=== PATIENT | male | born 1930 | race Caucasian/White ===

== ENCOUNTER 2016-06-06 18:12 | Emergency (ER) | payer MEDICARE ==
[~2016-06-06] VITALS: Ht 162.6 cm; Wt 74.8 kg
[2016-06-06 18:12] VITALS: BP 174/104
[~2016-06-06 18:12] MED LIST: ALPR.25T PO; ALPR0.2550; AMOX500C2 PO; ASP81CT PO; ASP81TEC PO; ASPI-84; ASPI81TA16 PO; AZIT-21 PO; BENZ200C25 PO; CEFD300C3 PO; CEFU500T5 PO; CLOP75TA; CLOP75TA PO; DCS100C PO; DOCU-143 PO; DOCU50CA2 PO; ENAL5TAB; ENAL5TAB PO; FOLI0.4T2 PO; FURO40TA4; FURO40TA4 PO; HYDR-757 PO; LISI10TA PO; LISI40TA PO; METO-272 PO; METO25TA PO; METO50TA7; MTP50T PO; OMEP-10; OMEP-10 PO; OMEP20CA12 PO; OMEP20TA2 PO; PANT20TA PO; PANT40SU PO; POTA10CA43; POTA10CA43 PO; POTA10PI PO; POTA10TA21 PO; RANI150T66; SCR1T1 PO; SIMV20TA3; SIMV20TA3 PO; TRAM50TA2; TRAM50TA2 PO
--- OUTSIDE RECORDS SUMMARY | 2016-06-06 18:16 | XMS REPORT | Continuity of Care Document ---
Author Author [facility] Organization [facility] Address Unknown Phone Unavailable Care Team Providers Care Osteologist Name Role Phone NO, LOCAL PHYSICIAN PCP Unavailable Insurance Providers Payer Name Policy Number Subscriber Name Relationship s Medicare [id number] Shelley Blair 18 Self / Same As Patient Advance Directives Directive Response Recorded Date/Time Advance Directives No 12/19/13 6:13pm Health Care Power of Advanced Manufacturing Associate No 12/19/13 6:13pm Organ Donor No 12/19/13 6:13pm Resuscitation Status Full Code 12/19/13 6:13pm Problems Medical Problems Problem Onset Date Status CHRONIC CHEST WALL/STERNUM PAIN POST CABG Unknown Active Cough with hemoptysis Unknown Active Medications Medication Dose Route Sig Days/Qty Instructions Order Date Discontinued Date Status Alprazolam 04/17/09 10/12/09 Discontinued Tramadol Hcl 04/17/09 10/12/09 Discontinued Furosemide (Lasix) 04/17/09 10/12/09 Discontinued Simvastatin 04/17/09 10/12/09 Discontinued Ranitidine Hcl 04/17/09 10/11/09 Discontinued Metoprolol Succinate 04/17/09 05/06/09 Discontinued Aspirin 04/17/09 05/06/09 Discontinued Enalapril Maleate 05/06/09 10/12/09 Discontinued Omeprazole 05/06/09 10/12/09 Discontinued Potassium Chloride 05/06/09 10/12/09 Discontinued Clopidogrel Bisulfate 05/06/09 10/11/09 Discontinued Metoprolol Succinate 05/06/09 10/11/09 Discontinued Aspirin 81 Mg PO 10/11/09 10/12/09 Discontinued Alprazolam 0.25 Mg PO BEDTIME 10/12/09 Active Aspirin 81 Mg PO DAILY 10/12/09 06/18/10 Discontinued Potassium Chloride 10 Meq PO DAILY 10/12/09 10/12/09 Discontinued Furosemide (Lasix) 40 Mg PO DAILY 10/12/09 10/12/09 Discontinued Omeprazole 20 Mg PO DAILY 10/12/09 10/12/09 Discontinued Simvastatin 20 Mg PO BEDTIME 10/12/09 Active Metoprolol Succinate (Toprol Xl) 25 Mg PO TWICE A DAY 10/12/0906/18 Discontinued Tramadol Hcl 50 Mg PO EVERY 6 HOURS PRN 10/12/09 01/08/12 Discontinued Potassium Chloride (Micro K) 10 Meq PO DAILY 10/12/09 10/12/09 Discontinued Enalapril Maleate 15 Mg PO DAILY 10/12/09 01/08/12 Discontinued Omeprazole 20 Mg PO DAILY 10/12/09 06/19/10 Discontinued Sucralfate 1 Gm PO BEFORE MEALS AND AT BEDTIME 10/12/09 02/28/10 Discontinued Clopidogrel Bisulfate 75 Mg PO DAILY 02/28/10 01/08/12 Discontinued Aspirin 81 Mg PO DAILY 06/18/10 Active Metoprolol Succinate 12.5 Mg PO TWICE A DAY 06/18/10 04/16/13 Discontinued Folic Acid 0.4 Mg PO DAILY 06/18/10 Active Potassium Chloride 10 Meq PO DAILY 06/18/10 01/08/12 Discontinued Furosemide (Lasix) 40 Mg PO DAILY 06/18/10 01/08/12 Discontinued Docusate Sodium 50 Mg PO DAILY PRN 06/18/10 08/08/13 Discontinued Pantoprazole Sodium 40 Mg PO DAILY 06/19/10 01/08/12 Discontinued Cefuroxime Axetil (Ceftin) 1 Each PO TWICE A DAY 5 Days 06/19/1001/07 Discontinued Lisinopril 40 Mg PO DAILY 01/08/12 Active Omeprazole 1 Cap PO DAILY 30 Qty 01/08/12 04/16/13 Discontinued Metoprolol Tartrate (Lopressor) 50 Mg PO DAILY 04/16/13 Active Pantoprazole Sodium 20 Mg PO DAILY 04/16/13 12/19/13 Discontinued Tramadol Hcl 50 Mg PO BEDTIME 04/16/13 12/19/13 Discontinued Hydrocodone Bit/Acetaminophen 1 Ea PO EVERY 6 HOURS PRN MILD PAIN 10 Qty 07/23/13 12/19/13 Discontinued Social History Social History Problem Response Recorded Date/Time Alcohol Use Past History 12/19/2013 6:13pm Recreational Drug Use No 12/19/2013 6:13pm Smoking Status Former Smoker 12/19/2013 6:13pm Query Response Start Date Stop Date Smoking Status Former Smoker Hospital Discharge Instructions No hospital discharge instructions. Plan of Care No plan of care. Functional Status No functional status results. Allergies, Adverse Reactions, Alerts Allergen Type Severity Reaction Status Last Updated No Known Drug Allergies Active 05/07/09 Immunizations Name Given Type Date of Pneumonia Vaccine 01/19/12 Historical Date of Influenza Vaccine 02/18/13 Historical Vital Signs Acute Vital Signs Vital Response Date/Time Temperature (Fahrenheit) 97.4 degrees F (97.6 - 99.5) Temperature (Calculated Celsius) 36.33486 degrees C (36.4 - 37.5) Temperature Source Temporal Pulse Rate (adult) 58 bpm (60 - 90) Respiratory Rate 18 bpm (12 - 24) O2 Sat by Pulse Oximetry 98 % (88 - 100) Blood Pressure 136/94 mm Hg Pain Pain Intensity 0 Height (Feet) 5 feet Height (Inches) 7.00 inches Height (Calculated Centimeters) 170.168122 cm Weight (Pounds) 160 pounds Weight (Calculated Grams) 39964.780 gm Weight (Calculated Kilograms) 72.334783 kilograms Calculated BMI 21.09 Results Test Source Date Result Interp. Ref. Range Comments Activated Partial Thromboplast Time December 19, 2013 7:00pm 39 SEC H 24-35 Alanine Aminotransferase (ALT/SGPT) December 19, 2013 7:00pm 31 U/L N 0 -55 Albumin December 19, 2013 7:00pm 3.8 G/DL N 3.2-4.5 Alkaline Phosphatase December 19, 2013 7:00pm 55 U/L N 40-136 Amylase Level April 18, 2009 2:17pm 38 U/L N 25-115 Comments to Nanoscience Technician: MAY USE BLOOD IN LAB Aspartate Amino Transf (AST/SGOT) December 19, 2013 7:00pm 36 U/L H 5- 34 B-Type Natriuretic Peptide April 18, 2009 3:37am 82.6 PG/ML N 5.0- 100.0 BUN/Creatinine Ratio December 19, 2013 7:00pm 28 - Basophils # (Auto) December 19, 2013 7:00pm 0.0 10^3/uL N 0.0-0.1 Basophils (%) (Auto) December 19, 2013 7:00pm 0 % N 0-10 Blood Urea Nitrogen December 19, 2013 7:00pm 37 MG/DL H 7-18 C-Reactive Protein April 18, 2009 3:37am < 0.2 MG/DL L 0.2-0.9 Calcium Level December 19, 2013 7:00pm 9.6 MG/DL N 8.5-10.1 Carbon Dioxide Level December 19, 2013 7:00pm 21 MMOL/L N 21-32 Chloride Level December 19, 2013 7:00pm 109 MMOL/L H 98-107 Cholesterol Level January 23, 2011 5:58am 110 MG/DL N -200 Creatine Kinase MB April 16, 2013 10:15am 4.2 NG/ML H 0.0-3.6 Creatinine December 19, 2013 7:00pm 1.31 MG/DL H 0.60-1.30 Direct Bilirubin January 06, 2006 8:22am 0.3 MG/DL N 0.0-0.30 Eosinophils # (Auto) December 19, 2013 7:00pm 0.1 10^3/uL N 0.0-0.3 Eosinophils (%) (Auto) December 19, 2013 7:00pm 2 % N 0-10 Free Thyroxine July 10, 2005 8:23am 0.64 NG/DL N 0.59-1.17 Glucose Level December 19, 2013 7:00pm 101 MG/DL N 70-105 HDL Cholesterol January 23, 2011 5:58am 48 MG/DL N 35-60 Hematocrit December 19, 2013 7:00pm 35 % L 40-54 Hemoglobin December 19, 2013 7:00pm 12.3 G/DL L 13.3-17.7 Indirect Bilirubin January 06, 2006 8:22am 0.8 MG/DL - LDL Cholesterol January 23, 2011 5:58am 47 MG/DL N 0-129 Lipase April 18, 2009 2:17pm 178 U/L N 114-286 Comments to Nanoscience Technician: MAY USE BLOOD IN LAB Lymphocytes # (Auto) December 19, 2013 7:00pm 2.8 X 10^3 N 1.0-4.0 Lymphocytes (%) (Auto) December 19, 2013 7:00pm 51 % H 12-44 Magnesium Level April 16, 2013 10:15am 2.2 MG/DL N 1.8-2.4 Mean Corpuscular Hemoglobin December 19, 2013 7:00pm 36 PG H 25-34 Mean Corpuscular Hemoglobin Concent December 19, 2013 7:00pm 35 G/DL N 32-36 Mean Corpuscular Volume December 19, 2013 7:00pm 104 FL H 80-99 Mean Platelet Volume December 19, 2013 7:00pm 9.7 FL N 7.4-10.4 Monocytes # (Auto) December 19, 2013 7:00pm 0.4 X 10^3 N 0.0-1.0 Monocytes (%) (Auto) December 19, 2013 7:00pm 7 % N 0-12 Myoglobin June 23, 2010 7:50am 140 UG/L H 10-92 Neutrophils # (Auto) December 19, 2013 7:00pm 2.3 X 10^3 N 1.8-7.8 Neutrophils (%) (Auto) December 19, 2013 7:00pm 41 % L 42-75 Platelet Count December 19, 2013 7:00pm 117 10^3/uL L 130-400 Potassium Level December 19, 2013 7:00pm 4.8 MMOL/L N 3.6-5.0 Prothromb Time International Ratio June 23, 2010 7:50am 1.0 N 0.8-1.4 INTERPRETIVE DATASUGGESTED THERAPEUTIC RANGE FOR INR'S: VENOUS THROMBOSIS, PULMONARY EMBOLISM, OR PREVENTION OF SYSTEMIC EMBOLISM (EG. IN ATRIAL FIBRILLATION): 2.0 - 3.0 MECHANICAL PROSTHETIC HEART VALVES: 2.5 - 3.5* *NOTE: INR'S UP TO 4.5 MAY BE NECESSARY IN SELECTED GROUPS OF HIGH RISK PATIENTS. [employer] OF CHEST PHYSICIANS CONSENSUS CONFERENCE ON ANTITHROMBOTIC THERAPY (2000). Prothrombin Time December 19, 2013 7:00pm 13.7 SEC N 12.2-14.7 Red Blood Count December 19, 2013 7:00pm 3.38 10^6/uL L 4.35-5.85 Red Cell Distribution Width December 19, 2013 7:00pm 12.8 % N 10.0- 14.5 Sodium Level December 19, 2013 7:00pm 143 MMOL/L N 135-145 Thyroid Stimulating Hormone (TSH) October 12, 2009 3:39am 0.77 UIU/ML N 0.34-5.60 Total Bilirubin December 19, 2013 7:00pm 0.8 MG/DL N 0.1-1.0 Total Creatine Kinase April 16, 2013 10:15am 213 U/L H 1-205 Total Protein December 19, 2013 7:00pm 7.2 G/DL N 6.4-8.2 Triglycerides Level January 23, 2011 5:58am 73 MG/DL N 30.0-150.0 Troponin I April 16, 2013 10:15am < 0.10 NG/ML 0.00-0.10 Urine Amorphous Sediment May 06, 2009 3:25pm RARE AMBERLY URATES H - Has specimen been collected/obtained? YSpecimen Description CLEAN CATCH Urine Bacteria May 06, 2009 3:25pm TRACE - Has specimen been collected/obtained? YSpecimen Description CLEAN CATCH Urine Bilirubin May 06, 2009 3:25pm NEGATIVE - Has specimen been collected/obtained? YSpecimen Description CLEAN CATCH Urine Casts May 06, 2009 3:25pm NONE - Has specimen been collected/obtained? YSpecimen Description CLEAN CATCH Urine Clarity May 06, 2009 3:25pm CLEAR - Has specimen been collected/obtained? YSpecimen Description CLEAN CATCH Urine Color May 06, 2009 3:25pm YELLOW - Has specimen been collected/obtained? YSpecimen Description CLEAN CATCH Urine Crystals May 06, 2009 3:25pm NONE - Has specimen been collected/obtained? YSpecimen Description CLEAN CATCH Urine Culture Indicated May 06, 2009 3:25pm NO - Has specimen been collected/obtained? YSpecimen Description CLEAN CATCH Urine Glucose (UA) May 06, 2009 3:25pm NEGATIVE - Has specimen been collected/obtained? YSpecimen Description CLEAN CATCH Urine Ketones May 06, 2009 3:25pm NEGATIVE - Has specimen been collected/obtained? YSpecimen Description CLEAN CATCH Urine Leukocyte Esterase May 06, 2009 3:25pm NEGATIVE - Has specimen been collected/obtained? YSpecimen Description CLEAN CATCH Urine Mucus May 06, 2009 3:25pm SMALL H - Has specimen been collected/obtained? YSpecimen Description CLEAN CATCH Urine Nitrite May 06, 2009 3:25pm NEGATIVE - Has specimen been collected/obtained? YSpecimen Description CLEAN CATCH Urine Protein May 06, 2009 3:25pm NEGATIVE - Has specimen been collected/obtained? YSpecimen Description CLEAN CATCH Urine RBC May 06, 2009 3:25pm NONE /HPF - Has specimen been collected/obtained? YSpecimen Description CLEAN CATCH Urine Specific [place] May 06, 2009 3:25pm 1.015 L - Has specimen been collected/obtained? YSpecimen Description CLEAN CATCH Urine Squamous Epithelial Cells May 06, 2009 3:25pm RARE - Has specimen been collected/obtained? YSpecimen Description CLEAN CATCH Urine Urobilinogen May 06, 2009 3:25pm NORMAL MG/DL - Has specimen been collected/obtained? YSpecimen Description CLEAN CATCH Urine WBC May 06, 2009 3:25pm RARE /HPF - Has specimen been collected/obtained? YSpecimen Description CLEAN CATCH Urine pH May 06, 2009 3:25pm 6.5 - Has specimen been collected/ obtained? YSpecimen Description CLEAN CATCH VLDL Cholesterol January 23, 2011 5:58am 15 MG/DL N 5-40 White Blood Count December 19, 2013 7:00pm 5.6 10^3/uL N 4.3-11.0 Pathology Consult Specimen August 04, 2005 12:56am See report - Has specimen been collected/obtained? Y Pro-B-Type Natriuretic Peptide April 16, 2013 10:15am 245.6 PG/ML N - 450 Lab Scanned Report June 23, 2010 7:23am Referred Lab Report [id number] - Estimat Glomerular Filtration Rate December 19, 2013 7:00pm 52 - GFR INTERPRETIVE DATA UNITS FOR ESTIMATED GFR (eGFR): mL/min/1.73 M2 REFERENCE RANGE FOR ESTIMATED GFR (eGFR) eGFR NORMAL eGFR >60 MODERATELY DECREASED eGFR 30-59 SEVERLY DECREASED eGFR 15-29 KIDNEY FAILURE <15 (OR DIALYSIS) Creatine Kinase June 23, 2010 7:50am 144 mg/dl N 21-170 Cardiac Panel Pathologist Review June 23, 2010 7:50am SEE CARDIAC PATH REV - Urine RBC (Auto) May 06, 2009 3:25pm NEGATIVE - Has specimen been collected/obtained? YSpecimen Description CLEAN CATCH INR Comment December 19, 2013 7:00pm 1.1 N 0.8-1.4 INTERPRETIVE DATASUGGESTED THERAPEUTIC RANGE FOR INR'S: VENOUS THROMBOSIS, PULMONARY EMBOLISM, OR PREVENTION OF SYSTEMIC EMBOLISM (EG. IN ATRIAL FIBRILLATION): 2.0 - 3.0 MECHANICAL PROSTHETIC HEART VALVES: 2.5 - 3.5* *NOTE: INR'S UP TO 4.5 MAY BE NECESSARY IN SELECTED GROUPS OF HIGH RISK PATIENTS. [employer] CHEST PHYSICIANS CONSENSUS CONFERENCE ON ANTITHROMBOTIC THERAPY (2000). MRSA Screen Nasal August 08, 2013 2:05pm MRSA not isolated Procedures No known history of procedures. Encounters Encounter Location Date/Time Departed Emergency Room Via [facility] 12/19/13 5:53pm Recent Diagnosis
[2016-06-06] MEDS ORDERED: ASPIRIN 81 MG CHEW (CHILDREN'S ASA) PO ONE (18:30)
[2016-06-06] MEDS ORDERED: RX-NITROGLYCERIN 0.4 MG TAB BTL 25'S SL PRN (18:30)
[2016-06-06 18:34] LABS: BASOPHILS % (AUTO) 0 % (0-10); EOSINOPHILS # (AUTO) 0.1 10^3/uL (0.0-0.3); EOSINOPHILS % (AUTO) 1 % (0-10); LYMPHOCYTES # (AUTO) 3.6 X 10^3 (1.0-4.0); LYMPHOCYTES % (AUTO) 61 % (12-44); MEAN CORPUSCULAR HEMOGLOBIN 36 PG (25-34); MEAN CORPUSCULAR HGB CONC 34 G/DL (32-36); MEAN CORPUSCULAR VOLUME 104 FL (80-99); MEAN PLATELET VOLUME 10.1 FL (7.4-10.4); MONOCYTES # (AUTO) 0.4 X 10^3 (0.0-1.0); MONOCYTES % (AUTO) 6 % (0-12); NEUTROPHILS # (AUTO) 1.9 X 10^3 (1.8-7.8); NEUTROPHILS % (AUTO) 31 % (42-75); PLATELET COUNT 120 10^3/uL (130-400); RED BLOOD COUNT 3.79 10^6/uL (4.35-5.85); RED CELL DISTRIBUTION WIDTH 13.7 % (10.0-14.5); WHITE BLOOD COUNT 5.9 10^3/uL (4.3-11.0)
--- NOTE | 2016-06-06 18:51 | Diagnostic Imaging Report ---
Clinical indication: Patient complains of chest pain. Exam: Portable chest x-ray, upright view. Comparison: Chest x-ray dated 01/14/2016. Findings: There is stable low lung volumes and elevation of the right hemidiaphragm. There is suspected bibasilar atelectasis. There is no pneumothorax or pleural effusion. Pulmonary vasculature and cardiac silhouette are within normal limits. Stable postop changes to the chest consistent with CABG. Stable cardiac pacemaker overlying the left chest. The remainder of this exam shows no significant interval change compared to the prior study of comparison. Impression: 1: Stable chest x-ray exam with low lung volumes and suspected bibasilar atelectasis. Stable elevation of the right hemidiaphragm. 2: Stable postop changes to the chest. Dictated by: Dictated on workstation # [id number]
[2016-06-06] MEDS ORDERED: KETOROLAC 30 MG/ML VIAL IVP STA (18:55)
[2016-06-06 18:56] LABS: ALANINE AMINOTRANSFERASE 23 U/L (0-55); AMYLASE 37 U/L (25-125); ANION GAP 11 MMOL/L (5-14); ASPARTATE AMINO TRANSFERASE 29 U/L (5-34); BILIRUBIN,TOTAL 0.7 MG/DL (0.1-1.0); BLOOD UREA NITROGEN 13 MG/DL (7-18); BUN/CREATININE RATIO 13; CALCIUM 8.8 MG/DL (8.5-10.1); CARBON DIOXIDE 24 MMOL/L (21-32); CHLORIDE 105 MMOL/L (98-107); CREATINE KINASE 95 U/L (30-200); CREATININE SERUM 1.01 MG/DL (0.60-1.30); GFR ESTIMATED > 60; GLUCOSE 142 MG/DL (70-105); LIPASE 26 U/L (8-78); MAGNESIUM 2.1 MG/DL (1.8-2.4); POTASSIUM 4.1 MMOL/L (3.6-5.0); SODIUM 140 MMOL/L (135-145); TOTAL PROTEIN 7.1 G/DL (6.4-8.2)
[2016-06-06 19:02] LABS: TROPONIN I < 0.30 NG/ML (<0.30)
--- NOTE | 2016-06-06 19:03 | ED Chest Pain ---
General Chief Complaint: Chest Pain Stated Complaint: CP Nursing Triage Note: AMBUALTED TO ROOM 07 WITH COMPLAINTS OF RIGHT SIDED CHEST PAIN THAT STARTED EARLIER TODAY AND HAS BECAME WORSE OVER THE LAST HOUR. PT POINTS TO A AREA ON THE RIGHT SIDE OF HIS CHEST THAT IS RED. Nursing Sepsis Screen: No Definite Risk Source: patient History of Present Illness Time seen by provider: 18:18 Initial Comments PT ARRIVES VIA POV FROM HOME C/O RIGHT CHEST PAIN ALL DAY, WORSE X 1 HOUR C/O SHORTNESS OF BREATH AND IT HURTS TO BREATHE + SWEATS + NAUSEA, NO VOMITING HAS NON-PRODUCTIVE COUGH HAS A RED SPOT ON RIGHT CHEST THAT IS MAIN AREA OF PAIN PT HAS HISTORY OF CAD AND HAS HAD CABG AND HAS A PACEMAKER PCP: ALON IN [place] TIP TESTER: DR. GUADALUPE--HAS A ROUTINE APPOINTMENT ON THURSDAY AT 10 AM Allergies and Home Medications Allergies Coded Allergies: No Known Drug Allergies (Verified , 02/15/14) Home Medications Alprazolam 0.25 Mg Tablet 0.25 MG PO TID PRN PRN ANXIETY (Reported) Aspirin 81 Mg Tabec 81 MG PO DAILY (Reported) Docusate Sodium 100 Mg Capsule 100 MG PO DAILY PRN PRN CONSTIPATION (Reported) Folic Acid 0.4 Mg Tablet 0.4 MG PO DAILY (Reported) Lisinopril 40 Mg Tablet 20 MG PO DAILY (Reported) TAKE 1/2 (40MG) TABLET Metoprolol Tartrate 50 Mg Tablet 25 MG PO BID (Reported) TAKES 1/2 (50MG) TABLET Pantoprazole Sodium 20 Mg Tablet.dr 20 MG PO DAILY (Reported) Simvastatin 20 Mg Tablet 10 MG PO HS (Reported) TAKE 1/2 (20MG) TABLET Review of Systems Constitutional: diaphoresisNo fever EENTM: No Symptoms Reported Respiratory: See HPI Cough Shortness of Air Cardiovascular: See HPI Chest PainDenies Edema, Denies Lightheadedness, Denies Syncope Gastrointestinal: See HPIDenies Abdominal Pain, NauseaDenies Vomiting Genitourinary: No Symptoms Reported Musculoskeletal: no symptoms reported Skin: see HPI rash Psychiatric/Neurological: No Symptoms Reported Endocrine: No Symptoms Reported Hematologic/Lymphatic: No Symptoms Reported Past [id number]-[id number] Hx Patient Social History Former Smoker/When Quit: May 06, 1982 Recent Foreign Travel: No Contact w/Someone Who Travel: No Recent Infectious Disease Expo: No Recent Hopitalizations: Yes Immunizations Up To Date Date of Pneumonia Vaccine: Jan 19, 2012 Date of Influenza Vaccine: Mar 01, 2014 Seasonal Allergies Seasonal Allergies: No Surgeries HX Surgeries: Yes (HIATAL HERNIA) Surgeries: Abdominal, Cardiac, CABG, Pacemaker Respiratory Hx Respiratory Disorders: Yes Respiratory Disorders: Pneumonia Cardiovascular Hx Cardiac Disorders: Yes (PACEMAKER, TRIPLE BYPASS) Cardiac Disorders: Chronic Edema/Swelling, Coronary Artery Disease, Heart Attack, High Cholesterol, Hypertension, Irregular Heartbeat Neurological Hx Neurological Disorders: No Reproductive System Hx Reproductive Disorders: No Sexually Transmitted Disease: No HIV/AIDS: No Genitourinary Hx Genitourinary Disorders: No Gastrointestinal Hx Gastrointestinal Disorders: Yes Gastrointestinal Disorders: Gastroesophageal Reflux, Hiatal Hernia Musculoskeletal Hx Musculoskeletal Disorders: Yes Musculoskeletal Disorders: Arthritis Endocrine Hx Endocrine Disorders: No HEENT HX ENT Disorders: No (NO TEETH) Loss of Vision: Denies Hearing Impairment: Denies Cancer Hx Cancer: No Psychosocial Hx Psychiatric Problems: Yes Behavioral Health Disorders: Anxiety Integumentary HX Skin/Integumentary Disorder: No Blood Transfusions Hx Blood Disorders: No Adverse Reaction to a Blood Tr: No Physical Exam Vital Signs Vital Sign - Last 12Hours 06/06/16 06/06/16 18:12 18:31 Temp 97.8 Pulse 69 Resp 16 B/P 174/104 Pulse Ox 99 O2 Delivery Room Air O2 Flow Rate 2 Capillary Refill : Less Than 3 Seconds General Appearance: No Apparent Distress WD/WN HEENT: PERRL/EOMI Other (EDENTULOUS) Neck: Full Range of Motion Normal Inspection Non Tender SuppleNo Carotid Bruit , No JVD Respiratory: No Accessory Muscle Use No Respiratory Distress Other (BOWEL SOUNDS AUSCULTATED IN RIGHT MID AND LOWER CHEST. FAINT RALES IN LEFT BASE. RIGHT CHEST WALL TENDERNESS, ESPECIALLY DIRECTLY OVER A GUERO-SIZED AREA OF ERYTHEMA AND PAPULES ) Cardiovascular: No Edema No JVD Normal Peripheral Pulses Systolic Murmur (1/6 ) Irregularly Irregular Gastrointestinal: No Organomegaly No Pulsatile Mass Non Tender Soft Extremity: Normal Capillary Refill Normal Inspection Normal Range of Motion Non Tender No Calf Tenderness Pedal Edema (1+ BILATERALLY) Neurologic/Psychiatric: Alert Oriented x3 No Motor/Sensory Deficits Normal Mood/Affect sausage stuffer II-XII Norm as Tested Skin: Normal Color Warm/Dry Rash ( NOTED ABOVE. ) Progress/Results/Core Measures Results/Orders Lab Results Laboratory Tests Test 06/06/16 18:26 Range/Units Activated Partial Thromboplast Time 36 H 24-35 SEC Alanine Aminotransferase (ALT/SGPT) 23 0-55 U/L Albumin 4.0 3.2-4.5 G/DL Alkaline Phosphatase 81 40-136 U/L Amylase Level 37 25-125 U/L Anion Gap 11 5-14 MMOL/L Aspartate Amino Transf (AST/SGOT) 29 5-34 U/L B-Type Natriuretic Peptide 190.3 H <100.0 PG/ML BUN/Creatinine Ratio 13 Basophils # (Auto) 0.0 0.0-0.1 10^3/uL Basophils (%) (Auto) 0 0-10 % Blood Urea Nitrogen 13 7-18 MG/DL Calcium Level 8.8 8.5-10.1 MG/DL Carbon Dioxide Level 24 21-32 MMOL/L Chloride Level 105 98-107 MMOL/L Creatine Kinase MB 3.7 <6.6 NG/ML Creatinine 1.01 0.60-1.30 MG/DL Eosinophils # (Auto) 0.1 0.0-0.3 10^3/uL Eosinophils (%) (Auto) 1 0-10 % Estimat Glomerular Filtration Rate > 60 Glucose Level 142 H 70-105 MG/DL Hematocrit 40 40-54 % Hemoglobin 13.6 13.3-17.7 G/DL INR Comment 1.0 0.8-1.4 Lipase 26 8-78 U/L Lymphocytes # (Auto) 3.6 1.0-4.0 X 10^3 Lymphocytes (%) (Auto) 61 H 12-44 % Magnesium Level 2.1 1.8-2.4 MG/DL Mean Corpuscular Hemoglobin 36 H 25-34 PG Mean Corpuscular Hemoglobin Concent 34 32-36 G/DL Mean Corpuscular Volume 104 H 80-99 FL Mean Platelet Volume 10.1 7.4-10.4 FL Monocytes # (Auto) 0.4 0.0-1.0 X 10^3 Monocytes (%) (Auto) 6 0-12 % Neutrophils # (Auto) 1.9 1.8-7.8 X 10^3 Neutrophils (%) (Auto) 31 L 42-75 % Platelet Count 120 L 130-400 10^3/uL Potassium Level 4.1 3.6-5.0 MMOL/L Prothrombin Time 13.0 12.2-14.7 SEC Red Blood Count 3.79 L 4.35-5.85 10^6/uL Red Cell Distribution Width 13.7 10.0-14.5 % Sodium Level 140 135-145 MMOL/L Total Bilirubin 0.7 0.1-1.0 MG/DL Total Creatine Kinase 95 30-200 U/L Total Protein 7.1 6.4-8.2 G/DL Troponin I < 0.30 <0.30 NG/ML White Blood Count 5.9 4.3-11.0 10^3/uL My Orders Orders-NORAH HENRIQUEZ DO Amylase (06/06/16 18:19) Cbc With Automated Diff (06/06/16 18:19) Comprehensive Metabolic Panel (06/06/16 18:19) Creatine Kinase (06/06/16 18:19) Creatine Kinase Mb (06/06/16 18:19) Lipase (06/06/16 18:19) Partial Thromboplastin Time (06/06/16 18:19) Protime With Inr (06/06/16 18:19) Troponin I (06/06/16 18:19) Chest 1 View, Ap/Pa Only (06/06/16 18:19) O2 (06/06/16 18:19) Ekg Tracing (06/06/16 18:19) Aspirin Chewable Tablet (Baby Aspirin Ch (06/06/16 18:30) Rx-Nitroglycerin Sl Tabs (Rx-Nitrostat S (06/06/16 18:30) BNP (06/06/16 18:19) Monitor-Rhythm Ecg Trace Only (06/06/16 18:19) Magnesium (06/06/16 18:19) Ketorolac Injection (Toradol Injection) (06/06/16 18:55) Medications Given in ED Current Medications Medications Dose Ordered Sig/Emigdio Route Start Time Stop Time Status Last Admin Dose Admin Aspirin 324 mg ONCE ONCE PO 06/06/16 18:30 06/06/16 18:31 DC 06/06/16 18:35 324 MG Nitroglycerin 0.4 mg UD PRN SL 06/06/16 18:30 06/06/16 19:31 DC 06/06/16 18:36 0.4 MG Vital Signs/I&O Vital Sign - Last 12Hours 06/06/16 06/06/16 18:12 18:31 Temp 97.8 Pulse 69 Resp 16 B/P 174/104 Pulse Ox 99 O2 Delivery Room Air Nasal Cannula O2 Flow Rate 2 Blood Pressure Mean: 127 Progress Note : Progress Note PAIN RESOLVED ON IT'S OWN PT ADAMANTLY REFUSES ADMIT --PT STATES "IF I GO HOME AND , THEN I GO HOME AND " . AMA PAPERS SIGNED. PT ADVISED OF NEED FOR FOLLOW UP AND TO RETURN TO ER IF SYMPTOMS WORSEN ECG Initial ECG Impression Time: 18:22 Initial ECG Rate: 86 Comment DEMAND VENTRICULAR PACED. Diagnostic Imaging Comments CXR--BIBASILAR ATELECTASIS, CHRONIC ELEVATION OF RIGHT DIAPHRAGM. PER RADIOLOGIST REPORT @ 1900 Reviewed: Reviewed by Me Departure Impression Impression: Primary Impression: Chest pain Additional Impressions: POSSIBLE EARLY HERPES ZOSTER Hx of coronary artery disease Disposition: 07 AGAINST MEDICAL ADVICE Condition: Against Medical Advice Departure-Patient Inst. Referrals: NO,LOCAL PHYSICIAN (PCP/Family) Primary Care Physician NORAH HENRIQUEZ DO Jun 06, 2016 19:03
== END 2016-06-06 19:30 | disposition left against medical advice (07) ==
LOC: EDUNIT# 18:12 → ER 18:13
DX: R07.9 Chest pain, unspecified (principal); I10 Essential (primary) hypertension; I25.10 Atherosclerotic heart disease of native coronary artery without angina pectoris; Z79.82 Long term (current) use of aspirin; Z79.899 Other long term (current) drug therapy; Z95.0 Presence of cardiac pacemaker; Z95.1 Presence of aortocoronary bypass graft
CPT/HCPCS: 36415; 71010; 80053; 82150; 82550; 82553; 83690; 83735; 83880; 84484; 85025; 85610; 85730; 93005; 93041; 96374

== ENCOUNTER → 2016-06-17 | Outpatient (CLI) | payer MEDICARE ==
[~2016-06-17] VITALS: Ht 170.2 cm; Wt 74.4 kg
[~2016-06-17] MED LIST changes: +CATHETER FLUSH 10 ML SYR IV PRN; +REGADENOSON 0.4 MG/5 ML SYR (LEXISCAN) IV ONE
--- OUTSIDE RECORDS SUMMARY | 2016-06-17 07:20 | XMS REPORT | Continuity of Care Document ---
Author Author [facility] Organization [facility] Address Unknown Phone Unavailable Care Team Providers Care Vest Tailor Name Role Phone NO, LOCAL PHYSICIAN PCP Unavailable Insurance Providers Payer Name Policy Number Subscriber Name Relationship s Medicare [id number] Shelley Blair 18 Self / Same As Patient Advance Directives Directive Response Recorded Date/Time Advance Directives No 12/19/13 6:13pm Health Care Power of Power Chisel Operator No 12/19/13 6:13pm Organ Donor No 12/19/13 [...] F (97.6 - 99.5) Temperature (Calculated Celsius) 36.54561 degrees C (36.4 - 37.5) Temperature Source Temporal Pulse Rate (adult) 58 bpm (60 - 90) Respiratory Rate 18 bpm (12 - 24) O2 Sat by Pulse Oximetry 98 % (88 - 100) Blood Pressure 136/94 mm Hg Pain Pain Intensity 0 Height (Feet) 5 feet Height (Inches) 7.00 inches Height (Calculated Centimeters) 170.282773 cm Weight (Pounds) 160 pounds Weight (Calculated Grams) 13859.780 gm Weight (Calculated Kilograms) 72.142963 kilograms Calculated BMI 21.09 Results Test Source [...] 2:17pm 38 U/L N 25-115 Comments to Cosmetology Teacher: MAY USE BLOOD IN LAB Aspartate Amino [...] 2:17pm 178 U/L N 114-286 Comments to Cosmetology Teacher: MAY USE BLOOD IN LAB Lymphocytes # [...] SELECTED GROUPS OF HIGH RISK PATIENTS. [employer]ST PH[employer]ICI[employer] CONSENSUS CONFERENCE ON [...] collected/obtained? YSpecimen Description CLEAN CATCH Urine Specific [place] May 06, 2009 3:25pm 1.015 L - [...] June 23, 2010 7:23am Referred Lab Report [id number] - Estimat Glomerular Filtration Rate December 19, [...] SELECTED GROUPS OF HIGH RISK PATIENTS. [employer] CHEST PHYSICIANS CONSENSUS CONFERENCE ON ANTITHROMBOTIC THERAPY (2000). MRSA Screen Nasal August 08, 2013 2:05pm MRSA not isolated Procedures No known history of procedures. Encounters Encounter Location Date/Time Departed Emergency Room Via [facility] 12/19/13 5:53pm Recent Diagnosis
[2016-06-17 09:09] VITALS: BP 122/72
[2016-06-17 09:11] VITALS: BP 140/105
--- NOTE | 2016-06-18 09:59 | STRESS TEST ---
PROCEDURE PHYSICIAN: DENITA SHARMA DATE OF PROCEDURE: 06/17/2016 RESTING AND POST REGADENOSON TECHNETIUM 99M TETROFOSMIN SPECT CT IMAGING: ORDERING PHYSICIAN: Dr. Sharma. CLINICAL DIAGNOSES: 1. Chest discomfort. 2. Coronary artery disease. Baseline images were carried out after injection of 10.59 mCi of technetium 99 tetrofosmin. This was followed by 0.4 mg of regadenoson and 30.9 mCi of technetium 99m tetrofosmin for stress imaging. The electrocardiogram showed sinus rhythm with frequent isolated premature ventricular contractions, sometimes in the bigeminy. The electrocardiogram did not change with the regadenoson infusion. The patient tolerated the procedure well. Review of images rest and following stress, does not indicate any distinct perfusion defects consistent with significant myocardial ischemia or infarction. Some degree of diaphragmatic attenuation is seen both at rest and following regadenoson infusion. Gating could not be carried out due to frequent premature ventricular contractions. CONCLUSIONS: 1. This study does not indicate evidence of significant myocardial ischemia or infarction. 2. Gating could not be carried out due to frequent premature ventricular contractions. Job ID: [id number] Dictated Date: 06/17/2016 16:09:41 Operations Tech Date: 06/18/2016 09:56:18 / kelli
== END ==
LOC: CARD 07:16
PROVIDERS: ATTEND Internal Medicine Cardiovascular Disease
DX: I25.10 Atherosclerotic heart disease of native coronary artery without angina pectoris (principal); R07.89 Other chest pain; I65.23 Occlusion and stenosis of bilateral carotid arteries; I12.9 Hypertensive chronic kidney disease with stage 1 through stage 4 chronic kidney disease, or unspecified chronic kidney disease; N18.9 Chronic kidney disease, unspecified; E78.4 Other hyperlipidemia; Z95.0 Presence of cardiac pacemaker

== ENCOUNTER 2016-11-12 08:50 | Outpatient (RCR) | payer MEDICARE ==
[~2016-11-12 08:50] MED LIST changes: -CATHETER FLUSH 10 ML SYR IV PRN; -REGADENOSON 0.4 MG/5 ML SYR (LEXISCAN) IV ONE
[2016-12-09] MEDS ORDERED: ALPR0.25 PO (09:42)
[2016-12-09] MEDS ORDERED: CEFU250T80 PO (14:06)
== END 2017-01-17 | disposition home or self-care (01) ==
LOC: ONC 08:50
PROVIDERS: ATTEND Internal Medicine Hematology & Oncology
DX: C43.4 Malignant melanoma of scalp and neck (principal); C44.619 Basal cell carcinoma of skin of left upper limb, including shoulder; I25.10 Atherosclerotic heart disease of native coronary artery without angina pectoris; I10 Essential (primary) hypertension; E78.5 Hyperlipidemia, unspecified; M54.9 Dorsalgia, unspecified; F41.9 Anxiety disorder, unspecified; F17.210 Nicotine dependence, cigarettes, uncomplicated; Z95.0 Presence of cardiac pacemaker; Z95.1 Presence of aortocoronary bypass graft; Z99.3 Dependence on wheelchair
CPT/HCPCS: 99214

== ENCOUNTER → 2016-11-20 | Outpatient (CLI) | payer MEDICARE ==
[2016-11-20 07:35] LABS: ALANINE AMINOTRANSFERASE 23 U/L (0-55); ALBUMIN 3.9 GM/DL (3.2-4.5); ANION GAP 8 MMOL/L (5-14); ASPARTATE AMINO TRANSFERASE 26 U/L (5-34); BILIRUBIN,TOTAL 1.8 MG/DL (0.1-1.0); BLOOD UREA NITROGEN 16 MG/DL (7-18); BUN/CREATININE RATIO 19; CALCIUM 9.5 MG/DL (8.5-10.1); CARBON DIOXIDE 26 MMOL/L (21-32); CHLORIDE 106 MMOL/L (98-107); CHOLESTEROL 109 MG/DL (< 200); CREATININE SERUM 0.85 MG/DL (0.60-1.30); DIRECT LDL 54 MG/DL (1-129); GFR ESTIMATED > 60; GLUCOSE 110 MG/DL (70-105); MAGNESIUM 1.7 MG/DL (1.8-2.4); POTASSIUM 4.3 MMOL/L (3.6-5.0); SODIUM 140 MMOL/L (135-145); TOTAL PROTEIN 7.1 GM/DL (6.4-8.2); TRIGLYCERIDES 70 MG/DL (<150); VLDL CHOLESTEROL 14 MG/DL (5-40)
[2016-11-20 07:55] LABS: THYROID STIMULATING HORMONE 1.46 UIU/ML (0.35-4.94)
== END ==
LOC: LAB 06:59
PROVIDERS: ATTEND Internal Medicine Cardiovascular Disease
DX: I25.10 Atherosclerotic heart disease of native coronary artery without angina pectoris (principal); E78.4 Other hyperlipidemia; I65.23 Occlusion and stenosis of bilateral carotid arteries; K21.9 Gastro-esophageal reflux disease without esophagitis; I12.9 Hypertensive chronic kidney disease with stage 1 through stage 4 chronic kidney disease, or unspecified chronic kidney disease; N18.9 Chronic kidney disease, unspecified; Z95.0 Presence of cardiac pacemaker
CPT/HCPCS: 36415; 80053; 80061; 83735; 84443

== ENCOUNTER 2016-12-09 08:41 | Day surgery (SDC) | payer MEDICARE ==
[~2016-12-09] VITALS: Ht 170.2 cm; Wt 63.5 kg
[~2016-12-09 08:41] MED LIST changes: +HEParin (CATH LAB) 1,000 ML IV ONE; +NS IV 1000 ML 1,000 ML ONE; +ceFAZolin 1,000 MG (ANCEF) VIAL ONE
[2016-12-09] MEDS ORDERED: BACITRACIN INJECTION 50,000 UNIT, SODIUM CHLORIDE 0.9% IRRIGATIO 500 ML IR ONE ×2 (09:00)
[2016-12-09] MEDS ORDERED: ceFAZolin 1,000 MG (ANCEF) VIAL IV ONE (09:00)
[2016-12-09 09:22] LABS: MEAN PLATELET VOLUME 10.3 FL (7.4-10.4); RED BLOOD COUNT 3.95 10^6/uL (4.35-5.85); RED CELL DISTRIBUTION WIDTH 13.7 % (10.0-14.5); WHITE BLOOD COUNT 4.1 10^3/uL (4.3-11.0)
[2016-12-09] MEDS ORDERED: NS IV 1000 ML 1,000 ML IV SCH ×2 (09:30→14:01)
[2016-12-09 09:39] LABS: PROTHROMBIN TIME PATIENT 13.3 SEC (12.2-14.7)
[2016-12-09] MEDS ORDERED: ALPR0.25 PO (09:42)
[2016-12-09 09:48] LABS: ALANINE AMINOTRANSFERASE 27 U/L (0-55); ANION GAP 10 MMOL/L (5-14); ASPARTATE AMINO TRANSFERASE 32 U/L (5-34); BILIRUBIN,TOTAL 1.9 MG/DL (0.1-1.0); BLOOD UREA NITROGEN 13 MG/DL (7-18); BUN/CREATININE RATIO 15; CALCIUM 9.3 MG/DL (8.5-10.1); CARBON DIOXIDE 25 MMOL/L (21-32); CHLORIDE 106 MMOL/L (98-107); CHOLESTEROL 110 MG/DL (< 200); CREATININE SERUM 0.88 MG/DL (0.60-1.30); DIRECT LDL 54 MG/DL (1-129); GFR ESTIMATED > 60; GLUCOSE 114 MG/DL (70-105); POTASSIUM 3.4 MMOL/L (3.6-5.0); SODIUM 141 MMOL/L (135-145); TOTAL PROTEIN 7.1 GM/DL (6.4-8.2); TRIGLYCERIDES 74 MG/DL (<150); VLDL CHOLESTEROL 15 MG/DL (5-40)
[2016-12-09] MEDS ORDERED: diphenhydrAMINE 50 MG/ML INJ (BENADRYL) ONE (12:41)
[2016-12-09] MEDS ORDERED: MIDAZOLAM 5 MG/5 ML (VERSED) VIAL ONE (12:41)
[2016-12-09] MEDS ORDERED: fentaNYL INJECTION 100 MCG/2 ML AMP ONE (12:41)
--- NOTE | 2016-12-09 12:57 | Cardiac Procedure Note-CS/ASA ---
Pre-Procedure Note Pre-Op Procedure Note H&P Reviewed The H&P was reviewed, patient examined and no changes noted. Date H&P Reviewed: Dec 09, 2016 Time H&P Reviewed: 12:57 Conscious Sedation Pre-Proced Time Reviewed: 12:57 ASA Class: 2 Airway Mallampati Classification: ([place] appropriate class) I. II. III, IV Lungs Heart ASA score ASA 1: a normal healthy patient ASA 2: a patient with a mild systemic disease (mid diabetes, controlled hypertension, obesity ASA 3: a patient with a severe systemic disease that limits activity (angina , COPD, prior Myocardial infarction) ASA 4: a patient with an incapacitating disease that is a constant threat to life (CHF, renal failure) ASA 5: a moribund patient not expected to survive 24 hrs. (ruptured aneurysm) ASA 6: a declared brain patient whose organs are being harvested. For emergent operations, add the letter E after the classification Grade 2 Sedation Plan: Analgesia, Amnesia, Plan communicated to team members, Discussed options with patient/fam, Discussed risks with patient/fam Note The patient is an appropriate candidate to undergo the planned procedure, sedation, and anesthesia. The patient immediately re-assessed prior to indication. DENITA GUADALUPE MD FACP FAC CCDS Dec 09, 2016 12:57
[2016-12-09] MEDS ORDERED: NEO/POLY/BAC (NEOSPORIN) OINT 15 GM TUBE ONE (13:59)
[2016-12-09] MEDS ORDERED: CEFU250T80 PO (14:06)
--- NOTE | 2016-12-09 14:09 | Discharge Inst-Post Device ---
Discharge Inst-Post Device Follow up/Plan Follow up for wound inspection with Dr Sharma on 12/12/[address] Sharma for office visit and pacemaker interrogation in Dec 2016 Heart Healthy Diet Do not lift arm on side of device placement above head for 4 weeks. Do not push and pull heavy objects for 4 weeks. Activity as tolerated. Leave dressing on until follow up at the office. DENITA SHARMA MD FACP FAC CCDS Dec 09, 2016 14:09
--- NOTE | 2016-12-09 14:10 | Discharge Inst-Cardiology ---
Discharge Inst-Cardiac Discharge Medications New Medications: Cefuroxime Axetil (Cefuroxime) 250 Mg Tablet 250 MG PO BID, #10 TAB 0 Refills Continued Medications: Alprazolam (Xanax) 0.25 Mg Tablet 0.25 MG PO HS, TAB Alprazolam (Xanax) 0.25 Mg Tablet 0.25 MG PO BID PRN for ANXIETY, TAB Aspirin (Aspirin Ec 81 Mg) 81 Mg Tabec 81 MG PO DAILY, TAB Docusate Sodium (Colace) 100 Mg Capsule 100 MG PO DAILY PRN for CONSTIPATION-1ST LINE, CAP Folic Acid (Folic Acid) 0.4 Mg Tablet 0.4 MG PO DAILY, TAB Lisinopril (Prinivil) 40 Mg Tablet 20 MG PO DAILY, TAB TAKE 1/2 (40MG) TABLET Pantoprazole Sodium (Pantoprazole Sodium) 20 Mg Tablet.dr 20 MG PO DAILY, TAB Simvastatin (Simvastatin) 20 Mg Tablet 10 MG PO HS, TAB TAKE 1/2 (20MG) TABLET DENITA GUADALUPE MD FACP FAC CCDS Dec 09, 2016 14:10
[2016-12-09] MEDS ORDERED: PATIENT MAY USE OWN MEDS, ALL PO SCH (14:15)
[2016-12-09 14:28] VITALS: BP 179/84
[2016-12-09 15:00] VITALS: BP 126/91
[2016-12-09 16:00] VITALS: BP 156/95
--- NOTE | 2016-12-09 18:13 | Diagnostic Imaging Report ---
INDICATION: Pacemaker revision. TECHNIQUE: Single view chest 3:35 PM. CORRELATION STUDY: 06/06/2016 FINDINGS: There has been apparent revision of the generator pack. Leads appears generally stable. Patient is poststernotomy. Heart size is enlarged and there is mild pulmonary vascular congestion. There is overall limited depth of inspiration with some crowding of the lung bases. No definitive infiltrate. No pneumothorax. IMPRESSION: 1. Left-sided pacemaker generator revision. Cardiac enlargement with mild pulmonary vascular congestion. Dictated by: Dictated on workstation # [id number]
--- NOTE | 2016-12-17 22:54 | OPERATIVE REPORT ---
DATE OF SERVICE: 12/09/2016 PREOPERATIVE DIAGNOSIS: Pacemaker at end of life. POSTOPERATIVE DIAGNOSIS: Pacemaker at end of life. PROCEDURE: Dual chamber pulse generator change. ESTIMATED BLOOD LOSS: Less than 15 mL. 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 The pulse generator was changed today after having obtained an informed consent. He was brought to the cardiac catheterization laboratory in a fasting state. The left peripectoral area which is the site of previous pacemaker implant. The patient was prepared and draped in the usual sterile fashion. Lidocaine 1% local anesthesia. Sharp and blunt dissection was used to open the pacemaker pocket. Good hemostasis was assured. The pacemaker was removed from the packet and detached from the leads. The leads were functioning normally. He received a new [employer] pacemaker with serial #[id number]. The device was functioning normally. P-wave amplitude is 3.1 mmol. Atrial pacing impedance is normal. Atrial pacing threshold is 1 volt at 0.4 msec. R-wave amplitude is 88.5 mV. Ventricular pacing impedance is 460 ohms. Ventricular pacing threshold is 0.9 volts at 0.4 msec. The pocket was thoroughly irrigated with an antibiotic solution. Good hemostasis was assured. The lead and the new pacemaker were placed in the pocket and the pocket was closed in 2 layers using 3.0 Vicryl. He tolerated the procedure well. Job ID: [id number] DocumentID: [id number] Dictated Date: 12/09/2016 14:18:57 Wellness Specialist Date: 12/09/2016 16:44:48 Dictated By: DENITA GUADALUPE MD, MARY, FACEster, FACC, <Dictated by DENITA GUADALUPE MD, MA, PEACE, KATHERINE, FSCKIT, CCDS> <Electronically signed by DENITA GUADALUPE MD, MA, PEACE, KATHERINE, FSCKIT, CCDS> 12/09/16 [id number]
== END 2016-12-09 17:45 | disposition home or self-care (01) ==
LOC: CATH 08:41 → ICU 14:45 → CATH 17:45
PROVIDERS: ATTEND Nurse Practitioner Family
DX: Z45.010 Encounter for checking and testing of cardiac pacemaker pulse generator [battery] (principal); R00.1 Bradycardia, unspecified; I25.10 Atherosclerotic heart disease of native coronary artery without angina pectoris; E78.5 Hyperlipidemia, unspecified; K21.9 Gastro-esophageal reflux disease without esophagitis; N18.2 Chronic kidney disease, stage 2 (mild); I12.9 Hypertensive chronic kidney disease with stage 1 through stage 4 chronic kidney disease, or unspecified chronic kidney disease; Z79.899 Other long term (current) drug therapy; Z95.1 Presence of aortocoronary bypass graft
CPT/HCPCS: 33228; 36415; 71010; 80053; 80061; 85027; 85610; 85730; 87081; 93005

== ENCOUNTER 2016-12-22 07:33 | Emergency (ER) | payer MEDICARE ==
[~2016-12-22] VITALS: Ht 170.2 cm; Wt 68.0 kg
[~2016-12-22 07:33] MED LIST changes: +ALPR0.25 PO; +CEFU250T80 PO; -HEParin (CATH LAB) 1,000 ML IV ONE; -NS IV 1000 ML 1,000 ML ONE; -ceFAZolin 1,000 MG (ANCEF) VIAL ONE
--- NOTE | 2016-12-22 08:56 | ED Integumentary General ---
General Chief Complaint: Skin/Wound Problems Stated Complaint: RT ARM ABRASION FALL Nursing Triage Note: pt reports he fell this am when getting up to the bathroom. pt reports he cut his r forearm on his blinds. pt has skin tear to r forearm. pt denies hitting head or loc. Source: patient Exam Limitations: no limitations History of Present Illness Time seen by provider: 07:45 Initial Comments Here with report of skin tear to the right arm. Apparently fell this morning at about 3 a.m. when getting up to go the bathroom. Denies hitting his head. He did fall onto his right forearm against the blinds causing the skin tear. Denies other injuries. Timing/Duration: this morning Severity: mild Associated Symptoms: change in skin texture, No fever, No numbness, No paresthesia, No tingling Allergies and Home Medications Allergies Coded Allergies: No Known Drug Allergies (Verified , 02/15/14) Home Medications Alprazolam 0.25 Mg Tablet, 0.25 MG PO HS, (Reported) Alprazolam 0.25 Mg Tablet, 0.25 MG PO BID PRN for ANXIETY, (Reported) Aspirin 81 Mg Tabec, 81 MG PO DAILY, (Reported) Docusate Sodium 100 Mg Capsule, 100 MG PO DAILY PRN for CONSTIPATION-1ST LINE, ( Reported) Folic Acid 0.4 Mg Tablet, 0.4 MG PO DAILY, (Reported) Lisinopril 40 Mg Tablet, 20 MG PO DAILY, (Reported) TAKE 1/2 (40MG) TABLET Pantoprazole Sodium 20 Mg Tablet.dr, 20 MG PO DAILY, (Reported) Simvastatin 20 Mg Tablet, 10 MG PO HS, (Reported) TAKE 1/2 (20MG) TABLET Constitutional: see HPI, No chills, No fever Respiratory: no symptoms reported Cardiovascular: no symptoms reported Musculoskeletal: no symptoms reported Skin: see HPI, change in color, lesions Past Wdmebot-Kokjuu-Eeyrse Hx Patient Social History Alcohol Use: Denies Use Recreational Drug Use: No Smoking Status: Former Smoker Former Smoker, Quit: Dec 09, 1980 Recent Foreign Travel: No Contact w/Someone Who Travel: No Recent Infectious Disease Expo: No Recent Hopitalizations: Yes Physical Abuse: No Sexual Abuse: No Mistreated: No Fear: No Immunizations Up To Date Date of Pneumonia Vaccine: Jan 19, 2012 Date of Influenza Vaccine: Mar 01, 2014 Seasonal Allergies Seasonal Allergies: No Surgeries History of Surgeries: Yes Surgeries: Abdominal, Cardiac, CABG, Pacemaker Respiratory History of Respiratory Disorde: No Respiratory Disorders: Pneumonia Cardiovascular History of Cardiac Disorders: Yes Cardiac Disorders: Chronic Edema/Swelling, Coronary Artery Disease, Heart Attack, High Cholesterol, Hypertension, Irregular Heartbeat Neurological History of Neurological Disord: No Reproductive System Hx Reproductive Disorders: No Sexually Transmitted Disease: No HIV/AIDS: No Genitourinary History of Genitourinary Disor: No Gastrointestinal History of Gastrointestinal Di: No Gastrointestinal Disorders: Irritable Bowel Musculoskeletal History of Musculoskeletal Dis: Yes Musculoskeletal Disorders: Arthritis Endocrine History of Endocrine Disorders: No HEENT Loss of Vision: Denies Hearing Impairment: Denies Cancer History of Cancer: No Cancer: Skin Psychosocial History of Psychiatric Problem: Yes Behavioral Health Disorders: Anxiety Suicide Risk Score: 0 Integumentary History of Skin or Integumenta: No Blood Transfusions History of Blood Disorders: No Adverse Reaction to a Blood Tr: No Reviewed Nursing Assessment Reviewed/Agree w Nursing PMH: Yes Family Medical History Significant Family History: No Pertinent Family Hx Family Medial History: Physical Exam Vital Signs Vital Sign - Last 12Hours 12/22/16 07:47 Temp 97.2 Pulse 64 Resp 18 B/P (MAP) 186/110 Pulse Ox 98 Capillary Refill : Less Than 3 Seconds General Appearance: WD/WN, no apparent distress HEENT: PERRL/EOMI, normal ENT inspection Neck: full range of motion, supple, normal inspection Cardiovascular: regular rate, rhythm, no murmur Respiratory: lungs clear, normal breath sounds Skin: warm/dry, other (2 areas of skin tears that are approximately 2 x 8 cm each to the right forearm following the bone axis on the area of the lateral aspect ulnar side.) Skin Problem Character: lesion Progress/Results/Core Measures Results/Orders Vital Signs/I&O Vital Sign - Last 12Hours 12/22/16 07:47 Temp 97.2 Pulse 64 Resp 18 B/P (MAP) 186/110 Pulse Ox 98 Blood Pressure Mean: 135 Progress Note : Progress Note Seen and evaluated. Wound cleaned and covered by nursing with dressing. Discharged home with return precautions. Patient verbalize understanding of instructions and agreement with plan. Departure Impression Impression: Primary Impression: Skin tear of right forearm without complication Qualified Codes: S51.811A - Laceration without foreign body of right forearm, initial encounter Disposition: 01 HOME, SELF-CARE Condition: Improved Departure-Patient Inst. Decision time for Depature: 08:57 Referrals: NO,LOCAL PHYSICIAN (PCP/Family) Primary Care Physician Patient Instructions: Skin Abrasions (DC) Add. Discharge Instructions: All discharge instructions reviewed with patient and/or family. Voiced understanding. You have a skin tear to your arm. You can keep the dressing in place for 2 days and then replace it with nonstick dressing. You may use triple and a chronic ointment over the wound. After 2 days you may replace the dressing daily as needed. Return for worse pain, swelling, red streaks up the arm or other concerns as needed. JIMENA MENENDEZ MD Dec 22, 2016 08:56
[2016-12-22 09:03] VITALS: BP 174/99
== END 2016-12-22 09:03 | disposition home or self-care (01) ==
LOC: EDUNIT# 07:33 → ER 07:36
DX: S51.811A Laceration without foreign body of right forearm, initial encounter (principal); I25.10 Atherosclerotic heart disease of native coronary artery without angina pectoris; I25.2 Old myocardial infarction; E78.00 Pure hypercholesterolemia, unspecified; I10 Essential (primary) hypertension; K58.9 Irritable bowel syndrome, unspecified; F41.9 Anxiety disorder, unspecified; Z85.828 Personal history of other malignant neoplasm of skin; Z79.82 Long term (current) use of aspirin; Z87.891 Personal history of nicotine dependence; Z95.1 Presence of aortocoronary bypass graft; Z95.0 Presence of cardiac pacemaker; Z87.01 Personal history of pneumonia (recurrent); W18.30XA Fall on same level, unspecified, initial encounter; Y92.002 Bathroom of unspecified non-institutional (private) residence as the place of occurrence of the external cause

== ENCOUNTER 2017-07-28 10:01 | Observation (INO) | payer MEDICARE ==
[~2017-07-28] VITALS: Ht 170.2 cm; Wt 74.0 kg
[2017-07-28] VITALS (9 sets, daily range): BP systolic 116–183; BP diastolic 78–85
--- OUTSIDE RECORDS SUMMARY | 2017-07-28 10:09 | XMS REPORT | Continuity of Care Document ---
Author Author [facility] Organization [facility] Address Unknown Phone Unavailable Allergies Active Description Code Type Severity Reaction Onset Reported/Identified Relationship to Patient Clinical Status Yes No Known Drug Allergies [id number] Drug Allergy Unknown N/A 02/15/2014 Medications There is no data. Problems Date Dx Coded Attending Type Code Diagnosis Diagnosed By 02/28/2010 Ot 272.4 02/28/2010 Ot 401.9 02/28/2010 Ot 414.00 02/28/2010 Ot 427.89 02/28/2010 Ot 530.81 02/28/2010 Ot 786.59 02/28/2010 Ot V45.81 02/28/2010 Ot V58.66 02/28/2010 Ot V58.69 06/19/2010 Ot 272.4 06/19/2010 Ot 401.9 06/19/2010 Ot 414.01 06/19/2010 Ot 427.81 06/19/2010 Ot 530.81 06/19/2010 Ot 786.59 06/23/2010 Ot 440.0 06/23/2010 Ot 496 06/23/2010 Ot 511.0 06/23/2010 Ot 786.05 06/23/2010 Ot 786.52 06/23/2010 Ot V45.01 06/23/2010 Ot V45.81 06/23/2010 Ot V58.66 06/23/2010 Ot V58.69 04/16/2013 NORAH HENRIQUEZ DO Ot 786.52 PAINFUL RESPIRATION 04/16/2013 NORAH HENRIQUEZ DO Ot V45.81 AORTOCORONARY BYPASS 07/23/2013 Ot 702.8 07/23/2013 Ot 782.2 08/11/2013 TEA STEVENS DO Ot 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 12/19/2013 JIMENA MENENDEZ MD Ot 401.9 HYPERTENSION NOS 12/19/2013 JIMENA MENENDEZ MD Ot 414.00 CORON ATHEROSCLER NOS TYPE VESSEL, NATIV 12/19/2013 JIMENA MENENDEZ MD Ot 786.39 OTHER HEMOPTYSIS 12/19/2013 JIMENA MENENDEZ MD Ot V45.01 CARDIAC PACEMAKER IN SITU 12/19/2013 JIMENA MENENDEZ MD Ot V45.81 AORTOCORONARY BYPASS 12/19/2013 JIMENA MENENDEZ MD Ot V58.66 LONG-TERM (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 12/19/2013 JIMENA MENENDEZ MD, Ot V58.69 OTH MED,LT,CURRENT USE 02/17/2014 MITCHELL ANTOINE MD Ot 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 02/17/2014 MITCHELL ANTOINE MD Ot 272.4 HYPERLIPIDEMIA NEC/NOS 02/17/2014 MITCHELL ANTOINE MD Ot 284.19 OTHER PANCYTOPENIA 02/17/2014 MITCHELL ANTOINE MD Ot 293.0 DELIRIUM DUE TO CONDITIONS CLASSIFIED EL 02/17/2014 MITCHELL ANTOINE MD Ot 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 02/17/2014 MITCHELL ANTOINE MD Ot 300.00 ANXIETY STATE NOS 02/17/2014 MITCHELL ANTOINE MD Ot 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 02/17/2014 MITCHELL ANTOINE MD Ot 397.0 TRICUSPID VALVE DISEASE 02/17/2014 MITCHELL ANTOINE MD Ot 403.90 HYPTNSV CHR KID DIS, UNSPEC, W CHR KD ST 02/17/2014 MITCHELL ANTOINE MD Ot 414.01 CORONARY ATHEROSCLEROSIS OF [place] CORON 02/17/2014 MITCHELL ANTOINE MD Ot 424.0 MITRAL VALVE DISORDER 02/17/2014 MITCHELL ANTOINE MD Ot 427.89 CARDIAC DYSRHYTHMIAS NEC 02/17/2014 MITCHELL ANTOINE MD Ot 428.0 CONGESTIVE HEART FAILURE NOS 02/17/2014 MITCHELL ANTOINE MD Ot 428.31 ACUTE DIASTOLIC HRT FAILURE 02/17/2014 MITCHELL ANTOINE MD Ot 433.30 MULT BILTRAL ARTERY OCCLUSION WO CEREBRA 02/17/2014 MITCHELL ANTOINE MD Ot 482.39 PNEUMONIA DUE TO OTHER STREPTOCOCCUS 02/17/2014 MITCHELL ANTOINE MD Ot 496 CHR AIRWAY OBSTRUCT NEC 02/17/2014 MITCHELL ANTOINE MD Ot 530.81 ESOPHAGEAL REFLUX 02/17/2014 MITCHELL ANTOINE MD Ot 553.3 DIAPHRAGMATIC HERNIA 02/17/2014 MITCHELL ANTOINE MD Ot 585.9 CHRONIC KIDNEY DISEASE, UNSPECIFIED 02/17/2014 MITCHELL ANTOINE MD Ot 716.90 ARTHROPATHY NOS-UNSPEC 02/17/2014 MITCHELL ANTOINE MD Ot 780.2 SYNCOPE AND COLLAPSE 02/17/2014 MITCHELL ANTOINE MD Ot 783.7 ADULT FAILURE TO THRIVE 02/17/2014 MITCHELL ANTOINE MD Ot 786.59 CHEST PAIN NEC 02/17/2014 MITCHELL ANTOINE MD Ot 799.02 HYPOXEMIA 02/17/2014 MITCHELL ANTOINE MD Ot 995.91 SEPSIS 02/17/2014 MITCHELL ANTOINE MD Ot V15.82 HISTORY OF TOBACCO USE 02/17/2014 MITCHELL ANTOINE MD Ot V15.88 HISTORY OF FALL 02/17/2014 MITCHELL ANTOINE MD Ot V45.01 CARDIAC PACEMAKER IN SITU 02/17/2014 MITCHELL ANTOINE MD Ot V45.81 AORTOCORONARY BYPASS 05/11/2014 Ot 428.0 CONGESTIVE HEART FAILURE NOS 05/11/2014 Ot 490 BRONCHITIS NOS 05/11/2014 Ot 786.05 SHORTNESS OF BREATH 05/11/2014 Ot 786.52 PAINFUL RESPIRATION 05/11/2014 Ot V58.69 OT MED,LT, CURRENT USE 05/18/2014 BAIMA, LAQUITA L TRUST CLERK Ot 272.4 05/18/2014 BAIMA, LAQUITA L TRUST CLERK Ot 414.00 05/18/2014 BAIMA, LAQUITA L TRUST CLERK Ot 427.89 05/18/2014 BAIMA, LAQUITA L TRUST CLERK Ot V45.01 06/08/2014 Ot 272.4 06/08/2014 Ot 414.01 06/08/2014 Ot V58.69 06/08/2014 Ot 530.5 06/08/2014 Ot 530.81 06/08/2014 Ot 553.3 06/08/2014 Ot 786.50 06/08/2014 Ot 272.4 06/08/2014 Ot 401.9 06/08/2014 Ot 414.01 06/08/2014 Ot V58.69 06/08/2014 Ot 272.4 06/08/2014 Ot 401.9 06/08/2014 Ot 413.9 06/08/2014 Ot 414.01 06/08/2014 Ot 786.05 06/08/2014 Ot V58.69 06/08/2014 Ot V72.63 06/08/2014 Ot V72.81 06/08/2014 Ot 414.01 06/08/2014 Ot 427.89 06/08/2014 Ot 433.10 06/08/2014 Ot 414.01 06/08/2014 Ot 427.89 06/08/2014 Ot 780.4 06/08/2014 Ot 786.05 06/08/2014 Ot V72.63 06/08/2014 Ot V72.81 06/08/2014 Ot 272.4 06/08/2014 Ot 414.01 06/08/2014 Ot V58.69 06/08/2014 Ot 414.00 06/08/2014 Ot 785.2 06/08/2014 Ot 786.50 06/08/2014 Ot 414.00 06/08/2014 Ot 782.3 06/08/2014 Ot 709.9 06/08/2014 Ot V72.63 06/08/2014 Ot V72.84 06/08/2014 Ot V74.8 06/08/2014 BAIMA LAQUITA L TRUST CLERK Ot 272.4 06/08/2014 BAIMA, LAQUITA L TRUST CLERK Ot 414.00 06/08/2014 BAIMA, LAQUITA L TRUST CLERK Ot 427.89 06/08/2014 BAIMA LAQUITA L TRUST CLERK Ot V45.01 10/12/2015 JUDIE SANCHEZ, MITCHELL S Ot R07.9 CHEST PAIN, UNSPECIFIED 10/12/2015 JUDIE SANCHEZ, MITCHELL S Ot R11.2 NAUSEA WITH VOMITING, UNSPECIFIED 10/12/2015 JUDIE SANCHEZ, MITCHELL S Ot R19.7 DIARRHEA, UNSPECIFIED 10/12/2015 JUDIE SANCHEZ, MITCHELL S Ot Z95.0 PRESENCE OF CARDIAC PACEMAKER 10/15/2015 JUDIE SANCHEZ, MITCHELL S Ot R07.9 CHEST PAIN, UNSPECIFIED 10/15/2015 MITCHELL DIMAS MD S Ot R11.2 NAUSEA WITH VOMITING, UNSPECIFIED 10/15/2015 JUDIE SANCHEZ, MITCHELL S Ot R19.7 DIARRHEA, UNSPECIFIED 10/15/2015 JUDIE SANCHEZ, MITCHELL Monzon Ot Z95.0 PRESENCE OF CARDIAC PACEMAKER 10/18/2015 BAILUCI HERNANDEZHER L TRUST CLERK Ot E78.5 HYPERLIPIDEMIA, UNSPECIFIED 10/19/2015 BAIMARY LAQUITA L TRUST CLERK Ot E78.5 HYPERLIPIDEMIA, UNSPECIFIED 10/19/2015 BAIMA, LAQUITA L TRUST CLERK Ot I10 ESSENTIAL (PRIMARY) HYPERTENSION 10/19/2015 BAIMA, LAQUITA L TRUST CLERK Ot I25.10 ATHSCL HEART DISEASE OF [place] CORONARY 10/19/2015 BAIMA, LAQUITA L TRUST CLERK Ot N18.9 CHRONIC KIDNEY DISEASE, UNSPECIFIED 10/19/2015 BAIMA, LAQUITA L TRUST CLERK Ot R00.1 BRADYCARDIA, UNSPECIFIED 10/19/2015 BAIMA, LAQUITA L TRUST CLERK Ot Z95.0 PRESENCE OF CARDIAC PACEMAKER 11/07/2015 BAIMA, LAQUITA L TRUST CLERK Ot 272.4 HYPERLIPIDEMIA NEC/NOS 11/07/2015 BAIMA, LAQUITA L TRUST CLERK Ot 414.00 CORON ATHEROSCLER NOS TYPE VESSEL, NATIV 11/07/2015 BAIMA, LAQUITA L TRUST CLERK Ot 427.89 CARDIAC DYSRHYTHMIAS NEC 11/07/2015 BAIMA, LAQUITA L TRUST CLERK Ot V45.01 CARDIAC PACEMAKER IN SITU 11/07/2015 BAIMA, LAQUITA L TRUST CLERK Ot E78.5 HYPERLIPIDEMIA, UNSPECIFIED 11/07/2015 BAIMA, LAQUITA L TRUST CLERK Ot I10 ESSENTIAL (PRIMARY) HYPERTENSION 11/07/2015 BAIMA, LAQUITA L TRUST CLERK Ot I25.10 ATHSCL HEART DISEASE OF [place] CORONARY 11/07/2015 BAIMA, LAQUITA L TRUST CLERK Ot N18.9 CHRONIC KIDNEY DISEASE, UNSPECIFIED 11/07/2015 BAIMA, LAQUITA L TRUST CLERK Ot R00.1 BRADYCARDIA, UNSPECIFIED 11/07/2015 BAIMA, LAQUITA L TRUST CLERK Ot Z95.0 PRESENCE OF CARDIAC PACEMAKER 11/08/2015 BAIMA, LAQUITA L TRUST CLERK Ot Z95.0 PRESENCE OF CARDIAC PACEMAKER 11/08/2015 BAIMA, LAQUITA L TRUST CLERK Ot E78.5 HYPERLIPIDEMIA, UNSPECIFIED 11/08/2015 BAIMA, LAQUITA L TRUST CLERK Ot 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 11/08/2015 BAIMA, LAQUITA L TRUST CLERK Ot I25.10 ATHSCL HEART DISEASE OF [place] CORONARY 11/08/2015 BAIMA, LAQUITA L TRUST CLERK Ot N18.9 CHRONIC KIDNEY DISEASE, UNSPECIFIED 11/08/2015 BAIMA, LAQUITA L TRUST CLERK Ot R00.1 BRADYCARDIA, UNSPECIFIED 11/08/2015 BAIMA, LAQUITA L TRUST CLERK Ot Z95.0 PRESENCE OF CARDIAC PACEMAKER 11/08/2015 BAIMA, LAQUITA L TRUST CLERK Ot E78.5 HYPERLIPIDEMIA, UNSPECIFIED 11/08/2015 BAIMA, LAQUITA L TRUST CLERK Ot I10 ESSENTIAL (PRIMARY) HYPERTENSION 11/08/2015 BAIMA, LAQUITA L TRUST CLERK Ot I25.10 ATHSCL HEART DISEASE OF [place] CORONARY 11/08/2015 BAIMA, LAQUITA L TRUST CLERK Ot N18.9 CHRONIC KIDNEY DISEASE, UNSPECIFIED 11/08/2015 BAIMA, LAQUITA L TRUST CLERK Ot R00.1 BRADYCARDIA, UNSPECIFIED 11/08/2015 BAIMA, LAQUITA L TRUST CLERK Ot Z95.0 PRESENCE OF CARDIAC PACEMAKER 12/11/2015 BAIMA, LAQUITA L TRUST CLERK Ot E78.5 HYPERLIPIDEMIA, UNSPECIFIED 12/11/2015 BAIMA, LAQUITA L TRUST CLERK Ot 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 12/11/2015 BAIMA, LAQUITA L TRUST CLERK Ot I25.10 ATHSCL HEART DISEASE OF [place] CORONARY 12/11/2015 BAIMA, LAQUITA L TRUST CLERK Ot N18.9 CHRONIC KIDNEY DISEASE, UNSPECIFIED 12/11/2015 BAIMA, LAQUITA L TRUST CLERK Ot R00.1 BRADYCARDIA, UNSPECIFIED 12/11/2015 BAIMA, LAQUITA L TRUST CLERK Ot Z95.0 PRESENCE OF CARDIAC PACEMAKER 01/14/2016 BAIMA, LAQUITA L TRUST CLERK Ot 272.4 HYPERLIPIDEMIA NEC/NOS 01/14/2016 BAIMA, LAQUITA L TRUST CLERK Ot 414.00 CORON ATHEROSCLER NOS TYPE VESSEL, NATIV 01/14/2016 BAIMA, LAQUITA L TRUST CLERK Ot 427.89 CARDIAC DYSRHYTHMIAS NEC 01/14/2016 BAIMA, LAQUITA L TRUST CLERK Ot V45.01 CARDIAC PACEMAKER IN SITU 01/14/2016 BAIMA, LAQUITA L TRUST CLERK Ot E78.5 HYPERLIPIDEMIA, UNSPECIFIED 01/14/2016 BAIMA, LAQUITA L TRUST CLERK Ot 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 01/14/2016 BAIMA, LAQUITA L TRUST CLERK Ot I25.10 ATHSCL HEART DISEASE OF [place] CORONARY 01/14/2016 BAIMA, LAQUITA L TRUST CLERK Ot N18.9 CHRONIC KIDNEY DISEASE, UNSPECIFIED 01/14/2016 BAIMA, LAQUITA L TRUST CLERK Ot R00.1 BRADYCARDIA, UNSPECIFIED 01/14/2016 BAILAQUITA HERNANDEZ L TRUST CLERK Ot Z95.0 PRESENCE OF CARDIAC PACEMAKER 01/14/2016 LAQUITA SYLVESTER L TRUST CLERK Ot E78.5 HYPERLIPIDEMIA, UNSPECIFIED 01/14/2016 BAILAQUITA HERNANDEZ L TRUST CLERK Ot I10 ESSENTIAL (PRIMARY) HYPERTENSION 01/14/2016 LAQUITA SYLVESTER L TRUST CLERK Ot I25.10 ATHSCL HEART DISEASE OF [place] CORONARY 01/14/2016 LAQUITA SYLVESTER L TRUST CLERK Ot N18.9 CHRONIC KIDNEY DISEASE, UNSPECIFIED 01/14/2016 BAILAQUITA HERNANDEZ L TRUST CLERK Ot R00.1 BRADYCARDIA, UNSPECIFIED 01/14/2016 BAILAQUITA HERNANDEZ L TRUST CLERK Ot Z95.0 PRESENCE OF CARDIAC PACEMAKER 01/15/2016 GELY AVILEZ MD Ot E78.5 HYPERLIPIDEMIA, UNSPECIFIED 01/15/2016 GELY AVILEZ MD Ot E86.0 DEHYDRATION 01/15/2016 GELY AVILEZ MD Ot 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 01/15/2016 GELY AVILEZ MD Ot I25.10 ATHSCL HEART DISEASE OF [place] CORONARY 01/15/2016 GELY AVILEZ MD Ot 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 01/15/2016 GELY AVILEZ MD Ot K52.9 NONINFECTIVE GASTROENTERITIS AND COLITIS 01/15/2016 GELY AVILEZ MD Ot N18.9 CHRONIC KIDNEY DISEASE, UNSPECIFIED 01/15/2016 GELY AVILEZ MD Ot R07.89 OTHER CHEST PAIN 01/15/2016 GELY AVILEZ MD Ot Z87.891 PERSONAL HISTORY OF NICOTINE DEPENDENCE 01/15/2016 GELY AVILEZ MD Ot Z95.0 PRESENCE OF CARDIAC PACEMAKER 01/15/2016 GELY AVILEZ MD Ot Z95.1 PRESENCE OF AORTOCORONARY BYPASS GRAFT 01/15/2016 GELY AVILEZ MD Ot E78.5 HYPERLIPIDEMIA, UNSPECIFIED 01/15/2016 GELY AVILEZ MD Ot E86.0 DEHYDRATION 01/15/2016 GELY AVILEZ MD Ot 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 01/15/2016 GELY AVILEZ MD Ot I25.10 ATHSCL HEART DISEASE OF [place] CORONARY 01/15/2016 GELY AVILEZ MD Ot 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 01/15/2016 GELY AVILEZ MD Ot K52.9 NONINFECTIVE GASTROENTERITIS AND COLITIS 01/15/2016 GELY AVILEZ MD Ot N18.9 CHRONIC KIDNEY DISEASE, UNSPECIFIED 01/15/2016 GELY AVILEZ MD Ot R07.89 OTHER CHEST PAIN 01/15/2016 GELY AVILEZ MD Ot Z87.891 PERSONAL HISTORY OF NICOTINE DEPENDENCE 01/15/2016 GELY AVILEZ MD Ot Z95.0 PRESENCE OF CARDIAC PACEMAKER 01/15/2016 GELY AVILEZ MD Ot Z95.1 PRESENCE OF AORTOCORONARY BYPASS GRAFT 01/17/2016 LAURAMA, LAQUITA L TRUST CLERK Ot 272.4 HYPERLIPIDEMIA NEC/NOS 01/17/2016 BAIMA, LAQUITA L TRUST CLERK Ot 414.00 CORON ATHEROSCLER NOS TYPE VESSEL, NATIV 01/17/2016 BAIMA, LAQUITA L TRUST CLERK Ot 427.89 CARDIAC DYSRHYTHMIAS NEC 01/17/2016 NGA LAQUITA L TRUST CLERK Ot V45.01 CARDIAC PACEMAKER IN SITU 01/17/2016 LAURAMA, LAQUITA L TRUST CLERK Ot E78.5 HYPERLIPIDEMIA, UNSPECIFIED 01/17/2016 BAIMA, LAQUITA L TRUST CLERK Ot 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 01/17/2016 BAIMA, LAQUITA L TRUST CLERK Ot I25.10 ATHSCL HEART DISEASE OF [place] CORONARY 01/17/2016 BAIMA, LAQUITA L TRUST CLERK Ot N18.9 CHRONIC KIDNEY DISEASE, UNSPECIFIED 01/17/2016 BAIMA, LAQUITA L TRUST CLERK Ot R00.1 BRADYCARDIA, UNSPECIFIED 01/17/2016 BAIMA, LAQUITA L TRUST CLERK Ot Z95.0 PRESENCE OF CARDIAC PACEMAKER 01/17/2016 BAIMA, LAQUITA L TRUST CLERK Ot E78.5 HYPERLIPIDEMIA, UNSPECIFIED 01/17/2016 BAIMA, LAQUITA L TRUST CLERK Ot I10 ESSENTIAL (PRIMARY) HYPERTENSION 01/17/2016 BAIMA, LAQUITA L TRUST CLERK Ot I25.10 ATHSCL HEART DISEASE OF [place] CORONARY 01/17/2016 BAIMA LAQUITA L TRUST CLERK Ot N18.9 CHRONIC KIDNEY DISEASE, UNSPECIFIED 01/17/2016 BAIMA LAQUITA L TRUST CLERK Ot R00.1 BRADYCARDIA, UNSPECIFIED 01/17/2016 BAIMA, LAQUITA L TRUST CLERK Ot Z95.0 PRESENCE OF CARDIAC PACEMAKER 01/17/2016 BAIMA, LAQUITA L TRUST CLERK Ot E78.5 HYPERLIPIDEMIA, UNSPECIFIED 01/17/2016 BAIMA, LAQUITA L TRUST CLERK Ot 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 01/17/2016 BAIMA, LAQUITA L TRUST CLERK Ot I25.10 ATHSCL HEART DISEASE OF [place] CORONARY 01/17/2016 BAIMA, LAQUITA L TRUST CLERK Ot N18.9 CHRONIC KIDNEY DISEASE, UNSPECIFIED 01/17/2016 BAIMA, LAQUITA L TRUST CLERK Ot R00.1 BRADYCARDIA, UNSPECIFIED 01/17/2016 BAIMA, LAQUITA L TRUST CLERK Ot Z95.0 PRESENCE OF CARDIAC PACEMAKER 01/17/2016 BAIMA, LAQUITA L TRUST CLERK Ot E78.5 HYPERLIPIDEMIA, UNSPECIFIED 01/17/2016 BAIMA, LAQUITA L TRUST CLERK Ot I10 ESSENTIAL (PRIMARY) HYPERTENSION 01/17/2016 BAIMA, LAQUITA L TRUST CLERK Ot I25.10 ATHSCL HEART DISEASE OF [place] CORONARY 01/17/2016 BAIMA, LAQUITA L TRUST CLERK Ot N18.9 CHRONIC KIDNEY DISEASE, UNSPECIFIED 01/17/2016 BAIMA, LAQUITA L TRUST CLERK Ot R00.1 BRADYCARDIA, UNSPECIFIED 01/17/2016 BAIMA, LAQUITA L TRUST CLERK Ot Z95.0 PRESENCE OF CARDIAC PACEMAKER 06/06/2016 MARTINEZ DO NORAH K Ot I10 ESSENTIAL (PRIMARY) HYPERTENSION 06/06/2016 MARTINEZ DO NORAH K Ot I25.10 ATHSCL HEART DISEASE OF [place] CORONARY 06/06/2016 MARTINEZ QUIROGA NORAH K Ot R07.9 CHEST PAIN, UNSPECIFIED 06/06/2016 MARTINEZ DO NORAH K Ot Z79.82 MANAGER AUDIO (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 06/06/2016 MARTINEZ QUIROGA NORAH K Ot Z79.899 OTHER MANAGER AUDIO (CURRENT) DRUG THERAPY 06/06/2016 MARTINEZ QUIROGA NORAH K Ot Z95.0 PRESENCE OF CARDIAC PACEMAKER 06/06/2016 MARTINEZ DO NORAH K Ot Z95.1 PRESENCE OF AORTOCORONARY BYPASS GRAFT 06/09/2016 MARTINEZ DO NORAH K Ot I10 ESSENTIAL (PRIMARY) HYPERTENSION 06/09/2016 MARTINEZ DO NORAH K Ot I25.10 ATHSCL HEART DISEASE OF [place] CORONARY 06/09/2016 NORAH HENRIQUEZ DO Ot R07.9 CHEST PAIN, UNSPECIFIED 06/09/2016 NORAH HENRIQUEZ DO Ot Z79.82 MANAGER AUDIO (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 06/09/2016 NORAH HENRIQUEZ DO Ot Z79.899 OTHER SNF (CURRENT) DRUG THERAPY 06/09/2016 NORAH HENRIQUZE DO Ot Z95.0 PRESENCE OF CARDIAC PACEMAKER 06/09/2016 NORAH HENRIQUEZ DO Ot Z95.1 PRESENCE OF AORTOCORONARY BYPASS GRAFT 06/17/2016 BAIMA, LAQUITA L TRUST CLERK Ot 272.4 HYPERLIPIDEMIA NEC/NOS 06/17/2016 BAIMA, LAQUITA L TRUST CLERK Ot 414.00 CORON ATHEROSCLER NOS TYPE VESSEL, NATIV 06/17/2016 BAIMA, LAQUITA L TRUST CLERK Ot 427.89 CARDIAC DYSRHYTHMIAS NEC 06/17/2016 BAIMA, LAQUITA L TRUST CLERK Ot V45.01 CARDIAC PACEMAKER IN SITU 06/17/2016 BAIMA, LAQUITA L TRUST CLERK Ot E78.5 HYPERLIPIDEMIA, UNSPECIFIED 06/17/2016 BAIMA, LAQUITA L TRUST CLERK Ot 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 06/17/2016 BAIMA, LAQUITA L TRUST CLERK Ot I25.10 ATHSCL HEART DISEASE OF [place] CORONARY 06/17/2016 BAIMA, LAQUITA L TRUST CLERK Ot N18.9 CHRONIC KIDNEY DISEASE, UNSPECIFIED 06/17/2016 BAIMA, LAQUITA L TRUST CLERK Ot R00.1 BRADYCARDIA, UNSPECIFIED 06/17/2016 BAIMA, LAQUITA L TRUST CLERK Ot Z95.0 PRESENCE OF CARDIAC PACEMAKER 06/17/2016 BAIMA, LAQUITA L TRUST CLERK Ot E78.5 HYPERLIPIDEMIA, UNSPECIFIED 06/17/2016 BAIMA, LAQUITA L TRUST CLERK Ot I10 ESSENTIAL (PRIMARY) HYPERTENSION 06/17/2016 BAIMA, LAQUITA L TRUST CLERK Ot I25.10 ATHSCL HEART DISEASE OF [place] CORONARY 06/17/2016 BAIMA, LAQUITA L TRUST CLERK Ot N18.9 CHRONIC KIDNEY DISEASE, UNSPECIFIED 06/17/2016 BAIMA, LAQUITA L TRUST CLERK Ot R00.1 BRADYCARDIA, UNSPECIFIED 06/17/2016 BAIMA, LAQUITA L TRUST CLERK Ot Z95.0 PRESENCE OF CARDIAC PACEMAKER 06/17/2016 ANAYELI SANCHEZ FACC, ALI FACP CCDS Ot R07.89 OTHER CHEST PAIN 06/17/2016 ANAYELI OJEDAC, ALI FACP CCDS Ot E78.4 OTHER HYPERLIPIDEMIA 06/17/2016 ANAYELI SANCHEZ FACC, ALI FACP CCDS Ot 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 06/17/2016 ANAYELI OJEDAC, ALI FACP CCDS Ot I25.10 ATHSCL HEART DISEASE OF [place] CORONARY 06/17/2016 ANAYELI SANCHEZ FACC, ALI FACP CCDS Ot I65.23 OCCLUSION AND STENOSIS OF [place]AL [place] 06/17/2016 ANAYELI OJEDAC, ALI FACP CCDS Ot N18.9 CHRONIC KIDNEY DISEASE, UNSPECIFIED 06/17/2016 ANAYELI OJEDAC, ALI FACP CCDS Ot R07.89 OTHER CHEST PAIN 06/17/2016 ANAYELI OJEDAC, ALI FACP CCDS Ot Z95.0 PRESENCE OF CARDIAC PACEMAKER 06/18/2016 ANAYELI SANCHEZ FACC, ALI FACP CCDS Ot E78.4 OTHER HYPERLIPIDEMIA 06/18/2016 ANAYELI SANCHEZ FACC, ALI FACP CCDS Ot 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 06/18/2016 ANAYELI SANCHEZ FACC, ALI FACP CCDS Ot I25.10 ATHSCL HEART DISEASE OF [place] CORONARY 06/18/2016 ANAYELI SANCHEZ FACC, ALI FACP CCDS Ot I65.23 OCCLUSION AND STENOSIS OF [place]AL [place] 06/18/2016 ANAYELI SANCHEZ FACC, ALI FACP CCDS Ot N18.9 CHRONIC KIDNEY DISEASE, UNSPECIFIED 06/18/2016 ANAYELI SANCHEZ FACC, ALI FACP CCDS Ot R07.89 OTHER CHEST PAIN 06/18/2016 ANAYELI SANCHEZ FACC, ALI FACP CCDS Ot Z95.0 PRESENCE OF CARDIAC PACEMAKER 07/08/2016 ANAYELI SANCHEZ FACC, ALI FACP CCDS Ot E78.4 OTHER HYPERLIPIDEMIA 07/08/2016 ANAYELI SANCHEZ FACC, ALI FACP CCDS Ot 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 07/08/2016 ANAYELI OJEDAC, ALI FACP CCDS Ot I25.10 ATHSCL HEART DISEASE OF [place] CORONARY 07/08/2016 ANAYELI OJEDAC, ALI FACP CCDS Ot I65.23 OCCLUSION AND STENOSIS OF [place]ILATERAL [place] 07/08/2016 ANAYELI OJEDAC, ALI FACP CCDS Ot N18.9 CHRONIC KIDNEY DISEASE, UNSPECIFIED 07/08/2016 ANAYELI OJEDA, ALI FACP CCDS Ot R07.89 OTHER CHEST PAIN 07/08/2016 ANAYELI OJEDA, ALI FACP CCDS Ot Z95.0 PRESENCE OF CARDIAC PACEMAKER 09/11/2016 BAIMA, LAQUITA L TRUST CLERK Ot E78.5 HYPERLIPIDEMIA, UNSPECIFIED 09/11/2016 BAIMA, LAQUITA L TRUST CLERK Ot 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 09/11/2016 BAIMA, LAQUITA L TRUST CLERK Ot I25.10 ATHSCL HEART DISEASE OF [place] CORONARY 09/11/2016 BAIMA, LAQUITA L TRUST CLERK Ot N18.9 CHRONIC KIDNEY DISEASE, UNSPECIFIED 09/11/2016 BAIMA, LAQUITA L TRUST CLERK Ot R00.1 BRADYCARDIA, UNSPECIFIED 09/11/2016 BAIMA, LAQUITA L TRUST CLERK Ot Z95.0 PRESENCE OF CARDIAC PACEMAKER 09/11/2016 [facility] ALI FACP CCDS Ot E78.4 OTHER HYPERLIPIDEMIA 09/11/2016 ANAYELI SANCHEZ FACC, ALI FACP CCDS Ot 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 09/11/2016 ANAYELI SANCHEZ FACC, ALI FACP CCDS Ot I25.10 ATHSCL HEART DISEASE OF [place] CORONARY 09/11/2016 ANAYELI SANCHEZ FACC, ALI FACP CCDS Ot I65.23 OCCLUSION AND STENOSIS OF BILATERAL [place] 09/11/2016 ANAYELI SANCHEZ FACC, ALI FACP CCDS Ot N18.9 CHRONIC KIDNEY DISEASE, UNSPECIFIED 09/11/2016 ANAYELI SANCHEZ FACC, ALI FACP CCDS Ot R07.89 OTHER CHEST PAIN 09/11/2016 ANAYELI SANCHEZ FACC, ALI FACP CCDS Ot Z95.0 PRESENCE OF CARDIAC PACEMAKER 09/11/2016 BAIMA, LAQUITA L TRUST CLERK Ot E78.5 HYPERLIPIDEMIA, UNSPECIFIED 09/11/2016 BAIMA, LAQUITA L TRUST CLERK Ot 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 09/11/2016 BAIMA, LAQUITA L TRUST CLERK Ot I25.10 ATHSCL HEART DISEASE OF [place] CORONARY 09/11/2016 BAIMA, LAQUITA L TRUST CLERK Ot N18.9 CHRONIC KIDNEY DISEASE, UNSPECIFIED 09/11/2016 BAIMA, LAQUITA L TRUST CLERK Ot R00.1 BRADYCARDIA, UNSPECIFIED 09/11/2016 BAIMA, LAQUITA L TRUST CLERK Ot Z95.0 PRESENCE OF CARDIAC PACEMAKER 09/11/2016 ANAYELI SANCHEZ FACC, ALI FACP CCDS Ot E78.4 OTHER HYPERLIPIDEMIA 09/11/2016 ANAYELI SANCHEZ FACC, ALI FACP CCDS Ot 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 09/11/2016 ANAYELI SANCHEZ FACC, ALI FACP CCDS Ot I25.10 ATHSCL HEART DISEASE OF [place] CORONARY 09/11/2016 ANAYELI SANCHEZ FACC, ALI FACP CCDS Ot I65.23 OCCLUSION AND STENOSIS OF [place]ILATERAL [place] 09/11/2016 ANAYELI SANCHEZ FACC, ALI FACP CCDS Ot N18.9 CHRONIC KIDNEY DISEASE, UNSPECIFIED 09/11/2016 ANAYELI SANCHEZ FACC, ALI FACP CCDS Ot R07.89 OTHER CHEST PAIN 09/11/2016 ANAYELI SANCHEZ FACC, ALI FACP CCDS Ot Z95.0 PRESENCE OF CARDIAC PACEMAKER 09/16/2016 BAIMA, LAQUITA L TRUST CLERK Ot E78.5 HYPERLIPIDEMIA, UNSPECIFIED 09/16/2016 BAIMA, LAQUITA L TRUST CLERK Ot 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 09/16/2016 BAIMA, LAQUITA L TRUST CLERK Ot I25.10 ATHSCL HEART DISEASE OF [place] CORONARY 09/16/2016 BAIMA, LAQUITA L TRUST CLERK Ot N18.9 CHRONIC KIDNEY DISEASE, UNSPECIFIED 09/16/2016 BAIMA, LAQUITA L TRUST CLERK Ot R00.1 BRADYCARDIA, UNSPECIFIED 09/16/2016 BAIMA, LAQUITA L TRUST CLERK Ot Z95.0 PRESENCE OF CARDIAC PACEMAKER 09/16/2016 ANAYELI SANCHEZ FACC, ALI FACP CCDS Ot E78.4 OTHER HYPERLIPIDEMIA 09/16/2016 ANAYELI SANCHEZ FACC, ALI FACP CCDS Ot 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 09/16/2016 ANAYELI SANCHEZ FACC, ALI FACP CCDS Ot I25.10 ATHSCL HEART DISEASE OF [place] CORONARY 09/16/2016 ANAYELI SANCHEZ FACC, ALI FACP CCDS Ot I65.23 OCCLUSION AND STENOSIS OF [place]ILATERAL [place] 09/16/2016 ANAYELI SANCHEZ FACC, ALI FACP CCDS Ot N18.9 CHRONIC KIDNEY DISEASE, UNSPECIFIED 09/16/2016 ANAYELI SANCHEZ FACC, ALI FACP CCDS Ot R07.89 OTHER CHEST PAIN 09/16/2016 ANAYELI SANCHEZ FACC, DENITA OJEDAP CCDS Ot Z95.0 PRESENCE OF CARDIAC PACEMAKER 11/13/2016 CARINA COTTON MD Ot 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 11/13/2016 CARINA COTTON MD, Ot C44.619 BASAL CELL CARCINOMA SKIN/ LEFT UPPER LI 11/13/2016 CARINA COTTON MD Ot E78.5 HYPERLIPIDEMIA, UNSPECIFIED 11/13/2016 CARINA COTTON MD Ot F17.210 NICOTINE DEPENDENCE, CIGARETTES, UNCOMPL 11/13/2016 CARINA COTTON MD Ot F41.9 ANXIETY DISORDER, UNSPECIFIED 11/13/2016 CARINA COTTON MD Ot I10 ESSENTIAL (PRIMARY) HYPERTENSION 11/13/2016 CARINA COTTON MD Ot I25.10 ATHSCL HEART DISEASE OF [place] CORONARY 11/13/2016 CARINA COTTON MD, Ot M54.9 DORSALGIA, UNSPECIFIED 11/13/2016 CARINA COTTON MD Ot Z95.0 PRESENCE OF CARDIAC PACEMAKER 11/13/2016 CARINA COTTON MD Ot Z95.1 PRESENCE OF AORTOCORONARY BYPASS GRAFT 11/13/2016 CARINA COTTON MD Ot Z99.3 DEPENDENCE ON WHEELCHAIR 11/20/2016 ANAYELI SANCHEZ FACC, DENITA FACP CCDS Ot E78.4 OTHER HYPERLIPIDEMIA 11/20/2016 ANAYELI SANCHEZ FACC, ALI FACP CCDS Ot E78.4 OTHER HYPERLIPIDEMIA 11/20/2016 ANAYELI SANCHEZ FACC, DENITA FACP CCDS Ot 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 11/20/2016 ANAYELI SANCHEZ FACC, ALI FACP CCDS Ot I25.10 ATHSCL HEART DISEASE OF [place] CORONARY 11/20/2016 ANAYELI SANCHEZ FACC, ALI FACP CCDS Ot I65.23 OCCLUSION AND STENOSIS OF [place]IL[place]AL [place] 11/20/2016 ANAYELI SANCHEZ FACC, ALI FACP CCDS Ot 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 11/20/2016 ANAYELI SANCHEZ FACC, ALI FACP CCDS Ot N18.9 CHRONIC KIDNEY DISEASE, UNSPECIFIED 11/20/2016 ANAYELI SANCHEZ FACC, ALI FACP CCDS Ot Z95.0 PRESENCE OF CARDIAC PACEMAKER 12/09/2016 LAQUITA SYLVESTER TRUST CLERK Ot E78.5 HYPERLIPIDEMIA, UNSPECIFIED 12/09/2016 LAURALAQUITA HERNANDEZ TRUST CLERK Ot 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 12/09/2016 LAURAMARY LAQUITA Antunez TRUST CLERK Ot I25.10 ATHSCL HEART DISEASE OF [place] CORONARY 12/09/2016 LAURALAQUITA HERNANDEZ TRUST CLERK Ot 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 12/09/2016 LAURALAQUITA HERNANDEZ TRUST CLERK Ot N18.2 CHRONIC KIDNEY DISEASE, STAGE 2 (MILD) 12/09/2016 LAURAMARY LAQUITA Antunez TRUST CLERK Ot R00.1 BRADYCARDIA, UNSPECIFIED 12/09/2016 LAURAMARY LAQUITA Antunez TRUST CLERK Ot Z45.010 ENCNTR FOR CHECKING AND TEST OF CARD PAC 12/09/2016 NGA LAQUITA Antunez TRUST CLERK Ot Z79.899 OTHER SNF (CURRENT) DRUG THERAPY 12/09/2016 NGA LAQUITA Antunez TRUST CLERK Ot Z95.1 PRESENCE OF AORTOCORONARY BYPASS GRAFT 2016 CARINA COTTON MD Ot 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 2016 CARINA COTTON MD Ot C44.619 BASAL CELL CARCINOMA SKIN/ LEFT UPPER LI 2016 CARINA COTTON MD Ot E78.5 HYPERLIPIDEMIA, UNSPECIFIED 2016 CARINA COTTON MD Ot F17.210 NICOTINE DEPENDENCE, CIGARETTES, UNCOMPL 2016 CARINA COTTON MD Ot F41.9 ANXIETY DISORDER, UNSPECIFIED 2016 CARINA COTTON MD Ot I10 ESSENTIAL (PRIMARY) HYPERTENSION 2016 CARINA COTTON MD Ot I25.10 ATHSCL HEART DISEASE OF [place] CORONARY 2016 CARINA COTTON MD Ot M54.9 DORSALGIA, UNSPECIFIED 2016 CARINA COTTON MD Ot Z95.0 PRESENCE OF CARDIAC PACEMAKER 2016 CARINA COTTON MD Ot Z95.1 PRESENCE OF AORTOCORONARY BYPASS GRAFT 2016 CARINA COTTON MD Ot Z99.3 DEPENDENCE ON WHEELCHAIR 2016 ANAYELI SANCHEZ FACC, ALI FACP CCDS Ot E78.4 OTHER HYPERLIPIDEMIA 2016 ANAYELI SANCHEZ FACC, ALI FACP CCDS Ot 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 2016 ANAYELI SANCHEZ FAC, ALI FACP CCDS Ot I25.10 ATHSCL HEART DISEASE OF [place] CORONARY 2016 ANAYELI SANCHEZ FAC, ALI FACP CCDS Ot I65.23 OCCLUSION AND STENOSIS OF BILATERAL [place] 2016 ANAYELI SANCHEZ FAC, ALI FACP CCDS Ot 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 2016 ANAYELI SANCHEZ [facility], ALI FACP CCDS Ot N18.9 CHRONIC KIDNEY DISEASE, UNSPECIFIED 2016 ANAYELI SANCHEZ [facility], ALI FACP CCDS Ot Z95.0 PRESENCE OF CARDIAC PACEMAKER 12/22/2016 JIMENA MENENDEZ MD Ot E78.00 PURE HYPERCHOLESTEROLEMIA, UNSPECIFIED 12/22/2016 JIMENA MENENDEZ MD Ot F41.9 ANXIETY DISORDER, UNSPECIFIED 12/22/2016 JIMENA MENENDEZ MD Ot I10 ESSENTIAL (PRIMARY) HYPERTENSION 12/22/2016 JIMENA MENENDEZ MD Ot I25.10 ATHSCL HEART DISEASE OF [place] CORONARY 12/22/2016 JIMENA MENENDEZ MD Ot I25.2 OLD MYOCARDIAL INFARCTION 12/22/2016 JIMENA MENENDEZ MD Ot K58.9 IRRITABLE BOWEL SYNDROME WITHOUT DIARRHE 12/22/2016 JIMENA MENENDEZ MD Ot S51.811A LACERATION W/O FOREIGN BODY OF RIGHT FOR 12/22/2016 JIMENA MENENDEZ MD Ot W18.30XA FALL ON SAME LEVEL, UNSPECIFIED, INITIAL 12/22/2016 JIMENA MENENDEZ MD Ot Y92.002 BATHRM OF [facility] 12/22/2016 JIMENA MENENDEZ MD Ot Z79.82 MANAGER AUDIO (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 12/22/2016 JIMENA MENENDEZ MD Ot Z85.828 PERSONAL HISTORY OF OTHER MALIGNANT NEOP 12/22/2016 JIMENA MENENDEZ MD Ot Z87.01 PERSONAL HISTORY OF PNEUMONIA (RECURRENT 12/22/2016 JIMENA MENENDEZ MD Ot Z87.891 PERSONAL HISTORY OF NICOTINE DEPENDENCE 12/22/2016 JIMENA MENENDEZ MD Ot Z95.0 PRESENCE OF CARDIAC PACEMAKER 12/22/2016 JIMENA MENENDEZ MD Ot Z95.1 PRESENCE OF AORTOCORONARY BYPASS GRAFT 01/17/2017 CARINA COTTON MD, Ot 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 01/17/2017 CARINA COTTON MD, Ot C44.619 BASAL CELL CARCINOMA SKIN/ LEFT UPPER LI 01/17/2017 CARINA COTTON MD Ot E78.5 HYPERLIPIDEMIA, UNSPECIFIED 01/17/2017 CARINA COTTON MD Ot F17.210 NICOTINE DEPENDENCE, CIGARETTES, UNCOMPL 01/17/2017 CARINA COTTON MD Ot F41.9 ANXIETY DISORDER, UNSPECIFIED 01/17/2017 CARINA COTTON MD Ot I10 ESSENTIAL (PRIMARY) HYPERTENSION 01/17/2017 CARINA COTTON MD Ot I25.10 ATHSCL HEART DISEASE OF [place] CORONARY 01/17/2017 CARINA COTTON MD, Ot M54.9 DORSALGIA, UNSPECIFIED 01/17/2017 CARINA COTTON MD Ot Z95.0 PRESENCE OF CARDIAC PACEMAKER 01/17/2017 CARINA COTTON MD Ot Z95.1 PRESENCE OF AORTOCORONARY BYPASS GRAFT 01/17/2017 CARINA COTTON MD Ot Z99.3 DEPENDENCE ON WHEELCHAIR 01/20/2017 CARINA COTTON MD Ot 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 01/20/2017 CARINA COTTON MD, Ot C44.619 BASAL CELL CARCINOMA SKIN/ LEFT UPPER LI 01/20/2017 CARINA COTTON MD Ot E78.5 HYPERLIPIDEMIA, UNSPECIFIED 01/20/2017 CARINA COTTON MD, Ot F17.210 NICOTINE DEPENDENCE, CIGARETTES, UNCOMPL 01/20/2017 CARINA COTTON MD Ot F41.9 ANXIETY DISORDER, UNSPECIFIED 01/20/2017 CARINA COTTON MD Ot I10 ESSENTIAL (PRIMARY) HYPERTENSION 01/20/2017 CARINA COTTON MD Ot I25.10 ATHSCL HEART DISEASE OF [place] CORONARY 01/20/2017 CARINA COTTON MD Ot M54.9 DORSALGIA, UNSPECIFIED 01/20/2017 CARINA COTTON MD Ot Z95.0 PRESENCE OF CARDIAC PACEMAKER 01/20/2017 CARINA COTTON MD Ot Z95.1 PRESENCE OF AORTOCORONARY BYPASS GRAFT 01/20/2017 LULA SANCHEZ, CARINA Z99.3 DEPENDENCE ON WHEELCHAIR Procedures There is no data. Results Test Result Range Complete blood count (CBC) with automated white blood cell (WBC) differential - 01/14/16 09:05 Blood leukocytes automated count (number/volume) 8.8 10*3/uL 4.3-11.0 Blood erythrocytes automated count (number/volume) 4.17 10*6/uL 4.35-5.85 Venous blood hemoglobin measurement (mass/volume) 15.0 g/dL 13.3-17.7 Blood hematocrit (volume fraction) 44 % 40-54 Automated erythrocyte mean corpuscular volume 104 [foz_us] 80-99 Automated erythrocyte mean corpuscular hemoglobin (mass per erythrocyte) 36 pg 25-34 Automated erythrocyte mean corpuscular hemoglobin concentration measurement ( mass/volume) 35 g/dL 32-36 Automated erythrocyte distribution width ratio 14.1 % 10.0-14.5 Automated blood platelet count (count/volume) 159 10*3/uL 130-400 Automated blood platelet mean volume measurement 10.2 [foz_us] 7.4-10.4 Automated blood neutrophils/100 leukocytes 60 % 42-75 Automated blood lymphocytes/100 leukocytes 31 % 12-44 Blood monocytes/100 leukocytes 9 % 0-12 Automated blood eosinophils/100 leukocytes 0 % 0-10 Automated blood basophils/100 leukocytes 0 % 0-10 Blood neutrophils automated count (number/volume) 5.3 10*3 1.8-7.8 Blood lymphocytes automated count (number/volume) 2.7 10*3 1.0-4.0 Blood monocytes automated count (number/volume) 0.8 10*3 0.0-1.0 Automated eosinophil count 0.0 10*3/uL 0.0-0.3 Automated blood basophil count (count/volume) 0.0 10*3/uL 0.0-0.1 PT panel in platelet poor plasma by coagulation assay - 01/14/16 09:05 Prothrombin time (PT) in platelet poor plasma by coagulation assay 13.2 s 12.2-14.7 INR in platelet poor plasma or blood by coagulation assay 1.0 0.8-1.4 Activated partial thromboplastin time (aPTT) in platelet poor plasma bycoagulation assay - 01/14/16 09:05 Activated partial thromboplastin time (aPTT) in platelet poor plasma bycoagulation assay 36 s 24-35 Comprehensive metabolic panel - 01/14/16 09:05 Serum or plasma sodium measurement (moles/volume) 140 mmol/L 135-145 Serum or plasma potassium measurement (moles/volume) 4.6 mmol/L 3.6-5.0 Serum or plasma chloride measurement (moles/volume) 106 mmol/L 98-107 Carbon dioxide 23 mmol/L 21-32 Serum or plasma anion gap determination (moles/volume) 11 mmol/L 5-14 Serum or plasma urea nitrogen measurement (mass/volume) 23 mg/dL 7-18 Serum or plasma creatinine measurement (mass/volume) 1.44 mg/dL 0.60-1.30 Serum or plasma urea nitrogen/creatinine mass ratio 16 NRG Serum or plasma creatinine measurement with calculation of estimated glomerular filtration rate 47 NRG Serum or plasma glucose measurement (mass/volume) 127 mg/dL 70-105 Serum or plasma calcium measurement (mass/volume) 10.0 mg/dL 8.5-10.1 Serum or plasma total bilirubin measurement (mass/volume) 2.0 mg/dL 0.1-1.0 Serum or plasma alkaline phosphatase measurement (enzymatic activity/volume) 77 U/L 40-136 Serum or plasma aspartate aminotransferase measurement (enzymatic activity/ volume) 33 U/L 5-34 Serum or plasma alanine aminotransferase measurement (enzymatic activity/volume ) 31 U/L 0-55 Serum or plasma protein measurement (mass/volume) 7.5 g/dL 6.4-8.2 Serum or plasma albumin measurement (mass/volume) 4.4 g/dL 3.2-4.5 Magnesium - 01/14/16 09:05 Magnesium 2.3 mg/dL 1.8-2.4 Serum or plasma troponin i.cardiac measurement (mass/volume) - 01/14/16 09:05 Serum or plasma troponin i.cardiac measurement (mass/volume) < ng/ mL <0.30 Myoglobin, serum - 01/14/16 09:05 Myoglobin, serum 126.9 ng/mL 10.0-92.0 Serum or plasma troponin i.cardiac measurement (mass/volume) - 01/14/16 15:05 Serum or plasma troponin i.cardiac measurement (mass/volume) < ng/ mL <0.30 Lipid 1996 panel - 01/15/16 04:35 Serum or plasma triglyceride measurement (mass/volume) 54 mg/dL <150 Serum or plasma cholesterol measurement (mass/volume) 84 mg/dL < 200 Serum or plasma cholesterol in HDL measurement (mass/volume) 33 mg/ dL 40-60 Cholesterol in LDL [mass/volume] in serum or plasma by direct assay 40 mg/dL 1-129 Serum or plasma cholesterol in VLDL measurement (mass/volume) 11 mg/ dL 5-40 Complete blood count (CBC) with automated white blood cell (WBC) differential - 06/06/16 18:26 Blood leukocytes automated count (number/volume) 5.9 10*3/uL 4.3-11.0 Blood erythrocytes automated count (number/volume) 3.79 10*6/uL 4.35-5.85 Venous blood hemoglobin measurement (mass/volume) 13.6 g/dL 13.3-17.7 Blood hematocrit (volume fraction) 40 % 40-54 Automated erythrocyte mean corpuscular volume 104 [foz_us] 80-99 Automated erythrocyte mean corpuscular hemoglobin (mass per erythrocyte) 36 pg 25-34 Automated erythrocyte mean corpuscular hemoglobin concentration measurement ( mass/volume) 34 g/dL 32-36 Automated erythrocyte distribution width ratio 13.7 % 10.0-14.5 Automated blood platelet count (count/volume) 120 10*3/uL 130-400 Automated blood platelet mean volume measurement 10.1 [foz_us] 7.4-10.4 Automated blood neutrophils/100 leukocytes 31 % 42-75 Automated blood lymphocytes/100 leukocytes 61 % 12-44 Blood monocytes/100 leukocytes 6 % 0-12 Automated blood eosinophils/100 leukocytes 1 % 0-10 Automated blood basophils/100 leukocytes 0 % 0-10 Blood neutrophils automated count (number/volume) 1.9 10*3 1.8-7.8 Blood lymphocytes automated count (number/volume) 3.6 10*3 1.0-4.0 Blood monocytes automated count (number/volume) 0.4 10*3 0.0-1.0 Automated eosinophil count 0.1 10*3/uL 0.0-0.3 Automated blood basophil count (count/volume) 0.0 10*3/uL 0.0-0.1 PT panel in platelet poor plasma by coagulation assay - 06/06/16 18:26 Prothrombin time (PT) in platelet poor plasma by coagulation assay 13.0 s 12.2-14.7 INR in platelet poor plasma or blood by coagulation assay 1.0 0.8-1.4 Activated partial thromboplastin time (aPTT) in platelet poor plasma bycoagulation assay - 06/06/16 18:26 Activated partial thromboplastin time (aPTT) in platelet poor plasma bycoagulation assay 36 s 24-35 Comprehensive metabolic panel - 06/06/16 18:26 Serum or plasma sodium measurement (moles/volume) 140 mmol/L 135-145 Serum or plasma potassium measurement (moles/volume) 4.1 mmol/L 3.6-5.0 Serum or plasma chloride measurement (moles/volume) 105 mmol/L 98-107 Carbon dioxide 24 mmol/L 21-32 Serum or plasma anion gap determination (moles/volume) 11 mmol/L 5-14 Serum or plasma urea nitrogen measurement (mass/volume) 13 mg/dL 7-18 Serum or plasma creatinine measurement (mass/volume) 1.01 mg/dL 0.60-1.30 Serum or plasma urea nitrogen/creatinine mass ratio 13 NRG Serum or plasma creatinine measurement with calculation of estimated glomerular filtration rate > NRG Serum or plasma glucose measurement (mass/volume) 142 mg/dL 70-105 Serum or plasma calcium measurement (mass/volume) 8.8 mg/dL 8.5-10.1 Serum or plasma total bilirubin measurement (mass/volume) 0.7 mg/dL 0.1-1.0 Serum or plasma alkaline phosphatase measurement (enzymatic activity/volume) 81 U/L 40-136 Serum or plasma aspartate aminotransferase measurement (enzymatic activity/ volume) 29 U/L 5-34 Serum or plasma alanine aminotransferase measurement (enzymatic activity/volume ) 23 U/L 0-55 Serum or plasma protein measurement (mass/volume) 7.1 g/dL 6.4-8.2 Serum or plasma albumin measurement (mass/volume) 4.0 g/dL 3.2-4.5 Magnesium - 06/06/16 18:26 Magnesium 2.1 mg/dL 1.8-2.4 Serum or plasma creatine kinase measurement (enzymatic activity/volume) - 06/06 18:26 Serum or plasma creatine kinase measurement (enzymatic activity/volume) 95 U/L 30-200 Serum or plasma creatine kinase MB measurement (enzymatic activity/volume) - 18:26 Serum or plasma creatine kinase MB measurement (enzymatic activity/volume) 3.7 ng/mL <6.6 Serum or plasma troponin i.cardiac measurement (mass/volume) - 06/06/16 18:26 Serum or plasma troponin i.cardiac measurement (mass/volume) < ng/ mL <0.30 Serum or plasma lithium measurement (moles/volume) - 06/06/16 18:26 BNP level 190.3 pg/mL <100.0 Serum or plasma amylase measurement (enzymatic activity/volume) - 06/06/16 18: 26 Serum or plasma amylase measurement (enzymatic activity/volume) 37 U /L 25-125 Lipase - 06/06/16 18:26 Lipase 26 U/L 8-78 Comprehensive metabolic panel - 11/20/16 07:11 Serum or plasma sodium measurement (moles/volume) 140 mmol/L 135-145 Serum or plasma potassium measurement (moles/volume) 4.3 mmol/L 3.6-5.0 Serum or plasma chloride measurement (moles/volume) 106 mmol/L 98-107 Carbon dioxide 26 mmol/L 21-32 Serum or plasma anion gap determination (moles/volume) 8 mmol/L 5-14 Serum or plasma urea nitrogen measurement (mass/volume) 16 mg/dL 7-18 Serum or plasma creatinine measurement (mass/volume) 0.85 mg/dL 0.60-1.30 Serum or plasma urea nitrogen/creatinine mass ratio 19 NRG Serum or plasma creatinine measurement with calculation of estimated glomerular filtration rate > NRG Serum or plasma glucose measurement (mass/volume) 110 mg/dL 70-105 Serum or plasma calcium measurement (mass/volume) 9.5 mg/dL 8.5-10.1 Serum or plasma total bilirubin measurement (mass/volume) 1.8 mg/dL 0.1-1.0 Serum or plasma alkaline phosphatase measurement (enzymatic activity/volume) 67 U/L 40-136 Serum or plasma aspartate aminotransferase measurement (enzymatic activity/ volume) 26 U/L 5-34 Serum or plasma alanine aminotransferase measurement (enzymatic activity/volume ) 23 U/L 0-55 Serum or plasma protein measurement (mass/volume) 7.1 g/dL 6.4-8.2 Serum or plasma albumin measurement (mass/volume) 3.9 g/dL 3.2-4.5 Magnesium - 11/20/16 07:11 Magnesium 1.7 mg/dL 1.8-2.4 Lipid 1996 panel - 11/20/16 07:11 Serum or plasma triglyceride measurement (mass/volume) 70 mg/dL <150 Serum or plasma cholesterol measurement (mass/volume) 109 mg/dL < 200 Serum or plasma cholesterol in HDL measurement (mass/volume) 40 mg/ dL 40-60 Cholesterol in LDL [mass/volume] in serum or plasma by direct assay 54 mg/dL 1-129 Serum or plasma cholesterol in VLDL measurement (mass/volume) 14 mg/ dL 5-40 THYROID STIMULATING HORMONE - 11/20/16 07:11 THYROID STIMULATING HORMONE 1.46 u[iU]/mL 0.35-4.94 Automated blood complete blood count (hemogram) panel - 12/09/16 09:10 Blood leukocytes automated count (number/volume) 4.1 10*3/uL 4.3-11.0 Blood erythrocytes automated count (number/volume) 3.95 10*6/uL 4.35-5.85 Venous blood hemoglobin measurement (mass/volume) 13.9 g/dL 13.3-17.7 Blood hematocrit (volume fraction) 41 % 40-54 Automated erythrocyte mean corpuscular volume 104 [foz_us] 80-99 Automated erythrocyte mean corpuscular hemoglobin (mass per erythrocyte) 35 pg 25-34 Automated erythrocyte mean corpuscular hemoglobin concentration measurement ( mass/volume) 34 g/dL 32-36 Automated erythrocyte distribution width ratio 13.7 % 10.0-14.5 Automated blood platelet count (count/volume) 113 10*3/uL 130-400 Automated blood platelet mean volume measurement 10.3 [foz_us] 7.4-10.4 PT panel in platelet poor plasma by coagulation assay - 12/09/16 09:10 Prothrombin time (PT) in platelet poor plasma by coagulation assay 13.3 s 12.2-14.7 INR in platelet poor plasma or blood by coagulation assay 1.0 0.8-1.4 Activated partial thromboplastin time (aPTT) in platelet poor plasma bycoagulation assay - 12/09/16 09:10 Activated partial thromboplastin time (aPTT) in platelet poor plasma bycoagulation assay 34 s 24-35 Comprehensive metabolic panel - 12/09/16 09:10 Serum or plasma sodium measurement (moles/volume) 141 mmol/L 135-145 Serum or plasma potassium measurement (moles/volume) 3.4 mmol/L 3.6-5.0 Serum or plasma chloride measurement (moles/volume) 106 mmol/L 98-107 Carbon dioxide 25 mmol/L 21-32 Serum or plasma anion gap determination (moles/volume) 10 mmol/L 5-14 Serum or plasma urea nitrogen measurement (mass/volume) 13 mg/dL 7-18 Serum or plasma creatinine measurement (mass/volume) 0.88 mg/dL 0.60-1.30 Serum or plasma urea nitrogen/creatinine mass ratio 15 NRG Serum or plasma creatinine measurement with calculation of estimated glomerular filtration rate > NRG Serum or plasma glucose measurement (mass/volume) 114 mg/dL 70-105 Serum or plasma calcium measurement (mass/volume) 9.3 mg/dL 8.5-10.1 Serum or plasma total bilirubin measurement (mass/volume) 1.9 mg/dL 0.1-1.0 Serum or plasma alkaline phosphatase measurement (enzymatic activity/volume) 65 U/L 40-136 Serum or plasma aspartate aminotransferase measurement (enzymatic activity/ volume) 32 U/L 5-34 Serum or plasma alanine aminotransferase measurement (enzymatic activity/volume ) 27 U/L 0-55 Serum or plasma protein measurement (mass/volume) 7.1 g/dL 6.4-8.2 Serum or plasma albumin measurement (mass/volume) 4.0 g/dL 3.2-4.5 Lipid 1996 panel - 12/09/16 09:10 Serum or plasma triglyceride measurement (mass/volume) 74 mg/dL <150 Serum or plasma cholesterol measurement (mass/volume) 110 mg/dL < 200 Serum or plasma cholesterol in HDL measurement (mass/volume) 44 mg/ dL 40-60 Cholesterol in LDL [mass/volume] in serum or plasma by direct assay 54 mg/dL 1-129 Serum or plasma cholesterol in VLDL measurement (mass/volume) 15 mg/ dL 5-40 Methicillin resistant Staphylococcus aureus (MRSA) screening culture - 09:10 Methicillin resistant Staphylococcus aureus (MRSA) screening culture NEG NRG Encounters ACCT No. Visit Date/Time Discharge Status Pt. Type Provider Facility Loc./Unit Complaint [id number] 01/18/2017 00:30:00 01/18/2017 23:59:59 CLS Preadmit CARINA COTTON MD [facility] ONC [id number] 11/12/2016 08:50:00 01/17/2017 00:01:00 DIS Outpatient CARINA COTTON MD [facility] ONC [id number] 12/22/2016 07:36:00 12/22/2016 09:03:00 DIS Emergency JIMENA MENENDEZ MD [facility] ER RT ARM ABRASION FALL [id number] 12/09/2016 11:00:00 12/09/2016 23:59:59 CLS Preadmit ANAYELI SANCHEZ FACC, ALI FACP CCDS [facility] SDC END OF LIFE PACEMAKER; SICK SINUS SYNDROME [id number] 12/09/2016 08:41:00 12/09/2016 17:45:00 DIS Outpatient LAQUITA SYLVESTER [facility] CATH END OF LIFE PACEMAKER,SICK SINUS SYNDROME [id number] 11/20/2016 06:59:00 11/20/2016 23:59:59 CLS Outpatient ANAYELI SANCHEZ FACLorrie, ALI FACP CCDS [facility] LAB I25.10 I65.23 N18.9 [id number] 11/18/2016 09:00:00 11/18/2016 23:59:59 CLS Preadmit CARINA COTTON MD [facility] RAD MELANOMA [id number] 06/17/2016 07:16:00 06/17/2016 23:59:59 CLS Outpatient ANAYELI SANCHEZ FACC, ALI FACP CCDS [facility] CARD CHEST DISCOMFORT,CAD,CAROTID ARTERIAL DISEASE,CKD [id number] 06/06/2016 18:13:00 06/06/2016 19:30:00 DIS Emergency NORAH HENRIQUEZ DO [facility] ER CP [id number] 01/14/2016 10:44:00 01/15/2016 13:00:00 DIS Inpatient GELY AVILEZ MD [facility] 4TH CHEST PAIN DEHYDRATION [id number] 11/07/2015 08:39:00 11/07/2015 23:59:59 CLS Outpatient LAQUITA SYLVESTER TRUST CLERK [facility] CARD CAD; HYPERLIPIDEMIA ; HTN; SINUS BRADYCARDIA [id number] 10/18/2015 11:30:00 10/18/2015 23:59:59 CLS Outpatient LAURAMARY LAQUITA L TRUST CLERK [facility] LAB CAD,HYPERLIPIDEMIA, HTN,CKD, CARDIAC PACEMAKER [id number] 10/12/2015 09:11:00 10/12/2015 12:29:00 DIS Emergency MITCHELL DIMAS MD [facility] ER CHEST PAIN [id number] 02/15/2014 09:53:00 02/17/2014 13:00:00 DIS Inpatient MITCHELL ANTOINE MD [facility] 4TH PNEUMONIA SYNCOPE CHEST PAIN EDEMA FLUID OVERLOAD [id number] 01/02/2014 12:55:00 01/02/2014 23:59:59 CLS Outpatient NGA LAQUITA Tulio TRUST CLERK [facility] CARD BRADYCARDIA,HLP, PACEMAKER [id number] 12/19/2013 17:53:00 12/19/2013 20:05:00 DIS Emergency JIMENA MENENDEZ MD [facility] ER VOMITING BLOOD [id number] 08/11/2013 06:00:00 08/11/2013 10:25:00 DIS Outpatient TEA STEVENS DO [facility] SDC LESION LEFT FOREARM [id number] 08/08/2013 13:20:00 08/08/2013 23:59:59 CLS Outpatient [id number] 07/23/2013 17:56:00 07/23/2013 18:49:00 DIS Emergency [id number] 04/16/2013 09:29:00 04/16/2013 12:15:00 DIS Emergency NORAH HENRIQUEZ DO [facility] ER CHEST PAIN, SOA [id number] 01/14/2016 12:08:00 Document Registration [id number] 06/08/2014 16:12:00 Document Registration [id number] 06/08/2014 16:12:00 Document Registration [id number] 06/08/2014 16:12:00 Document Registration [id number] 05/11/2014 04:01:00 Document Registration [id number] 03/08/2012 12:47:00 Document Registration [id number] 01/08/2012 06:48:00 Document Registration [id number] 01/23/2011 05:48:00 Document Registration [id number] 06/23/2010 07:23:00 Document Registration [id number] 06/18/2010 12:15:00 Document Registration [id number] 06/17/2010 08:48:00 Document Registration [id number] 06/12/2010 13:06:00 Document Registration [id number] 02/28/2010 05:43:00 Document Registration [id number] 02/27/2010 08:39:00 Document Registration [id number] 01/15/2010 07:04:00 Document Registration [id number] 10/15/2009 09:07:00 Document Registration [id number] 06/29/2009 06:03:00 Document Registration
[2017-07-28 11:01] LABS: BASOPHILS % (AUTO) 0 % (0-10); EOSINOPHILS # (AUTO) 0.1 10^3/uL (0.0-0.3); EOSINOPHILS % (AUTO) 1 % (0-10); HEMATOCRIT 36 % (40-54); HEMOGLOBIN 13.1 G/DL (13.3-17.7); LYMPHOCYTES # (AUTO) 2.2 X 10^3 (1.0-4.0); LYMPHOCYTES % (AUTO) 47 % (12-44); MEAN CORPUSCULAR HEMOGLOBIN 37 PG (25-34); MEAN CORPUSCULAR HGB CONC 36 G/DL (32-36); MEAN CORPUSCULAR VOLUME 103 FL (80-99); MEAN PLATELET VOLUME 10.3 FL (7.4-10.4); MONOCYTES # (AUTO) 0.4 X 10^3 (0.0-1.0); MONOCYTES % (AUTO) 9 % (0-12); NEUTROPHILS % (AUTO) 43 % (42-75); PLATELET COUNT 101 10^3/uL (130-400); RED BLOOD COUNT 3.54 10^6/uL (4.35-5.85); WHITE BLOOD COUNT 4.6 10^3/uL (4.3-11.0)
[2017-07-28 11:05] LABS: INR 1.1 (0.8-1.4)
[2017-07-28 11:13] LABS: ALANINE AMINOTRANSFERASE 23 U/L (0-55); ALBUMIN 4.1 GM/DL (3.2-4.5); ALKALINE PHOSPHATASE 53 U/L (40-136); BILIRUBIN,TOTAL 0.9 MG/DL (0.1-1.0); BUN/CREATININE RATIO 23; CARBON DIOXIDE 30 MMOL/L (21-32); CHLORIDE 108 MMOL/L (98-107); CREATININE SERUM 0.81 MG/DL (0.60-1.30); GFR ESTIMATED > 60; GLUCOSE 91 MG/DL (70-105); POTASSIUM 3.6 MMOL/L (3.6-5.0); SODIUM 141 MMOL/L (135-145)
[2017-07-28 11:17] LABS: CLARITY,URINE SLIGHTLY CLOUDY; COLOR,URINE YELLOW; GLUCOSE, URINE (UA) NEGATIVE (NEGATIVE); KETONES,URINE NEGATIVE (NEGATIVE); LEUKOCYTE ESTERASE ,URINE NEGATIVE (NEGATIVE); NITRITE,URINE NEGATIVE (NEGATIVE); PH,URINE 6 (5-9); PROTEIN,URINE NEGATIVE (NEGATIVE); UROBILINOGEN,URINE 8 MG/DL (NORMAL)
[2017-07-28 11:20] LABS: MYOGLOBIN SERUM 66.4 NG/ML (10.0-92.0)
--- NOTE | 2017-07-28 11:23 | Diagnostic Imaging Report ---
INDICATION: Recent fall. Persistent left hip pain. COMPARISON: None. FINDINGS: AP view of the pelvis and 2 dedicated radiographic views of the left hip were obtained. There is no fracture, dislocation, bone destruction, or radiopaque foreign body. The visualized pelvic osseous structures and the SI joints demonstrate no acute fracture or dislocation. There is no bone destruction or radiopaque foreign body. The surrounding soft tissue structures are unremarkable. IMPRESSION: 1. No acute fracture or dislocation in the pelvis and left hip joint. Dictated by: Dictated on workstation # [id number]
[2017-07-28 11:29] LABS: BILIRUBIN,URINE 1+ (NEGATIVE); RBC,URINE RARE /HPF
[2017-07-28 11:30] LABS: BACTERIA,URINE FEW /HPF
--- NOTE | 2017-07-28 11:32 | Diagnostic Imaging Report ---
INDICATION: Chest pain. COMPARISON: 12/09/2016. FINDINGS: Single frontal radiographic view of the chest was obtained and demonstrates low inspiratory volumes with asymmetric elevation of the right hemidiaphragm. Skin folds are seen projecting over the right hemithorax. There is no large effusion or pneumothorax. Cardiac silhouette is mildly enlarged. Pulmonary vasculature is within normal limits. Left-sided dual-lead pacemaker and sternotomy wires are noted. The bony structures show no gross acute abnormalities. IMPRESSION: 1. Low lung volumes with asymmetric elevation of the right hemidiaphragm and crowding of the central hilar structures. 2. Cardiomegaly, but no evidence of overt failure. Dictated by: Dictated on workstation # [id number]
--- NOTE | 2017-07-28 12:14 | ED Chest Pain ---
General Chief Complaint: Chest Pain Stated Complaint: CP Nursing Triage Note: PT AMBULATED TO ROOM 6 W WALKER, PT CO OF CHEST PAIN FOR APPROX 1 MONTH, RATES 01/27 PT STATES FELL APPROX 1 WEEK AGO HAS L HIP PAIN Nursing Sepsis Screen: No Definite Risk Source: patient, old records Exam Limitations: no limitations History of Present Illness Date Seen by Provider: Jul 28, 2017 Time Seen by Provider: 10:04 Initial Comments This 86-year-old Mongolian presents to the emergency room with complaint of chest pain that is chronic but worsening over the past month. He has known history of coronary artery disease and is status post CABG. His last heart catheter on file was from 2009. He had a negative stress test in May of last year. Echocardiogram from 2016 shows eimy-ad-gjgjstba valvular disease with ejection fraction of 50 percent. Patient states deep breathing helps his pain. Pain is worse when he gets up and walks to the bathroom and he reports his pacemaker seems to fire more when he is up walking. Pain is also worse when lying flat in bed. Pain seems to be least when in a sitting position. Patient reports having a fall somewhere between one week and one month ago. He a has some left hip pain associated with that but has been ambulatory with a walker. Family complains that he was recently given Xanax and Benadryl and they're unsure why. He comes from [facility]. Bri is his primary care provider. Dr. Sharma is his vision care associate. Allergies and Home Medications Allergies Coded Allergies: No Known Drug Allergies (Verified , 02/15/14) Home Medications Alprazolam 0.25 Mg Tablet, 0.25 MG PO HS, (Reported) Alprazolam 0.25 Mg Tablet, 0.25 MG PO BID PRN for ANXIETY, (Reported) Aspirin 81 Mg Tabec, 81 MG PO DAILY, (Reported) Docusate Sodium 100 Mg Capsule, 100 MG PO DAILY PRN for CONSTIPATION-1ST LINE, ( Reported) Folic Acid 0.4 Mg Tablet, 0.4 MG PO DAILY, (Reported) Lisinopril 40 Mg Tablet, 20 MG PO DAILY, (Reported) TAKE 1/2 (40MG) TABLET Pantoprazole Sodium 20 Mg Tablet.dr, 20 MG PO DAILY, (Reported) Simvastatin 20 Mg Tablet, 10 MG PO HS, (Reported) TAKE 1/2 (20MG) TABLET Patient Home Medication List Home Medication List Reviewed: Yes Review of Systems Constitutional: no symptoms reported EENTM: No Symptoms Reported Respiratory: No Symptoms Reported Cardiovascular: See HPI Gastrointestinal: No Symptoms Reported Genitourinary: No Symptoms Reported Musculoskeletal: see HPI Skin: no symptoms reported Psychiatric/Neurological: No Symptoms Reported Endocrine: No Symptoms Reported Hematologic/Lymphatic: No Symptoms Reported Past Fxnbrxs-Krxnbb-Htseeo Hx Patient Social History Alcohol Use: Denies Use Recreational Drug Use: No Smoking Status: Former Smoker Former Smoker, Quit: Dec 09, 1980 Recent Foreign Travel: No Contact w/Someone Who Travel: No Recent Infectious Disease Expo: No Recent Hopitalizations: No Physical Abuse: No Sexual Abuse: No Immunizations Up To Date Date of Pneumonia Vaccine: Jan 19, 2012 Date of Influenza Vaccine: Mar 01, 2014 Seasonal Allergies Seasonal Allergies: No Past Medical History Surgeries: Yes Abdominal, Cardiac, CABG, Pacemaker Respiratory: No Pneumonia Cardiac: Yes Chronic Edema/Swelling, Coronary Artery Disease, Heart Attack, High Cholesterol , Hypertension, Irregular Heartbeat Neurological: No Reproductive Disorders: No Sexually Transmitted Disease: No HIV/AIDS: No Genitourinary: No Gastrointestinal: Yes Irritable Bowel Musculoskeletal: Yes Arthritis Endocrine: No Loss of Vision: Denies Hearing Impairment: Denies Cancer: No Skin Psychosocial: Yes Anxiety Nursing Suicide Risk Score: 0 Integumentary: No Blood Disorders: No Adverse Reaction/Blood Tranf: No Family Medical History No Pertinent Family Hx Physical Exam Vital Signs Vital Signs - First Documented 07/28/17 10:01 Temp 97.9 Pulse 60 Resp 18 B/P (MAP) 173/79 (110) Pulse Ox 100 Capillary Refill : Less Than 3 Seconds General Appearance: No Apparent Distress, WD/WN HEENT: Normal ENT Inspection Neck: Normal Inspection Respiratory: Lungs Clear, Normal Breath Sounds, No Accessory Muscle Use, No Respiratory Distress, Other (mild tenderness to palpation of the chest throughout) Cardiovascular: Regular Rate, Rhythm, No Edema, Systolic Murmur Gastrointestinal: Normal Bowel Sounds, Non Tender, Soft Extremity: Normal Inspection, No Pedal Edema, Other (tenderness over the left posterior hip. No pain with hip rotation. 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 Norm as Tested Skin: Normal Color, Warm/Dry Progress/Results/Core Measures Lab Results Laboratory Tests Test 07/28/17 10:20 07/28/17 10:46 Range/Units White Blood Count 4.6 4.3-11.0 10^3/uL Red Blood Count 3.54 L 4.35-5.85 10^6/uL Hemoglobin 13.1 L 13.3-17.7 G/DL Hematocrit 36 L 40-54 % Mean Corpuscular Volume 103 H 80-99 FL Mean Corpuscular Hemoglobin 37 H 25-34 PG Mean Corpuscular Hemoglobin Concent 36 32-36 G/DL Red Cell Distribution Width 14.0 10.0-14.5 % Platelet Count 101 L 130-400 10^3/uL Mean Platelet Volume 10.3 7.4-10.4 FL Neutrophils (%) (Auto) 43 42-75 % Lymphocytes (%) (Auto) 47 H 12-44 % Monocytes (%) (Auto) 9 0-12 % Eosinophils (%) (Auto) 1 0-10 % Basophils (%) (Auto) 0 0-10 % Neutrophils # (Auto) 2.0 1.8-7.8 X 10^3 Lymphocytes # (Auto) 2.2 1.0-4.0 X 10^3 Monocytes # (Auto) 0.4 0.0-1.0 X 10^3 Eosinophils # (Auto) 0.1 0.0-0.3 10^3/uL Basophils # (Auto) 0.0 0.0-0.1 10^3/uL Prothrombin Time 14.0 12.2-14.7 SEC INR Comment 1.1 0.8-1.4 Activated Partial Thromboplast Time 37 H 24-35 SEC Sodium Level 141 135-145 MMOL/L Potassium Level 3.6 3.6-5.0 MMOL/L Chloride Level 108 H 98-107 MMOL/L Carbon Dioxide Level 30 21-32 MMOL/L Anion Gap 3 L 5-14 MMOL/L Blood Urea Nitrogen 19 H 7-18 MG/DL Creatinine 0.81 0.60-1.30 MG/DL Estimat Glomerular Filtration Rate > 60 BUN/Creatinine Ratio 23 Glucose Level 91 70-105 MG/DL Calcium Level 9.0 8.5-10.1 MG/DL Magnesium Level 2.0 1.8-2.4 MG/DL Total Bilirubin 0.9 0.1-1.0 MG/DL Aspartate Amino Transf (AST/SGOT) 24 5-34 U/L Alanine Aminotransferase (ALT/SGPT) 23 0-55 U/L Alkaline Phosphatase 53 40-136 U/L Myoglobin 66.4 10.0-92.0 NG/ML Troponin I < 0.30 <0.30 NG/ML Total Protein 7.0 6.4-8.2 GM/DL Albumin 4.1 3.2-4.5 GM/DL Urine Color YELLOW Urine Clarity SLIGHTLY CLOUDY Urine pH 6 5-9 Urine Specific [place] 1.020 1.016-1.022 Urine Protein NEGATIVE NEGATIVE Urine Glucose (UA) NEGATIVE NEGATIVE Urine Ketones NEGATIVE NEGATIVE Urine Nitrite NEGATIVE NEGATIVE Urine Bilirubin 1+ H NEGATIVE Urine Urobilinogen 8 H NORMAL MG/DL Urine Leukocyte Esterase NEGATIVE NEGATIVE Urine RBC (Auto) 2+ H NEGATIVE Urine RBC RARE /HPF Urine WBC 5-10 H /HPF Urine Squamous Epithelial Cells 5-10 /HPF Urine Crystals NONE /LPF Urine Bacteria FEW H /HPF Urine Casts NONE /LPF Urine Mucus SMALL H /LPF Urine Culture Indicated YES My Orders Orders - LEANN GALO MD Cbc With Automated Diff (07/28/17 10:54) Magnesium (07/28/17 10:54) Chest 1 View, Ap/Pa Only (07/28/17 10:54) Ekg Tracing (07/28/17 10:54) Cardiac Profile 1 (07/28/17 10:54) Comprehensive Metabolic Panel (07/28/17 10:54) Myoglobin Serum (07/28/17 10:54) Protime With Inr (07/28/17 10:54) Partial Thromboplastin Time (07/28/17 10:54) O2 (07/28/17 10:54) Monitor-Rhythm Ecg Trace Only (07/28/17 10:54) Lipid Panel (07/29/17 06:00) Saline Lock/Iv-Start (07/28/17 10:54) Pelvis With Left Hip 2-3 Views (07/28/17 10:59) Ua Culture If Indicated (07/28/17 11:11) Urine Culture (07/28/17 10:46) Vital Signs/I&O 07/28/17 10:01 Temp 97.9 Pulse 60 Resp 18 B/P (MAP) 173/79 (110) Pulse Ox 100 Blood Pressure Mean: 110 Progress Note : Progress Note Workup was fairly unremarkable. Patient was cleared from a trauma perspective. Case was reviewed with Dr. Sharma who requested admission for observation. Initial ECG Impression Date: Jul 28, 2017 Initial ECG Impression Time: 10:04 Initial ECG Rate: 60 Comment Dual paced rhythm. LVH with repolarization abnormality by automated read. Diagonstic Imaging: Xray Plain Films/CT/US/NM/MRI: chest Comments Chest x-ray viewed by me and report reviewed. See report below: NAME: SHELLEY BLAIR MED REC#: [id number] PT STATUS: REG ER : 1930 PHYSICIAN: LEANN GALO MD ADMIT DATE: 07/28/17/ER Draft Date of Exam:07/28/17 CHEST 1 VIEW, AP/PA ONLY INDICATION: Chest pain. COMPARISON: 12/09/2016. FINDINGS: Single frontal radiographic view of the chest was obtained and demonstrates low inspiratory volumes with asymmetric elevation of the right hemidiaphragm. Skin folds are seen projecting over the right hemithorax. There is no large effusion or pneumothorax. Cardiac silhouette is mildly enlarged. Pulmonary vasculature is within normal limits. Left-sided dual-lead pacemaker and sternotomy wires are noted. The bony structures show no gross acute abnormalities. IMPRESSION: 1. Low lung volumes with asymmetric elevation of the right hemidiaphragm and crowding of the central hilar structures. 2. Cardiomegaly, but no evidence of overt failure. Dictated on workstation # [id number] Dict: 07/28/17 1120 Trans: 07/28/17 1132 [facility] [id number] Interpreted by: CHERISE MALONE MD Diagonstic Imaging: Xray Plain Films/CT/US/NM/MRI: pelvis, hip Comments X-ray of the hip and left pelvis viewed by me and report reviewed. See report below: MED REC#: [id number] PT STATUS: REG ER : 1930 PHYSICIAN: LEANN GALO MD ADMIT DATE: 07/28/17/ER Draft Date of Exam:07/28/17 PELVIS WITH LEFT HIP 2-3 VIEWS INDICATION: Recent fall. Persistent left hip pain. COMPARISON: None. FINDINGS: AP view of the pelvis and 2 dedicated radiographic views of the left hip were obtained. There is no fracture, dislocation, bone destruction, or radiopaque foreign body. The visualized pelvic osseous structures and the SI joints demonstrate no acute fracture or dislocation. There is no bone destruction or radiopaque foreign body. The surrounding soft tissue structures are unremarkable. IMPRESSION: 1. No acute fracture or dislocation in the pelvis and left hip joint. Dictated on workstation # [id number] Dict: 07/28/17 1121 Trans: 07/28/17 1123 [id number] Interpreted by: CHERISE MALONE MD Departure Communication (Admissions) Time/Spoke to Admitting Phy: 12:05 Kianna Time/Spoke to Consulting Phy: 12:10 Zachary Impression Primary Impression: Chest pain Qualified Codes: R07.9 - Chest pain, unspecified Additional Impressions: Fall on same level Qualified Codes: W18.30XA - Fall on same level, unspecified, initial encounter Left hip pain Disposition: ADMITTED INPATIENT Condition: Improved Admissions Decision to Admit Reason: Admit from ER (General) Decision to Admit/Date: Jul 28, 2017 Time/Decision to Admit Time: 12:05 Departure-Patient Inst. Referrals: NO,LOCAL PHYSICIAN (PCP/Family) Primary Care Physician LEANN GALO MD Jul 28, 2017 12:14
--- OUTSIDE RECORDS SUMMARY | 2017-07-28 12:28 | XMS REPORT | Continuity of Care Document ---
Author Author [facility] Organization [facility] Address Unknown Phone Unavailable Allergies Active Description Code Type Severity Reaction Onset Reported/Identified Relationship to Patient Clinical Status Yes No Known Drug Allergies [id number] Drug Allergy Unknown N/A 02/15/2014 Medications There [...] ANTOINE MD Ot 414.01 CORONARY ATHEROSCLEROSIS OF [place] CORON 02/17/2014 MITCHELL ANTOINE MD Ot 424.0 [...] MED,LT, CURRENT USE 05/18/2014 BAIMA, LAQUITA L DISCOUNT CLERK Ot 272.4 05/18/2014 BAIMA, LAQUITA L DISCOUNT CLERK Ot 414.00 05/18/2014 BAIMA, LAQIUTA L DISCOUNT CLERK Ot 427.89 05/18/2014 BAIMA, LAQUITA L DISCOUNT CLERK Ot V45.01 06/08/2014 Ot 272.4 06/08/2014 [...] 06/08/2014 Ot V74.8 06/08/2014 BAIMA LAQUITA L DISCOUNT CLERK Ot 272.4 06/08/2014 BAIMA, LAQUITA L DISCOUNT CLERK Ot 414.00 06/08/2014 BAIMA, LAQUITA L DISCOUNT CLERK Ot 427.89 06/08/2014 BAIMA LAQUITA L DISCOUNT CLERK Ot V45.01 10/12/2015 JUDIE SANCHEZ, MITCHELL [...] OF CARDIAC PACEMAKER 10/18/2015 BAILUCI HERNANDEZHER L DISCOUNT CLERK Ot E78.5 HYPERLIPIDEMIA, UNSPECIFIED 10/19/2015 BAIMARY LAQUITA L DISCOUNT CLERK Ot E78.5 HYPERLIPIDEMIA, UNSPECIFIED 10/19/2015 BAIMA, LAQUITA L DISCOUNT CLERK Ot I10 ESSENTIAL (PRIMARY) HYPERTENSION 10/19/2015 BAIMA, LAQUITA L DISCOUNT CLERK Ot I25.10 ATHSCL HEART DISEASE OF [place] CORONARY 10/19/2015 BAIMA, LAQUITA L DISCOUNT CLERK Ot N18.9 CHRONIC KIDNEY DISEASE, UNSPECIFIED 10/19/2015 BAIMA, LAQUITA L DISCOUNT CLERK Ot R00.1 BRADYCARDIA, UNSPECIFIED 10/19/2015 BAIMA, LAQUITA L DISCOUNT CLERK Ot Z95.0 PRESENCE OF CARDIAC PACEMAKER 11/07/2015 BAIMA, LAQUITA L DISCOUNT CLERK Ot 272.4 HYPERLIPIDEMIA NEC/NOS 11/07/2015 BAIMA, LAQUITA L DISCOUNT CLERK Ot 414.00 CORON ATHEROSCLER NOS TYPE VESSEL, NATIV 11/07/2015 BAIMA, LAQUITA L DISCOUNT CLERK Ot 427.89 CARDIAC DYSRHYTHMIAS NEC 11/07/2015 BAIMA, LAQUITA L DISCOUNT CLERK Ot V45.01 CARDIAC PACEMAKER IN SITU 11/07/2015 BAIMA, LAQUITA L DISCOUNT CLERK Ot E78.5 HYPERLIPIDEMIA, UNSPECIFIED 11/07/2015 BAIMA, LAQUITA L DISCOUNT CLERK Ot I10 ESSENTIAL (PRIMARY) HYPERTENSION 11/07/2015 BAIMA, LAQUITA L DISCOUNT CLERK Ot I25.10 ATHSCL HEART DISEASE OF [place] CORONARY 11/07/2015 BAIMA, LAQUITA L DISCOUNT CLERK Ot N18.9 CHRONIC KIDNEY DISEASE, UNSPECIFIED 11/07/2015 BAIMA, LAQUITA L DISCOUNT CLERK Ot R00.1 BRADYCARDIA, UNSPECIFIED 11/07/2015 BAIMA, LAQUITA L DISCOUNT CLERK Ot Z95.0 PRESENCE OF CARDIAC PACEMAKER 11/08/2015 BAIMA, LAQUITA L DISCOUNT CLERK Ot Z95.0 PRESENCE OF CARDIAC PACEMAKER 11/08/2015 BAIMA, LAQUITA L DISCOUNT CLERK Ot E78.5 HYPERLIPIDEMIA, UNSPECIFIED 11/08/2015 BAIMA, LAQUITA L DISCOUNT CLERK Ot 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 11/08/2015 BAIMA, LAQUITA L DISCOUNT CLERK Ot I25.10 ATHSCL HEART DISEASE OF [place] CORONARY 11/08/2015 BAIMA, LAQUITA L DISCOUNT CLERK Ot N18.9 CHRONIC KIDNEY DISEASE, UNSPECIFIED 11/08/2015 BAIMA, LAQUITA L DISCOUNT CLERK Ot R00.1 BRADYCARDIA, UNSPECIFIED 11/08/2015 BAIMA, LAQUITA L DISCOUNT CLERK Ot Z95.0 PRESENCE OF CARDIAC PACEMAKER 11/08/2015 BAIMA, LAQUITA L DISCOUNT CLERK Ot E78.5 HYPERLIPIDEMIA, UNSPECIFIED 11/08/2015 BAIMA, LAQUITA L DISCOUNT CLERK Ot I10 ESSENTIAL (PRIMARY) HYPERTENSION 11/08/2015 BAIMA, LAQUITA L DISCOUNT CLERK Ot I25.10 ATHSCL HEART DISEASE OF [place] CORONARY 11/08/2015 BAIMA, LAQUITA L DISCOUNT CLERK Ot N18.9 CHRONIC KIDNEY DISEASE, UNSPECIFIED 11/08/2015 BAIMA, LAQUITA L DISCOUNT CLERK Ot R00.1 BRADYCARDIA, UNSPECIFIED 11/08/2015 BAIMA, LAQUITA L DISCOUNT CLERK Ot Z95.0 PRESENCE OF CARDIAC PACEMAKER 12/11/2015 BAIMA, LAQUITA L DISCOUNT CLERK Ot E78.5 HYPERLIPIDEMIA, UNSPECIFIED 12/11/2015 BAIMA, LAQUITA L DISCOUNT CLERK Ot 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 12/11/2015 BAIMA, LAQUITA L DISCOUNT CLERK Ot I25.10 ATHSCL HEART DISEASE OF [place] CORONARY 12/11/2015 BAIMA, LAQUITA L DISCOUNT CLERK Ot N18.9 CHRONIC KIDNEY DISEASE, UNSPECIFIED 12/11/2015 BAIMA, LAQUITA L DISCOUNT CLERK Ot R00.1 BRADYCARDIA, UNSPECIFIED 12/11/2015 BAIMA, LAQUITA L DISCOUNT CLERK Ot Z95.0 PRESENCE OF CARDIAC PACEMAKER 01/14/2016 BAIMA, LAQUITA L DISCOUNT CLERK Ot 272.4 HYPERLIPIDEMIA NEC/NOS 01/14/2016 BAIMA, LAQUITA L DISCOUNT CLERK Ot 414.00 CORON ATHEROSCLER NOS TYPE VESSEL, NATIV 01/14/2016 BAIMA, ALQUITA L DISCOUNT CLERK Ot 427.89 CARDIAC DYSRHYTHMIAS NEC 01/14/2016 BAIMA, LAQUITA L DISCOUNT CLERK Ot V45.01 CARDIAC PACEMAKER IN SITU 01/14/2016 BAIMA, LAQUITA L DISCOUNT CLERK Ot E78.5 HYPERLIPIDEMIA, UNSPECIFIED 01/14/2016 BAIMA, LAQUITA L DISCOUNT CLERK Ot 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 01/14/2016 BAIMA, LAQUITA L DISCOUNT CLERK Ot I25.10 ATHSCL HEART DISEASE OF [place] CORONARY 01/14/2016 BAIMA, LAQUITA L DISCOUNT CLERK Ot N18.9 CHRONIC KIDNEY DISEASE, UNSPECIFIED 01/14/2016 BAIMA, LAQUITA L DISCOUNT CLERK Ot R00.1 BRADYCARDIA, UNSPECIFIED 01/14/2016 BAILAQUITA HERNANDEZ L DISCOUNT CLERK Ot Z95.0 PRESENCE OF CARDIAC PACEMAKER 01/14/2016 LAQUITA SYLVESTER L DISCOUNT CLERK Ot E78.5 HYPERLIPIDEMIA, UNSPECIFIED 01/14/2016 BAILAQUITA HERNANDEZ L DISCOUNT CLERK Ot I10 ESSENTIAL (PRIMARY) HYPERTENSION 01/14/2016 LAQUITA SYLVESTER L DISCOUNT CLERK Ot I25.10 ATHSCL HEART DISEASE OF [place] CORONARY 01/14/2016 LAQUITA SYLVESTER L DISCOUNT CLERK Ot N18.9 CHRONIC KIDNEY DISEASE, UNSPECIFIED 01/14/2016 BAILAQUITA HERNANDEZ L DISCOUNT CLERK Ot R00.1 BRADYCARDIA, UNSPECIFIED 01/14/2016 BAILAQUITA HERNANDEZ L DISCOUNT CLERK Ot Z95.0 PRESENCE OF CARDIAC PACEMAKER 01/15/2016 GELY AVILEZ MD Ot E78.5 HYPERLIPIDEMIA, UNSPECIFIED 01/15/2016 GELY AVILEZ MD Ot E86.0 DEHYDRATION 01/15/2016 GELY AVILEZ MD Ot 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 01/15/2016 GELY AVILEZ MD Ot I25.10 ATHSCL HEART DISEASE OF [place] CORONARY 01/15/2016 GELY AVILEZ MD Ot K21.9 [...] MD Ot I25.10 ATHSCL HEART DISEASE OF [place] CORONARY 01/15/2016 GELY AVILEZ MD Ot K21.9 [...] AORTOCORONARY BYPASS GRAFT 01/17/2016 LAURAMA, LAQUITA L DISCOUNT CLERK Ot 272.4 HYPERLIPIDEMIA NEC/NOS 01/17/2016 BAIMA, LAQUITA L DISCOUNT CLERK Ot 414.00 CORON ATHEROSCLER NOS TYPE VESSEL, NATIV 01/17/2016 BAIMA, LAQUITA L DISCOUNT CLERK Ot 427.89 CARDIAC DYSRHYTHMIAS NEC 01/17/2016 NGA LAQUITA L DISCOUNT CLERK Ot V45.01 CARDIAC PACEMAKER IN SITU 01/17/2016 LAURAMA, LAQUITA L DISCOUNT CLERK Ot E78.5 HYPERLIPIDEMIA, UNSPECIFIED 01/17/2016 BAIMA, LAQUITA L DISCOUNT CLERK Ot 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 01/17/2016 BAIMA, LAQUITA L DISCOUNT CLERK Ot I25.10 ATHSCL HEART DISEASE OF [place] CORONARY 01/17/2016 BAIMA, LAQUITA L DISCOUNT CLERK Ot N18.9 CHRONIC KIDNEY DISEASE, UNSPECIFIED 01/17/2016 BAIMA, LAQUITA L DISCOUNT CLERK Ot R00.1 BRADYCARDIA, UNSPECIFIED 01/17/2016 BAIMA, LAQUITA L DISCOUNT CLERK Ot Z95.0 PRESENCE OF CARDIAC PACEMAKER 01/17/2016 BAIMA, LAQUITA L DISCOUNT CLERK Ot E78.5 HYPERLIPIDEMIA, UNSPECIFIED 01/17/2016 BAIMA, LAQUITA L DISCOUNT CLERK Ot I10 ESSENTIAL (PRIMARY) HYPERTENSION 01/17/2016 BAIMA, LAQUITA L DISCOUNT CLERK Ot I25.10 ATHSCL HEART DISEASE OF [place] CORONARY 01/17/2016 BAIMA LAQUITA L DISCOUNT CLERK Ot N18.9 CHRONIC KIDNEY DISEASE, UNSPECIFIED 01/17/2016 BAIMA LAQUITA L DISCOUNT CLERK Ot R00.1 BRADYCARDIA, UNSPECIFIED 01/17/2016 BAIMA, LAQUITA L DISCOUNT CLERK Ot Z95.0 PRESENCE OF CARDIAC PACEMAKER 01/17/2016 BAIMA, LAQUITA L DISCOUNT CLERK Ot E78.5 HYPERLIPIDEMIA, UNSPECIFIED 01/17/2016 BAIMA, LAQUITA L DISCOUNT CLERK Ot 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 01/17/2016 BAIMA, LAQUITA L DISCOUNT CLERK Ot I25.10 ATHSCL HEART DISEASE OF [place] CORONARY 01/17/2016 BAIMA, LAQUITA L DISCOUNT CLERK Ot N18.9 CHRONIC KIDNEY DISEASE, UNSPECIFIED 01/17/2016 BAIMA, LAQUITA L DISCOUNT CLERK Ot R00.1 BRADYCARDIA, UNSPECIFIED 01/17/2016 BAIMA, LAQUITA L DISCOUNT CLERK Ot Z95.0 PRESENCE OF CARDIAC PACEMAKER 01/17/2016 BAIMA, LAQUITA L DISCOUNT CLERK Ot E78.5 HYPERLIPIDEMIA, UNSPECIFIED 01/17/2016 BAIMA, LAQUITA L DISCOUNT CLERK Ot I10 ESSENTIAL (PRIMARY) HYPERTENSION 01/17/2016 BAIMA, LAQUITA L DISCOUNT CLERK Ot I25.10 ATHSCL HEART DISEASE OF [place] CORONARY 01/17/2016 BAIMA, LAQUITA L DISCOUNT CLERK Ot N18.9 CHRONIC KIDNEY DISEASE, UNSPECIFIED 01/17/2016 BAIMA, LAQUITA L DISCOUNT CLERK Ot R00.1 BRADYCARDIA, UNSPECIFIED 01/17/2016 BAIMA, LAQUITA L DISCOUNT CLERK Ot Z95.0 PRESENCE OF CARDIAC PACEMAKER 06/06/2016 MARTINEZ DO NORAH K Ot I10 ESSENTIAL (PRIMARY) HYPERTENSION 06/06/2016 MARTINEZ DO NORAH K Ot I25.10 ATHSCL HEART DISEASE OF [place] CORONARY 06/06/2016 MARTINEZ QUIROGA NORAH K Ot R07.9 CHEST PAIN, UNSPECIFIED 06/06/2016 MARTINEZ DO NORAH K Ot 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.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 INSTRUCTOR (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899 OTHER LONGTERM (CURRENT) DRUG THERAPY 06/09/2016 NORAH HENRIQUEZ DO Ot Z95.0 PRESENCE OF CARDIAC PACEMAKER 06/09/2016 NORAH HENRIQUEZ DO Ot Z95.1 PRESENCE OF AORTOCORONARY BYPASS GRAFT 06/17/2016 BAIMA, LAQUITA L DISCOUNT CLERK Ot 272.4 HYPERLIPIDEMIA NEC/NOS 06/17/2016 BAIMA, LAQUITA L DISCOUNT CLERK Ot 414.00 CORON ATHEROSCLER NOS TYPE VESSEL, NATIV 06/17/2016 BAIMA, LAQUITA L DISCOUNT CLERK Ot 427.89 CARDIAC DYSRHYTHMIAS NEC 06/17/2016 BAIMA, LAQUITA L DISCOUNT CLERK Ot V45.01 CARDIAC PACEMAKER IN SITU 06/17/2016 BAIMA, LAQUITA L DISCOUNT CLERK Ot E78.5 HYPERLIPIDEMIA, UNSPECIFIED 06/17/2016 BAIMA, LAQUITA L DISCOUNT CLERK Ot 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 06/17/2016 BAIMA, LAQUITA L DISCOUNT CLERK Ot I25.10 ATHSCL HEART DISEASE OF [place] CORONARY 06/17/2016 BAIMA, LAQUITA L DISCOUNT CLERK Ot N18.9 CHRONIC KIDNEY DISEASE, UNSPECIFIED 06/17/2016 BAIMA, LAQUITA L DISCOUNT CLERK Ot R00.1 BRADYCARDIA, UNSPECIFIED 06/17/2016 BAIMA, LAQUITA L DISCOUNT CLERK Ot Z95.0 PRESENCE OF CARDIAC PACEMAKER 06/17/2016 BAIMA, LAQUITA L DISCOUNT CLERK Ot E78.5 HYPERLIPIDEMIA, UNSPECIFIED 06/17/2016 BAIMA, LAQUITA L DISCOUNT CLERK Ot I10 ESSENTIAL (PRIMARY) HYPERTENSION 06/17/2016 BAIMA, LAQUITA L DISCOUNT CLERK Ot I25.10 ATHSCL HEART DISEASE OF [place] CORONARY 06/17/2016 BAIMA, LAQUITA L DISCOUNT CLERK Ot N18.9 CHRONIC KIDNEY DISEASE, UNSPECIFIED 06/17/2016 BAIMA, LAQUITA L DISCOUNT CLERK Ot R00.1 BRADYCARDIA, UNSPECIFIED 06/17/2016 BAIMA, LAQUITA L DISCOUNT CLERK Ot Z95.0 PRESENCE OF CARDIAC PACEMAKER 06/17/2016 ANAYELI SANCHEZ FACC, ALI FACP CCDS Ot R07.89 OTHER CHEST PAIN 06/17/2016 ANAYELI OJEDAC, ALI FACP CCDS Ot E78.4 OTHER HYPERLIPIDEMIA 06/17/2016 ANAYELI SANCHEZ FACC, ALI FACP CCDS Ot 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 06/17/2016 ANAYELI OJEDAC, ALI FACP CCDS Ot I25.10 ATHSCL HEART DISEASE OF [place] CORONARY 06/17/2016 ANAYELI SANCHEZ FACC, ALI FACP [...] CCDS Ot I25.10 ATHSCL HEART DISEASE OF [place] CORONARY 06/18/2016 ANAYELI SANCHEZ FACC, ALI FACP [...] CCDS Ot I25.10 ATHSCL HEART DISEASE OF [place] CORONARY 07/08/2016 ANAYELI OJEDAC, ALI FACP CCDS Ot I65.23 OCCLUSION AND STENOSIS OF [place]ILATERAL [place] 07/08/2016 ANAYELI OJEDAC, ALI FACP CCDS Ot N18.9 CHRONIC KIDNEY DISEASE, UNSPECIFIED 07/08/2016 ANAYELI OJEDA, ALI FACP CCDS Ot R07.89 OTHER CHEST PAIN 07/08/2016 ANAYELI OJEDA, ALI FACP CCDS Ot Z95.0 PRESENCE OF CARDIAC PACEMAKER 09/11/2016 BAIMA, LAQUITA L DISCOUNT CLERK Ot E78.5 HYPERLIPIDEMIA, UNSPECIFIED 09/11/2016 BAIMA, LAQUITA L DISCOUNT CLERK Ot 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 09/11/2016 BAIMA, LAQUITA L DISCOUNT CLERK Ot I25.10 ATHSCL HEART DISEASE OF [place] CORONARY 09/11/2016 BAIMA, LAQUITA L DISCOUNT CLERK Ot N18.9 CHRONIC KIDNEY DISEASE, UNSPECIFIED 09/11/2016 BAIMA, LAQUITA L DISCOUNT CLERK Ot R00.1 BRADYCARDIA, UNSPECIFIED 09/11/2016 BAIMA, LAQUITA L DISCOUNT CLERK Ot Z95.0 PRESENCE OF CARDIAC PACEMAKER 09/11/2016 A[facility]I SANC[facility]Z [facility], ALI FACP CCDS Ot E78.4 OTHER HYPERLIPIDEMIA 09/11/2016 ANAYELI SANCHEZ FACC, ALI FACP CCDS Ot 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 09/11/2016 ANAYELI SANCHEZ FACC, ALI FACP CCDS Ot I25.10 ATHSCL HEART DISEASE OF [place] CORONARY 09/11/2016 ANAYELI SANCHEZ FACC, ALI FACP CCDS Ot I65.23 OCCLUSION AND STENOSIS OF [place]ILATERAL [place] 09/11/2016 ANAYELI SANCHEZ FACC, ALI FACP CCDS Ot N18.9 CHRONIC KIDNEY DISEASE, UNSPECIFIED 09/11/2016 ANAYELI SANCHEZ FACC, ALI FACP CCDS Ot R07.89 OTHER CHEST PAIN 09/11/2016 ANAYELI SANCHEZ FACC, ALI FACP CCDS Ot Z95.0 PRESENCE OF CARDIAC PACEMAKER 09/11/2016 BAIMA, LAQUITA L DISCOUNT CLERK Ot E78.5 HYPERLIPIDEMIA, UNSPECIFIED 09/11/2016 BAIMA, LAQUITA L DISCOUNT CLERK Ot 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 09/11/2016 BAIMA, LAQUITA L DISCOUNT CLERK Ot I25.10 ATHSCL HEART DISEASE OF [place] CORONARY 09/11/2016 BAIMA, LAQUITA L DISCOUNT CLERK Ot N18.9 CHRONIC KIDNEY DISEASE, UNSPECIFIED 09/11/2016 BAIMA, LAQUITA L DISCOUNT CLERK Ot R00.1 BRADYCARDIA, UNSPECIFIED 09/11/2016 BAIMA, LAQUITA L DISCOUNT CLERK Ot Z95.0 PRESENCE OF CARDIAC PACEMAKER 09/11/2016 ANAYELI SANCHEZ FACC, ALI FACP CCDS Ot E78.4 OTHER HYPERLIPIDEMIA 09/11/2016 ANAYELI SANCHEZ FACC, ALI FACP CCDS Ot 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 09/11/2016 ANAYELI SANCHEZ FACC, ALI FACP CCDS Ot I25.10 ATHSCL HEART DISEASE OF [place] CORONARY 09/11/2016 ANAYELI SANCHEZ FACC, ALI FACP CCDS Ot I65.23 OCCLUSION AND STENOSIS OF BILATERAL [place] 09/11/2016 ANAYELI SANCHEZ FACC, ALI FACP CCDS Ot N18.9 CHRONIC KIDNEY DISEASE, UNSPECIFIED 09/11/2016 ANAYELI SANCHEZ FACC, ALI FACP CCDS Ot R07.89 OTHER CHEST PAIN 09/11/2016 ANAYELI SANCHEZ FACC, ALI FACP CCDS Ot Z95.0 PRESENCE OF CARDIAC PACEMAKER 09/16/2016 BAIMA, LAQUITA L DISCOUNT CLERK Ot E78.5 HYPERLIPIDEMIA, UNSPECIFIED 09/16/2016 BAIMA, LAQUITA L DISCOUNT CLERK Ot 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 09/16/2016 BAIMA, LAQUITA L DISCOUNT CLERK Ot I25.10 ATHSCL HEART DISEASE OF [place] CORONARY 09/16/2016 BAIMA, LAQUITA L DISCOUNT CLERK Ot N18.9 CHRONIC KIDNEY DISEASE, UNSPECIFIED 09/16/2016 BAIMA, LAQUITA L DISCOUNT CLERK Ot R00.1 BRADYCARDIA, UNSPECIFIED 09/16/2016 BAIMA, LAQUITA L DISCOUNT CLERK Ot Z95.0 PRESENCE OF CARDIAC PACEMAKER 09/16/2016 ANAYELI SANCHEZ FACC, ALI FACP CCDS Ot E78.4 OTHER HYPERLIPIDEMIA 09/16/2016 ANAYELI SANCHEZ FACC, ALI FACP CCDS Ot 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 09/16/2016 ANAYELI SANCHEZ FACC, ALI FACP CCDS Ot I25.10 ATHSCL HEART DISEASE OF [place] CORONARY 09/16/2016 ANAEYLI SANCHEZ FACC, ALI FACP CCDS Ot I65.23 [...] MD Ot I25.10 ATHSCL HEART DISEASE OF [place] CORONARY 11/13/2016 CARINA COTTON MD, Ot M54.9 [...] CCDS Ot I25.10 ATHSCL HEART DISEASE OF [place] CORONARY 11/20/2016 ANAYELI SANCHEZ FACC, ALI FACP CCDS Ot I65.23 OCCLUSION AND STENOSIS OF BILATERAL [place] 11/20/2016 ANAYELI SANCHEZ FACC, ALI FACP CCDS Ot 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 11/20/2016 ANAYELI SANCHEZ FACC, ALI FACP CCDS Ot N18.9 CHRONIC KIDNEY DISEASE, UNSPECIFIED 11/20/2016 ANAYELI SANCHEZ FACC, ALI FACP CCDS Ot Z95.0 PRESENCE OF CARDIAC PACEMAKER 12/09/2016 LAQUITA SYLVESTER DISCOUNT CLERK Ot E78.5 HYPERLIPIDEMIA, UNSPECIFIED 12/09/2016 LAURALAQUITA HERNANDEZ DISCOUNT CLERK Ot 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 12/09/2016 LAURAMARY LAQUITA Antunez DISCOUNT CLERK Ot I25.10 ATHSCL HEART DISEASE OF [place] CORONARY 12/09/2016 LAURALAQUITA HERNANDEZ DISCOUNT CLERK Ot 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 12/09/2016 LAURALAQUITA HERNANDEZ DISCOUNT CLERK Ot N18.2 CHRONIC KIDNEY DISEASE, STAGE 2 (MILD) 12/09/2016 LAURAMARY LAQUITA Antunez DISCOUNT CLERK Ot R00.1 BRADYCARDIA, UNSPECIFIED 12/09/2016 LAURAMARY LAQUITA Antunez DISCOUNT CLERK Ot Z45.010 ENCNTR FOR CHECKING AND TEST OF CARD PAC 12/09/2016 NGA LAQUITA Antunez DISCOUNT CLERK Ot Z79.899 OTHER LONGTERM (CURRENT) DRUG THERAPY 12/09/2016 NGA LAQUITA Antunez DISCOUNT CLERK Ot Z95.1 PRESENCE OF AORTOCORONARY BYPASS [...] MD Ot I25.10 ATHSCL HEART DISEASE OF [place] CORONARY 2016 CARINA COTTON MD Ot M54.9 [...] CCDS Ot I25.10 ATHSCL HEART DISEASE OF [place] CORONARY 2016 ANAYELI SANCHEZ FAC, ALI FACP CCDS Ot I65.23 OCCLUSION AND STENOSIS OF BILATERAL [place] 2016 ANAYELI SANCHEZ FAC, ALI FACP CCDS Ot 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 2016 ANAYELI SANCHEZ [facility], ALI FACP CCDS Ot N18.9 CHRONIC KIDNEY DISEASE, UNSPECIFIED 2016 ANAYELI SANCHEZ [facility], ALI FACP CCDS Ot Z95.0 PRESENCE OF CARDIAC PACEMAKER 12/22/2016 JIMENA MENENDEZ MD Ot E78.00 PURE HYPERCHOLESTEROLEMIA, UNSPECIFIED 12/22/2016 JIMENA MENENDEZ MD Ot F41.9 ANXIETY DISORDER, UNSPECIFIED 12/22/2016 JIMENA MENENDEZ MD Ot I10 ESSENTIAL (PRIMARY) HYPERTENSION 12/22/2016 JIMENA MENENDEZ MD Ot I25.10 ATHSCL HEART DISEASE OF [place] CORONARY 12/22/2016 JIEMNA MENENDEZ MD Ot I25.2 OLD MYOCARDIAL INFARCTION 12/22/2016 JIMENA MENENDEZ MD Ot K58.9 IRRITABLE BOWEL SYNDROME WITHOUT DIARRHE 12/22/2016 JIMENA MENENDEZ MD Ot S51.811A LACERATION W/O FOREIGN BODY OF RIGHT FOR 12/22/2016 JIMENA MENENDEZ MD Ot W18.30XA FALL ON SAME LEVEL, UNSPECIFIED, INITIAL 12/22/2016 JIMENA MENENDEZ MD Ot Y92.002 [facility]HRM [facility] 12/22/2016 JIMENA MENENDEZ MD Ot Z79.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 INSTRUCTOR (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 Type Provider Facility Loc./Unit Complaint [id number] 01/18/2017 00:30:00 01/18/2017 23:59:59 CLS Preadmit CARINA COTTON MD [facility] ONC [id number] 11/12/2016 08:50:00 01/17/2017 00:01:00 DIS Outpatient CARINA COTTON MD [facility] ONC [id number] 12/22/2016 07:36:00 12/22/2016 09:03:00 DIS Emergency JIMENA MENENDEZ MD [facility] ER RT ARM ABRASION FALL [id number] 12/09/2016 11:00:00 12/09/2016 23:59:59 CLS Preadmit ANAYELI SANCHEZ FACC, ALI FACP CCDS [facility] SDC END OF LIFE PACEMAKER; SICK SINUS SYNDROME [id number] 12/09/2016 08:41:00 12/09/2016 17:45:00 DIS Outpatient LAQUITA SYLVESTER [facility] CATH END OF LIFE PACEMAKER,SICK SINUS SYNDROME [id number] 11/20/2016 06:59:00 11/20/2016 23:59:59 CLS Outpatient ANAYELI SANCHEZ FACLorrie, ALI FACP CCDS [facility] LAB I25.10 I65.23 N18.9 [id number] 11/18/2016 09:00:00 11/18/2016 23:59:59 CLS Preadmit CARINA COTTON MD [facility] RAD MELANOMA [id number] 06/17/2016 07:16:00 06/17/2016 23:59:59 CLS Outpatient ANAYELI SANCHEZ FACC, ALI FACP CCDS [facility] CARD CHEST DISCOMFORT,CAD,CAROTID ARTERIAL DISEASE,CKD [id number] 06/06/2016 18:13:00 06/06/2016 19:30:00 DIS Emergency NORAH HENRIQUEZ DO [facility] ER CP [id number] 01/14/2016 10:44:00 01/15/2016 13:00:00 DIS Inpatient GELY AVILEZ MD [facility] 4TH CHEST PAIN DEHYDRATION [id number] 11/07/2015 08:39:00 11/07/2015 23:59:59 CLS Outpatient LAQUITA SYLVESTER DISCOUNT CLERK [facility] CARD CAD; HYPERLIPIDEMIA ; HTN; SINUS BRADYCARDIA [id number] 10/18/2015 11:30:00 10/18/2015 23:59:59 CLS Outpatient LAURAMARY LAQUITA L 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 CLERK [facility] LAB CAD,HYPERLIPIDEMIA, HTN,CKD, CARDIAC PACEMAKER [id number] 10/12/2015 09:11:00 10/12/2015 12:29:00 DIS Emergency MITCHELL DIMAS MD [facility] ER CHEST PAIN [id number] 02/15/2014 09:53:00 02/17/2014 13:00:00 DIS Inpatient MITCHELL ANTOINE MD [facility] 4TH PNEUMONIA SYNCOPE CHEST PAIN EDEMA FLUID OVERLOAD [id number] 01/02/2014 12:55:00 01/02/2014 23:59:59 CLS Outpatient NGA LAQUITA Tulio DISCOUNT CLERK [facility] CARD BRADYCARDIA,HLP, PACEMAKER [id number] 12/19/2013 17:53:00 12/19/2013 20:05:00 DIS Emergency JIMENA MENENDEZ MD [facility] ER VOMITING BLOOD [id number] 08/11/2013 06:00:00 08/11/2013 10:25:00 DIS Outpatient TEA STEVENS DO [facility] SDC LESION LEFT FOREARM [id number] 08/08/2013 13:20:00 08/08/2013 23:59:59 CLS Outpatient [id number] 07/23/2013 17:56:00 07/23/2013 18:49:00 DIS Emergency [id number] 04/16/2013 09:29:00 04/16/2013 12:15:00 DIS Emergency NORAH HENRIQUEZ DO [facility] ER CHEST PAIN, SOA [id number] 01/14/2016 12:08:00 Document Registration [id number] 06/08/2014 16:12:00 Document Registration [id number] 06/08/2014 16:12:00 Document Registration [id number] 06/08/2014 16:12:00 Document Registration [id number] 05/11/2014 04:01:00 Document Registration [id number] 03/08/2012 12:47:00 Document Registration [id number] 01/08/2012 06:48:00 Document Registration [id number] 01/23/2011 05:48:00 Document Registration [id number] 06/23/2010 07:23:00 Document Registration [id number] 06/18/2010 12:15:00 Document Registration [id number] 06/17/2010 08:48:00 Document Registration [id number] 06/12/2010 13:06:00 Document Registration [id number] 02/28/2010 05:43:00 Document Registration [id number] 02/27/2010 08:39:00 Document Registration [id number] 01/15/2010 07:04:00 Document Registration [id number] 10/15/2009 09:07:00 Document Registration [id number] 06/29/2009 06:03:00 Document Registration
--- NOTE | 2017-07-28 12:42 | Consultation-Cardiology ---
HPI-Cardiology Cardiology Consultation: Date of Consultation 07/28/17 Time Seen by Provider: 13:25 Date of Admission 07-28-17 Attending Physician Mahamed Hutchison MD Admitting Physician No,Local Physician Consulting Physician Humble Sharma MD HPI: Chief Complaint: Chest pain Mr. Blair is an 86 year old male who currently resides at [facility] facility. He reports chronic mid-epigastric pain which has been present for several years. He states it is constant and unchanged over the last several years. It is localized. No associated symptoms. He denies any palpitations, syncope or near syncope. He reports chronic bilat LE edema which is least upon awakening in the morning and worse at the end of the day. He states he wears compression stockings and that does help control the swelling. He states he lost his footing approx a week ago and fell at the facility. He states he fell on his left hip and is having a considerable amount of pain to his left hip. He is reporting drainage to at the site of his umbilicus which has been present for awhile. He denies any n/v/d. He denies any fever or chills. Review of Systems-Cardiology Review of Systems Constitutional: No chills, No fever Eyes: No vision change Ears/Nose/Throat: chronic hearing loss Respiratory: As described under HPI Cardiovascular: As described under HPI Gastrointestinal: No diarrhea, No nausea, No vomiting Genitourinary: No dysuria, No hematuria Musculoskeletal: other (Right hip pain following a fall) Skin: rash (umbilicus area) Psychiatric/Neurological: No anxiety, No depression, No seizure, No focal weakness, No syncope Hematologic: No bleeding abnormalities ALX-Pkrztw-Xwshce Hx Patient Social History Alcohol Use: Denies Use Recreational Drug Use: No Smoking Status: Former Smoker Former smoker/When Quit: May 06, 1982 Recent Foreign Travel: No Recent Infectious Disease Expo: No Hospitalization with Isolation: Denies Immunizations Up To Date Date of Pneumonia Vaccine: Jan 19, 2012 Date of Influenza Vaccine: Mar 01, 2014 Past Medical History PMH As described under Assessment. Family Medical History Family Medical History: He reports his mother had cancer. No reported h/o premature CAD or SCD. Family History: Allergies and Home Medications Allergies Coded Allergies: No Known Drug Allergies (Verified , 02/15/14) Home Medications Acetaminophen 500 Mg Tablet, 1,000 MG PO 0530, (Reported) TAKES 2 (500MG) TABLETS Acetaminophen 500 Mg Tablet, 1,000 MG PO Q4H PRN for PAIN-MILD, (Reported) TAKES 2 (500MG) TABLETS Acetaminophen 500 Mg Tablet, 1,000 MG PO 1300,2000, (Reported) TAKES 2 (500MG) TABLETS Alprazolam 0.5 Mg Tablet, 0.5 MG PO TID, (Reported) Aspirin 81 Mg Tablet.dr, 81 MG PO 0530, (Reported) Dextromethorphan HBr 15 Mg/5 Ml Liquid, 5 ML PO Q4H PRN for COUGH, (Reported) Diphenhydramine HCl 25 Mg Tablet, 12.5 MG PO HS, (Reported) Fluticasone Propionate 16 Gm [place].susp, 2 SPRAYS NS DAILY PRN for CONGESTION/ ALLERGY, (Reported) Folic Acid 0.4 Mg Tablet, 0.4 MG PO HS, (Reported) Lisinopril 40 Mg Tablet, 20 MG PO 0530, (Reported) TAKES 1/2 (40MG) TABLET Loperamide HCl 2 Mg Tablet, 2 MG PO UD PRN for LOOSE STOOLS, (Reported) Magnesium Hydroxide 400 Mg/5 Ml Oral.susp, 15 ML PO DAILY PRN for CONSTIPATION- 7TH LINE, (Reported) Pantoprazole Sodium 20 Mg Tablet.dr, 20 MG PO 0530, (Reported) Simvastatin 20 Mg Tablet, 20 MG PO HS, (Reported) Patient Home Medication List Home Medication List Reviewed: Yes Physical Exam-Cardiology Physical Exam Vital Signs/I&O 07/28/17 07/28/17 07/28/17 10:01 12:39 13:30 Temp 97.9 Pulse 60 60 60 Resp 18 18 B/P (MAP) 173/79 (110) 153/72 Pulse Ox 100 99 Capillary Refill : Less Than 3 Seconds Constitutional: AAO x 3 HEENT: PERRL, hard of hearing, oral hygience is good Neck: No carotid bruit, carotid pulses are 2 + bilaterally Respiratory: No accessory muscle use, No respiratory distress, chest expansion is symmetric, chest is bilaterally symmetric, lungs clear to auscultation Cardiovascular: regular rate-rhythm, No JVD, S1 and S2, systolic murmur Gastrointestinal: No tender, soft, audible bowel sounds Rectal: deferred Extremities: swelling (mild bilat LE edema) Neurologic/Psychiatric: grossly intact Skin: other (red rash to the umbilicus which appears wet) Data Review Labs Laboratory Tests 07/28/17 10:20: White Blood Count 4.6, Red Blood Count 3.54L, Hemoglobin 13.1L, Hematocrit 36L, Mean Corpuscular Volume 103H, Mean Corpuscular Hemoglobin 37H, Mean Corpuscular Hemoglobin Concent 36, Red Cell Distribution Width 14.0, Platelet Count 101L, Mean Platelet Volume 10.3, Neutrophils (%) (Auto) 43, Lymphocytes (%) (Auto) 47H , Monocytes (%) (Auto) 9, Eosinophils (%) (Auto) 1, Basophils (%) (Auto) 0, Neutrophils # (Auto) 2.0, Lymphocytes # (Auto) 2.2, Monocytes # (Auto) 0.4, Eosinophils # (Auto) 0.1, Basophils # (Auto) 0.0, Prothrombin Time 14.0, INR Comment 1.1, Activated Partial Thromboplast Time 37H, Sodium Level 141, Potassium Level 3.6, Chloride Level 108H, Carbon Dioxide Level 30, Anion Gap 3L , Blood Urea Nitrogen 19H, Creatinine 0.81, Estimat Glomerular Filtration Rate > 60, BUN/Creatinine Ratio 23, Glucose Level 91, Calcium Level 9.0, Magnesium Level 2.0, Total Bilirubin 0.9, Aspartate Amino Transf (AST/SGOT) 24, Alanine Aminotransferase (ALT/SGPT) 23, Alkaline Phosphatase 53, Myoglobin 66.4, Troponin I < 0.30, Total Protein 7.0, Albumin 4.1 07/28/17 10:46: Urine Color YELLOW, Urine Clarity SLIGHTLY CLOUDY, Urine pH 6, Urine Specific [place] 1.020, Urine Protein NEGATIVE, Urine Glucose (UA) NEGATIVE, Urine Ketones NEGATIVE, Urine Nitrite NEGATIVE, Urine Bilirubin 1+H, Urine Urobilinogen 8H, Urine Leukocyte Esterase NEGATIVE, Urine RBC (Auto) 2+H, Urine RBC RARE, Urine WBC 5-10H, Urine Squamous Epithelial Cells 5-10, Urine Crystals NONE, Urine Bacteria FEWH, Urine Casts NONE, Urine Mucus SMALLH, Urine Culture Indicated YES Radiology NAME: SHELLEY BLA[facility] REC#: [id number] PT STATUS: REG ER : 1930 PHYSICIAN: LEANN GALO MD ADMIT DATE: 07/28/17/ER Draft Date of Exam:07/28/17 CHEST 1 VIEW, AP/PA ONLY INDICATION: Chest pain. COMPARISON: 12/09/2016. FINDINGS: Single frontal radiographic view of the chest was obtained and demonstrates low inspiratory volumes with asymmetric elevation of the right hemidiaphragm. Skin folds are seen projecting over the right hemithorax. There is no large effusion or pneumothorax. Cardiac silhouette is mildly enlarged. Pulmonary vasculature is within normal limits. Left-sided dual-lead pacemaker and sternotomy wires are noted. The bony structures show no gross acute abnormalities. IMPRESSION: 1. Low lung volumes with asymmetric elevation of the right hemidiaphragm and crowding of the central hilar structures. 2. Cardiomegaly, but no evidence of overt failure. Dictated on workstation # [id number] Dict: 07/28/17 1120 Trans: 07/28/17 1132 [facility] [id number] Interpreted by: CHERISE MALONE MD Electronically signed by: A/P-Cardiology Assessment/Admission Diagnosis Chronic non-specific chest discomfort of undetermined etiology - which is unchanged, no evidence of ACS thus far UTI - management per medical services Recent non-syncopal fall (approx a week ago) with residual left hip pain Chronic mild to mod exertional dyspnea of undetermined etiology - unchanged Umbilicus rash of undetermined etiology - medical services Coronary artery disease. Last cardiac catheterization was in February 2010. It showed mid-vessel occlusion of the left anterior descending. The distal left anterior descending artery is protected by a patent left internal mammary artery graft. The patient has an occluded posterolateral system, which is collateralized from the left circumflex artery. The right coronary artery is occluded in its mid portion following the origin of the right ventricular branch , which is small in caliber and has 70% ostial stenosis. The posterior descending branch of the distal right coronary artery has a patent saphenous vein graft. MPI of Dec 2011 showed small basal inferior infarction but it did not show myocardial ischemia. MPI of 06-17-16 did not indicate evidence of significant myocardial ischemia or infarction. Gating could not be carried out d/t frequent PVC's. Echo of 11/07/15 showed LVEF 50%, mild MR, mod TR, PASP 35-50mmHg, no evidence of significant valvular stenosis, mild to mod cardiomegaly Hypertension, uncontrolled. Hyperlipidemia, being treated with simvastatin. Gastroesophageal reflux. History of chest wall pain. Chronic sinus bradycardia, status post dual-chamber pacemaker implantation carried in June 2010. Pacemaker pulse gen change (for EOL) on 12/09/16, functioning normally on pacemaker interrogation of 12/31/16 Mild to moderate carotid arterial disease involving soft and hard plaque. No evidence of hemodynamically significant stenosis per bilateral carotid ultrasound carried out on 08/01/11. History of bilateral cataract surgery. CKD, stage 2 Clinical Quality Measures AMI/AHF: ASA po Prior to arrival: LAQUITA Rodríguez Jul 28, 2017 12:42
[2017-07-28] MEDS ORDERED: CATHETER FLUSH 10 ML SYR IV PRN (13:15)
[2017-07-28] MEDS ORDERED: ASPI-983 PO (13:46)
[2017-07-28] MEDS ORDERED: ALPR0.5T PO (13:46)
[2017-07-28] MEDS ORDERED: PANT20TA3 PO (13:46)
[2017-07-28] MEDS ORDERED: SIMV20TA3 PO (13:46)
[2017-07-28] MEDS ORDERED: ACET-2267 PO ×3 (13:46)
[2017-07-28] MEDS ORDERED: DEXT15LI5 PO (13:46)
[2017-07-28] MEDS ORDERED: FLUT16SP22 NS (13:46)
[2017-07-28] MEDS ORDERED: DIPH25TA65 PO (13:46)
[2017-07-28] MEDS ORDERED: FOLI0.4T2 PO (13:46)
[2017-07-28] MEDS ORDERED: LOPE-134 PO (13:46)
[2017-07-28] MEDS ORDERED: LISI40TA PO (13:46)
[2017-07-28] MEDS ORDERED: MAGN400O7 PO (13:46)
[2017-07-28] MEDS ORDERED: amLODIPine 5 MG (NORVASC) TAB PO NR (14:30)
--- NOTE | 2017-07-28 15:55 | Consultation-Cardiology ---
HPI-Cardiology Cardiology Consultation: Date of Consultation 07/28/17 Time Seen by Provider: 15:00 Date of Admission Attending Physician Mahamed Hutchison MD Admitting Physician No,Local Physician Consulting Physician DENITA GUADALPUE MD, FACP, [facility] HPI: Chief Complaint: Chief complaint: L hip pain Reason for consultation: Chest pain Mr. Nazario is an 86 year old male who currently resides at [facility] facility.He states he lost his footing approx a week ago and fell at the facility. He states he fell on his left hip and is having a considerable amount of pain to his left hip. He came to the ER for eval of this discomfort. He also reports chronic mid-epigastric pain which has been present for several years. He states it is constant and unchanged over the last several years. It is localized. No associated symptoms. He denies any palpitations, syncope or near syncope. He reports chronic bilat LE edema which is least upon awakening in the morning and worse at the end of the day. He states he wears compression stockings and that does help control the swelling. He is reporting drainage to at the site of his umbilicus which has been present awhile. He denies any n/ v/d. He denies any fever or chills. Review of Systems-Cardiology Review of Systems Constitutional: No chills, No fever Eyes: No vision change Ears/Nose/Throat: chronic hearing loss Respiratory: As described under HPI Cardiovascular: As described under HPI Gastrointestinal: No diarrhea, No nausea, No vomiting Genitourinary: No dysuria, No hematuria Musculoskeletal: other (Right hip pain following a fall) Skin: rash (umbilicus area) Psychiatric/Neurological: No anxiety, No depression, No seizure, No focal weakness, No syncope Hematologic: No bleeding abnormalities IZD-Oafqlv-Dpfrli Hx Patient Social History Alcohol Use: Denies Use Recreational Drug Use: No Smoking Status: Former Smoker Former smoker/When Quit: May 06, 1982 Recent Foreign Travel: No Recent Infectious Disease Expo: No Hospitalization with Isolation: Denies Immunizations Up To Date Date of Pneumonia Vaccine: Jan 19, 2012 Date of Influenza Vaccine: Mar 01, 2014 Past Medical History PMH As described under Assessment. Family Medical History Family Medical History: He reports his mother had cancer. No reported h/o premature CAD or SCD. Family History: Allergies and Home Medications Allergies Coded Allergies: No Known Drug Allergies (Verified , 10/29/14) Home Medications Acetaminophen 500 Mg Tablet, 1,000 MG PO 0530, (Reported) TAKES 2 (500MG) TABLETS Acetaminophen 500 Mg Tablet, 1,000 MG PO Q4H PRN for PAIN-MILD, (Reported) TAKES 2 (500MG) TABLETS Acetaminophen 500 Mg Tablet, 1,000 MG PO 1300,2000, (Reported) TAKES 2 (500MG) TABLETS Alprazolam 0.5 Mg Tablet, 0.5 MG PO TID, (Reported) Aspirin 81 Mg Tablet.dr, 81 MG PO 0530, (Reported) Dextromethorphan HBr 15 Mg/5 Ml Liquid, 5 ML PO Q4H PRN for COUGH, (Reported) Diphenhydramine HCl 25 Mg Tablet, 12.5 MG PO HS, (Reported) Fluticasone Propionate 16 Gm [place].susp, 2 SPRAYS NS DAILY PRN for CONGESTION/ ALLERGY, (Reported) Folic Acid 0.4 Mg Tablet, 0.4 MG PO HS, (Reported) Lisinopril 40 Mg Tablet, 20 MG PO 0530, (Reported) TAKES 1/2 (40MG) TABLET Loperamide HCl 2 Mg Tablet, 2 MG PO UD PRN for LOOSE STOOLS, (Reported) Magnesium Hydroxide 400 Mg/5 Ml Oral.susp, 15 ML PO DAILY PRN for CONSTIPATION- 7TH LINE, (Reported) Pantoprazole Sodium 20 Mg Tablet.dr, 20 MG PO 0530, (Reported) Simvastatin 20 Mg Tablet, 20 MG PO HS, (Reported) Patient Home Medication List Home Medication List Reviewed: Yes Physical Exam-Cardiology Physical Exam Vital Signs/I&O 07/28/17 07/28/17 07/28/17 10:01 12:39 13:30 Temp 97.9 Pulse 60 60 60 Resp 18 18 B/P (MAP) 173/79 (110) 153/72 Pulse Ox 100 99 Capillary Refill : Less Than 3 Seconds Constitutional: AAO x 3 HEENT: PERRL, hard of hearing, oral hygience is good Neck: No carotid bruit, carotid pulses are 2 + bilaterally Respiratory: No accessory muscle use, No respiratory distress, chest expansion is symmetric, chest is bilaterally symmetric, lungs clear to auscultation Cardiovascular: regular rate-rhythm, No JVD, S1 and S2, systolic murmur Gastrointestinal: No tender, soft, audible bowel sounds Rectal: deferred Extremities: swelling (mild bilat LE edema) Neurologic/Psychiatric: grossly intact Skin: other (red rash to the umbilicus which appears wet) Data Review Labs Laboratory Tests 07/28/17 10:20: White Blood Count 4.6, Red Blood Count 3.54L, Hemoglobin 13.1L, Hematocrit 36L, Mean Corpuscular Volume 103H, Mean Corpuscular Hemoglobin 37H, Mean Corpuscular Hemoglobin Concent 36, Red Cell Distribution Width 14.0, Platelet Count 101L, Mean Platelet Volume 10.3, Neutrophils (%) (Auto) 43, Lymphocytes (%) (Auto) 47H , Monocytes (%) (Auto) 9, Eosinophils (%) (Auto) 1, Basophils (%) (Auto) 0, Neutrophils # (Auto) 2.0, Lymphocytes # (Auto) 2.2, Monocytes # (Auto) 0.4, Eosinophils # (Auto) 0.1, Basophils # (Auto) 0.0, Prothrombin Time 14.0, INR Comment 1.1, Activated Partial Thromboplast Time 37H, Sodium Level 141, Potassium Level 3.6, Chloride Level 108H, Carbon Dioxide Level 30, Anion Gap 3L , Blood Urea Nitrogen 19H, Creatinine 0.81, Estimat Glomerular Filtration Rate > 60, BUN/Creatinine Ratio 23, Glucose Level 91, Calcium Level 9.0, Magnesium Level 2.0, Total Bilirubin 0.9, Aspartate Amino Transf (AST/SGOT) 24, Alanine Aminotransferase (ALT/SGPT) 23, Alkaline Phosphatase 53, Myoglobin 66.4, Troponin I < 0.30, Total Protein 7.0, Albumin 4.1 07/28/17 10:46: Urine Color YELLOW, Urine Clarity SLIGHTLY CLOUDY, Urine pH 6, Urine Specific [place] 1.020, Urine Protein NEGATIVE, Urine Glucose (UA) NEGATIVE, Urine Ketones NEGATIVE, Urine Nitrite NEGATIVE, Urine Bilirubin 1+H, Urine Urobilinogen 8H, Urine Leukocyte Esterase NEGATIVE, Urine RBC (Auto) 2+H, Urine RBC RARE, Urine WBC 5-10H, Urine Squamous Epithelial Cells 5-10, Urine Crystals NONE, Urine Bacteria FEWH, Urine Casts NONE, Urine Mucus SMALLH, Urine Culture Indicated YES A/P-Cardiology Assessment/Admission Diagnosis Recent non-syncopal fall (approx a week ago) with residual left hip pain, managed by the Med/Hospitalist Svce Umbilical rash of undetermined etiology - managed by the Med/Hospitalist Svce Chronic non-specific chest discomfort of undetermined etiology - unchanged, no evidence of ACS UTI - management per Med/Hospitalist Svce Chronic mild to mod exertional dyspnea of undetermined etiology - unchanged Coronary artery disease. Last cardiac catheterization was in February 2010. It showed mid-vessel occlusion of the left anterior descending. The distal left anterior descending artery is protected by a patent left internal mammary artery graft. The patient has an occluded posterolateral system, which is collateralized from the left circumflex artery. The right coronary artery is occluded in its mid portion following the origin of the right ventricular branch , which is small in caliber and has 70% ostial stenosis. The posterior descending branch of the distal right coronary artery has a patent saphenous vein graft. MPI of Dec 2011 showed small basal inferior infarction but it did not show myocardial ischemia. MPI of 06-17-16 did not indicate evidence of significant myocardial ischemia or infarction. Gating could not be carried out d/t frequent PVC's. Echo of 11/07/15 showed LVEF 50%, mild MR, mod TR, PASP 35-50mmHg, no evidence of significant valvular stenosis, mild to mod cardiomegaly Hypertension, uncontrolled. Hyperlipidemia, being treated with simvastatin. Gastroesophageal reflux. Chronic sinus bradycardia, status post dual-chamber pacemaker implantation carried in June 2010. Pacemaker pulse gen change (for EOL) on 12/09/16, functioning normally on pacemaker interrogation of 12/31/16 Mild to moderate carotid arterial disease involving soft and hard plaque. No evidence of hemodynamically significant stenosis per bilateral carotid ultrasound carried out on 08/01/11. History of bilateral cataract surgery. CKD, stage 2 Discussion and Recomendations * Complex management due to multiple comorbidities * Hospitalist Svce managing presenting complaints * Continue previous card regimen * Chest pain is chronic and unchanged. No evidence of ACS so far. If next troponin is normal, it would be reasonable to d/c from card standpoint * I discussed his CV issues with him, reviewed cor risk factor mod, and answered questions Clinical Quality Measures AMI/AHF: ASA po Prior to arrival: DENITA Castaneda MD FACP FAC [facility] Jul 28, 2017 15:55
[2017-07-28] MEDS: cefTRIAXone INJECTION 1,000 MG in NS (IVPB) 100 ML IV SCH (16:18)
[2017-07-28] MEDS: CATHETER FLUSH 10 ML SYR IV SCH ×2 (20:47→22:11)
[2017-07-28] MEDS ORDERED: SIMvastatin 20 MG (ZOCOR) TAB PO SCH (21:00)
[2017-07-29] VITALS: BP 154/74
[2017-07-29 04:00] VITALS: BP 155/74
[2017-07-29 04:45] LABS: ALANINE AMINOTRANSFERASE 23 U/L (0-55); ALBUMIN 3.8 GM/DL (3.2-4.5); ALKALINE PHOSPHATASE 50 U/L (40-136); BILIRUBIN,TOTAL 1.1 MG/DL (0.1-1.0); BUN/CREATININE RATIO 21; CARBON DIOXIDE 24 MMOL/L (21-32); CHLORIDE 108 MMOL/L (98-107); CHOLESTEROL 100 MG/DL (< 200); GFR ESTIMATED > 60; GLUCOSE 97 MG/DL (70-105); HDL CHOLESTEROL 40 MG/DL (40-60); MAGNESIUM 1.8 MG/DL (1.8-2.4); POTASSIUM 3.9 MMOL/L (3.6-5.0); SODIUM 142 MMOL/L (135-145); TOTAL PROTEIN 6.4 GM/DL (6.4-8.2); TRIGLYCERIDES 59 MG/DL (<150); VLDL CHOLESTEROL 12 MG/DL (5-40)
[2017-07-29] MEDS ORDERED: ASPIRIN E.C. 81 MG (ECOTRIN) TAB PO SCH (05:30)
[2017-07-29] MEDS ORDERED: lisINopril 40 MG (PRINIVIL) TABLET PO SCH (05:30)
[2017-07-29] MEDS ORDERED: ACETAMINOPHEN 500 MG TAB (TYLENOL) PO SCH ×2 (05:30→20:00)
[2017-07-29] MEDS ORDERED: lisINopril 20 MG (PRINIVIL) TABLET PO SCH (05:30)
[2017-07-29] MEDS: CATHETER FLUSH 10 ML SYR IV SCH (06:22)
[2017-07-29 07:00] VITALS: BP 137/67
[2017-07-29] MEDS: cefTRIAXone INJECTION 1,000 MG in NS (IVPB) 100 ML IV SCH (07:49)
--- NOTE | 2017-07-29 08:53 | Progress Note-Cardiology ---
Cardiology SOAP Progress Note Subjective: Has chronic intermittent cp, but none currently Has chronic exertional shortness of breath No palp or syncope L hip discomfort as described in initial consult note Objective: I&O/Vital Signs 07/28/17 07/29/17 07/29/17 07/29/17 21:00 00:00 00:00 01:00 Temp 97.4 Pulse 60 60 Resp 18 B/P (MAP) 154/74 (100) Pulse Ox 97 97 96 O2 Delivery Room Air Room Air 07/29/17 07/29/17 07/29/17 07/29/17 04:00 04:00 07:00 07:00 Temp 97.2 96.8 Pulse 64 58 60 Resp 18 16 B/P (MAP) 155/74 (101) 137/67 (90) Pulse Ox 90 96 94 O2 Delivery Room Air Room Air 07/29/17 00:00 Intake Total 150 ml Output Total 200 ml Balance -50 ml Weight (Pounds): 163 Weight (Ounces): 1.6 Weight (Calculated Kilograms): [id number] Constitutional: AAO x 3 Respiratory: No accessory muscle use, No respiratory distress; chest expansion is symmetric, chest is bilaterally symmetric, lungs clear to auscultation Cardiovascular: regular rate-rhythm; No JVD; S1 and S2, systolic murmur Gastrointestional: No tender; soft, audible bowel sounds Extremities: swelling (mild bilat LE edema) Neurologic/Psychiatric: grossly intact Skin: other (red rash to the umbilicus which appears wet) Results/Procedures: Labs Laboratory Tests 07/28/17 10:20: White Blood Count 4.6, Red Blood Count 3.54L, Hemoglobin 13.1L, Hematocrit 36L, Mean Corpuscular Volume 103H, Mean Corpuscular Hemoglobin 37H, Mean Corpuscular Hemoglobin Concent 36, Red Cell Distribution Width 14.0, Platelet Count 101L, Mean Platelet Volume 10.3, Neutrophils (%) (Auto) 43, Lymphocytes (%) (Auto) 47H , Monocytes (%) (Auto) 9, Eosinophils (%) (Auto) 1, Basophils (%) (Auto) 0, Neutrophils # (Auto) 2.0, Lymphocytes # (Auto) 2.2, Monocytes # (Auto) 0.4, Eosinophils # (Auto) 0.1, Basophils # (Auto) 0.0, Prothrombin Time 14.0, INR Comment 1.1, Activated Partial Thromboplast Time 37H, Sodium Level 141, Potassium Level 3.6, Chloride Level 108H, Carbon Dioxide Level 30, Anion Gap 3L , Blood Urea Nitrogen 19H, Creatinine 0.81, Estimat Glomerular Filtration Rate > 60, BUN/Creatinine Ratio 23, Glucose Level 91, Calcium Level 9.0, Magnesium Level 2.0, Total Bilirubin 0.9, Aspartate Amino Transf (AST/SGOT) 24, Alanine Aminotransferase (ALT/SGPT) 23, Alkaline Phosphatase 53, Myoglobin 66.4, Troponin I < 0.30, Total Protein 7.0, Albumin 4.1 07/28/17 10:46: Urine Color YELLOW, Urine Clarity SLIGHTLY CLOUDY, Urine pH 6, Urine Specific [place] 1.020, Urine Protein NEGATIVE, Urine Glucose (UA) NEGATIVE, Urine Ketones NEGATIVE, Urine Nitrite NEGATIVE, Urine Bilirubin 1+H, Urine Urobilinogen 8H, Urine Leukocyte Esterase NEGATIVE, Urine RBC (Auto) 2+H, Urine RBC RARE, Urine WBC 5-10H, Urine Squamous Epithelial Cells 5-10, Urine Crystals NONE, Urine Bacteria FEWH, Urine Casts NONE, Urine Mucus SMALLH, Urine Culture Indicated YES 07/28/17 19:10: Troponin I < 0.30 07/29/17 04:15: Sodium Level 142, Potassium Level 3.9, Chloride Level 108H, Carbon Dioxide Level 24, Anion Gap 10, Blood Urea Nitrogen 17, Creatinine 0.80, Estimat Glomerular Filtration Rate > 60, BUN/Creatinine Ratio 21, Glucose Level 97, Calcium Level 9.0, Magnesium Level 1.8, Total Bilirubin 1.1H, Aspartate Amino Transf (AST/SGOT) 23, Alanine Aminotransferase (ALT/SGPT) 23, Alkaline Phosphatase 50, Total Protein 6.4, Albumin 3.8, Triglycerides Level 59, Cholesterol Level 100, LDL Cholesterol Direct 43, VLDL Cholesterol 12, HDL Cholesterol 40 Laboratory Tests 07/28/17 10:20 07/29/17 04:15 A/P: Assessment: Recent non-syncopal fall (approx a week ago) with residual left hip pain, managed by the Med/Hospitalist Camilo Umbilical rash of undetermined etiology - managed by the Med/Hospitalist Camilo Chronic non-specific chest discomfort of undetermined etiology - unchanged, no evidence of ACS UTI - management per Med/Hospitalist Svce Chronic mild to mod exertional dyspnea of undetermined etiology - unchanged Coronary artery disease. Last cardiac catheterization was in February 2010. It showed mid-vessel occlusion of the left anterior descending. The distal left anterior descending artery is protected by a patent left internal mammary artery graft. The patient has an occluded posterolateral system, which is collateralized from the left circumflex artery. The right coronary artery is occluded in its mid portion following the origin of the right ventricular branch , which is small in caliber and has 70% ostial stenosis. The posterior descending branch of the distal right coronary artery has a patent saphenous vein graft. MPI of Dec 2011 showed small basal inferior infarction but it did not show myocardial ischemia. MPI of 06-17-16 did not indicate evidence of significant myocardial ischemia or infarction. Gating could not be carried out d/t frequent PVC's. Echo of 11/07/15 showed LVEF 50%, mild MR, mod TR, PASP 35-50mmHg, no evidence of significant valvular stenosis, mild to mod cardiomegaly Hypertension, uncontrolled. Hyperlipidemia, being treated with simvastatin. Gastroesophageal reflux. Chronic sinus bradycardia, status post dual-chamber pacemaker implantation carried in June 2010. Pacemaker pulse gen change (for EOL) on 12/09/16, functioning normally on pacemaker interrogation of 12/31/16 Mild to moderate carotid arterial disease involving soft and hard plaque. No evidence of hemodynamically significant stenosis per bilateral carotid ultrasound carried out on 08/01/11. History of bilateral cataract surgery. CKD, stage 2 Plan: * Complex management due to multiple comorbidities * Hospitalist Svce managing presenting complaints * Continue previous card regimen * Chest pain is chronic and unchanged. No evidence of ACS during this hospitalization. Ok to d/c from card standpoint * I discussed his CV issues with him, reviewed cor risk factor mod, and answered questions Clinical Quality Measures AMI/AHF: ASA po Prior to arrival: DENITA Castaneda MD FACP FAC [facility]S Jul 29, 2017 08:53
[2017-07-29] MEDS ORDERED: amLODIPine 5 MG (NORVASC) TAB PO SCH (09:00)
[2017-07-29] MEDS ORDERED: ASPIRIN E.C. 325 MG (ECOTRIN) TABLET PO SCH (09:00)
--- NOTE | 2017-07-29 11:38 | Short Stay Summary-Hospitalist ---
History of Present Illness HPI/Chief Complaint CC: Chest pain HPI: This is an 86-year-old white male assisted living patient at [facility] with a past medical history of CAD and pacemaker placement the presented to the ER with vague chest pain and a near syncopal episode 2 weeks prior. Cardiology was consulted and upon review there was no evidence of acute coronary syndrome with lack of elevation of troponin and overall patient remained stable during the observation stay and he wanted to go back home to [place]. He reported that the pain was vague in nature did not accompany with chest pressure or shortness of breath or wheezing. He does report an umbilicus rash which I have diagnosed with yeast infection so I will be able to treat that with good results. Patient denies any fever and no nausea that accompanied the chest pain. Source: patient Exam Limitations: no limitations Date Seen 07/29/17 Time Seen by Provider: 11:15 Attending Physician Mahamed Hutchison MD PCP No,Local Physician Referring Physician Date of Admission Jul 28, 2017 at 12:07 Home Medications & Allergies Home Medications Reviewed patient Home Medication Reconciliation performed by pharmacy medication reconciliations hydraulic controls technician and/or nursing. Patients Allergies have been reviewed. Allergies Allergies Coded Allergies No Known Drug Allergies ([id number]/14) Past Lcnqfni-[id number]-[id number] Hx Past Med/Social Hx: Reviewed Nursing Past Med/Soc Hx, Reviewed and Corrections made Patient Social History Marrital Status: single Employed/Student: retired Alcohol Use: Denies Use Recreational Drug Use: No Smoking Status: Former Smoker Former Smoker, Quit: Dec 09, 1980 Physical Abuse Screen: No Sexual Abuse: No Recent Foreign Travel: No Contact w/other who traveled: No Recent Hopitalizations: No Recent Infectious Disease Expo: No Immunizations Up To Date Date of Pneumonia Vaccine: Jan 19, 2012 Date of Influenza Vaccine: Mar 01, 2014 Seasonal Allergies Seasonal Allergies: No Past Medical History Surgeries: Abdominal, Cardiac, CABG, Pacemaker Cardiac: Chronic Edema/Swelling, Coronary Artery Disease, Heart Attack, High Cholesterol, Hypertension, Irregular Heartbeat Reproductive: No Sexually Transmitted Disease: No HIV/AIDS: No Gastrointestinal: Irritable Bowel Musculoskeletal: Arthritis Loss of Vision: Denies Hearing Impairment: Hard of Hearing Cancer: Skin Psychosocial: Anxiety History of Blood Disorders: No Adverse Reaction to Blood [place]: No Family History No Pertinent Family Hx Review of Systems Constitutional: see HPI EENTM: no symptoms reported Respiratory: no symptoms reported Cardiovascular: chest pain Gastrointestinal: no symptoms reported Genitourinary: no symptoms reported Musculoskeletal: no symptoms reported Skin: see HPI Psychiatric/Neurological: No Symptoms Reported All Other Systems Reviewed Negative Unless Noted: Yes Physical Exam Physical Exam Vital Signs Vital Signs - First Documented 07/28/17 07/28/17 10:01 12:45 Temp 97.9 Pulse 60 Resp 18 B/P (MAP) 173/79 (110) Pulse Ox 100 O2 Delivery Room Air Capillary Refill : Less Than 3 Seconds General Appearance: No Apparent Distress, WD/WN, Chronically ill, Obese Eyes: Bilateral Eye Normal Inspection, Bilateral Eye PERRL HEENT: PERRL/EOMI, Normal ENT Inspection, Pharynx Normal Neck: Full Range of Motion, Normal Inspection, Non Tender, Supple, Carotid Bruit Respiratory: Chest Non Tender, Lungs Clear, Normal Breath Sounds, No Accessory Muscle Use, No Respiratory Distress Cardiovascular: Regular Rate, Rhythm, No Edema, No Gallop, No JVD, No Murmur, Normal Peripheral Pulses Gastrointestinal: Normal Bowel Sounds, No Organomegaly, No Pulsatile Mass, Non Tender, Soft Back: Normal Inspection, No CVA Tenderness, No Vertebral Tenderness Extremity: Normal Capillary Refill, Normal Inspection, Normal Range of Motion, Non Tender, No Calf Tenderness, No Pedal Edema Neurologic/Psychiatric: Alert, Oriented x3, No Motor/Sensory Deficits, Normal Mood/Affect Skin: Normal Color, Warm/Dry, Other (Mid abdominal rash consistent with yeast) Lymphatic: No Adenopathy Results Results/Procedures Labs Laboratory Tests 07/28/17 10:20 07/29/17 04:15 Patient resulted labs reviewed. Short Stay Diagnosis Discharge Diagnosis-Short Stay Admission Diagnosis Chest pain without evidence of acute coronary syndrome I appreciate cardiology consultation History of CAD with bypass surgery with pacemaker History of syncopal episode 2 weeks ago without injury Yeast in abdominal folds Severe presbycusis Chronic anemia Final Discharge Diagnosis Chest pain without evidence of acute coronary syndrome I appreciate cardiology consultation History of CAD with bypass surgery with pacemaker History of syncopal episode 2 weeks ago without injury Yeast in abdominal folds Severe presbycusis Chronic anemia Conclusion Plan Plan: Discharged back to assisted living [facility] Nystatin cream and powder to abdominal folds Monitor closely No evidence of any need for medication changes Clinical Quality Measures AMI/AHF: ASA po Prior to arrival: No DVT/VTE Risk/Contraindication: Risk Factor Score Per Nursin RFS Level Per Nursing on Admit: 3=High MARY JOHNSTON DO Jul 29, 2017 11:37
[2017-07-29] MEDS ORDERED: NYST1POW3 MC (11:40)
[2017-07-29] MEDS ORDERED: NYST15CR TP (11:40)
[2017-07-29] MEDS ORDERED: AMLO5TAB2 PO (11:40)
[2017-07-29] MEDS ORDERED: NON-FORMULARY MEDICATION 1 EA EA (Fluticasone Propionate 2 SPRAYS) NS PRN (11:45)
[2017-07-29] MEDS ORDERED: NON-FORMULARY MEDICATION 1 EA EA (Loperamide HCl (Imodium A-D) 2 MG) PO PRN (11:45)
[2017-07-29] MEDS ORDERED: DEXTROMETHORPHAN HBR PO PRN (11:45)
[2017-07-29] MEDS ORDERED: MILK OF MAGNESIA 400 MG/5 ML 30 ML UDC PO PRN (11:45)
[2017-07-29] MEDS ORDERED: NON-FORMULARY MEDICATION 1 EA EA (Acetaminophen (Tylenol Extra Strength) 1,000 MG) PO PRN (11:45)
[2017-07-29] MEDS ORDERED: ALPRAZOLAM 0.5 MG PO SCH (13:00)
[2017-07-29] MEDS ORDERED: NON-FORMULARY MEDICATION 1 EA EA (Acetaminophen (Tylenol Extra Strength) 1,000 MG) PO SCH (13:00)
[2017-07-29] MEDS ORDERED: FLUTICASONE NASAL SPRAY (FLONASE) 16 GM BTL NS PRN (13:45)
[2017-07-29] MEDS ORDERED: guaiFENesin/DM (ROBITUSSIN DM) 10 ML UDC PO PRN (14:00)
[2017-07-29] MEDS ORDERED: FOLIC ACID 1 MG TAB PO SCH (21:00)
[2017-07-29] MEDS ORDERED: NON-FORMULARY MEDICATION 1 EA EA (Folic Acid 0.4 MG) PO SCH (21:00)
[2017-07-29] MEDS ORDERED: diphenhydrAMINE 25 MG TAB (BENADRYL) PO SCH (21:00)
[2017-07-30] MEDS ORDERED: NON-FORMULARY MEDICATION 1 EA EA (Pantoprazole Sodium 20 MG) PO SCH (05:30)
[2017-07-30] MEDS ORDERED: PANTOPRAZOLE 20 MG TABLET (PROTONIX) PO SCH (05:30)
== END 2017-07-29 11:42 | disposition home or self-care (01) ==
LOC: EDUNIT# 10:01 → ER 10:03 → ICU 12:07 → UNDOADMOB 12:07 → ICU 12:50 → UNDODISOB 07-29 13:30
PROVIDERS: ADMIT Internal Medicine; ATTEND Internal Medicine
DX: R07.89 Other chest pain (principal); N39.0 Urinary tract infection, site not specified; M25.552 Pain in left hip; B37.2 Candidiasis of skin and nail; D64.9 Anemia, unspecified; I25.10 Atherosclerotic heart disease of native coronary artery without angina pectoris; I12.9 Hypertensive chronic kidney disease with stage 1 through stage 4 chronic kidney disease, or unspecified chronic kidney disease; N18.2 Chronic kidney disease, stage 2 (mild); E78.5 Hyperlipidemia, unspecified; R60.0 Localized edema; K21.9 Gastro-esophageal reflux disease without esophagitis; I65.23 Occlusion and stenosis of bilateral carotid arteries; F41.9 Anxiety disorder, unspecified; I25.2 Old myocardial infarction; Z95.1 Presence of aortocoronary bypass graft; Z95.0 Presence of cardiac pacemaker; Z79.82 Long term (current) use of aspirin; Z79.899 Other long term (current) drug therapy; Z87.891 Personal history of nicotine dependence; W18.30XA Fall on same level, unspecified, initial encounter; Y92.129 Unspecified place in nursing home as the place of occurrence of the external cause
CPT/HCPCS: 36415; 71045; 80053; 80061; 81000; 83735; 83874; 84484; 85025; 85610; 85730; 87077; 87088; 87186; 93005; 93041

== ENCOUNTER → 2017-08-13 | Outpatient (CLI) | payer MEDICARE, MEDICAID ==
[~2017-08-13] MED LIST changes: +ACET-2267 PO; +ALPR0.5T PO; +AMLO5TAB2 PO; +ASPI-983 PO; +DEXT15LI5 PO; +DIPH25TA65 PO; +FLUT16SP22 NS; +LOPE-134 PO; +LORA-405 SL; +LORA2ORA PO; +MAGN400O7 PO; +MORP100S3 PO; +NYST15CR TP; +NYST1POW3 MC; +PANT20TA3 PO; +SCOP1PAT11 TD; +SCOPOLAMINE; +SULF1TAB35 PO
--- NOTE | 2017-08-13 10:42 | Diagnostic Imaging Report ---
INDICATION: Fall with left hip pain. TIME OF EXAMINATION: 9:48 AM. TECHNIQUE: Two views of the left hip were obtained. FINDINGS: There is normal femoroacetabular alignment. The joint space is maintained. The femoral head and neck are intact. No fractures are seen. IMPRESSION: No acute bony abnormality is detected. Dictated by: Dictated on workstation # [id number]
== END ==
LOC: RAD 09:02
PROVIDERS: ATTEND Nurse Practitioner
DX: M25.552 Pain in left hip (principal); W19.XXXA Unspecified fall, initial encounter
CPT/HCPCS: 73502

== ENCOUNTER 2017-08-14 12:27 | Emergency (ER) | payer MEDICARE, MEDICAID ==
[~2017-08-14] VITALS: Ht 170.2 cm; Wt 62.6 kg
[~2017-08-14 12:27] MED LIST changes: -LORA-405 SL; -LORA2ORA PO; -MORP100S3 PO; -SCOP1PAT11 TD; -SCOPOLAMINE; -SULF1TAB35 PO
--- OUTSIDE RECORDS SUMMARY | 2017-08-14 12:35 | XMS REPORT | Continuity of Care Document ---
Author Author [facility] Organization [facility] Address Unknown Phone Unavailable Allergies Active Description Code Type Severity Reaction Onset Reported/Identified Relationship to Patient Clinical Status Yes No Known Drug Allergies [id number] Drug Allergy Unknown N/A 02/15/2014 Medications There [...] ANTOINE MD Ot 414.01 CORONARY ATHEROSCLEROSIS OF [place] CORON 02/17/2014 MITCHELL ANTOINE MD Ot 424.0 [...] MED,LT, CURRENT USE 05/18/2014 BAIMA, LAQUITA L HISTORIOGRAPHY PROFESSOR Ot 272.4 05/18/2014 BAIMA, LAQUITA L HISTORIOGRAPHY PROFESSOR Ot 414.00 05/18/2014 BAIMA, LAQUITA L HISTORIOGRAPHY PROFESSOR Ot 427.89 05/18/2014 BAIMA, LAQUITA L HISTORIOGRAPHY PROFESSOR Ot V45.01 06/08/2014 Ot 272.4 06/08/2014 Ot [...] 06/08/2014 Ot V74.8 06/08/2014 BAIMA LAQUITA L HISTORIOGRAPHY PROFESSOR Ot 272.4 06/08/2014 BAIMA, LAQUITA L HISTORIOGRAPHY PROFESSOR Ot 414.00 06/08/2014 BAIMA, LAQUITA L HISTORIOGRAPHY PROFESSOR Ot 427.89 06/08/2014 BAIMA LAQUITA L HISTORIOGRAPHY PROFESSOR Ot V45.01 10/12/2015 JUDIE SANCHEZ, MITCHELL S [...] OF CARDIAC PACEMAKER 10/18/2015 BAILUCI HERNANDEZHER L HISTORIOGRAPHY PROFESSOR Ot E78.5 HYPERLIPIDEMIA, UNSPECIFIED 10/19/2015 BAIMARY LAQUITA L HISTORIOGRAPHY PROFESSOR Ot E78.5 HYPERLIPIDEMIA, UNSPECIFIED 10/19/2015 BAIMA, LAQUITA L HISTORIOGRAPHY PROFESSOR Ot I10 ESSENTIAL (PRIMARY) HYPERTENSION 10/19/2015 BAIMA, LAQUITA L HISTORIOGRAPHY PROFESSOR Ot I25.10 ATHSCL HEART DISEASE OF [place] CORONARY 10/19/2015 BAIMA, LAQUITA L HISTORIOGRAPHY PROFESSOR Ot N18.9 CHRONIC KIDNEY DISEASE, UNSPECIFIED 10/19/2015 BAIMA, LAQUITA L HISTORIOGRAPHY PROFESSOR Ot R00.1 BRADYCARDIA, UNSPECIFIED 10/19/2015 BAIMA, LAQUITA L HISTORIOGRAPHY PROFESSOR Ot Z95.0 PRESENCE OF CARDIAC PACEMAKER 11/07/2015 BAIMA, LAQUITA L HISTORIOGRAPHY PROFESSOR Ot 272.4 HYPERLIPIDEMIA NEC/NOS 11/07/2015 BAIMA, LAQUITA L HISTORIOGRAPHY PROFESSOR Ot 414.00 CORON ATHEROSCLER NOS TYPE VESSEL, NATIV 11/07/2015 BAIMA, LAQUITA L HISTORIOGRAPHY PROFESSOR Ot 427.89 CARDIAC DYSRHYTHMIAS NEC 11/07/2015 BAIMA, LAQUITA L HISTORIOGRAPHY PROFESSOR Ot V45.01 CARDIAC PACEMAKER IN SITU 11/07/2015 BAIMA, LAQUITA L HISTORIOGRAPHY PROFESSOR Ot E78.5 HYPERLIPIDEMIA, UNSPECIFIED 11/07/2015 BAIMA, LAQUITA L HISTORIOGRAPHY PROFESSOR Ot I10 ESSENTIAL (PRIMARY) HYPERTENSION 11/07/2015 BAIMA, LAQUITA L HISTORIOGRAPHY PROFESSOR Ot I25.10 ATHSCL HEART DISEASE OF [place] CORONARY 11/07/2015 BAIMA, LAQUITA L HISTORIOGRAPHY PROFESSOR Ot N18.9 CHRONIC KIDNEY DISEASE, UNSPECIFIED 11/07/2015 BAIMA, LAQUITA L HISTORIOGRAPHY PROFESSOR Ot R00.1 BRADYCARDIA, UNSPECIFIED 11/07/2015 BAIMA, LAQUITA L HISTORIOGRAPHY PROFESSOR Ot Z95.0 PRESENCE OF CARDIAC PACEMAKER 11/08/2015 BAIMA, ALQUITA L HISTORIOGRAPHY PROFESSOR Ot Z95.0 PRESENCE OF CARDIAC PACEMAKER 11/08/2015 BAIMA, LAQUITA L HISTORIOGRAPHY PROFESSOR Ot E78.5 HYPERLIPIDEMIA, UNSPECIFIED 11/08/2015 BAIMA, LAQUITA L HISTORIOGRAPHY PROFESSOR Ot 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 11/08/2015 BAIMA, LAQUITA L HISTORIOGRAPHY PROFESSOR Ot I25.10 ATHSCL HEART DISEASE OF [place] CORONARY 11/08/2015 BAIMA, LAQUITA L HISTORIOGRAPHY PROFESSOR Ot N18.9 CHRONIC KIDNEY DISEASE, UNSPECIFIED 11/08/2015 BAIMA, LAQUITA L HISTORIOGRAPHY PROFESSOR Ot R00.1 BRADYCARDIA, UNSPECIFIED 11/08/2015 BAIMA, LAQUITA L HISTORIOGRAPHY PROFESSOR Ot Z95.0 PRESENCE OF CARDIAC PACEMAKER 11/08/2015 BAIMA, LAQUITA L HISTORIOGRAPHY PROFESSOR Ot E78.5 HYPERLIPIDEMIA, UNSPECIFIED 11/08/2015 BAIMA, LAQUITA L HISTORIOGRAPHY PROFESSOR Ot I10 ESSENTIAL (PRIMARY) HYPERTENSION 11/08/2015 BAIMA, LAQUITA L HISTORIOGRAPHY PROFESSOR Ot I25.10 ATHSCL HEART DISEASE OF [place] CORONARY 11/08/2015 BAIMA, LAQUITA L HISTORIOGRAPHY PROFESSOR Ot N18.9 CHRONIC KIDNEY DISEASE, UNSPECIFIED 11/08/2015 BAIMA, LAQUITA L HISTORIOGRAPHY PROFESSOR Ot R00.1 BRADYCARDIA, UNSPECIFIED 11/08/2015 BAIMA, LAQUITA L HISTORIOGRAPHY PROFESSOR Ot Z95.0 PRESENCE OF CARDIAC PACEMAKER 12/11/2015 BAIMA, LAQUITA L HISTORIOGRAPHY PROFESSOR Ot E78.5 HYPERLIPIDEMIA, UNSPECIFIED 12/11/2015 BAIMA, LAQUITA L HISTORIOGRAPHY PROFESSOR Ot 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 12/11/2015 BAIMA, LAQUITA L HISTORIOGRAPHY PROFESSOR Ot I25.10 ATHSCL HEART DISEASE OF [place] CORONARY 12/11/2015 BAIMA, LAQUITA L HISTORIOGRAPHY PROFESSOR Ot N18.9 CHRONIC KIDNEY DISEASE, UNSPECIFIED 12/11/2015 BAIMA, LAQUITA L HISTORIOGRAPHY PROFESSOR Ot R00.1 BRADYCARDIA, UNSPECIFIED 12/11/2015 BAIMA, LAQUITA L HISTORIOGRAPHY PROFESSOR Ot Z95.0 PRESENCE OF CARDIAC PACEMAKER 01/14/2016 BAIMA, LAQUITA L HISTORIOGRAPHY PROFESSOR Ot 272.4 HYPERLIPIDEMIA NEC/NOS 01/14/2016 BAIMA, LAQUITA L HISTORIOGRAPHY PROFESSOR Ot 414.00 CORON ATHEROSCLER NOS TYPE VESSEL, NATIV 01/14/2016 BAIMA, LAQUITA L HISTORIOGRAPHY PROFESSOR Ot 427.89 CARDIAC DYSRHYTHMIAS NEC 01/14/2016 BAIMA, LAQUITA L HISTORIOGRAPHY PROFESSOR Ot V45.01 CARDIAC PACEMAKER IN SITU 01/14/2016 BAIMA, LAQUITA L HISTORIOGRAPHY PROFESSOR Ot E78.5 HYPERLIPIDEMIA, UNSPECIFIED 01/14/2016 BAIMA, LAQUITA L HISTORIOGRAPHY PROFESSOR Ot 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 01/14/2016 BAIMA, LAQUITA L HISTORIOGRAPHY PROFESSOR Ot I25.10 ATHSCL HEART DISEASE OF [place] CORONARY 01/14/2016 BAIMA, LAQUITA L HISTORIOGRAPHY PROFESSOR Ot N18.9 CHRONIC KIDNEY DISEASE, UNSPECIFIED 01/14/2016 BAIMA, LAQUITA L HISTORIOGRAPHY PROFESSOR Ot R00.1 BRADYCARDIA, UNSPECIFIED 01/14/2016 BAILAQUITA HERNANDEZ L HISTORIOGRAPHY PROFESSOR Ot Z95.0 PRESENCE OF CARDIAC PACEMAKER 01/14/2016 LAQUITA SYLVESTER L HISTORIOGRAPHY PROFESSOR Ot E78.5 HYPERLIPIDEMIA, UNSPECIFIED 01/14/2016 BAILAQUITA HERNANDEZ L HISTORIOGRAPHY PROFESSOR Ot I10 ESSENTIAL (PRIMARY) HYPERTENSION 01/14/2016 LAQUITA SYLVESTER L HISTORIOGRAPHY PROFESSOR Ot I25.10 ATHSCL HEART DISEASE OF [place] CORONARY 01/14/2016 LAQUITA SYLVESTER L HISTORIOGRAPHY PROFESSOR Ot N18.9 CHRONIC KIDNEY DISEASE, UNSPECIFIED 01/14/2016 BAILAQUITA HERNANDEZ L HISTORIOGRAPHY PROFESSOR Ot R00.1 BRADYCARDIA, UNSPECIFIED 01/14/2016 BAILAQUITA HERNANDEZ L HISTORIOGRAPHY PROFESSOR Ot Z95.0 PRESENCE OF CARDIAC PACEMAKER 01/15/2016 GELY AVILEZ MD Ot E78.5 HYPERLIPIDEMIA, UNSPECIFIED 01/15/2016 GELY AVILEZ MD Ot E86.0 DEHYDRATION 01/15/2016 GELY AVILEZ MD Ot 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 01/15/2016 GELY AVILEZ MD Ot I25.10 ATHSCL HEART DISEASE OF [place] CORONARY 01/15/2016 GELY AVILEZ MD Ot K21.9 [...] MD Ot I25.10 ATHSCL HEART DISEASE OF [place] CORONARY 01/15/2016 GELY AVILEZ MD Ot 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 01/15/2016 GELY AVILEZ MD Ot K52.9 NONINFECTIVE GASTROENTERITIS AND COLITIS 01/15/2016 GEYL AVILEZ MD Ot N18.9 CHRONIC KIDNEY DISEASE, UNSPECIFIED 01/15/2016 GELY AVILEZ MD Ot R07.89 OTHER CHEST PAIN 01/15/2016 GELY AVILEZ MD Ot Z87.891 PERSONAL HISTORY OF NICOTINE DEPENDENCE 01/15/2016 GELY AVILEZ MD Ot Z95.0 PRESENCE OF CARDIAC PACEMAKER 01/15/2016 GELY AVILEZ MD Ot Z95.1 PRESENCE OF AORTOCORONARY BYPASS GRAFT 01/17/2016 LAURAMA, LAQUITA L HISTORIOGRAPHY PROFESSOR Ot 272.4 HYPERLIPIDEMIA NEC/NOS 01/17/2016 BAIMA, LAQUITA L HISTORIOGRAPHY PROFESSOR Ot 414.00 CORON ATHEROSCLER NOS TYPE VESSEL, NATIV 01/17/2016 BAIMA, LAQUITA L HISTORIOGRAPHY PROFESSOR Ot 427.89 CARDIAC DYSRHYTHMIAS NEC 01/17/2016 NGA LAQUITA L HISTORIOGRAPHY PROFESSOR Ot V45.01 CARDIAC PACEMAKER IN SITU 01/17/2016 LAURAMA, LAQUITA L HISTORIOGRAPHY PROFESSOR Ot E78.5 HYPERLIPIDEMIA, UNSPECIFIED 01/17/2016 BAIMA, LAQUITA L HISTORIOGRAPHY PROFESSOR Ot 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 01/17/2016 BAIMA, LAQUITA L HISTORIOGRAPHY PROFESSOR Ot I25.10 ATHSCL HEART DISEASE OF [place] CORONARY 01/17/2016 BAIMA, LAQUITA L HISTORIOGRAPHY PROFESSOR Ot N18.9 CHRONIC KIDNEY DISEASE, UNSPECIFIED 01/17/2016 BAIMA, LAQUITA L HISTORIOGRAPHY PROFESSOR Ot R00.1 BRADYCARDIA, UNSPECIFIED 01/17/2016 BAIMA, LAQUITA L HISTORIOGRAPHY PROFESSOR Ot Z95.0 PRESENCE OF CARDIAC PACEMAKER 01/17/2016 BAIMA, LAQUITA L HISTORIOGRAPHY PROFESSOR Ot E78.5 HYPERLIPIDEMIA, UNSPECIFIED 01/17/2016 BAIMA, LAQUITA L HISTORIOGRAPHY PROFESSOR Ot I10 ESSENTIAL (PRIMARY) HYPERTENSION 01/17/2016 BAIMA, LAQUITA L HISTORIOGRAPHY PROFESSOR Ot I25.10 ATHSCL HEART DISEASE OF [place] CORONARY 01/17/2016 BAIMA LAQUITA L HISTORIOGRAPHY PROFESSOR Ot N18.9 CHRONIC KIDNEY DISEASE, UNSPECIFIED 01/17/2016 BAIMA LAQUITA L HISTORIOGRAPHY PROFESSOR Ot R00.1 BRADYCARDIA, UNSPECIFIED 01/17/2016 BAIMA, LAQUITA L HISTORIOGRAPHY PROFESSOR Ot Z95.0 PRESENCE OF CARDIAC PACEMAKER 01/17/2016 BAIMA, LAQUITA L HISTORIOGRAPHY PROFESSOR Ot E78.5 HYPERLIPIDEMIA, UNSPECIFIED 01/17/2016 BAIMA, LAQUITA L HISTORIOGRAPHY PROFESSOR Ot 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 01/17/2016 BAIMA, LAQUITA L HISTORIOGRAPHY PROFESSOR Ot I25.10 ATHSCL HEART DISEASE OF [place] CORONARY 01/17/2016 BAIMA, LAQUITA L HISTORIOGRAPHY PROFESSOR Ot N18.9 CHRONIC KIDNEY DISEASE, UNSPECIFIED 01/17/2016 BAIMA, LAQUITA L HISTORIOGRAPHY PROFESSOR Ot R00.1 BRADYCARDIA, UNSPECIFIED 01/17/2016 BAIMA, LAQUITA L HISTORIOGRAPHY PROFESSOR Ot Z95.0 PRESENCE OF CARDIAC PACEMAKER 01/17/2016 BAIMA, LAQUITA L HISTORIOGRAPHY PROFESSOR Ot E78.5 HYPERLIPIDEMIA, UNSPECIFIED 01/17/2016 BAIMA, LAQUITA L HISTORIOGRAPHY PROFESSOR Ot I10 ESSENTIAL (PRIMARY) HYPERTENSION 01/17/2016 BAIMA, LAQUITA L HISTORIOGRAPHY PROFESSOR Ot I25.10 ATHSCL HEART DISEASE OF [place] CORONARY 01/17/2016 BAIMA, LAQUITA L HISTORIOGRAPHY PROFESSOR Ot N18.9 CHRONIC KIDNEY DISEASE, UNSPECIFIED 01/17/2016 BAIMA, LAQUITA L HISTORIOGRAPHY PROFESSOR Ot R00.1 BRADYCARDIA, UNSPECIFIED 01/17/2016 BAIMA, LAQUITA L HISTORIOGRAPHY PROFESSOR Ot Z95.0 PRESENCE OF CARDIAC PACEMAKER 06/06/2016 MARTINEZ DO NORAH K Ot I10 ESSENTIAL (PRIMARY) HYPERTENSION 06/06/2016 MARTINEZ DO NORAH K Ot I25.10 ATHSCL HEART DISEASE OF [place] CORONARY 06/06/2016 MARTINEZ QUIROGA NORAH K Ot R07.9 CHEST PAIN, UNSPECIFIED 06/06/2016 MARTINEZ DO NORAH K Ot Z79.82 RENAL CASE MANAGER (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 06/06/2016 MARTINEZ QUIROGA NORAH K Ot Z79.899 OTHER RENAL CASE MANAGER (CURRENT) DRUG THERAPY 06/06/2016 MARTINEZ QUIROGA NORAH K Ot Z95.0 PRESENCE OF CARDIAC PACEMAKER 06/06/2016 MARTINEZ DO NORAH K Ot Z95.1 PRESENCE OF AORTOCORONARY BYPASS GRAFT 06/09/2016 MARTINEZ DO NORAH K Ot I10 ESSENTIAL (PRIMARY) HYPERTENSION 06/09/2016 MARTINEZ DO NORAH K Ot I25.10 ATHSCL HEART DISEASE OF [place] CORONARY 06/09/2016 NORAH HENRIQUEZ DO Ot R07.9 CHEST PAIN, UNSPECIFIED 06/09/2016 NORAH HENRIQUEZ DO Ot Z79.82 RENAL CASE MANAGER (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 06/09/2016 NORAH HENRIQUEZ DO Ot Z79.899 OTHER [facility] (CURRENT) DRUG THERAPY 06/09/2016 NORAH HENRIQUEZ DO Ot Z95.0 PRESENCE OF CARDIAC PACEMAKER 06/09/2016 NORAH HENRIQUEZ DO Ot Z95.1 PRESENCE OF AORTOCORONARY BYPASS GRAFT 06/17/2016 BAIMA, LAQUITA L HISTORIOGRAPHY PROFESSOR Ot 272.4 HYPERLIPIDEMIA NEC/NOS 06/17/2016 BAIMA, LAQUITA L HISTORIOGRAPHY PROFESSOR Ot 414.00 CORON ATHEROSCLER NOS TYPE VESSEL, NATIV 06/17/2016 BAIMA, LAQUITA L HISTORIOGRAPHY PROFESSOR Ot 427.89 CARDIAC DYSRHYTHMIAS NEC 06/17/2016 BAIMA, LAQUITA L HISTORIOGRAPHY PROFESSOR Ot V45.01 CARDIAC PACEMAKER IN SITU 06/17/2016 BAIMA, LAQUITA L HISTORIOGRAPHY PROFESSOR Ot E78.5 HYPERLIPIDEMIA, UNSPECIFIED 06/17/2016 BAIMA, LAQUITA L HISTORIOGRAPHY PROFESSOR Ot 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 06/17/2016 BAIMA, LAQUITA L HISTORIOGRAPHY PROFESSOR Ot I25.10 ATHSCL HEART DISEASE OF [place] CORONARY 06/17/2016 BAIMA, LAQUITA L HISTORIOGRAPHY PROFESSOR Ot N18.9 CHRONIC KIDNEY DISEASE, UNSPECIFIED 06/17/2016 BAIMA, LAQUITA L HISTORIOGRAPHY PROFESSOR Ot R00.1 BRADYCARDIA, UNSPECIFIED 06/17/2016 BAIMA, LAQUITA L HISTORIOGRAPHY PROFESSOR Ot Z95.0 PRESENCE OF CARDIAC PACEMAKER 06/17/2016 BAIMA, LAQUITA L HISTORIOGRAPHY PROFESSOR Ot E78.5 HYPERLIPIDEMIA, UNSPECIFIED 06/17/2016 BAIMA, LAQUITA L HISTORIOGRAPHY PROFESSOR Ot I10 ESSENTIAL (PRIMARY) HYPERTENSION 06/17/2016 BAIMA, LAQUITA L HISTORIOGRAPHY PROFESSOR Ot I25.10 ATHSCL HEART DISEASE OF [place] CORONARY 06/17/2016 BAIMA, LAQUITA L HISTORIOGRAPHY PROFESSOR Ot N18.9 CHRONIC KIDNEY DISEASE, UNSPECIFIED 06/17/2016 BAIMA, LAQUITA L HISTORIOGRAPHY PROFESSOR Ot R00.1 BRADYCARDIA, UNSPECIFIED 06/17/2016 BAIMA, LAQUITA L HISTORIOGRAPHY PROFESSOR Ot Z95.0 PRESENCE OF CARDIAC PACEMAKER 06/17/2016 ANAYELI SANCHEZ FACC, ALI FACP CCDS Ot R07.89 OTHER CHEST PAIN 06/17/2016 ANAYELI OJEDAC, ALI FACP CCDS Ot E78.4 OTHER HYPERLIPIDEMIA 06/17/2016 ANAYELI SANCHEZ FACC, ALI FACP CCDS Ot 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 06/17/2016 ANAYELI OJEDAC, ALI FACP CCDS Ot I25.10 ATHSCL HEART DISEASE OF [place] CORONARY 06/17/2016 ANAYELI SANCHEZ FACC, ALI FACP [...] CCDS Ot I25.10 ATHSCL HEART DISEASE OF [place] CORONARY 06/18/2016 ANAYELI SANCHEZ FACC, ALI FACP [...] CCDS Ot I25.10 ATHSCL HEART DISEASE OF [place] CORONARY 07/08/2016 ANAYELI OJEDAC, ALI FACP CCDS Ot I65.23 OCCLUSION AND STENOSIS OF [place] 07/08/2016 ANAYELI OJEDAC, ALI FACP CCDS Ot N18.9 CHRONIC KIDNEY DISEASE, UNSPECIFIED 07/08/2016 ANAYELI OJEDA, ALI FACP CCDS Ot R07.89 OTHER CHEST PAIN 07/08/2016 ANAYELI OJEDA, ALI FACP CCDS Ot Z95.0 PRESENCE OF CARDIAC PACEMAKER 09/11/2016 BAIMA, LAQUITA L HISTORIOGRAPHY PROFESSOR Ot E78.5 HYPERLIPIDEMIA, UNSPECIFIED 09/11/2016 BAIMA, LAQUITA L HISTORIOGRAPHY PROFESSOR Ot 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 09/11/2016 BAIMA, LAQUITA L HISTORIOGRAPHY PROFESSOR Ot I25.10 ATHSCL HEART DISEASE OF [place] CORONARY 09/11/2016 BAIMA, LAQUITA L HISTORIOGRAPHY PROFESSOR Ot N18.9 CHRONIC KIDNEY DISEASE, UNSPECIFIED 09/11/2016 BAIMA, LAQUITA L HISTORIOGRAPHY PROFESSOR Ot R00.1 BRADYCARDIA, UNSPECIFIED 09/11/2016 BAIMA, LAQUITA L HISTORIOGRAPHY PROFESSOR Ot Z95.0 PRESENCE OF CARDIAC PACEMAKER 09/11/2016 A[facility]I SANC[facility]Z [facility] ALI FACP CCDS Ot E78.4 OTHER HYPERLIPIDEMIA 09/11/2016 ANAYELI SANCHEZ FACC, ALI FACP CCDS Ot 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 09/11/2016 ANAYELI SANCHEZ FACC, ALI FACP CCDS Ot I25.10 ATHSCL HEART DISEASE OF [place] CORONARY 09/11/2016 ANAYELI SANCHEZ FACC, ALI FACP CCDS Ot I65.23 OCCLUSION AND STENOSIS OF [place] 09/11/2016 ANAYELI SANCHEZ FACC, ALI FACP CCDS Ot N18.9 CHRONIC KIDNEY DISEASE, UNSPECIFIED 09/11/2016 ANAYELI SANCHEZ FACC, ALI FACP CCDS Ot R07.89 OTHER CHEST PAIN 09/11/2016 ANAYELI SANCHEZ FACC, ALI FACP CCDS Ot Z95.0 PRESENCE OF CARDIAC PACEMAKER 09/11/2016 BAIMA, LAQUITA L HISTORIOGRAPHY PROFESSOR Ot E78.5 HYPERLIPIDEMIA, UNSPECIFIED 09/11/2016 BAIMA, LAQUITA L HISTORIOGRAPHY PROFESSOR Ot 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 09/11/2016 BAIMA, LAQUITA L HISTORIOGRAPHY PROFESSOR Ot I25.10 ATHSCL HEART DISEASE OF [place] CORONARY 09/11/2016 BAIMA, LAQUITA L HISTORIOGRAPHY PROFESSOR Ot N18.9 CHRONIC KIDNEY DISEASE, UNSPECIFIED 09/11/2016 BAIMA, LAQUITA L HISTORIOGRAPHY PROFESSOR Ot R00.1 BRADYCARDIA, UNSPECIFIED 09/11/2016 BAIMA, LAQUITA L HISTORIOGRAPHY PROFESSOR Ot Z95.0 PRESENCE OF CARDIAC PACEMAKER 09/11/2016 ANAYELI SANCHEZ FACC, ALI FACP CCDS Ot E78.4 OTHER HYPERLIPIDEMIA 09/11/2016 ANAYELI SANCHEZ FACC, ALI FACP CCDS Ot 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 09/11/2016 ANAYELI SANCHEZ FACC, ALI FACP CCDS Ot I25.10 ATHSCL HEART DISEASE OF [place] CORONARY 09/11/2016 ANAYELI SANCHEZ FACC, ALI FACP CCDS Ot I65.23 OCCLUSION AND STENOSIS OF [place]ILATERAL [place] 09/11/2016 ANAYELI SANCHEZ FACC, ALI FACP CCDS Ot N18.9 CHRONIC KIDNEY DISEASE, UNSPECIFIED 09/11/2016 ANAYELI SANCHEZ FACC, ALI FACP CCDS Ot R07.89 OTHER CHEST PAIN 09/11/2016 ANAYELI SANCHEZ FACC, ALI FACP CCDS Ot Z95.0 PRESENCE OF CARDIAC PACEMAKER 09/16/2016 BAIMA, LAQUITA L HISTORIOGRAPHY PROFESSOR Ot E78.5 HYPERLIPIDEMIA, UNSPECIFIED 09/16/2016 BAIMA, LAQUITA L HISTORIOGRAPHY PROFESSOR Ot 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 09/16/2016 BAIMA, LAQUITA L HISTORIOGRAPHY PROFESSOR Ot I25.10 ATHSCL HEART DISEASE OF [place] CORONARY 09/16/2016 BAIMA, LAQUITA L HISTORIOGRAPHY PROFESSOR Ot N18.9 CHRONIC KIDNEY DISEASE, UNSPECIFIED 09/16/2016 BAIMA, LAQUITA L HISTORIOGRAPHY PROFESSOR Ot R00.1 BRADYCARDIA, UNSPECIFIED 09/16/2016 BAIMA, LAQUITA L HISTORIOGRAPHY PROFESSOR Ot Z95.0 PRESENCE OF CARDIAC PACEMAKER 09/16/2016 ANAYELI SANCHEZ FACC, ALI FACP CCDS Ot E78.4 OTHER HYPERLIPIDEMIA 09/16/2016 ANAYELI SANCHEZ FACC, ALI FACP CCDS Ot 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 09/16/2016 ANAYELI SANCHEZ FACC, ALI FACP CCDS Ot I25.10 ATHSCL HEART DISEASE OF [place] CORONARY 09/16/2016 ANAYELI SANCHEZ FACC, ALI FACP [...] MD Ot I10 ESSENTIAL (PRIMARY) HYPERTENSION 11/13/2016 CARNIA COTTON MD Ot I25.10 ATHSCL HEART DISEASE OF [place] CORONARY 11/13/2016 CARINA COTTON MD, Ot M54.9 DORSALGIA, UNSPECIFIED 11/13/2016 CARINA CTOTON MD Ot Z95.0 PRESENCE OF CARDIAC PACEMAKER [...] CCDS Ot I25.10 ATHSCL HEART DISEASE OF [place] CORONARY 11/20/2016 ANAYELI SANCHEZ FACC, ALI FACP CCDS Ot I65.23 OCCLUSION AND STENOSIS OF [place]ILATERAL [place] 11/20/2016 ANAYELI SANCHEZ FACC, ALI FACP CCDS Ot 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 11/20/2016 ANAYELI SANCHEZ FACC, ALI FACP CCDS Ot N18.9 CHRONIC KIDNEY DISEASE, UNSPECIFIED 11/20/2016 ANAYELI SANCHEZ FACC, ALI FACP CCDS Ot Z95.0 PRESENCE OF CARDIAC PACEMAKER 12/09/2016 LAQUITA SYLVESTER HISTORIOGRAPHY PROFESSOR Ot E78.5 HYPERLIPIDEMIA, UNSPECIFIED 12/09/2016 LAURALAQUITA HERNANDEZ HISTORIOGRAPHY PROFESSOR Ot 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 12/09/2016 LAURAMARY LAQUITA Antunez HISTORIOGRAPHY PROFESSOR Ot I25.10 ATHSCL HEART DISEASE OF [place] CORONARY 12/09/2016 LAURALAQUITA HERNANDEZ HISTORIOGRAPHY PROFESSOR Ot 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 12/09/2016 LAURALAQUITA HERNANDEZ HISTORIOGRAPHY PROFESSOR Ot N18.2 CHRONIC KIDNEY DISEASE, STAGE 2 (MILD) 12/09/2016 LAURAMARY LAQUITA Antunez HISTORIOGRAPHY PROFESSOR Ot R00.1 BRADYCARDIA, UNSPECIFIED 12/09/2016 LAURAMARY LAQUITA Antunez HISTORIOGRAPHY PROFESSOR Ot Z45.010 ENCNTR FOR CHECKING AND TEST OF CARD PAC 12/09/2016 NGA LAQUITA Antunez HISTORIOGRAPHY PROFESSOR Ot Z79.899 OTHER [facility] (CURRENT) DRUG THERAPY 12/09/2016 NGA LAQUITA Antunez HISTORIOGRAPHY PROFESSOR Ot Z95.1 PRESENCE OF AORTOCORONARY BYPASS GRAFT [...] MD Ot I25.10 ATHSCL HEART DISEASE OF [place] CORONARY 2016 CARINA COTTON MD Ot M54.9 [...] CCDS Ot I25.10 ATHSCL HEART DISEASE OF [place] CORONARY 2016 ANAYELI SANCHEZ FAC, ALI FACP CCDS Ot I65.23 OCCLUSION AND STENOSIS OF [place]ILATERAL [place] 2016 ANAYELI SANCHEZ FAC, ALI FACP CCDS Ot 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 2016 ANAYELI SANCHEZ [facility], ALI FACP CCDS Ot N18.9 CHRONIC KIDNEY DISEASE, UNSPECIFIED 2016 ANAYELI SANCHEZ [facility], ALI FACP CCDS Ot Z95.0 PRESENCE OF CARDIAC PACEMAKER 12/22/2016 JIMENA MENENDEZ MD Ot E78.00 PURE HYPERCHOLESTEROLEMIA, UNSPECIFIED 12/22/2016 JIMENA MENENDEZ MD Ot F41.9 ANXIETY DISORDER, UNSPECIFIED 12/22/2016 JIMENA MENENDEZ MD Ot I10 ESSENTIAL (PRIMARY) HYPERTENSION 12/22/2016 JIMENA MENENDEZ MD Ot I25.10 ATHSCL HEART DISEASE OF [place] CORONARY 12/22/2016 JIMENA MENENDEZ MD Ot I25.2 OLD MYOCARDIAL INFARCTION 12/22/2016 JIMENA MENENDEZ MD Ot K58.9 IRRITABLE BOWEL SYNDROME WITHOUT DIARRHE 12/22/2016 JIMENA MENENDEZ MD Ot S51.811A LACERATION W/O FOREIGN BODY OF RIGHT FOR 12/22/2016 JIMENA MENENDEZ MD Ot W18.30XA FALL ON SAME LEVEL, UNSPECIFIED, INITIAL 12/22/2016 JIMENA MENENDEZ MD Ot Y92.002 BATHRM OF [facility] NON-INSTITUT RESFORMERLY [facility] 12/22/2016 JIMENA MENENDEZ MD Ot Z79.82 RENAL CASE MANAGER (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 12/22/2016 JIMENA MENENDEZ [...] MD Ot I25.10 ATHSCL HEART DISEASE OF [place] CORONARY 01/17/2017 CARINA COTTON MD, Ot M54.9 [...] MD Ot I25.10 ATHSCL HEART DISEASE OF [place] CORONARY 01/20/2017 CARINA COTTON MD Ot M54.9 DORSALGIA, UNSPECIFIED 01/20/2017 CARINA COTTON MD Ot Z95.0 PRESENCE OF CARDIAC PACEMAKER 01/20/2017 CARINA COTTON MD Ot Z95.1 PRESENCE OF AORTOCORONARY BYPASS GRAFT 01/20/2017 CARINA COTTON MD Ot Z99.3 DEPENDENCE ON WHEELCHAIR 07/29/2017 GELY AVILEZ MD Ot B37.2 CANDIDIASIS OF SKIN AND NAIL 07/29/2017 GELY AVILEZ MD, Ot D64.9 ANEMIA, UNSPECIFIED 07/29/2017 GELY AVILEZ MD Ot E78.5 HYPERLIPIDEMIA, UNSPECIFIED 07/29/2017 GELY AVILEZ MD Ot F41.9 ANXIETY DISORDER, UNSPECIFIED 07/29/2017 GELY AVILEZ MD Ot 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 07/29/2017 GELY AVILEZ MD Ot I25.10 ATHSCL HEART DISEASE OF [place] CORONARY 07/29/2017 GELY AVILEZ MD, Ot I25.2 OLD MYOCARDIAL INFARCTION 07/29/2017 GELY AVILEZ MD Ot I65.23 OCCLUSION AND STENOSIS OF BILATERAL [place] 07/29/2017 GELY AVILEZ MD Ot 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 07/29/2017 GELY AVILEZ MD Ot M25.552 PAIN IN LEFT HIP 07/29/2017 GELY AVILEZ MD Ot N18.2 CHRONIC KIDNEY DISEASE, STAGE 2 (MILD) 07/29/2017 GELY AVILEZ MD Ot N39.0 URINARY TRACT INFECTION, SITE NOT SPECIF 07/29/2017 GELY AVILEZ MD Ot R07.89 OTHER CHEST PAIN 07/29/2017 GELY AVILEZ MD Ot R60.0 LOCALIZED EDEMA 07/29/2017 GELY AVILEZ MD Ot W18.30XA FALL ON SAME LEVEL, UNSPECIFIED, INITIAL 07/29/2017 GELY AVILEZ MD Ot Y92.[address] [facility] 07/29/2017 GELY AVILEZ MD Ot Z79.82 [facility] (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 07/29/2017 EGLY AVILEZ MD, Ot Z79.899 OTHER [facility] (CURRENT) DRUG THERAPY 07/29/2017 GELY AVILEZ MD Ot Z87.891 PERSONAL HISTORY OF NICOTINE DEPENDENCE 07/29/2017 GELY AVILEZ MD Ot Z95.0 PRESENCE OF CARDIAC PACEMAKER 07/29/2017 GELY AVILEZ MD Ot Z95.1 PRESENCE OF AORTOCORONARY BYPASS GRAFT 07/30/2017 LAURALAQUITA HERNANDEZ L HISTORIOGRAPHY PROFESSOR Ot 272.4 HYPERLIPIDEMIA NEC/NOS 07/30/2017 BAIMA, LAQUITA L HISTORIOGRAPHY PROFESSOR Ot 414.00 CORON ATHEROSCLER NOS TYPE VESSEL, NATIV 07/30/2017 BAIMA, LAQUITA L HISTORIOGRAPHY PROFESSOR Ot 427.89 CARDIAC DYSRHYTHMIAS NEC 07/30/2017 BAIMA, LAQUITA L HISTORIOGRAPHY PROFESSOR Ot V45.01 CARDIAC PACEMAKER IN SITU 07/30/2017 BAIMA, LAQUITA L HISTORIOGRAPHY PROFESSOR Ot E78.5 HYPERLIPIDEMIA, UNSPECIFIED 07/30/2017 BAIMA, LAQUITA L HISTORIOGRAPHY PROFESSOR Ot 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 07/30/2017 BAIMA, LAQUITA L HISTORIOGRAPHY PROFESSOR Ot I25.10 ATHSCL HEART DISEASE OF [place] CORONARY 07/30/2017 BAIMA, LAQUITA L HISTORIOGRAPHY PROFESSOR Ot N18.9 CHRONIC KIDNEY DISEASE, UNSPECIFIED 07/30/2017 BAIMA, LAQUITA L HISTORIOGRAPHY PROFESSOR Ot R00.1 BRADYCARDIA, UNSPECIFIED 07/30/2017 BAIMA, LAQUITA L HISTORIOGRAPHY PROFESSOR Ot Z95.0 PRESENCE OF CARDIAC PACEMAKER 07/30/2017 BAIMA, LAQUITA L HISTORIOGRAPHY PROFESSOR Ot E78.5 HYPERLIPIDEMIA, UNSPECIFIED 07/30/2017 BAIMA, LAQUITA L HISTORIOGRAPHY PROFESSOR Ot I10 ESSENTIAL (PRIMARY) HYPERTENSION 07/30/2017 BAIMA, LAQUITA L HISTORIOGRAPHY PROFESSOR Ot I25.10 ATHSCL HEART DISEASE OF [place] CORONARY 07/30/2017 BAIMA, LAQUITA L HISTORIOGRAPHY PROFESSOR Ot N18.9 CHRONIC KIDNEY DISEASE, UNSPECIFIED 07/30/2017 BAIMA, LAQUITA L HISTORIOGRAPHY PROFESSOR Ot R00.1 BRADYCARDIA, UNSPECIFIED 07/30/2017 BAIMA, LAQUITA L HISTORIOGRAPHY PROFESSOR Ot Z95.0 PRESENCE OF CARDIAC PACEMAKER 07/30/2017 ANAYELI SANCHEZ FACC, DENITA OJEDAP CCDS Ot E78.4 OTHER HYPERLIPIDEMIA 07/30/2017 ANAYELI SANCHEZ FACC, DENITA FACP CCDS Ot 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 07/30/2017 ANAYELI SANCHEZ FACC, DENITA FACP CCDS Ot I25.10 ATHSCL HEART DISEASE OF [place] CORONARY 07/30/2017 ANAYELI SANCHEZ FACC, DENITA FACP CCDS Ot I65.23 OCCLUSION AND STENOSIS OF [place]ILATERAL [place] 07/30/2017 ANAYELI SANCHEZ FACC, ALI FACP CCDS Ot N18.9 CHRONIC KIDNEY DISEASE, UNSPECIFIED 07/30/2017 ANAYELI SANCHEZ FACC, ALI FACP CCDS Ot R07.89 OTHER CHEST PAIN 07/30/2017 ANAYELI SANCHEZ FACLorrie, ALI FACP CCDS Ot Z95.0 PRESENCE OF CARDIAC PACEMAKER 07/30/2017 ANAYELI SANHCEZ FACC, ALI FACP CCDS Ot E78.4 OTHER HYPERLIPIDEMIA 07/30/2017 ANAYELI SANCHEZ FACC, ALI FACP CCDS Ot 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 07/30/2017 ANAYELI SANCHEZ FACC, ALI FACP CCDS Ot I25.10 ATHSCL HEART DISEASE OF [place] CORONARY 07/30/2017 ANAYELI SANCHEZ FACC, ALI FACP CCDS Ot I65.23 OCCLUSION AND STENOSIS OF BILATERAL [place] 07/30/2017 ANAYELI SANCHEZ FACC, ALI FACP CCDS Ot 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 07/30/2017 ANAYELI SANCHEZ FACC, ALI FACP CCDS Ot N18.9 CHRONIC KIDNEY DISEASE, UNSPECIFIED 07/30/2017 ANAYELI SANCHEZ FACC, ALI FACP CCDS Ot Z95.0 PRESENCE OF CARDIAC PACEMAKER 07/30/2017 CARINA COTTON MD Ot 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 07/30/2017 CARINA COTTON MD Ot C44.619 BASAL CELL CARCINOMA SKIN/ LEFT UPPER LI 07/30/2017 CARINA COTTON MD Ot E78.5 HYPERLIPIDEMIA, UNSPECIFIED 07/30/2017 CARINA COTTON MD Ot F17.210 NICOTINE DEPENDENCE, CIGARETTES, UNCOMPL 07/30/2017 CARINA COTTON MD Ot F41.9 ANXIETY DISORDER, UNSPECIFIED 07/30/2017 CARINA COTTON MD Ot I10 ESSENTIAL (PRIMARY) HYPERTENSION 07/30/2017 CARINA COTTON MD Ot I25.10 ATHSCL HEART DISEASE OF [place] CORONARY 07/30/2017 CARINA COTTON MD Ot M54.9 DORSALGIA, UNSPECIFIED 07/30/2017 CARINA COTTON MD Ot Z95.0 PRESENCE OF CARDIAC PACEMAKER 07/30/2017 CARINA COTTON MD Ot Z95.1 PRESENCE OF AORTOCORONARY BYPASS GRAFT 07/30/2017 CARINA COTTON MD Ot Z99.3 DEPENDENCE ON WHEELCHAIR Procedures There is [...] resistant Staphylococcus aureus (MRSA) screening culture NEG NR Complete blood count (CBC) with automated white blood cell (WBC) differential - 07/28/17 10:20 Blood leukocytes automated count (number/volume) 4.6 10*3/uL 4.3-11.0 Blood erythrocytes automated count (number/volume) 3.54 10*6/uL 4.35-5.85 Venous blood hemoglobin measurement (mass/volume) 13.1 g/dL 13.3-17.7 Blood hematocrit (volume fraction) 36 % 40-54 Automated erythrocyte mean corpuscular volume 103 [foz_us] 80-99 Automated erythrocyte mean corpuscular hemoglobin (mass per erythrocyte) 37 pg 25-34 Automated erythrocyte mean corpuscular hemoglobin concentration measurement ( mass/volume) 36 g/dL 32-36 Automated erythrocyte distribution width ratio 14.0 % 10.0-14.5 Automated blood platelet count (count/volume) 101 10*3/uL 130-400 Automated blood platelet mean volume measurement 10.3 [foz_us] 7.4-10.4 Automated blood neutrophils/100 leukocytes 43 % 42-75 Automated blood lymphocytes/100 leukocytes 47 % 12-44 Blood monocytes/100 leukocytes 9 % 0-12 Automated blood eosinophils/100 leukocytes 1 % 0-10 Automated blood basophils/100 leukocytes 0 % 0-10 Blood neutrophils automated count (number/volume) 2.0 10*3 1.8-7.8 Blood lymphocytes automated count (number/volume) 2.2 10*3 1.0-4.0 Blood monocytes automated count (number/volume) 0.4 10*3 0.0-1.0 Automated eosinophil count 0.1 10*3/uL 0.0-0.3 Automated blood basophil count (count/volume) 0.0 10*3/uL 0.0-0.1 PT panel in platelet poor plasma by coagulation assay - 07/28/17 10:20 Prothrombin time (PT) in platelet poor plasma by coagulation assay 14.0 s 12.2-14.7 INR in platelet poor plasma or blood by coagulation assay 1.1 0.8-1.4 Activated partial thromboplastin time (aPTT) in platelet poor plasma bycoagulation assay - 07/28/17 10:20 Activated partial thromboplastin time (aPTT) in platelet poor plasma bycoagulation assay 37 s 24-35 Comprehensive metabolic panel - 07/28/17 10:20 Serum or plasma sodium measurement (moles/volume) 141 mmol/L 135-145 Serum or plasma potassium measurement (moles/volume) 3.6 mmol/L 3.6-5.0 Serum or plasma chloride measurement (moles/volume) 108 mmol/L 98-107 Carbon dioxide 30 mmol/L 21-32 Serum or plasma anion gap determination (moles/volume) 3 mmol/L 5-14 Serum or plasma urea nitrogen measurement (mass/volume) 19 mg/dL 7-18 Serum or plasma creatinine measurement (mass/volume) 0.81 mg/dL 0.60-1.30 Serum or plasma urea nitrogen/creatinine mass ratio 23 NRG Serum or plasma creatinine measurement with calculation of estimated glomerular filtration rate > NRG Serum or plasma glucose measurement (mass/volume) 91 mg/dL 70-105 Serum or plasma calcium measurement (mass/volume) 9.0 mg/dL 8.5-10.1 Serum or plasma total bilirubin measurement (mass/volume) 0.9 mg/dL 0.1-1.0 Serum or plasma alkaline phosphatase measurement (enzymatic activity/volume) 53 U/L 40-136 Serum or plasma aspartate aminotransferase measurement (enzymatic activity/ volume) 24 U/L 5-34 Serum or plasma alanine aminotransferase measurement (enzymatic activity/volume ) 23 U/L 0-55 Serum or plasma protein measurement (mass/volume) 7.0 g/dL 6.4-8.2 Serum or plasma albumin measurement (mass/volume) 4.1 g/dL 3.2-4.5 Magnesium - 07/28/17 10:20 Magnesium 2.0 mg/dL 1.8-2.4 Serum or plasma troponin i.cardiac measurement (mass/volume) - 07/28/17 10:20 Serum or plasma troponin i.cardiac measurement (mass/volume) < ng/ mL <0.30 Myoglobin, serum - 07/28/17 10:20 Myoglobin, serum 66.4 ng/mL 10.0-92.0 Complete urinalysis with reflex to culture - 07/28/17 10:46 Urine color determination YELLOW NRG Urine clarity determination SLIGHTLY CLOUDY NRG Urine pH measurement by test strip 6 5-9 Specific gravity of urine by test strip 1.020 1.016- 1.022 Urine protein assay by test strip, semi-quantitative NEGATIVE NEGATIVE Urine glucose detection by automated test strip NEGATIVE NEGATIVE Erythrocytes detection in urine sediment by light microscopy 2+ NEGATIVE Urine ketones detection by automated test strip NEGATIVE NEGATIVE Urine nitrite detection by test strip NEGATIVE NEGATIVE Urine total bilirubin detection by test strip 1+ NEGATIVE Urine urobilinogen measurement by automated test strip (mass/volume) 8 mg/dL NORMAL Urine leukocyte esterase detection by dipstick NEGATIVE NEGATIVE Automated urine sediment erythrocyte count by microscopy (number/high power field) RARE NRG Automated urine sediment leukocyte count by microscopy (number/high power field ) [HPF] NRG Bacteria detection in urine sediment by light microscopy FEW NRG Squamous epithelial cells detection in urine sediment by light microscopy 5-10 NRG Crystals detection in urine sediment by light microscopy NONE NRG Casts detection in urine sediment by light microscopy NONE NRG Mucus detection in urine sediment by light microscopy SMALL NRG Complete urinalysis with reflex to culture YES NRG Bacterial urine culture - 07/28/17 10:46 Bacterial urine culture [id number] NRG COLONY COUNT 10,000/ML - 100,000/ML NRG FTX;REPORTABLE SENSITIVITY REPORTED [id number], 4-04-06 NRG URINE CULTURE RESULTS PLUS NR Bacterial susceptibility panel - 07/28/17 10:46 Gentamicin susceptibility test by minimum inhibitory concentration < = NRG Trimethoprim/sulfamethoxazole susceptibility test by minimum inhibitoryconcentration S NRG Ampicillin susceptibility test by minimum inhibitory concentration 4 NRG Tobramycin susceptibility test by minimum inhibitory concentration < = NRG Cefazolin susceptibility test by minimum inhibitory concentration < = NRG Ceftriaxone susceptibility test by minimum inhibitory concentration <= NRG Ampicillin/sulbactam susceptibility test by minimum inhibitory concentration <= NRG Piperacillin/tazobactam susceptibility test by minimum inhibitory concentration S NRG Ciprofloxacin susceptibility test by minimum inhibitory concentration <= NRG Meropenem susceptibility test by minimum inhibitory concentration < = NRG Nitrofurantoin susceptibility test by minimum inhibitory concentration <= NRG Aztreonam susceptibility test by minimum inhibitory concentration < = NRG Extended spectrum beta lactamase (ESBL) producing bacteria susceptibility test by minimum inhibitory concentration - NRG Serum or plasma troponin i.cardiac measurement (mass/volume) - 07/28/17 19:10 Serum or plasma troponin i.cardiac measurement (mass/volume) < ng/ mL <0.30 Comprehensive metabolic panel - 07/29/17 04:15 Serum or plasma sodium measurement (moles/volume) 142 mmol/L 135-145 Serum or plasma potassium measurement (moles/volume) 3.9 mmol/L 3.6-5.0 Serum or plasma chloride measurement (moles/volume) 108 mmol/L 98-107 Carbon dioxide 24 mmol/L 21-32 Serum or plasma anion gap determination (moles/volume) 10 mmol/L 5-14 Serum or plasma urea nitrogen measurement (mass/volume) 17 mg/dL 7-18 Serum or plasma creatinine measurement (mass/volume) 0.80 mg/dL 0.60-1.30 Serum or plasma urea nitrogen/creatinine mass ratio 21 NRG Serum or plasma creatinine measurement with calculation of estimated glomerular filtration rate > NRG Serum or plasma glucose measurement (mass/volume) 97 mg/dL 70-105 Serum or plasma calcium measurement (mass/volume) 9.0 mg/dL 8.5-10.1 Serum or plasma total bilirubin measurement (mass/volume) 1.1 mg/dL 0.1-1.0 Serum or plasma alkaline phosphatase measurement (enzymatic activity/volume) 50 U/L 40-136 Serum or plasma aspartate aminotransferase measurement (enzymatic activity/ volume) 23 U/L 5-34 Serum or plasma alanine aminotransferase measurement (enzymatic activity/volume ) 23 U/L 0-55 Serum or plasma protein measurement (mass/volume) 6.4 g/dL 6.4-8.2 Serum or plasma albumin measurement (mass/volume) 3.8 g/dL 3.2-4.5 Magnesium - 07/29/17 04:15 Magnesium 1.8 mg/dL 1.8-2.4 Lipid 1996 panel - 07/29/17 04:15 Serum or plasma triglyceride measurement (mass/volume) 59 mg/dL <150 Serum or plasma cholesterol measurement (mass/volume) 100 mg/dL < 200 Serum or plasma cholesterol in HDL measurement (mass/volume) 40 mg/ dL 40-60 Cholesterol in LDL [mass/volume] in serum or plasma by direct assay 43 mg/dL 1-129 Serum or plasma cholesterol in VLDL measurement (mass/volume) 12 mg/ dL 5-40 Encounters ACCT No. Visit Date/Time Discharge Status Pt. Type Provider Facility Loc./Unit Complaint [id number] 07/28/2017 12:07:00 07/29/2017 13:30:00 DIS Inpatient GELY AVILEZ MD [facility] ICU CHEST PAIN [id number] 01/18/2017 00:30:00 01/18/2017 23:59:59 CLS Preadmit LULA SANCHEZ, CARINA [facility] ONC [id number] 11/12/2016 08:50:00 01/17/2017 00:01:00 DIS Outpatient CARINA COTTON MD [facility] ONC [id number] 12/22/2016 07:36:00 12/22/2016 09:03:00 DIS Emergency JIMENA MENENDEZ MD [facility] ER RT ARM ABRASION FALL [id number] 12/09/2016 11:00:00 12/09/2016 23:59:59 CLS Preadmit ANAYELI SANCHEZ FACLorrie, DENITA HAND [facility]; SICK SINUS SYNDROME [id number] 12/09/2016 08:41:00 12/09/2016 17:45:00 DIS Outpatient LAQUITA SYLVESTER [facility] END OF LIFE PACEMAKER,SICK SINUS SYNDROME [id number] 11/20/2016 06:59:00 11/20/2016 23:59:59 CLS Outpatient ANAYELI SANCHEZ FACC, DENITA HAND CCDS [facility] LAB I25.10 I65.23 N18.9 [id number] 11/18/2016 09:00:00 11/18/2016 23:59:59 CLS Preadmit CARINA COTTON MD [facility] RAD MELANOMA [id number] 06/17/2016 07:16:00 06/17/2016 23:59:59 CLS [facility] CCDS [facility] CARD CHEST DISCOMFORT,CAD,CAROTID ARTERIAL DISEASE,CKD [id number] 06/06/2016 18:13:00 06/06/2016 19:30:00 DIS Emergency NORAH HENRIQUEZ DO [facility] ER CP [id number] 01/14/2016 10:44:00 01/15/2016 13:00:00 DIS Inpatient GELY AVILEZ MD [facility] 4TH CHEST PAIN DEHYDRATION [id number] 11/07/2015 08:39:00 11/07/2015 23:59:59 CLS Outpatient ALQUITA SYLVESTER [facility] CARD CAD; HYPERLIPIDEMIA ; HTN; SINUS BRADYCARDIA [id number] 10/18/2015 11:30:00 10/18/2015 23:59:59 CLS Outpatient LAQUITA SYLVESTER [facility] LAB CAD,HYPERLIPIDEMIA, HTN,CKD, CARDIAC PACEMAKER [id number] 10/12/2015 09:11:00 10/12/2015 12:29:00 DIS Emergency MITCHELL DIMAS MD [facility] ER CHEST PAIN [id number] 02/15/2014 09:53:00 02/17/2014 13:00:00 DIS Inpatient MITCHELL ANTOINE MD [facility] 4TH PNEUMONIA SYNCOPE CHEST PAIN EDEMA FLUID OVERLOAD [id number] 01/02/2014 12:55:00 01/02/2014 23:59:59 CLS Outpatient LAQUITA SYLVESTER [facility] CARD BRADYCARDIA,HLP, PACEMAKER [id number] 12/19/2013 17:53:00 12/19/2013 20:05:00 DIS Emergency JIMENA MENENDEZ MD [facility] ER VOMITING BLOOD [id number] 08/11/2013 06:00:00 08/11/2013 10:25:00 DIS Outpatient TEA STEVENS DO [facility] SDC LESION LEFT FOREARM [id number] 08/08/2013 13:20:00 08/08/2013 23:59:59 CLS Outpatient [id number] 07/23/2013 17:56:00 07/23/2013 18:49:00 DIS Emergency [id number] 04/16/2013 09:29:00 04/16/2013 12:15:00 DIS Emergency NORAH HENRIQUEZ DO [facility] ER CHEST PAIN, SOA [id number] 01/14/2016 12:08:00 Document Registration [id number] 06/08/2014 16:12:00 Document Registration [id number] 06/08/2014 16:12:00 Document Registration [id number] 06/08/2014 16:12:00 Document Registration [id number] 05/11/2014 04:01:00 Document Registration [id number] 03/08/2012 12:47:00 Document Registration [id number] 01/08/2012 06:48:00 Document Registration [id number] 01/23/2011 05:48:00 Document Registration [id number] 06/23/2010 07:23:00 Document Registration [id number] 06/18/2010 12:15:00 Document Registration [id number] 06/17/2010 08:48:00 Document Registration [id number] 06/12/2010 13:06:00 Document Registration [id number] 02/28/2010 05:43:00 Document Registration [id number] 02/27/2010 08:39:00 Document Registration [id number] 01/15/2010 07:04:00 Document Registration [id number] 10/15/2009 09:07:00 Document Registration [id number] 06/29/2009 06:03:00 Document Registration
[2017-08-14 13:12] LABS: BASOPHILS % (AUTO) 0 % (0-10); EOSINOPHILS # (AUTO) 0.1 10^3/uL (0.0-0.3); EOSINOPHILS % (AUTO) 2 % (0-10); HEMATOCRIT 38 % (40-54); LYMPHOCYTES # (AUTO) 1.9 X 10^3 (1.0-4.0); LYMPHOCYTES % (AUTO) 47 % (12-44); MEAN CORPUSCULAR HEMOGLOBIN 36 PG (25-34); MEAN CORPUSCULAR HGB CONC 34 G/DL (32-36); MEAN CORPUSCULAR VOLUME 105 FL (80-99); MONOCYTES # (AUTO) 0.3 X 10^3 (0.0-1.0); MONOCYTES % (AUTO) 7 % (0-12); NEUTROPHILS # (AUTO) 1.7 X 10^3 (1.8-7.8); NEUTROPHILS % (AUTO) 44 % (42-75); PLATELET COUNT 111 10^3/uL (130-400); RED BLOOD COUNT 3.61 10^6/uL (4.35-5.85); RED CELL DISTRIBUTION WIDTH 14.1 % (10.0-14.5)
[2017-08-14 13:33] LABS: ALANINE AMINOTRANSFERASE 25 U/L (0-55); ALBUMIN 3.9 GM/DL (3.2-4.5); ALKALINE PHOSPHATASE 55 U/L (40-136); BILIRUBIN,TOTAL 0.8 MG/DL (0.1-1.0); BUN/CREATININE RATIO 25; CALCIUM 9.2 MG/DL (8.5-10.1); CARBON DIOXIDE 26 MMOL/L (21-32); CHLORIDE 109 MMOL/L (98-107); CREATININE SERUM 0.84 MG/DL (0.60-1.30); GFR ESTIMATED > 60; GLUCOSE 124 MG/DL (70-105); POTASSIUM 3.8 MMOL/L (3.6-5.0); SODIUM 143 MMOL/L (135-145); TOTAL PROTEIN 6.7 GM/DL (6.4-8.2)
--- NOTE | 2017-08-14 13:42 | ED GI ---
General Chief Complaint: Neurological Problems Stated Complaint: WEAKNESS Nursing Triage Note: PER EMS PATIENT CHOKED ON A PINEAPPLE TODAY. STAFF AT [facility] GAVE HIM WATER WHICH HE VOMITTED. HE HAS LEFT HIP PAIN, HAD XRAY YESTERDAY. ALSO COMPLAINS OF WEAKNESS. Sepsis Screen: No Definite Risk Source of Information: Patient, Family Exam Limitations: No Limitations History of Present Illness Date Seen by Provider: Aug 14, 2017 Time Seen by Provider: 13:37 Initial Comments The patient is an 86-year-old white male known to me. He lives at [facility] an assisted living facility. He was at lunch at about 1130. He swallowed a chunk of fresh pineapple and then felt a curious crushing sensation in his chest. He attempted to drink and regurgitated this. He was then sent out here for further evaluation. Timing/Duration: 1-3 Hours Severity/Quality: Moderate Location: Epigastric Allergies and Home Medications Allergies Coded Allergies: No Known Drug Allergies (Verified , 02/15/14) Home Medications Acetaminophen 500 Mg Tablet, 1,000 MG PO 0530, (Reported) TAKES 2 (500MG) TABLETS Acetaminophen 500 Mg Tablet, 1,000 MG PO Q4H PRN for PAIN-MILD, (Reported) TAKES 2 (500MG) TABLETS Acetaminophen 500 Mg Tablet, 1,000 MG PO 1300,2000, (Reported) TAKES 2 (500MG) TABLETS Alprazolam 0.5 Mg Tablet, 0.5 MG PO TID, (Reported) Amlodipine Besylate 5 Mg Tablet, 5 MG PO DAILY Prescribed by: MARY JOHNSTON on 07/29/17 1140 Aspirin 81 Mg Tablet.dr, 81 MG PO 0530, (Reported) Dextromethorphan HBr 15 Mg/5 Ml Liquid, 5 ML PO Q4H PRN for COUGH, (Reported) Diphenhydramine HCl 25 Mg Tablet, 12.5 MG PO HS, (Reported) Fluticasone Propionate 16 Gm Carter.susp, 2 SPRAYS NS DAILY PRN for CONGESTION/ ALLERGY, (Reported) Folic Acid 0.4 Mg Tablet, 0.4 MG PO HS, (Reported) Lisinopril 40 Mg Tablet, 20 MG PO 0530, (Reported) TAKES 1/2 (40MG) TABLET Loperamide HCl 2 Mg Tablet, 2 MG PO UD PRN for LOOSE STOOLS, (Reported) Magnesium Hydroxide 400 Mg/5 Ml Oral.susp, 15 ML PO DAILY PRN for CONSTIPATION- 7TH LINE, (Reported) Nystatin 1 Each Powder.ea., 1 EACH MC BID Prescribed by: MARY JOHNSTON on 07/29/17 1140 Nystatin 15 Gm Cream..g., 15 GM TP BID Prescribed by: MARY JOHNSTON on 07/29/17 1140 Pantoprazole Sodium 20 Mg Tablet.dr, 20 MG PO 0530, (Reported) Simvastatin 20 Mg Tablet, 20 MG PO HS, (Reported) Patient Home Medication List Home Medication List Reviewed: Yes Review of Systems Constitutional: see HPI EENTM: No Symptoms Reported Respiratory: No Symptoms Reported Cardiovascular: No Symptoms Reported Gastrointestinal: See HPI Musculoskeletal: no symptoms reported Skin: no symptoms reported Psychiatric/Neurological: No Symptoms Reported Endocrine: No Symptoms Reported Hematologic/Lymphatic: No Symptoms Reported Past Kesfojz-Ashxuh-Lylcrb Hx Patient Social History Alcohol Use: Denies Use Recreational Drug Use: No Smoking Status: Never a Smoker Former Smoker, Quit: Dec 09, 1980 2nd Hand Smoke Exposure: No Recent Foreign Travel: No Contact w/Someone Who Travel: No Recent Infectious Disease Expo: No Recent Hopitalizations: No Immunizations Up To Date Date of Pneumonia Vaccine: Jan 19, 2012 Date of Influenza Vaccine: Mar 01, 2014 Seasonal Allergies Seasonal Allergies: No Past Medical History Surgeries: Yes Abdominal, Cardiac, CABG, Pacemaker Respiratory: Yes Pneumonia Cardiac: Yes Chronic Edema/Swelling, Coronary Artery Disease, Heart Attack, High Cholesterol , Hypertension, Irregular Heartbeat Neurological: No Reproductive Disorders: No Sexually Transmitted Disease: No HIV/AIDS: No Genitourinary: No Gastrointestinal: Yes Irritable Bowel Musculoskeletal: Yes Arthritis Endocrine: No Loss of Vision: Denies Hearing Impairment: Hard of Hearing Cancer: Yes Skin Psychosocial: Yes Anxiety Integumentary: No Blood Disorders: No Adverse Reaction/Blood Tranf: No Family Medical History No Pertinent Family Hx Physical Exam Vital Signs Vital Signs - First Documented 08/14/17 12:30 Temp 98.3 Pulse 61 Resp 14 B/P (MAP) 142/71 (94) Pulse Ox 98 Capillary Refill : Less Than 3 Seconds General Appearance: no apparent distress HEENT: normal ENT inspection Neck: non-tender Respiratory: chest non-tender, lungs clear, normal breath sounds, no respiratory distress, no accessory muscle use Cardiovascular: normal peripheral pulses, regular rate, rhythm, no edema, no gallop, no JVD, no murmur Gastrointestinal: normal bowel sounds Extremities: pedal edema (1+) Progress/Results/Core Measures Lab Results Laboratory Tests Test 08/14/17 13:05 08/14/17 14:18 Range/Units White Blood Count 4.0 L 4.3-11.0 10^3/uL Red Blood Count 3.61 L 4.35-5.85 10^6/uL Hemoglobin 13.0 L 13.3-17.7 G/DL Hematocrit 38 L 40-54 % Mean Corpuscular Volume 105 H 80-99 FL Mean Corpuscular Hemoglobin 36 H 25-34 PG Mean Corpuscular Hemoglobin Concent 34 32-36 G/DL Red Cell Distribution Width 14.1 10.0-14.5 % Platelet Count 111 L 130-400 10^3/uL Mean Platelet Volume 10.0 7.4-10.4 FL Neutrophils (%) (Auto) 44 42-75 % Lymphocytes (%) (Auto) 47 H 12-44 % Monocytes (%) (Auto) 7 0-12 % Eosinophils (%) (Auto) 2 0-10 % Basophils (%) (Auto) 0 0-10 % Neutrophils # (Auto) 1.7 L 1.8-7.8 X 10^3 Lymphocytes # (Auto) 1.9 1.0-4.0 X 10^3 Monocytes # (Auto) 0.3 0.0-1.0 X 10^3 Eosinophils # (Auto) 0.1 0.0-0.3 10^3/uL Basophils # (Auto) 0.0 0.0-0.1 10^3/uL Sodium Level 143 135-145 MMOL/L Potassium Level 3.8 3.6-5.0 MMOL/L Chloride Level 109 H 98-107 MMOL/L Carbon Dioxide Level 26 21-32 MMOL/L Anion Gap 8 5-14 MMOL/L Blood Urea Nitrogen 21 H 7-18 MG/DL Creatinine 0.84 0.60-1.30 MG/DL Estimat Glomerular Filtration Rate > 60 BUN/Creatinine Ratio 25 Glucose Level 124 H 70-105 MG/DL Calcium Level 9.2 8.5-10.1 MG/DL Total Bilirubin 0.8 0.1-1.0 MG/DL Aspartate Amino Transf (AST/SGOT) 24 5-34 U/L Alanine Aminotransferase (ALT/SGPT) 25 0-55 U/L Alkaline Phosphatase 55 40-136 U/L Total Protein 6.7 6.4-8.2 GM/DL Albumin 3.9 3.2-4.5 GM/DL Urine Color BRADY H Urine Clarity CLEAR Urine pH 6 5-9 Urine Specific [place] 1.020 1.016-1.022 Urine Protein 1+ H NEGATIVE Urine Glucose (UA) NEGATIVE NEGATIVE Urine Ketones NEGATIVE NEGATIVE Urine Nitrite NEGATIVE NEGATIVE Urine Bilirubin 1+ H NEGATIVE Urine Urobilinogen 12 H NORMAL MG/DL Urine Leukocyte Esterase 1+ H NEGATIVE Urine RBC (Auto) 1+ H NEGATIVE Urine RBC NONE /HPF Urine WBC NONE /HPF Urine Crystals NONE /LPF Urine Bacteria NEGATIVE /HPF Urine Casts NONE /LPF Urine Mucus NEGATIVE /LPF Urine Culture Indicated NO My Orders Orders - GELY AVILEZ MD Cbc With Automated Diff (08/14/17 12:34) Comprehensive Metabolic Panel (08/14/17 12:34) Ua Culture If Indicated (08/14/17 12:34) Barium Swallow-Esophagram (08/14/17 13:42) Barium Suspension 60% (Liquid E-Z Paque) (08/14/17 15:15) Iohexol Injection (Omnipaque 300 Mg/Ml 3 (08/14/17 15:15) Iohexol Injection (Omnipaque 350 Mg/Ml 1 (08/14/17 15:30) Sodium Chloride Flush (Catheter Flush Sy (08/14/17 15:30) Ns (Ivpb) (Sodium Chloride 0.9%) (08/14/17 15:30) Pharmacy Communication (Pharmacy Communi (08/14/17 15:28) Ct Chest Wo (08/14/17 15:21) Medications Given in ED Current Medications Medications Dose Ordered Sig/Emigdio Route Start Time Stop Time Status Last Admin Dose Admin Barium Sulfate 240 ml ONCE ONCE PO 08/14/17 15:15 08/14/17 15:16 DC 08/14/17 15:06 240 ML Iohexol 30 ml ONCE ONCE IV 08/14/17 15:15 08/14/17 15:16 DC 08/14/17 15:06 30 ML Vital Signs/I&O 08/14/17 12:30 Temp 98.3 Pulse 61 Resp 14 B/P (MAP) 142/71 (94) Pulse Ox 98 Blood Pressure Mean: 94 Departure Communication (Admissions) Barium swallow was discussed with Dr. Raymond from radiology. After discussion it was decided to do a barium swallow first with Omnipaque and if this passed in the stomach to follow with barium. I had the patient drink water prior to this and it appeared to pass. The patient completed the barium swallow. Dr. Raymond reported this to me and stated that it appeared that the contrast went straight to the stomach however there was concern of some retro-esophageal mass effect. He recommended that a CT scan be done and this will be done. 1521. Dr. Raymond came to the ER to discuss the findings with me. The esophagus was cleared of any obstruction. However incidentally multiple pulmonary nodules were noted consistent with metastases. These were discussed and shown by virtue of my tablet to the daughter. Impression Primary Impression: retained food foreign body esophagus Additional Impression: diffuse nodules, lung; likely metastatic Disposition: 01 HOME, SELF-CARE Condition: Stable/Unchanged Departure-Patient Inst. Decision time for Depature: 16:19 Referrals: ALEKSANDAR SMALLWOOD MD (PCP/Family) Primary Care Physician Add. Discharge Instructions: All discharge instructions reviewed with patient and/or family. Voiced understanding. Resume usual activities. Chew your food carefully. See your provider soon to discuss CT findings. GELY AVILEZ MD Aug 14, 2017 13:42
[2017-08-14 14:27] LABS: CLARITY,URINE CLEAR; COLOR,URINE AMBER; GLUCOSE, URINE (UA) NEGATIVE (NEGATIVE); KETONES,URINE NEGATIVE (NEGATIVE); LEUKOCYTE ESTERASE ,URINE 1+ (NEGATIVE); NITRITE,URINE NEGATIVE (NEGATIVE); PH,URINE 6 (5-9); PROTEIN,URINE 1+ (NEGATIVE); UROBILINOGEN,URINE 12 MG/DL (NORMAL)
[2017-08-14 14:39] LABS: BACTERIA,URINE NEGATIVE /HPF; BILIRUBIN,URINE 1+ (NEGATIVE)
[2017-08-14] MEDS ORDERED: IOHEXOL 300 MG/ML 30 ML (OMNIPAQUE 300) VIAL IV ONE (15:15)
[2017-08-14] MEDS ORDERED: BARIUM SUSPENSION 60% (LIQUID EZ PAQUE) 240 ML DOSE PO ONE (15:15)
--- NOTE | 2017-08-14 15:19 | Diagnostic Imaging Report ---
INDICATION: Choked on a pineapple. Study is performed to evaluate for impacted food bolus in the esophagus. TECHNIQUE: The patient ingested 30 cc Omnipaque-300 during fluoroscopic visualization. Next, the patient drank small amount of thin barium. Imaging over the esophagus was performed. A total of 1 minute and 39 seconds of fluoroscopic time was utilized. FINDINGS: The preliminary radiograph is unremarkable. Postingestion films do show contrast passing into the stomach without obstructing lesion. There does appear to be a diverticulum located in the distal esophagus near the GE junction. There is an amorphous area of increased density noted adjacent to the distal esophagus at the level of the elevated right hemidiaphragm. This was not visualized on the preliminary radiograph and was not seen during real-time evaluation. However, possibility of extraluminal contrast cannot be entirely excluded. CT chest to evaluate for mediastinal extravasation is recommended. No other abnormalities are seen. IMPRESSION: 1. No evidence of obstructing food bolus within the esophagus. There is free flow of contrast into the stomach. 2. Large distal esophageal diverticulum. 3. Questionable area of increased density adjacent to the distal esophagus at the level of the right hemidiaphragm. This is indeterminate but extravasated contrast cannot be entirely excluded. Further evaluation with noncontrast CT chest is recommended to exclude extraluminal contrast. Results were discussed with Dr. Hutchison of the emergency department prior to this dictation. Dictated by: Dictated on workstation # [id number]
[2017-08-14] MEDS ORDERED: NS 250 ML (IVPB) BAG IV ONE (15:30)
[2017-08-14] MEDS ORDERED: IOHEXOL 350 MG/ML 100 ML (OMNIPAQUE 350) VIAL IV ONE (15:30)
[2017-08-14] MEDS ORDERED: CATHETER FLUSH 10 ML SYR IV PRN (15:30)
--- NOTE | 2017-08-14 16:08 | Diagnostic Imaging Report ---
PROCEDURE: CT chest without contrast. TECHNIQUE: Multiple contiguous axial images were obtained through the chest without the use of intravenous contrast. INDICATION: Esophageal impaction with food. Patient is status post barium esophagram. Study is performed to evaluate for extravasated contrast. Correlation is made with prior CT chest study from 06/23/2010. FINDINGS: There is residual contrast within the lumen of the esophagus and distal esophageal diverticulum and stomach. A hyperdense lesion is seen in the subcarinal location consistent with a large calcified node. This was present on prior CT from June 2010 and likely accounts for the extraluminal density noted on esophagram. There is no evidence of esophageal perforation. No pneumomediastinum is identified. No axillary lymphadenopathy is seen. Mediastinal and hilar evaluation is limited without intravenous contrast. There is a pacemaker in place. No pericardial or pleural fluid is detected. Parenchymal evaluation does demonstrate development of a nodular density in the right apex 13 mm in size. There is some ill-defined density in left hilum anteriorly of approximately 2.4 cm in size. There are occasional tiny nodules present. Groundglass nodular density in the posterior left lower lobe measures 11 mm, new since prior exam. A smaller nodule just anterior to this and medial measures 5 mm. Tiny left apical nodule is also present measuring 4 mm. IMPRESSION: 1. No evidence of esophageal perforation and contrast extravasation. The extraluminal density noted on esophagram corresponds to a calcified subcarinal lymph node. 2. Development of pulmonary nodular densities bilaterally. 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 Dictated by: Dictated on workstation # [id number]
[2017-08-14 16:33] VITALS: BP 142/71
== END 2017-08-14 16:40 | disposition home or self-care (01) ==
LOC: EDUNIT# 12:27 → ER 12:28
DX: R91.8 Other nonspecific abnormal finding of lung field (principal); I25.10 Atherosclerotic heart disease of native coronary artery without angina pectoris; T18.120A Food in esophagus causing compression of trachea, initial encounter; I25.2 Old myocardial infarction; E78.00 Pure hypercholesterolemia, unspecified; I10 Essential (primary) hypertension; F41.9 Anxiety disorder, unspecified; Z85.828 Personal history of other malignant neoplasm of skin; Z87.19 Personal history of other diseases of the digestive system; Z79.82 Long term (current) use of aspirin; Z79.51 Long term (current) use of inhaled steroids; Z87.891 Personal history of nicotine dependence; Z95.1 Presence of aortocoronary bypass graft; Z95.0 Presence of cardiac pacemaker; Z87.01 Personal history of pneumonia (recurrent)
CPT/HCPCS: 36415; 71250; 74220; 80053; 81000; 85025

== ENCOUNTER 2017-08-19 13:55 | Emergency (ER) | payer MEDICARE ==
[~2017-08-19] VITALS: Ht 165.1 cm; Wt 68.0 kg
--- NOTE | 2017-08-19 14:14 | ED General ---
General Chief Complaint: General Problems/Pain Stated Complaint: WEAK, WON'T EAT Source of Information: Patient, Family Exam Limitations: No Limitations History of Present Illness Date Seen by Provider: August 19, 2017 Time Seen by Provider: 14:11 Initial Comments To ER per private vehicle from [place] placed by his daughter with reports of generalized weakness, poor appetite. Daughter went to visit him today and he didn't eat any breakfast or lunch. Patient was seen here within the past week for concerns of an esophageal food impaction. He was eating at the intermediate with the choked and then had a persistent discomfort in his chest. He was evaluated with a barium swallow and CT of the chest here in the emergency room. The barium swallow failed to reveal any esophageal obstruction. CT scan showed multiple pulmonary nodules consistent with metastatic disease. The family reports his only known history of cancer is of skin cancer, they do not know the type. Patient reports to me that he has no appetite, not nauseous, just no appetite. He's not been drinking either and is generally weak. He does complain to me of some chest pain but his daughter states that he always complains of chest pain Timing/Duration: 1-2 Days, Getting Worse Severity: Moderate ( ) Allergies and Home Medications Allergies Coded Allergies: No Known Drug Allergies (Verified , 02/15/14) Home Medications Acetaminophen 500 Mg Tablet, 1,000 MG PO 0530, (Reported) TAKES 2 (500MG) TABLETS Acetaminophen 500 Mg Tablet, 1,000 MG PO Q4H PRN for PAIN-MILD, (Reported) TAKES 2 (500MG) TABLETS Acetaminophen 500 Mg Tablet, 1,000 MG PO 1300,2000, (Reported) TAKES 2 (500MG) TABLETS Alprazolam 0.5 Mg Tablet, 0.5 MG PO TID, (Reported) Amlodipine Besylate 5 Mg Tablet, 5 MG PO DAILY Prescribed by: MARY JOHNSTON on 07/29/17 1140 Aspirin 81 Mg Tablet.dr, 81 MG PO 0530, (Reported) Dextromethorphan HBr 15 Mg/5 Ml Liquid, 5 ML PO Q4H PRN for COUGH, (Reported) Diphenhydramine HCl 25 Mg Tablet, 12.5 MG PO HS, (Reported) Fluticasone Propionate 16 Gm [place].susp, 2 SPRAYS NS DAILY PRN for CONGESTION/ ALLERGY, (Reported) Folic Acid 0.4 Mg Tablet, 0.4 MG PO HS, (Reported) Lisinopril 40 Mg Tablet, 20 MG PO 0530, (Reported) TAKES 1/2 (40MG) TABLET Loperamide HCl 2 Mg Tablet, 2 MG PO UD PRN for LOOSE STOOLS, (Reported) Magnesium Hydroxide 400 Mg/5 Ml Oral.susp, 15 ML PO DAILY PRN for CONSTIPATION- 7TH LINE, (Reported) Nystatin 1 Each Powder.ea., 1 EACH MC BID Prescribed by: MARY JOHNSTON on 07/29/17 1140 Nystatin 15 Gm Cream..g., 15 GM TP BID Prescribed by: MARY JOHNSTON on 07/29/17 1140 Pantoprazole Sodium 20 Mg Tablet.dr, 20 MG PO 0530, (Reported) Simvastatin 20 Mg Tablet, 20 MG PO HS, (Reported) Patient Home Medication List Home Medication List Reviewed: Yes Review of Systems Constitutional: see HPI; No chills, No fever; weakness EENTM: see HPI Respiratory: see HPI; No cough Cardiovascular: see HPI, chest pain Genitourinary: no symptoms reported Musculoskeletal: no symptoms reported Skin: no symptoms reported Psychiatric/Neurological: No Symptoms Reported Hematologic/Lymphatic: No Symptoms Reported Past [place] Hx Patient Social History Former Smoker, Quit: Dec 09, 1980 2nd Hand Smoke Exposure: No Recent Foreign Travel: No Contact w/Someone Who Travel: No Recent Hopitalizations: No Immunizations Up To Date Date of Pneumonia Vaccine: Jan 19, 2012 Date of Influenza Vaccine: Mar 01, 2014 Seasonal Allergies Seasonal Allergies: No Past Medical History Surgeries: Yes Abdominal, Cardiac, CABG, Pacemaker Respiratory: Yes Pneumonia Cardiac: Yes Chronic Edema/Swelling, Coronary Artery Disease, Heart Attack, High Cholesterol , Hypertension, Irregular Heartbeat Neurological: No Reproductive Disorders: No Sexually Transmitted Disease: No HIV/AIDS: No Genitourinary: No Gastrointestinal: Yes Irritable Bowel Musculoskeletal: Yes Arthritis Endocrine: No Loss of Vision: Denies Hearing Impairment: Hard of Hearing Cancer: Yes Skin Psychosocial: Yes Anxiety Integumentary: No Blood Disorders: No Adverse Reaction/Blood Tranf: No Family Medical History No Pertinent Family Hx Physical Exam Vital Signs Capillary Refill : General Appearance: No Apparent Distress, WD/WN Eyes: Bilateral Eye Normal Inspection, Bilateral Eye PERRL, Bilateral Eye EOMI HEENT: PERRL/EOMI, TMs Normal Neck: Full Range of Motion, Normal Inspection Respiratory: Normal Breath Sounds, No Accessory Muscle Use, No Respiratory Distress Cardiovascular: Regular Rate, Rhythm, Normal Peripheral Pulses Gastrointestinal: Normal Bowel Sounds, Non Tender, Soft Extremity: Normal Capillary Refill, Normal Inspection, Other (Trace edema bilateral lower extremities. He complains of pain to lateral aspect of the left hip. This was evaluated about a week ago with x-rays of the left hip while in the emergency room.) Neurologic/Psychiatric: Alert, Oriented x3, No Motor/Sensory Deficits Skin: Normal Color, Warm/Dry Progress/Results/Core Measures Suspected Sepsis SIRS Temperature: Pulse: Respiratory Rate: Laboratory Tests 08/19/17 14:10: White Blood Count 4.8 Blood Pressure / Mean: Laboratory Tests 08/19/17 14:10: Creatinine 0.80, Platelet Count 124L, Total Bilirubin 0.7 Results/Orders Lab Results Laboratory Tests Test 08/19/17 14:10 08/19/17 15:08 Range/Units White Blood Count 4.8 4.3-11.0 10^3/uL Red Blood Count 3.67 L 4.35-5.85 10^6/uL Hemoglobin 13.1 L 13.3-17.7 G/DL Hematocrit 39 L 40-54 % Mean Corpuscular Volume 105 H 80-99 FL Mean Corpuscular Hemoglobin 36 H 25-34 PG Mean Corpuscular Hemoglobin Concent 34 32-36 G/DL Red Cell Distribution Width 14.3 10.0-14.5 % Platelet Count 124 L 130-400 10^3/uL Mean Platelet Volume 9.7 7.4-10.4 FL Neutrophils (%) (Auto) 43 42-75 % Lymphocytes (%) (Auto) 49 H 12-44 % Monocytes (%) (Auto) 6 0-12 % Eosinophils (%) (Auto) 2 0-10 % Basophils (%) (Auto) 0 0-10 % Neutrophils # (Auto) 2.1 1.8-7.8 X 10^3 Lymphocytes # (Auto) 2.3 1.0-4.0 X 10^3 Monocytes # (Auto) 0.3 0.0-1.0 X 10^3 Eosinophils # (Auto) 0.1 0.0-0.3 10^3/uL Basophils # (Auto) 0.0 0.0-0.1 10^3/uL Sodium Level 143 135-145 MMOL/L Potassium Level 4.1 3.6-5.0 MMOL/L Chloride Level 110 H 98-107 MMOL/L Carbon Dioxide Level 26 21-32 MMOL/L Anion Gap 7 5-14 MMOL/L Blood Urea Nitrogen 19 H 7-18 MG/DL Creatinine 0.80 0.60-1.30 MG/DL Estimat Glomerular Filtration Rate > 60 BUN/Creatinine Ratio 24 Glucose Level 102 70-105 MG/DL Calcium Level 9.3 8.5-10.1 MG/DL Total Bilirubin 0.7 0.1-1.0 MG/DL Aspartate Amino Transf (AST/SGOT) 22 5-34 U/L Alanine Aminotransferase (ALT/SGPT) 18 0-55 U/L Alkaline Phosphatase 55 40-136 U/L Troponin I < 0.30 <0.30 NG/ML Total Protein 7.3 6.4-8.2 GM/DL Albumin 4.1 3.2-4.5 GM/DL Lipase 16 8-78 U/L Urine Color YELLOW Urine Clarity CLEAR Urine pH 6 5-9 Urine Specific [place] 1.020 1.016-1.022 Urine Protein 1+ H NEGATIVE Urine Glucose (UA) NEGATIVE NEGATIVE Urine Ketones NEGATIVE NEGATIVE Urine Nitrite NEGATIVE NEGATIVE Urine Bilirubin NEGATIVE NEGATIVE Urine Urobilinogen 8 H NORMAL MG/DL Urine Leukocyte Esterase 2+ H NEGATIVE Urine RBC (Auto) 1+ H NEGATIVE Urine RBC RARE /HPF Urine WBC 10-25 H /HPF Urine Squamous Epithelial Cells 0-2 /HPF Urine Crystals NONE /LPF Urine Bacteria TRACE /HPF Urine Casts NONE /LPF Urine Mucus SMALL H /LPF Urine Culture Indicated YES My Orders Orders - CRISSY GURROLA APRN Cbc With Automated Diff (08/19/17 14:04) Comprehensive Metabolic Panel (08/19/17 14:04) Chest Pa/Lat (2 View) (08/19/17 14:04) Ua Culture If Indicated (08/19/17 14:04) Ns Iv 1000 Ml (Sodium Chloride 0.9%) (08/19/17 14:15) Ekg Tracing (08/19/17 14:15) Troponin I (08/19/17 14:15) Lipase (08/19/17 14:15) Ct Abdomen/Pelvis W (08/19/17 14:35) Iohexol Injection (Omnipaque 350 Mg/Ml 1 (08/19/17 15:15) Ns (Ivpb) (Sodium Chloride 0.9%) (08/19/17 15:15) Urine Culture (08/19/17 15:08) Ceftriaxone Injection (Rocephin Injectio (08/19/17 15:45) Medications Given in ED Current Medications Medications Dose Ordered Sig/Emigdio Route Start Time Stop Time Status Last Admin Dose Admin Iohexol 100 ml ONCE ONCE IV 08/19/17 15:15 08/19/17 15:16 DC 08/19/17 15:15 100 ML Sodium Chloride 250 ml ONCE ONCE IV 08/19/17 15:15 08/19/17 15:16 DC 08/19/17 15:15 250 ML Vital Signs/I&O Capillary Refill : Diagnostic Imaging Diagonstic Imaging: CT Comments NAME: SHELLEY BLAIR FELIPA REC#: [id number] PT STATUS: REG ER : 1930 PHYSICIAN: CRISSY GURROLA APRN ADMIT DATE: 08/19/17/ER Draft Date of Exam:08/19/17 CT ABDOMEN/PELVIS W PROCEDURE: CT abdomen and pelvis with contrast. TECHNIQUE: Multiple contiguous axial images were obtained through the abdomen and pelvis after administration of intravenous contrast. INDICATION: Weakness with decreased appetite, diarrhea and pain. COMPARISON: Comparison limited to overlapped images obtained during chest CT 08/14/2017. FINDINGS: Small hiatal hernia is a chronic finding. Left lower lobe lung mass measures about 11 mm unchanged. No basilar pneumonia or effusion. The gallbladder absent. The liver appeared unremarkable. There is no adrenal mass. There is a left upper pole renal cortical cyst. The kidneys unobstructed and nonacute. Splenic calcified granulomata benign and chronic. The pancreas had an unremarkable appearance. There is a duodenal diverticulum oriented medially off its descending segment incidentally noted. Aside from the hernia, the stomach appeared unremarkable. There is no evidence for small or large bowel obstruction. There is noninflamed diverticuli of the sigmoid colon. Prostate, seminal vesicles and urinary bladder appeared nonfocal. There is no ascites, abscess, hematoma or fluid collection. No abnormal colonic fecal or fluid load. There is no bowel wall thickening. There is no lymphadenopathy. No acute or suspicious bony pathology. An old appearing L2 superior endplate compression fracture appears chronic. IMPRESSION: Left lower lobe lung mass unchanged from recent exam. No findings of abdominopelvic involvement by primary or secondary malignancy. No obstructive phenomena, inflammatory process or acute abnormalities. Dictated on workstation # [id number] Dict: 08/19/17 1536 Trans: 08/19/17 1546 TS [id number] Interpreted by: TRINH ROSE Electronically signed by: Departure Communication (Admissions) I did discuss with the patient and his daughter at the bedside the pulmonary nodule which may be life assurance representative of a metastatic cancer. They understand and agree to follow-up. Impression Primary Impression: Urinary tract infection Additional Impressions: General weakness Lung mass Disposition: XFER SHT-TRM HOSP Condition: Stable Departure-Patient Inst. Decision time for Depature: 15:54 Referrals: ALEKSANDAR SMALLWOOD MD (PCP/Family) Primary Care Physician Patient Instructions: Urinary Tract Infection, Adult (DC) Add. Discharge Instructions: 1. Follow-up with Dr. Smallwood next week 2. Antibiotics as directed All discharge instructions reviewed with patient and/or family. Voiced understanding. Scripts Sulfamethoxazole/Trimethoprim (Bactrim Ds Tablet) 1 Each Tablet 1 EACH PO BID, #14 TAB Prov: CRISSY GURROLA APRN 08/19/17 Copy Copies To 1: ALEKSANDAR SMALLWOOD MD, PETER J APRN August 19, 2017 14:14
[2017-08-19] MEDS ORDERED: NS IV 1000 ML 1,000 ML IV SCH (14:15)
[2017-08-19 14:24] LABS: BASOPHILS % (AUTO) 0 % (0-10); EOSINOPHILS # (AUTO) 0.1 10^3/uL (0.0-0.3); EOSINOPHILS % (AUTO) 2 % (0-10); HEMATOCRIT 39 % (40-54); HEMOGLOBIN 13.1 G/DL (13.3-17.7); LYMPHOCYTES # (AUTO) 2.3 X 10^3 (1.0-4.0); LYMPHOCYTES % (AUTO) 49 % (12-44); MEAN CORPUSCULAR HEMOGLOBIN 36 PG (25-34); MEAN CORPUSCULAR HGB CONC 34 G/DL (32-36); MEAN CORPUSCULAR VOLUME 105 FL (80-99); MEAN PLATELET VOLUME 9.7 FL (7.4-10.4); MONOCYTES # (AUTO) 0.3 X 10^3 (0.0-1.0); MONOCYTES % (AUTO) 6 % (0-12); NEUTROPHILS # (AUTO) 2.1 X 10^3 (1.8-7.8); NEUTROPHILS % (AUTO) 43 % (42-75); PLATELET COUNT 124 10^3/uL (130-400); RED BLOOD COUNT 3.67 10^6/uL (4.35-5.85); RED CELL DISTRIBUTION WIDTH 14.3 % (10.0-14.5); WHITE BLOOD COUNT 4.8 10^3/uL (4.3-11.0)
[2017-08-19 14:46] LABS: ALANINE AMINOTRANSFERASE 18 U/L (0-55); ALBUMIN 4.1 GM/DL (3.2-4.5); ALKALINE PHOSPHATASE 55 U/L (40-136); BILIRUBIN,TOTAL 0.7 MG/DL (0.1-1.0); BUN/CREATININE RATIO 24; CALCIUM 9.3 MG/DL (8.5-10.1); CARBON DIOXIDE 26 MMOL/L (21-32); CHLORIDE 110 MMOL/L (98-107); GFR ESTIMATED > 60; GLUCOSE 102 MG/DL (70-105); LIPASE 16 U/L (8-78); POTASSIUM 4.1 MMOL/L (3.6-5.0); SODIUM 143 MMOL/L (135-145); TOTAL PROTEIN 7.3 GM/DL (6.4-8.2)
--- NOTE | 2017-08-19 15:05 | Diagnostic Imaging Report ---
INDICATION: Chest pain. EXAMINATION: PA and lateral chest. FINDINGS: There are postop changes from CABG surgery. There is a left subclavian dual chamber pacemaker. Heart size and pulmonary vascularity are normal. Lungs are clear. There are no effusions or pneumothoraces. IMPRESSION: Postsurgical changes of the chest. There is no acute abnormality seen. Dictated by: Dictated on workstation # [id number]
[2017-08-19 15:15] LABS: BILIRUBIN,URINE NEGATIVE (NEGATIVE); CLARITY,URINE CLEAR; COLOR,URINE YELLOW; GLUCOSE, URINE (UA) NEGATIVE (NEGATIVE); KETONES,URINE NEGATIVE (NEGATIVE); LEUKOCYTE ESTERASE ,URINE 2+ (NEGATIVE); NITRITE,URINE NEGATIVE (NEGATIVE); PH,URINE 6 (5-9); PROTEIN,URINE 1+ (NEGATIVE); UROBILINOGEN,URINE 8 MG/DL (NORMAL)
[2017-08-19] MEDS ORDERED: IOHEXOL 350 MG/ML 100 ML (OMNIPAQUE 350) VIAL IV ONE (15:15)
[2017-08-19] MEDS ORDERED: NS 250 ML (IVPB) BAG IV ONE (15:15)
[2017-08-19 15:26] LABS: BACTERIA,URINE TRACE /HPF; RBC,URINE RARE /HPF; SQUAMOUS EPITHELIAL CELL,UR 0-2 /HPF
[2017-08-19] MEDS ORDERED: cefTRIAXone INJECTION 1,000 MG in NS (IVPB) 100 ML IV ONE (15:45)
--- NOTE | 2017-08-19 15:47 | Diagnostic Imaging Report ---
PROCEDURE: CT abdomen and pelvis with contrast. TECHNIQUE: Multiple contiguous axial images were obtained through the abdomen and pelvis after administration of intravenous contrast. INDICATION: Weakness with decreased appetite, diarrhea and pain. COMPARISON: Comparison limited to overlapped images obtained during chest CT 08/14/2017. FINDINGS: Small hiatal hernia is a chronic finding. Left lower lobe lung mass measures about 11 mm unchanged. No basilar pneumonia or effusion. The gallbladder absent. The liver appeared unremarkable. There is no adrenal mass. There is a left upper pole renal cortical cyst. The kidneys unobstructed and nonacute. Splenic calcified granulomata benign and chronic. The pancreas had an unremarkable appearance. There is a duodenal diverticulum oriented medially off its descending segment incidentally noted. Aside from the hernia, the stomach appeared unremarkable. There is no evidence for small or large bowel obstruction. There is noninflamed diverticuli of the sigmoid colon. Prostate, seminal vesicles and urinary bladder appeared nonfocal. There is no ascites, abscess, hematoma or fluid collection. No abnormal colonic fecal or fluid load. There is no bowel wall thickening. There is no lymphadenopathy. No acute or suspicious bony pathology. An old appearing L2 superior endplate compression fracture appears chronic. IMPRESSION: Left lower lobe lung mass unchanged from recent exam. No findings of abdominopelvic involvement by primary or secondary malignancy. No obstructive phenomena, inflammatory process or acute abnormalities. Dictated by: Dictated on workstation # [id number]
[2017-08-19] MEDS ORDERED: SULF1TAB35 PO (15:55)
[2017-08-19 16:17] VITALS: BP 134/69
--- OUTSIDE RECORDS SUMMARY | 2017-08-19 19:06 | XMS REPORT | Continuity of Care Document ---
Author Author [facility] Organization [facility] Address Unknown Phone Unavailable Allergies Active Description Code Type Severity Reaction Onset Reported/Identified Relationship to Patient Clinical Status Yes No Known Drug Allergies [id number] Drug Allergy Unknown N/A 02/15/2014 Medications There [...] ANTOINE MD Ot 414.01 CORONARY ATHEROSCLEROSIS OF [place] CORON 02/17/2014 MITCHELL ANTOINE MD Ot 424.0 [...] Ot 786.52 PAINFUL RESPIRATION 05/11/2014 Ot V58.69 OTH MED,LT, CURRENT USE 05/18/2014 BAIMA LAQUITA L EDUCATION ADVISER Ot 272.4 05/18/2014 BAIMA LAQUITA L EDUCATION ADVISER Ot 414.00 05/18/2014 BAIMA, LAQUITA L EDUCATION ADVISER Ot 427.89 05/18/2014 BAIMA, LAQUITA L EDUCATION ADVISER Ot V45.01 06/08/2014 Ot 272.4 06/08/2014 Ot [...] 06/08/2014 Ot V72.84 06/08/2014 Ot V74.8 06/08/2014 BAIMA, LAQUITA L EDUCATION ADVISER Ot 272.4 06/08/2014 BAIMA, LAQUITA L EDUCATION ADVISER Ot 414.00 06/08/2014 BAIMA, LAQUITA L EDUCATION ADVISER Ot 427.89 06/08/2014 BAIMA, LAQUITA L EDUCATION ADVISER Ot V45.01 10/12/2015 JUDIE SANCHEZ, MITCHELL Mon[place] Ot R07.9 CHEST PAIN, UNSPECIFIED 10/12/2015 JUDIE SANCHEZ, MITCHELL [place] Ot R11.2 NAUSEA WITH VOMITING, UNSPECIFIED 10/12/2015 MITCHELL DIMAS MD Ot R19.7 DIARRHEA, UNSPECIFIED 10/12/2015 MITCHELL DIMAS MD Ot Z95.0 PRESENCE OF CARDIAC PACEMAKER 10/15/2015 MITCHELL DIMAS MD Ot R07.9 CHEST PAIN, UNSPECIFIED 10/15/2015 MITCHELL DIMAS MD Ot R11.2 NAUSEA WITH VOMITING, UNSPECIFIED 10/15/2015 MITCHELL DIMAS MD Ot R19.7 DIARRHEA, UNSPECIFIED 10/15/2015 MITCHELL DIMAS MD Ot Z95.0 PRESENCE OF CARDIAC PACEMAKER 10/18/2015 BAIMA LAQUITA L EDUCATION ADVISER Ot E78.5 HYPERLIPIDEMIA, UNSPECIFIED 10/19/2015 BAIMA LAQUITA L EDUCATION ADVISER Ot E78.5 HYPERLIPIDEMIA, UNSPECIFIED 10/19/2015 BAIMA, LAQUITA L EDUCATION ADVISER Ot I10 ESSENTIAL (PRIMARY) HYPERTENSION 10/19/2015 BAIMA, LAQUITA L EDUCATION ADVISER Ot I25.10 ATHSCL HEART DISEASE OF [place] CORONARY 10/19/2015 BAIMA, LAQUITA L EDUCATION ADVISER Ot N18.9 CHRONIC KIDNEY DISEASE, UNSPECIFIED 10/19/2015 BAIMA, LAQUITA L EDUCATION ADVISER Ot R00.1 BRADYCARDIA, UNSPECIFIED 10/19/2015 BAIMA, LAQUITA L EDUCATION ADVISER Ot Z95.0 PRESENCE OF CARDIAC PACEMAKER 11/07/2015 BAIMA, LAQUITA L EDUCATION ADVISER Ot 272.4 HYPERLIPIDEMIA NEC/NOS 11/07/2015 BAIMA, LAQUITA L EDUCATION ADVISER Ot 414.00 CORON ATHEROSCLER NOS TYPE VESSEL, NATIV 11/07/2015 BAIMA, LAQUITA L EDUCATION ADVISER Ot 427.89 CARDIAC DYSRHYTHMIAS NEC 11/07/2015 BAIMA, LAQUITA L EDUCATION ADVISER Ot V45.01 CARDIAC PACEMAKER IN SITU 11/07/2015 BAIMA, LAQUITA L EDUCATION ADVISER Ot E78.5 HYPERLIPIDEMIA, UNSPECIFIED 11/07/2015 BAIMA, LAQUITA L EDUCATION ADVISER Ot I10 ESSENTIAL (PRIMARY) HYPERTENSION 11/07/2015 BAIMA, LAQUITA L EDUCATION ADVISER Ot I25.10 ATHSCL HEART DISEASE OF [place] CORONARY 11/07/2015 BAIMA, LAQUITA L EDUCATION ADVISER Ot N18.9 CHRONIC KIDNEY DISEASE, UNSPECIFIED 11/07/2015 BAIMA, LAQUITA L EDUCATION ADVISER Ot R00.1 BRADYCARDIA, UNSPECIFIED 11/07/2015 BAIMA, LAQUITA L EDUCATION ADVISER Ot Z95.0 PRESENCE OF CARDIAC PACEMAKER 11/08/2015 BAIMA, LAQUITA L EDUCATION ADVISER Ot Z95.0 PRESENCE OF CARDIAC PACEMAKER 11/08/2015 BAIMA, LAQUITA L EDUCATION ADVISER Ot E78.5 HYPERLIPIDEMIA, UNSPECIFIED 11/08/2015 BAIMA, LAQUITA L EDUCATION ADVISER Ot 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 11/08/2015 BAIMA, LAQUITA L EDUCATION ADVISER Ot I25.10 ATHSCL HEART DISEASE OF [place] CORONARY 11/08/2015 BAIMA, LAQUITA L EDUCATION ADVISER Ot N18.9 CHRONIC KIDNEY DISEASE, UNSPECIFIED 11/08/2015 BAIMA, LAQUITA L EDUCATION ADVISER Ot R00.1 BRADYCARDIA, UNSPECIFIED 11/08/2015 BAIMA, LAQUITA L EDUCATION ADVISER Ot Z95.0 PRESENCE OF CARDIAC PACEMAKER 11/08/2015 BAIMA, LAQUITA L EDUCATION ADVISER Ot E78.5 HYPERLIPIDEMIA, UNSPECIFIED 11/08/2015 BAIMA, LAQUITA L EDUCATION ADVISER Ot I10 ESSENTIAL (PRIMARY) HYPERTENSION 11/08/2015 BAIMA, LAQUITA L EDUCATION ADVISER Ot I25.10 ATHSCL HEART DISEASE OF [place] CORONARY 11/08/2015 BAIMA, LAQUITA L EDUCATION ADVISER Ot N18.9 CHRONIC KIDNEY DISEASE, UNSPECIFIED 11/08/2015 BAIMA, LAQUITA L EDUCATION ADVISER Ot R00.1 BRADYCARDIA, UNSPECIFIED 11/08/2015 BAIMA, LAQUITA L EDUCATION ADVISER Ot Z95.0 PRESENCE OF CARDIAC PACEMAKER 12/11/2015 BAIMA, LAQUITA L EDUCATION ADVISER Ot E78.5 HYPERLIPIDEMIA, UNSPECIFIED 12/11/2015 BAIMA, LAQUITA L EDUCATION ADVISER Ot 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 12/11/2015 BAIMA, LAQUITA L EDUCATION ADVISER Ot I25.10 ATHSCL HEART DISEASE OF [place] CORONARY 12/11/2015 BAIMA, LAQUITA L EDUCATION ADVISER Ot N18.9 CHRONIC KIDNEY DISEASE, UNSPECIFIED 12/11/2015 BAIMA, LAQUITA L EDUCATION ADVISER Ot R00.1 BRADYCARDIA, UNSPECIFIED 12/11/2015 BAIMA, LAQUITA L EDUCATION ADVISER Ot Z95.0 PRESENCE OF CARDIAC PACEMAKER 01/14/2016 BAIMA, LAQUITA L EDUCATION ADVISER Ot 272.4 HYPERLIPIDEMIA NEC/NOS 01/14/2016 BAIMA, LAQUITA L EDUCATION ADVISER Ot 414.00 CORON ATHEROSCLER NOS TYPE VESSEL, NATIV 01/14/2016 BAIMA, LAQUITA L EDUCATION ADVISER Ot 427.89 CARDIAC DYSRHYTHMIAS NEC 01/14/2016 BAIMA, LAQUITA L EDUCATION ADVISER Ot V45.01 CARDIAC PACEMAKER IN SITU 01/14/2016 BAIMA, LAQUITA L EDUCATION ADVISER Ot E78.5 HYPERLIPIDEMIA, UNSPECIFIED 01/14/2016 BAIMA, LAQUITA L EDUCATION ADVISER Ot 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 01/14/2016 BAIMA, LAQUITA L EDUCATION ADVISER Ot I25.10 ATHSCL HEART DISEASE OF [place] CORONARY 01/14/2016 BAIMA, LAQUITA L EDUCATION ADVISER Ot N18.9 CHRONIC KIDNEY DISEASE, UNSPECIFIED 01/14/2016 BAIMA, LAQUITA L EDUCATION ADVISER Ot R00.1 BRADYCARDIA, UNSPECIFIED 01/14/2016 BAIMA, LAQUITA L EDUCATION ADVISER Ot Z95.0 PRESENCE OF CARDIAC PACEMAKER 01/14/2016 LAQUITA SYLVESTER EDUCATION ADVISER Ot E78.5 HYPERLIPIDEMIA, UNSPECIFIED 01/14/2016 BAILAQUITA HERNANDEZ L EDUCATION ADVISER Ot I10 ESSENTIAL (PRIMARY) HYPERTENSION 01/14/2016 LAQUITA SYLVESTER L EDUCATION ADVISER Ot I25.10 ATHSCL HEART DISEASE OF [place] CORONARY 01/14/2016 LAQUITA SYLVESTER EDUCATION ADVISER Ot N18.9 CHRONIC KIDNEY DISEASE, UNSPECIFIED 01/14/2016 BAILAQUITA HERNNADEZ EDUCATION ADVISER Ot R00.1 BRADYCARDIA, UNSPECIFIED 01/14/2016 BAILAQUITA HERNANDEZ EDUCATION ADVISER Ot Z95.0 PRESENCE OF CARDIAC PACEMAKER 01/15/2016 GELY AVILEZ MD Ot E78.5 HYPERLIPIDEMIA, UNSPECIFIED 01/15/2016 GELY AVILEZ MD Ot E86.0 DEHYDRATION 01/15/2016 GELY AVILEZ MD Ot 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 01/15/2016 GELY AVILEZ MD Ot I25.10 ATHSCL HEART DISEASE OF [place] CORONARY 01/15/2016 GELY AVILEZ MD Ot K21.9 [...] MD Ot I25.10 ATHSCL HEART DISEASE OF [place] CORONARY 01/15/2016 GELY AVILEZ MD Ot K21.9 [...] AORTOCORONARY BYPASS GRAFT 01/17/2016 LAURAMA, LAQUITA L EDUCATION ADVISER Ot 272.4 HYPERLIPIDEMIA NEC/NOS 01/17/2016 LAURAMA, LAQUITA L EDUCATION ADVISER Ot 414.00 CORON ATHEROSCLER NOS TYPE VESSEL, NATIV 01/17/2016 LAURAMA, LAQUITA L EDUCATION ADVISER Ot 427.89 CARDIAC DYSRHYTHMIAS NEC 01/17/2016 NGA LAQUITA L EDUCATION ADVISER Ot V45.01 CARDIAC PACEMAKER IN SITU 01/17/2016 LAURAMA, LAQUITA L EDUCATION ADVISER Ot E78.5 HYPERLIPIDEMIA, UNSPECIFIED 01/17/2016 BAIMA, LAQUITA L EDUCATION ADVISER Ot 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 01/17/2016 BAIMA, LAQUITA L EDUCATION ADVISER Ot I25.10 ATHSCL HEART DISEASE OF [place] CORONARY 01/17/2016 LAURAMA, LAQUITA L EDUCATION ADVISER Ot N18.9 CHRONIC KIDNEY DISEASE, UNSPECIFIED 01/17/2016 BAIMA, LAQUITA L EDUCATION ADVISER Ot R00.1 BRADYCARDIA, UNSPECIFIED 01/17/2016 BAIMA, LAQUITA L EDUCATION ADVISER Ot Z95.0 PRESENCE OF CARDIAC PACEMAKER 01/17/2016 LAURAMA, LAQUITA L EDUCATION ADVISER Ot E78.5 HYPERLIPIDEMIA, UNSPECIFIED 01/17/2016 BAIMA, LAQUITA L EDUCATION ADVISER Ot I10 ESSENTIAL (PRIMARY) HYPERTENSION 01/17/2016 BAIMA, LAQUITA L EDUCATION ADVISER Ot I25.10 ATHSCL HEART DISEASE OF [place] CORONARY 01/17/2016 LAURAMA LAQUITA L EDUCATION ADVISER Ot N18.9 CHRONIC KIDNEY DISEASE, UNSPECIFIED 01/17/2016 BAIMA LAQUITA L EDUCATION ADVISER Ot R00.1 BRADYCARDIA, UNSPECIFIED 01/17/2016 BAIMA, LAQUITA L EDUCATION ADVISER Ot Z95.0 PRESENCE OF CARDIAC PACEMAKER 01/17/2016 BAIMA, LAQUITA L EDUCATION ADVISER Ot E78.5 HYPERLIPIDEMIA, UNSPECIFIED 01/17/2016 BAIMA, LAQUITA L EDUCATION ADVISER Ot 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 01/17/2016 BAIMA, LAQUITA L EDUCATION ADVISER Ot I25.10 ATHSCL HEART DISEASE OF [place] CORONARY 01/17/2016 BAIMA, LAQUITA L EDUCATION ADVISER Ot N18.9 CHRONIC KIDNEY DISEASE, UNSPECIFIED 01/17/2016 BAIMA, LAQUITA L EDUCATION ADVISER Ot R00.1 BRADYCARDIA, UNSPECIFIED 01/17/2016 BAIMA, LAQUITA L EDUCATION ADVISER Ot Z95.0 PRESENCE OF CARDIAC PACEMAKER 01/17/2016 BAIMA, LAQUITA L EDUCATION ADVISER Ot E78.5 HYPERLIPIDEMIA, UNSPECIFIED 01/17/2016 BAIMA, LAQUITA L EDUCATION ADVISER Ot I10 ESSENTIAL (PRIMARY) HYPERTENSION 01/17/2016 BAIMA, LAQUITA L EDUCATION ADVISER Ot I25.10 ATHSCL HEART DISEASE OF [place] CORONARY 01/17/2016 BAIMA, LAQUITA L EDUCATION ADVISER Ot N18.9 CHRONIC KIDNEY DISEASE, UNSPECIFIED 01/17/2016 BAIMA, LAQUITA L EDUCATION ADVISER Ot R00.1 BRADYCARDIA, UNSPECIFIED 01/17/2016 BAIMA, LAQUITA L EDUCATION ADVISER Ot Z95.0 PRESENCE OF CARDIAC PACEMAKER 06/06/2016 MARTINEZ DO NORAH K Ot I10 ESSENTIAL (PRIMARY) HYPERTENSION 06/06/2016 MARTINEZ DO NORAH K Ot I25.10 ATHSCL HEART DISEASE OF [place] CORONARY 06/06/2016 MARTINEZ DO NORAH K Ot R07.9 CHEST PAIN, UNSPECIFIED 06/06/2016 MARTINEZ DO NORAH K Ot 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 06/06/2016 MARTINEZ DO NORAH K Ot Z79.899 OTHER SKILLED NURSING (CURRENT) DRUG THERAPY 06/06/2016 MARTINEZ DO NORAH K Ot Z95.0 PRESENCE OF CARDIAC PACEMAKER 06/06/2016 MARTINEZ DO, NORAH K Ot Z95.1 PRESENCE OF AORTOCORONARY BYPASS GRAFT 06/09/2016 MARTINEZ DO NORAH K Ot I10 ESSENTIAL (PRIMARY) HYPERTENSION 06/09/2016 MARTINEZ DO NORAH K Ot I25.10 ATHSCL HEART DISEASE OF [place] CORONARY 06/09/2016 NORAH HENRIQUEZ DO Ot R07.9 CHEST PAIN, UNSPECIFIED 06/09/2016 NORAH HENRIQUEZ DO Ot Z79.82 SKILLED NURSING (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 06/09/2016 NORAH HENRIQUEZ DO Ot Z79.899 OTHER MECHANICAL DEVELOPER PROVER (CURRENT) DRUG THERAPY 06/09/2016 NORAH HENRIQUEZ DO Ot Z95.0 PRESENCE OF CARDIAC PACEMAKER 06/09/2016 NORAH HENRIQUEZ DO Ot Z95.1 PRESENCE OF AORTOCORONARY BYPASS GRAFT 06/17/2016 BAIMA, LAQUITA L EDUCATION ADVISER Ot 272.4 HYPERLIPIDEMIA NEC/NOS 06/17/2016 BAIMA, LAQUITA L EDUCATION ADVISER Ot 414.00 CORON ATHEROSCLER NOS TYPE VESSEL, NATIV 06/17/2016 BAIMA, LAQUITA L EDUCATION ADVISER Ot 427.89 CARDIAC DYSRHYTHMIAS NEC 06/17/2016 BAIMA, LAQUITA L EDUCATION ADVISER Ot V45.01 CARDIAC PACEMAKER IN SITU 06/17/2016 BAIMA, LAQUITA L EDUCATION ADVISER Ot E78.5 HYPERLIPIDEMIA, UNSPECIFIED 06/17/2016 BAIMA, LAQUITA L EDUCATION ADVISER Ot 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 06/17/2016 BAIMA, LAQUITA L EDUCATION ADVISER Ot I25.10 ATHSCL HEART DISEASE OF [place] CORONARY 06/17/2016 BAIMA, LAQUITA L EDUCATION ADVISER Ot N18.9 CHRONIC KIDNEY DISEASE, UNSPECIFIED 06/17/2016 BAIMA, LAQUITA L EDUCATION ADVISER Ot R00.1 BRADYCARDIA, UNSPECIFIED 06/17/2016 BAIMA, LAQUITA L EDUCATION ADVISER Ot Z95.0 PRESENCE OF CARDIAC PACEMAKER 06/17/2016 BAIMA, LAQUITA L EDUCATION ADVISER Ot E78.5 HYPERLIPIDEMIA, UNSPECIFIED 06/17/2016 BAIMA, LAQUITA L EDUCATION ADVISER Ot I10 ESSENTIAL (PRIMARY) HYPERTENSION 06/17/2016 BAIMA, LAQUITA L EDUCATION ADVISER Ot I25.10 ATHSCL HEART DISEASE OF [place] CORONARY 06/17/2016 BAIMA, LAQUITA L EDUCATION ADVISER Ot N18.9 CHRONIC KIDNEY DISEASE, UNSPECIFIED 06/17/2016 BAIMA, LAQUITA L EDUCATION ADVISER Ot R00.1 BRADYCARDIA, UNSPECIFIED 06/17/2016 BAIMA, LAQUITA L EDUCATION ADVISER Ot Z95.0 PRESENCE OF CARDIAC PACEMAKER 06/17/2016 ANAYELI SANCHEZ FACC, ALI FACP CCDS Ot R07.89 OTHER CHEST PAIN 06/17/2016 ANAYELI SANCHEZ FACC, ALI FACP CCDS Ot E78.4 OTHER HYPERLIPIDEMIA 06/17/2016 ANAYELI SANCHEZ FACC, ALI FACP CCDS Ot 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 06/17/2016 ANAYELI SANCHEZ FACC, ALI FACP CCDS Ot I25.10 ATHSCL HEART DISEASE OF [place] CORONARY 06/17/2016 ANAYELI SANCHEZ FACC, ALI FACP CCDS Ot I65.23 OCCLUSION AND STENOSIS OF [place]AL [place] 06/17/2016 ANAYELI SANCHEZ FACC, ALI FACP CCDS Ot N18.9 CHRONIC KIDNEY DISEASE, UNSPECIFIED 06/17/2016 ANAYELI SANCHEZ FACC, ALI FACP CCDS Ot R07.89 OTHER CHEST PAIN 06/17/2016 ANAYELI SANCHEZ FACC, ALI FACP CCDS Ot Z95.0 PRESENCE OF CARDIAC PACEMAKER 06/18/2016 ANAYELI OJEDAC, ALI FACP CCDS Ot E78.4 OTHER HYPERLIPIDEMIA 06/18/2016 ANAYELI OJEDAC, ALI FACP CCDS Ot 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 06/18/2016 ANAYELI OJEDAC, ALI FACP CCDS Ot I25.10 ATHSCL HEART DISEASE OF [place] CORONARY 06/18/2016 ANAYELI SANCHEZ FACC, ALI FACP CCDS Ot I65.23 OCCLUSION AND STENOSIS OF [place]AL [place] 06/18/2016 ANAYELI OJEDAC, ALI FACP CCDS Ot N18.9 CHRONIC KIDNEY DISEASE, UNSPECIFIED 06/18/2016 ANAYELI SANCHEZ FACC, ALI FACP CCDS Ot R07.89 OTHER CHEST PAIN 06/18/2016 ANAYELI OJEDAC, ALI FACP CCDS Ot Z95.0 PRESENCE OF CARDIAC PACEMAKER 07/08/2016 ANAYELI OJEDAC, ALI FACP CCDS Ot E78.4 OTHER HYPERLIPIDEMIA 07/08/2016 ANAYELI SANCHEZ FACC, ALI FACP CCDS Ot 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 07/08/2016 ANAYELI SANCHEZ FACC, ALI FACP CCDS Ot I25.10 ATHSCL HEART DISEASE OF [place] CORONARY 07/08/2016 ANAYELI SANCHEZ FACC, ALI FACP CCDS Ot I65.23 OCCLUSION AND STENOSIS OF [place]ATERAL [place] 07/08/2016 ANAYELI SANCHEZ FACC, ALI FACP CCDS Ot N18.9 CHRONIC KIDNEY DISEASE, UNSPECIFIED 07/08/2016 ANAYELI SANCHEZ [facility], ALI FACP CCDS Ot R07.89 OTHER CHEST PAIN 07/08/2016 ANAYELI SANCHEZ [facility], ALI FACP CCDS Ot Z95.0 PRESENCE OF CARDIAC PACEMAKER 09/11/2016 BAIMA, LAQUITA L EDUCATION ADVISER Ot E78.5 HYPERLIPIDEMIA, UNSPECIFIED 09/11/2016 BAIMA, LAQUITA L EDUCATION ADVISER Ot 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 09/11/2016 BAIMA, LAQUITA L EDUCATION ADVISER Ot I25.10 ATHSCL HEART DISEASE OF [place] CORONARY 09/11/2016 BAIMA, LAQUITA L EDUCATION ADVISER Ot N18.9 CHRONIC KIDNEY DISEASE, UNSPECIFIED 09/11/2016 BAIMA, LAQUITA L EDUCATION ADVISER Ot R00.1 BRADYCARDIA, UNSPECIFIED 09/11/2016 BAIMA, LAQUITA L EDUCATION ADVISER Ot Z95.0 PRESENCE OF CARDIAC PACEMAKER 09/11/2016 ANAYELI SANCHEZ [facility], ALI FACP CCDS Ot E78.4 OTHER HYPERLIPIDEMIA 09/11/2016 ANAYELI SANCHEZ [facility], ALI FACP CCDS Ot 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 09/11/2016 ANAYELI SANCHEZ [facility], ALI FACP CCDS Ot I25.10 ATHSCL HEART DISEASE OF [place] CORONARY 09/11/2016 ANAYELI SANCHEZ [facility], ALI FACP CCDS Ot I65.23 OCCLUSION AND STENOSIS OF BILATERAL [place] 09/11/2016 ANAYELI SANCHEZ [facility], ALI FACP CCDS Ot N18.9 CHRONIC KIDNEY DISEASE, UNSPECIFIED 09/11/2016 ANAYELI SANCHEZ [facility], ALI FACP CCDS Ot R07.89 OTHER CHEST PAIN 09/11/2016 ANAYELI SANCHEZ [facility], ALI FACP CCDS Ot Z95.0 PRESENCE OF CARDIAC PACEMAKER 09/11/2016 BAIMA, LAQUITA L EDUCATION ADVISER Ot E78.5 HYPERLIPIDEMIA, UNSPECIFIED 09/11/2016 BAIMA, LAQUITA L EDUCATION ADVISER Ot 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 09/11/2016 BAIMA, LAQUITA L EDUCATION ADVISER Ot I25.10 ATHSCL HEART DISEASE OF [place] CORONARY 09/11/2016 BAIMA, LAQUIAT L EDUCATION ADVISER Ot N18.9 CHRONIC KIDNEY DISEASE, UNSPECIFIED 09/11/2016 BAIMA, LAQUITA L EDUCATION ADVISER Ot R00.1 BRADYCARDIA, UNSPECIFIED 09/11/2016 BAIMA, LAQUITA L EDUCATION ADVISER Ot Z95.0 PRESENCE OF CARDIAC PACEMAKER 09/11/2016 ANAYELI SANCHEZ FACC, ALI FACP CCDS Ot E78.4 OTHER HYPERLIPIDEMIA 09/11/2016 ANAYELI SANCHEZ FACC, ALI FACP CCDS Ot 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 09/11/2016 ANAYELI OJEDAC, ALI FACP CCDS Ot I25.10 ATHSCL HEART DISEASE OF [place] CORONARY 09/11/2016 ANAYELI SANCHEZ FACC, ALI FACP CCDS Ot I65.23 OCCLUSION AND STENOSIS OF BILATERAL [place] 09/11/2016 ANAYELI SANCHEZ FACC, ALI FACP CCDS Ot N18.9 CHRONIC KIDNEY DISEASE, UNSPECIFIED 09/11/2016 ANAYELI SANCHEZ FACC, ALI FACP CCDS Ot R07.89 OTHER CHEST PAIN 09/11/2016 ANAYELI OJEDAC, ALI FACP CCDS Ot Z95.0 PRESENCE OF CARDIAC PACEMAKER 09/16/2016 BAIMA, LAQUITA L EDUCATION ADVISER Ot E78.5 HYPERLIPIDEMIA, UNSPECIFIED 09/16/2016 BAIMA, LAQUITA L EDUCATION ADVISER Ot 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 09/16/2016 BAIMA, LAQUITA L EDUCATION ADVISER Ot I25.10 ATHSCL HEART DISEASE OF [place] CORONARY 09/16/2016 BAIMA, LAQUITA L EDUCATION ADVISER Ot N18.9 CHRONIC KIDNEY DISEASE, UNSPECIFIED 09/16/2016 BAIMA, LAQUITA L EDUCATION ADVISER Ot R00.1 BRADYCARDIA, UNSPECIFIED 09/16/2016 BAIMA, LAQUITA L EDUCATION ADVISER Ot Z95.0 PRESENCE OF CARDIAC PACEMAKER 09/16/2016 ANAYELI SANCHEZ FACC, ALI FACP CCDS Ot E78.4 OTHER HYPERLIPIDEMIA 09/16/2016 ANAYELI SANCHEZ FACC, ALI FACP CCDS Ot 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 09/16/2016 ANAYELI SANCHEZ FACC, ALI FACP CCDS Ot I25.10 ATHSCL HEART DISEASE OF [place] CORONARY 09/16/2016 ANAYELI SANCHEZ FACC, ALI FACP CCDS Ot I65.23 OCCLUSION AND STENOSIS OF BILATERAL [place] 09/16/2016 ANAYELI SANCHEZ FACC, ALI FACP CCDS Ot N18.9 CHRONIC KIDNEY DISEASE, UNSPECIFIED 09/16/2016 ANAYELI SANCHEZ FACC, ALI FACP CCDS Ot R07.89 OTHER CHEST PAIN 09/16/2016 ANAYELI SANCHEZ FACC, DENITA FACP CCDS Ot Z95.0 PRESENCE OF CARDIAC [...] MD Ot I25.10 ATHSCL HEART DISEASE OF [place] CORONARY 11/13/2016 CARINA COTTON MD Ot M54.9 DORSALGIA, UNSPECIFIED 11/13/2016 CARINA COTTON [...] CCDS Ot I25.10 ATHSCL HEART DISEASE OF [place] CORONARY 11/20/2016 ANAYELI SANCHEZ FACC, ALI FACP CCDS Ot I65.23 OCCLUSION AND STENOSIS OF BILATERAL [place] 11/20/2016 ANAYELI SANCHEZ FACC, ALI FACP CCDS Ot 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 11/20/2016 ANAYELI SANCHEZ FACC, ALI FACP CCDS Ot N18.9 CHRONIC KIDNEY DISEASE, UNSPECIFIED 11/20/2016 ANAYELI SANCHEZ FACC, ALI FACP CCDS Ot Z95.0 PRESENCE OF CARDIAC PACEMAKER 12/09/2016 LAQUITA SYLVESTER Ot E78.5 HYPERLIPIDEMIA, UNSPECIFIED 12/09/2016 LAURALAQUITA HERNANDEZ EDUCATION ADVISER Ot 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 12/09/2016 LAURAMARY LAQUITA Antunez EDUCATION ADVISER Ot I25.10 ATHSCL HEART DISEASE OF [place] CORONARY 12/09/2016 LAQUITA SYLVESTER EDUCATION ADVISER Ot 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 12/09/2016 LAURALAQUITA HERNANDEZ EDUCATION ADVISER Ot N18.2 CHRONIC KIDNEY DISEASE, STAGE 2 (MILD) 12/09/2016 LAURAMARY LAQUITA Antunez EDUCATION ADVISER Ot R00.1 BRADYCARDIA, UNSPECIFIED 12/09/2016 LAURALAQUITA HERNANDEZ EDUCATION ADVISER Ot Z45.010 ENCNTR FOR CHECKING AND TEST OF CARD PAC 12/09/2016 NGA LAQUITA Antunez EDUCATION ADVISER Ot Z79.899 OTHER MECHANICAL DEVELOPER PROVER (CURRENT) DRUG THERAPY 12/09/2016 NGA LAQUITA Antunez EDUCATION ADVISER Ot Z95.1 PRESENCE OF AORTOCORONARY BYPASS GRAFT [...] MD Ot I25.10 ATHSCL HEART DISEASE OF [place] CORONARY 2016 CARINA COTTON MD Ot M54.9 [...] CCDS Ot I25.10 ATHSCL HEART DISEASE OF [place] CORONARY 2016 ANAYELI SANCHEZ FAC, ALI FACP CCDS Ot I65.23 OCCLUSION AND STENOSIS OF BILATERAL [place] 2016 ANAYELI SANCHEZ FAC, ALI FACP CCDS Ot 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 2016 ANAYELI SANCHEZ FAC, ALI FACP CCDS Ot N18.9 CHRONIC KIDNEY DISEASE, UNSPECIFIED 2016 ANAYELI SANCHEZ FAC, ALI FACP CCDS Ot Z95.0 PRESENCE OF CARDIAC PACEMAKER 12/22/2016 JIMENA MENENDEZ MD Ot E78.00 PURE HYPERCHOLESTEROLEMIA, UNSPECIFIED 12/22/2016 JIMENA MENENDEZ MD Ot F41.9 ANXIETY DISORDER, UNSPECIFIED 12/22/2016 JIMENA MENENDEZ MD Ot I10 ESSENTIAL (PRIMARY) HYPERTENSION 12/22/2016 JIMENA MENENDEZ MD Ot I25.10 ATHSCL HEART DISEASE OF [place] CORONARY 12/22/2016 JIMENA MENENDEZ MD Ot I25.2 OLD MYOCARDIAL INFARCTION 12/22/2016 JIMENA MENENDEZ MD Ot K58.9 IRRITABLE BOWEL SYNDROME WITHOUT DIARRHE 12/22/2016 JIMENA MENENDEZ MD Ot S51.811A LACERATION W/O FOREIGN BODY OF RIGHT FOR 12/22/2016 JIMENA MENENDEZ MD Ot W18.30XA FALL ON SAME LEVEL, UNSPECIFIED, INITIAL 12/22/2016 JIMENA MENENDEZ MD Ot Y92.002 BATHRM OF [facility] NON-INSTITUT RESDNCE SNGL 12/22/2016 JIMENA MENENDEZ MD Ot 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 12/22/2016 JIMENA MENENDEZ [...] Ot E78.5 HYPERLIPIDEMIA, UNSPECIFIED 01/17/2017 CARINA COTTON MD, Ot F17.210 NICOTINE DEPENDENCE, CIGARETTES, UNCOMPL 01/17/2017 CARINA COTTON MD, Ot F41.9 ANXIETY DISORDER, UNSPECIFIED 01/17/2017 CARINA COTTON MD Ot I10 ESSENTIAL (PRIMARY) HYPERTENSION 01/17/2017 CARINA COTTON MD Ot I25.10 ATHSCL HEART DISEASE OF [place] CORONARY 01/17/2017 CARINA COTTON MD, Ot M54.9 DORSALGIA, UNSPECIFIED 01/17/2017 CARINA COTTON MD Ot Z95.0 PRESENCE OF CARDIAC PACEMAKER 01/17/2017 CARINA COTTON MD Ot Z95.1 PRESENCE OF AORTOCORONARY BYPASS GRAFT 01/17/2017 CARINA COTTON MD Ot Z99.3 DEPENDENCE ON WHEELCHAIR 01/20/2017 CARINA COTTON MD, Ot 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 01/20/2017 CARINA COTTON MD, Ot C44.619 BASAL CELL CARCINOMA SKIN/ LEFT UPPER LI 01/20/2017 CARINA COTTON MD Ot E78.5 HYPERLIPIDEMIA, UNSPECIFIED 01/20/2017 CARINA COTTON MD, Ot F17.210 NICOTINE DEPENDENCE, CIGARETTES, UNCOMPL 01/20/2017 CARINA COTTON MD, Ot F41.9 ANXIETY DISORDER, UNSPECIFIED 01/20/2017 CARINA COTTON MD Ot I10 ESSENTIAL (PRIMARY) HYPERTENSION 01/20/2017 CARINA COTTON MD Ot I25.10 ATHSCL HEART DISEASE OF [place] CORONARY 01/20/2017 CARINA COTTON MD, Ot M54.9 DORSALGIA, UNSPECIFIED 01/20/2017 CARINA COTTON [...] KIDNEY DISEASE W ST 07/29/2017 GELY AVILEZ MD, Ot I25.10 ATHSCL HEART DISEASE OF [place] CORONARY 07/29/2017 GELY AVILEZ MD, Ot I25.2 [...] AVILEZ MD Ot Y92.[address] IN RESIDENTIAL PLACE 07/29/2017 GELY AVILEZ MD Ot Z79.82 SKILLED NURSING (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 07/29/2017 GELY AVILEZ MD, Ot Z79.899 OTHER SKILLED NURSING (CURRENT) DRUG THERAPY 07/29/2017 GELY AVILEZ MD, Ot Z87.891 PERSONAL HISTORY OF NICOTINE DEPENDENCE 07/29/2017 GELY AVILEZ MD Ot Z95.0 PRESENCE OF CARDIAC PACEMAKER 07/29/2017 GELY AVILEZ MD Ot Z95.1 PRESENCE OF AORTOCORONARY BYPASS GRAFT 07/30/2017 LAQUITA SYLVESTER L EDUCATION ADVISER Ot 272.4 HYPERLIPIDEMIA NEC/NOS 07/30/2017 BAIMA, LAQUITA L EDUCATION ADVISER Ot 414.00 CORON ATHEROSCLER NOS TYPE VESSEL, NATIV 07/30/2017 BAIMA LAQUITA L EDUCATION ADVISER Ot 427.89 CARDIAC DYSRHYTHMIAS NEC 07/30/2017 BAIMA LAQUITA L EDUCATION ADVISER Ot V45.01 CARDIAC PACEMAKER IN SITU 07/30/2017 BAIMA, LAQUITA L EDUCATION ADVISER Ot E78.5 HYPERLIPIDEMIA, UNSPECIFIED 07/30/2017 BAIMA, LAQUITA L EDUCATION ADVISER Ot 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 07/30/2017 BAIMA, LAQUITA L EDUCATION ADVISER Ot I25.10 ATHSCL HEART DISEASE OF [place] CORONARY 07/30/2017 BAIMA, LAQUITA L EDUCATION ADVISER Ot N18.9 CHRONIC KIDNEY DISEASE, UNSPECIFIED 07/30/2017 BAIMA, LAQUITA L EDUCATION ADVISER Ot R00.1 BRADYCARDIA, UNSPECIFIED 07/30/2017 BAIMA, LAQUITA L EDUCATION ADVISER Ot Z95.0 PRESENCE OF CARDIAC PACEMAKER 07/30/2017 BAIMA, LAQUITA L EDUCATION ADVISER Ot E78.5 HYPERLIPIDEMIA, UNSPECIFIED 07/30/2017 BAIMA, LAQUITA L EDUCATION ADVISER Ot I10 ESSENTIAL (PRIMARY) HYPERTENSION 07/30/2017 BAIMA, LAQUITA L EDUCATION ADVISER Ot I25.10 ATHSCL HEART DISEASE OF [place] CORONARY 07/30/2017 BAIMA, LAQUITA L EDUCATION ADVISER Ot N18.9 CHRONIC KIDNEY DISEASE, UNSPECIFIED 07/30/2017 BAIMA, LAQUITA L EDUCATION ADVISER Ot R00.1 BRADYCARDIA, UNSPECIFIED 07/30/2017 BAIMA, LAQUITA L EDUCATION ADVISER Ot Z95.0 PRESENCE OF CARDIAC PACEMAKER 07/30/2017 ANAYELI SANCHEZ FACC, DENITA FACP CCDS Ot E78.4 OTHER HYPERLIPIDEMIA 07/30/2017 ANAYELI SANCHEZ FACC, ALI FACP CCDS Ot 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 07/30/2017 ANAYELI SANCHEZ FACC, ALI FACP CCDS Ot I25.10 ATHSCL HEART DISEASE OF [place] CORONARY 07/30/2017 ANAYELI SANCHEZ FACC, ALI FACP CCDS Ot I65.23 OCCLUSION AND STENOSIS OF BILATERAL [place] 07/30/2017 ANAYELI SANCHEZ FACC, ALI FACP CCDS Ot N18.9 CHRONIC KIDNEY DISEASE, UNSPECIFIED 07/30/2017 ANAYELI SANCHEZ FAC, ALI FACP CCDS Ot R07.89 OTHER CHEST PAIN 07/30/2017 ANAYELI SANCHEZ FAC, ALI FACP CCDS Ot Z95.0 PRESENCE OF CARDIAC PACEMAKER 07/30/2017 ANAYELI SANCHEZ FACC, ALI FACP CCDS Ot E78.4 OTHER HYPERLIPIDEMIA 07/30/2017 ANAYELI SANCHEZ FACC, ALI FACP CCDS Ot 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 07/30/2017 ANAYELI SANCHEZ FACC, ALI FACP CCDS Ot I25.10 ATHSCL HEART DISEASE OF [place] CORONARY 07/30/2017 ANAYELI SANCHEZ FAC, ALI FACP CCDS Ot I65.23 OCCLUSION AND STENOSIS OF BILATERAL [place] 07/30/2017 ANAYELI OJEDA, ALI FACP CCDS Ot 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 07/30/2017 ANAYELI SANCHEZ FACLorrie, ALI FACP CCDS Ot N18.9 CHRONIC KIDNEY DISEASE, UNSPECIFIED 07/30/2017 ANAYELI OJEDA, ALI FACP CCDS Ot Z95.0 [...] MD Ot I25.10 ATHSCL HEART DISEASE OF [place] CORONARY 07/30/2017 CARINA COTTON MD Ot M54.9 DORSALGIA, UNSPECIFIED 07/30/2017 CARINA COTTON MD Ot Z95.0 PRESENCE OF CARDIAC PACEMAKER 07/30/2017 CARINA COTTON MD Ot Z95.1 PRESENCE OF AORTOCORONARY BYPASS GRAFT 07/30/2017 CARINA COTTON MD Ot Z99.3 DEPENDENCE ON WHEELCHAIR 08/13/2017 LAQUITA SYLVESTER EDUCATION ADVISER Ot 272.4 HYPERLIPIDEMIA NEC/NOS 08/13/2017 BAIMARY LAQUITA L EDUCATION ADVISER Ot 414.00 CORON ATHEROSCLER NOS TYPE VESSEL, NATIV 08/13/2017 BAIMA, LAQUITA L EDUCATION ADVISER Ot 427.89 CARDIAC DYSRHYTHMIAS NEC 08/13/2017 BAIMARY LAQUITA L EDUCATION ADVISER Ot V45.01 CARDIAC PACEMAKER IN SITU 08/13/2017 BAIMA LAQUITA L EDUCATION ADVISER Ot E78.5 HYPERLIPIDEMIA, UNSPECIFIED 08/13/2017 BAIMA, LAQUITA L EDUCATION ADVISER Ot 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 08/13/2017 BAIMA, LAQUITA L EDUCATION ADVISER Ot I25.10 ATHSCL HEART DISEASE OF [place] CORONARY 08/13/2017 BAIMA, LAQUITA L EDUCATION ADVISER Ot N18.9 CHRONIC KIDNEY DISEASE, UNSPECIFIED 08/13/2017 BAIMA, LAQUITA L EDUCATION ADVISER Ot R00.1 BRADYCARDIA, UNSPECIFIED 08/13/2017 BAIMA, LAQUITA L EDUCATION ADVISER Ot Z95.0 PRESENCE OF CARDIAC PACEMAKER 08/13/2017 LAURAMARY LAQUITA L EDUCATION ADVISER Ot E78.5 HYPERLIPIDEMIA, UNSPECIFIED 08/13/2017 BAIMA, LAQUITA L EDUCATION ADVISER Ot I10 ESSENTIAL (PRIMARY) HYPERTENSION 08/13/2017 BAIMA, LAQUITA L EDUCATION ADVISER Ot I25.10 ATHSCL HEART DISEASE OF [place] CORONARY 08/13/2017 BAIMA, LAQUITA L EDUCATION ADVISER Ot N18.9 CHRONIC KIDNEY DISEASE, UNSPECIFIED 08/13/2017 BAIMA, LAQUITA L EDUCATION ADVISER Ot R00.1 BRADYCARDIA, UNSPECIFIED 08/13/2017 BAIMA, LAQUITA L EDUCATION ADVISER Ot Z95.0 PRESENCE OF CARDIAC PACEMAKER 08/13/2017 ANAYELI SANCHEZ FACC, DENITA FACP CCDS Ot E78.4 OTHER HYPERLIPIDEMIA 08/13/2017 ANAYELI SANCHEZ FACC, DENITA FACP CCDS Ot 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 08/13/2017 ANAYELI SANCHEZ FACC, DENITA FACP CCDS Ot I25.10 ATHSCL HEART DISEASE OF [place] CORONARY 08/13/2017 ANAYELI SANCHEZ FACC, ALI FACP CCDS Ot I65.23 OCCLUSION AND STENOSIS OF BILATERAL [place] 08/13/2017 ANAYELI SANCHEZ FACC, DENITA FACP CCDS Ot N18.9 CHRONIC KIDNEY DISEASE, UNSPECIFIED 08/13/2017 ANAYELI SANCHEZ FACC, ALI FACP CCDS Ot R07.89 OTHER CHEST PAIN 08/13/2017 ANAYELI SANCHEZ FAC, ALI FACP CCDS Ot Z95.0 PRESENCE OF CARDIAC PACEMAKER 08/13/2017 ANAYELI SANCHEZ FACC, ALI FACP CCDS Ot E78.4 OTHER HYPERLIPIDEMIA 08/13/2017 ANAYELI SANCHEZ FACC, ALI FACP CCDS Ot 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 08/13/2017 ANAYELI SANCHEZ FACC, ALI FACP CCDS Ot I25.10 ATHSCL HEART DISEASE OF [place] CORONARY 08/13/2017 ANAYELI SANCHEZ FAC, ALI FACP CCDS Ot I65.23 OCCLUSION AND STENOSIS OF BILATERAL [place] 08/13/2017 ANAYELI SANCHEZ FAC, ALI FACP CCDS Ot 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 08/13/2017 ANAYELI SANCHEZ FAC, ALI FACP CCDS Ot N18.9 CHRONIC KIDNEY DISEASE, UNSPECIFIED 08/13/2017 ANAYELI SANCHEZ FAC, ALI FACP CCDS Ot Z95.0 PRESENCE OF CARDIAC PACEMAKER 08/13/2017 CARINA COTTON MD Ot 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 08/13/2017 CARINA COTTON MD, Ot C44.619 BASAL CELL CARCINOMA SKIN/ LEFT UPPER LI 08/13/2017 CARINA COTTON MD Ot E78.5 HYPERLIPIDEMIA, UNSPECIFIED 08/13/2017 CARINA COTTON MD Ot F17.210 NICOTINE DEPENDENCE, CIGARETTES, UNCOMPL 08/13/2017 CARINA COTTON MD Ot F41.9 ANXIETY DISORDER, UNSPECIFIED 08/13/2017 CARINA COTTON MD Ot I10 ESSENTIAL (PRIMARY) HYPERTENSION 08/13/2017 CARINA COTTON MD Ot I25.10 ATHSCL HEART DISEASE OF [place] CORONARY 08/13/2017 CARINA COTTON MD Ot M54.9 DORSALGIA, UNSPECIFIED 08/13/2017 CARINA COTTON MD Ot Z95.0 PRESENCE OF CARDIAC PACEMAKER 08/13/2017 CARINA COTTON MD Ot Z95.1 PRESENCE OF AORTOCORONARY BYPASS GRAFT 08/13/2017 CARINA COTTON MD Ot Z99.3 DEPENDENCE ON WHEELCHAIR 08/14/2017 NEHA MOURA APRN Ot M25.552 PAIN IN LEFT HIP 08/14/2017 NEHA MOURA APRN Ot W19.XXXA UNSPECIFIED FALL, INITIAL ENCOUNTER 08/14/2017 GELY AVILEZ MD Ot E78.00 PURE HYPERCHOLESTEROLEMIA, UNSPECIFIED 08/14/2017 GELY AVILEZ MD Ot F41.9 ANXIETY DISORDER, UNSPECIFIED 08/14/2017 GELY AVILEZ MD Ot I10 ESSENTIAL (PRIMARY) HYPERTENSION 08/14/2017 GELY AVILEZ MD Ot I25.10 ATHSCL HEART DISEASE OF [place] CORONARY 08/14/2017 GELY AVILEZ MD Ot I25.2 OLD MYOCARDIAL INFARCTION 08/14/2017 GELY AVILEZ MD Ot R53.1 WEAKNESS 08/14/2017 GELY AVILEZ MD Ot R91.8 OTHER NONSPECIFIC ABNORMAL FINDING OF THEE 08/14/2017 GELY AVILEZ MD Ot T18.120A FOOD IN ESOPHAGUS CAUSING COMPRESSION OF 08/14/2017 GELY AVILEZ MD Ot Z79.51 MECHANICAL DEVELOPER PROVER (CURRENT) USE OF INHALED STERO 08/14/2017 GELY AVILEZ MD Ot 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 08/14/2017 GELY AVILEZ MD Ot Z85.828 PERSONAL HISTORY OF OTHER MALIGNANT NEOP 08/14/2017 GELY AVILEZ MD Ot Z87.01 PERSONAL HISTORY OF PNEUMONIA (RECURRENT 08/14/2017 GELY AVILEZ MD Ot Z87.19 PERSONAL HISTORY OF OTHER DISEASES OF TH 08/14/2017 GELY AVILEZ MD Ot Z87.891 PERSONAL HISTORY OF NICOTINE DEPENDENCE 08/14/2017 GELY AVILEZ MD Ot Z95.0 PRESENCE OF CARDIAC PACEMAKER 08/14/2017 GELY AVILEZ MD Ot Z95.1 PRESENCE OF AORTOCORONARY BYPASS GRAFT 08/19/2017 NEHA MOURA APRN Ot M25.552 PAIN IN LEFT HIP 08/19/2017 NEHA MOURA APRN Ot W19.XXXA UNSPECIFIED FALL, INITIAL ENCOUNTER 08/19/2017 LAQUITA SYLVESTER EDUCATION ADVISER Ot 272.4 HYPERLIPIDEMIA NEC/NOS 08/19/2017 LAQUITA SYLVESTER EDUCATION ADVISER Ot 414.00 CORON ATHEROSCLER NOS TYPE VESSEL, NATIV 08/19/2017 LAQUITA SYLVESTER EDUCATION ADVISER Ot 427.89 CARDIAC DYSRHYTHMIAS NEC 08/19/2017 LUCI SYLVESTERHER L EDUCATION ADVISER Ot V45.01 CARDIAC PACEMAKER IN SITU 08/19/2017 BAIMA, LAQUITA L EDUCATION ADVISER Ot E78.5 HYPERLIPIDEMIA, UNSPECIFIED 08/19/2017 BAIMA, LAQUITA L EDUCATION ADVISER Ot 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 08/19/2017 BAIMA, LAQUITA L EDUCATION ADVISER Ot I25.10 ATHSCL HEART DISEASE OF [place] CORONARY 08/19/2017 BAIMA, LAQUITA L EDUCATION ADVISER Ot N18.9 CHRONIC KIDNEY DISEASE, UNSPECIFIED 08/19/2017 BAIMA, LAQUITA L EDUCATION ADVISER Ot R00.1 BRADYCARDIA, UNSPECIFIED 08/19/2017 BAIMA, LAQUITA L EDUCATION ADVISER Ot Z95.0 PRESENCE OF CARDIAC PACEMAKER 08/19/2017 BAIMA, LAQUITA L EDUCATION ADVISER Ot E78.5 HYPERLIPIDEMIA, UNSPECIFIED 08/19/2017 BAIMA, LAQUITA L EDUCATION ADVISER Ot I10 ESSENTIAL (PRIMARY) HYPERTENSION 08/19/2017 BAIMA, LAQUITA L EDUCATION ADVISER Ot I25.10 ATHSCL HEART DISEASE OF [place] CORONARY 08/19/2017 BAIMA, LAQUITA L EDUCATION ADVISER Ot N18.9 CHRONIC KIDNEY DISEASE, UNSPECIFIED 08/19/2017 BAIMA, LAQUITA L EDUCATION ADVISER Ot R00.1 BRADYCARDIA, UNSPECIFIED 08/19/2017 BAIMA, LAQUITA L EDUCATION ADVISER Ot Z95.0 PRESENCE OF CARDIAC PACEMAKER 08/19/2017 ANAYELI SANCHEZ FACC, DENITA FACP CCDS Ot E78.4 OTHER HYPERLIPIDEMIA 08/19/2017 ANAYELI SANCHEZ FACC, DENITA FACP CCDS Ot 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 08/19/2017 ANAYELI SACNHEZ FACC, ALI FACP CCDS Ot I25.10 ATHSCL HEART DISEASE OF [place] CORONARY 08/19/2017 ANAYELI SANCHEZ FACC, ALI FACP CCDS Ot I65.23 OCCLUSION AND STENOSIS OF BILATERAL [place] 08/19/2017 ANAYELI SANCHEZ FACC, DENITA FACP CCDS Ot N18.9 CHRONIC KIDNEY DISEASE, UNSPECIFIED 08/19/2017 ANAYELI SANCHEZ FACC, ALI FACP CCDS Ot R07.89 OTHER CHEST PAIN 08/19/2017 ANAYELI SANCHEZ FACC, ALI FACP CCDS Ot Z95.0 PRESENCE OF CARDIAC PACEMAKER 08/19/2017 ANAYELI SANCHEZ FACC, ALI FACP CCDS Ot E78.4 OTHER HYPERLIPIDEMIA 08/19/2017 ANAYELI SANCHEZ FACC, ALI FACP CCDS Ot 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 08/19/2017 ANAYELI SANCHEZ FACC, ALI FACP CCDS Ot I25.10 ATHSCL HEART DISEASE OF [place] CORONARY 08/19/2017 ANAYELI SANCHEZ FACC, ALI FACP CCDS Ot I65.23 OCCLUSION AND STENOSIS OF BILATERAL [place] 08/19/2017 ANAYELI SANCHEZ FACC, ALI FACP CCDS Ot 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 08/19/2017 ANAYELI SANCHEZ FACC, ALI FACP CCDS Ot N18.9 CHRONIC KIDNEY DISEASE, UNSPECIFIED 08/19/2017 ANAYELI SANCHEZ FACC, ALI FACP CCDS Ot Z95.0 PRESENCE OF CARDIAC PACEMAKER 08/19/2017 NEHA MOURA APRN Ot M25.552 PAIN IN LEFT HIP 08/19/2017 NEHA MOURA APRN Ot W19.XXXA UNSPECIFIED FALL, INITIAL ENCOUNTER Procedures There is no data. Results Test [...] Staphylococcus aureus (MRSA) screening culture NEG NRG Complete blood count (CBC) with automated white [...] culture - 07/28/17 10:46 Bacterial urine culture [id number] NRG COLONY COUNT 10,000/ML - 100,000/ML NRG FTX;REPORTABLE SENSITIVITY REPORTED [id number], 4-04-06 NRG URINE CULTURE RESULTS PLUS NRG Bacterial susceptibility panel - 07/28/17 10:46 Gentamicin [...] VLDL measurement (mass/volume) 12 mg/ dL 5-40 Complete blood count (CBC) with automated white blood cell (WBC) differential - 08/14/17 13:05 Blood leukocytes automated count (number/volume) 4.0 10*3/uL 4.3-11.0 Blood erythrocytes automated count (number/volume) 3.61 10*6/uL 4.35-5.85 Venous blood hemoglobin measurement (mass/volume) 13.0 g/dL 13.3-17.7 Blood hematocrit (volume fraction) 38 % 40-54 Automated erythrocyte mean corpuscular volume 105 [foz_us] 80-99 Automated erythrocyte mean corpuscular hemoglobin (mass per erythrocyte) 36 pg 25-34 Automated erythrocyte mean corpuscular hemoglobin concentration measurement ( mass/volume) 34 g/dL 32-36 Automated erythrocyte distribution width ratio 14.1 % 10.0-14.5 Automated blood platelet count (count/volume) 111 10*3/uL 130-400 Automated blood platelet mean volume measurement 10.0 [foz_us] 7.4-10.4 Automated blood neutrophils/100 leukocytes 44 % 42-75 Automated blood lymphocytes/100 leukocytes 47 % 12-44 Blood monocytes/100 leukocytes 7 % 0-12 Automated blood eosinophils/100 leukocytes 2 % 0-10 Automated blood basophils/100 leukocytes 0 % 0-10 Blood neutrophils automated count (number/volume) 1.7 10*3 1.8-7.8 Blood lymphocytes automated count (number/volume) 1.9 10*3 1.0-4.0 Blood monocytes automated count (number/volume) 0.3 10*3 0.0-1.0 Automated eosinophil count 0.1 10*3/uL 0.0-0.3 Automated blood basophil count (count/volume) 0.0 10*3/uL 0.0-0.1 Comprehensive metabolic panel - 08/14/17 13:05 Serum or plasma sodium measurement (moles/volume) 143 mmol/L 135-145 Serum or plasma potassium measurement (moles/volume) 3.8 mmol/L 3.6-5.0 Serum or plasma chloride measurement (moles/volume) 109 mmol/L 98-107 Carbon dioxide 26 mmol/L 21-32 Serum or plasma anion gap determination (moles/volume) 8 mmol/L 5-14 Serum or plasma urea nitrogen measurement (mass/volume) 21 mg/dL 7-18 Serum or plasma creatinine measurement (mass/volume) 0.84 mg/dL 0.60-1.30 Serum or plasma urea nitrogen/creatinine mass ratio 25 NRG Serum or plasma creatinine measurement with calculation of estimated glomerular filtration rate > NRG Serum or plasma glucose measurement (mass/volume) 124 mg/dL 70-105 Serum or plasma calcium measurement (mass/volume) 9.2 mg/dL 8.5-10.1 Serum or plasma total bilirubin measurement (mass/volume) 0.8 mg/dL 0.1-1.0 Serum or plasma alkaline phosphatase measurement (enzymatic activity/volume) 55 U/L 40-136 Serum or plasma aspartate aminotransferase measurement (enzymatic activity/ volume) 24 U/L 5-34 Serum or plasma alanine aminotransferase measurement (enzymatic activity/volume ) 25 U/L 0-55 Serum or plasma protein measurement (mass/volume) 6.7 g/dL 6.4-8.2 Serum or plasma albumin measurement (mass/volume) 3.9 g/dL 3.2-4.5 Complete urinalysis with reflex to culture - 08/14/17 14:18 Urine color determination BRADY NRG Urine clarity determination CLEAR NRG Urine pH measurement by test strip 6 5-9 Specific gravity of urine by test strip 1.020 1.016- 1.022 Urine protein assay by test strip, semi-quantitative 1+ NEGATIVE Urine glucose detection by automated test strip NEGATIVE NEGATIVE Erythrocytes detection in urine sediment by light microscopy 1+ NEGATIVE Urine ketones detection by automated test strip NEGATIVE NEGATIVE Urine nitrite detection by test strip NEGATIVE NEGATIVE Urine total bilirubin detection by test strip 1+ NEGATIVE Urine urobilinogen measurement by automated test strip (mass/volume) 12 mg/dL NORMAL Urine leukocyte esterase detection by dipstick 1+ NEGATIVE Automated urine sediment erythrocyte count by microscopy (number/high power field) NONE NRG Automated urine sediment leukocyte count by microscopy (number/high power field ) NONE NRG Bacteria detection in urine sediment by light microscopy NEGATIVE NRG Crystals detection in urine sediment by light microscopy NONE NRG Casts detection in urine sediment by light microscopy NONE NRG Mucus detection in urine sediment by light microscopy NEGATIVE NRG Complete urinalysis with reflex to culture NO NRG Complete blood count (CBC) with automated white blood cell (WBC) differential - 08/19/17 14:10 Blood leukocytes automated count (number/volume) 4.8 10*3/uL 4.3-11.0 Blood erythrocytes automated count (number/volume) 3.67 10*6/uL 4.35-5.85 Venous blood hemoglobin measurement (mass/volume) 13.1 g/dL 13.3-17.7 Blood hematocrit (volume fraction) 39 % 40-54 Automated erythrocyte mean corpuscular volume 105 [foz_us] 80-99 Automated erythrocyte mean corpuscular hemoglobin (mass per erythrocyte) 36 pg 25-34 Automated erythrocyte mean corpuscular hemoglobin concentration measurement ( mass/volume) 34 g/dL 32-36 Automated erythrocyte distribution width ratio 14.3 % 10.0-14.5 Automated blood platelet count (count/volume) 124 10*3/uL 130-400 Automated blood platelet mean volume measurement 9.7 [foz_us] 7.4-10.4 Automated blood neutrophils/100 leukocytes 43 % 42-75 Automated blood lymphocytes/100 leukocytes 49 % 12-44 Blood monocytes/100 leukocytes 6 % 0-12 Automated blood eosinophils/100 leukocytes 2 % 0-10 Automated blood basophils/100 leukocytes 0 % 0-10 Blood neutrophils automated count (number/volume) 2.1 10*3 1.8-7.8 Blood lymphocytes automated count (number/volume) 2.3 10*3 1.0-4.0 Blood monocytes automated count (number/volume) 0.3 10*3 0.0-1.0 Automated eosinophil count 0.1 10*3/uL 0.0-0.3 Automated blood basophil count (count/volume) 0.0 10*3/uL 0.0-0.1 Comprehensive metabolic panel - 08/19/17 14:10 Serum or plasma sodium measurement (moles/volume) 143 mmol/L 135-145 Serum or plasma potassium measurement (moles/volume) 4.1 mmol/L 3.6-5.0 Serum or plasma chloride measurement (moles/volume) 110 mmol/L 98-107 Carbon dioxide 26 mmol/L 21-32 Serum or plasma anion gap determination (moles/volume) 7 mmol/L 5-14 Serum or plasma urea nitrogen measurement (mass/volume) 19 mg/dL 7-18 Serum or plasma creatinine measurement (mass/volume) 0.80 mg/dL 0.60-1.30 Serum or plasma urea nitrogen/creatinine mass ratio 24 NRG Serum or plasma creatinine measurement with calculation of estimated glomerular filtration rate > NRG Serum or plasma glucose measurement (mass/volume) 102 mg/dL 70-105 Serum or plasma calcium measurement (mass/volume) 9.3 mg/dL 8.5-10.1 Serum or plasma total bilirubin measurement (mass/volume) 0.7 mg/dL 0.1-1.0 Serum or plasma alkaline phosphatase measurement (enzymatic activity/volume) 55 U/L 40-136 Serum or plasma aspartate aminotransferase measurement (enzymatic activity/ volume) 22 U/L 5-34 Serum or plasma alanine aminotransferase measurement (enzymatic activity/volume ) 18 U/L 0-55 Serum or plasma protein measurement (mass/volume) 7.3 g/dL 6.4-8.2 Serum or plasma albumin measurement (mass/volume) 4.1 g/dL 3.2-4.5 Serum or plasma troponin i.cardiac measurement (mass/volume) - 08/19/17 14:10 Serum or plasma troponin i.cardiac measurement (mass/volume) < ng/ mL <0.30 Lipase - 08/19/17 14:10 Lipase 16 U/L 8-78 Complete urinalysis with reflex to culture - 08/19/17 15:08 Urine color determination YELLOW NRG Urine clarity determination CLEAR NRG Urine pH measurement by test strip 6 5-9 Specific gravity of urine by test strip 1.020 1.016- 1.022 Urine protein assay by test strip, semi-quantitative 1+ NEGATIVE Urine glucose detection by automated test strip NEGATIVE NEGATIVE Erythrocytes detection in urine sediment by light microscopy 1+ NEGATIVE Urine ketones detection by automated test strip NEGATIVE NEGATIVE Urine nitrite detection by test strip NEGATIVE NEGATIVE Urine total bilirubin detection by test strip NEGATIVE NEGATIVE Urine urobilinogen measurement by automated test strip (mass/volume) 8 mg/dL NORMAL Urine leukocyte esterase detection by dipstick 2+ NEGATIVE Automated urine sediment erythrocyte count by microscopy (number/high power field) RARE NRG Automated urine sediment leukocyte count by microscopy (number/high power field ) [HPF] NRG Bacteria detection in urine sediment by light microscopy TRACE NRG Squamous epithelial cells detection in urine sediment by light microscopy 0-2 NRG Crystals detection in urine sediment by light microscopy NONE NRG Casts detection in urine sediment by light microscopy NONE NRG Mucus detection in urine sediment by light microscopy SMALL NRG Complete urinalysis with reflex to culture YES NRG Encounters ACCT No. Visit Date/Time Discharge Status Pt. Type Provider Facility Loc./Unit Complaint [id number] 08/19/2017 13:59:00 08/19/2017 16:17:00 DIS Emergency CRISSY GURROLA APRN [facility] ER WEAK, WON'T EAT [id number] 08/14/2017 12:28:00 08/14/2017 16:40:00 DIS Emergency GELY AVILEZ MD [facility] ER WEAKNESS [id number] 08/13/2017 09:02:00 08/13/2017 23:59:59 CLS Outpatient NEHA MOURA APRN [facility] RAD LEFT HIP PAIN [id number] 07/28/2017 12:07:00 07/29/2017 13:30:00 DIS Inpatient GELY AVILEZ MD [facility] ICU CHEST PAIN [id number] 01/18/2017 00:30:00 01/18/2017 23:59:59 CLS Preadmit CARINA COTTON MD [facility] ONC [id number] 11/12/2016 08:50:00 01/17/2017 00:01:00 DIS Outpatient CARINA COTOTN MD [facility] ONC [id number] 12/22/2016 07:36:00 12/22/2016 09:03:00 DIS Emergency JIMENA MENENDEZ MD [facility] ER RT ARM ABRASION FALL [id number] 12/09/2016 11:00:00 12/09/2016 23:59:59 CLS Preadmit ANAYELI SANCHEZ FACCDENITA FACP CCDS [facility] SDC END OF LIFE PACEMAKER; SICK SINUS SYNDROME [id number] 12/09/2016 08:41:00 12/09/2016 17:45:00 DIS Outpatient LAQUITA SYLVESTER [facility] CATH END OF LIFE PACEMAKER,SICK SINUS SYNDROME [id number] 11/20/2016 06:59:00 11/20/2016 23:59:59 CLS Outpatient ANAYELI SANCHEZ FACC, DENITA HAND CCDS [facility] LAB I25.10 I65.23 N18.9 [id number] 11/18/2016 09:00:00 11/18/2016 23:59:59 CLS Preadmit LULA SANCHEZ, CARINA [facility] RAD MELANOMA [id number] 06/17/2016 07:16:00 06/17/2016 23:59:59 CLS Outpatient ANAYELI SANCHEZ FACC, DENITA HAND CCDS [facility] CARD CHEST DISCOMFORT,CAD,CAROTID ARTERIAL DISEASE,CKD [id number] 06/06/2016 18:13:00 06/06/2016 19:30:00 DIS Emergency NORAH HENRIQUEZ DO [facility] ER CP [id number] 01/14/2016 10:44:00 01/15/2016 13:00:00 DIS Inpatient GELY AVILEZ MD [facility] 4TH CHEST PAIN DEHYDRATION [id number] 11/07/2015 08:39:00 11/07/2015 23:59:59 CLS Outpatient LUCI SYLVESTERHER L EDUCATION ADVISER [facility] CARD CAD; HYPERLIPIDEMIA ; HTN; SINUS BRADYCARDIA [id number] 10/18/2015 11:30:00 10/18/2015 23:59:59 CLS Outpatient BAIMARY LAQUITA L EDUCATION ADVISER [facility] LAB CAD,HYPERLIPIDEMIA, HTN,CKD, CARDIAC PACEMAKER [id number] 10/12/2015 09:11:00 10/12/2015 12:29:00 DIS Emergency MITCHELL DIMAS MD [facility] ER CHEST PAIN [id number] 02/15/2014 09:53:00 02/17/2014 13:00:00 DIS Inpatient MITCHELL ANTOINE MD [facility] 4TH PNEUMONIA SYNCOPE CHEST PAIN EDEMA FLUID OVERLOAD [id number] 01/02/2014 12:55:00 01/02/2014 23:59:59 CLS Outpatient BAILAQUITA HERNANDEZ [facility] CARD BRADYCARDIA,HLP, PACEMAKER [id number] 12/19/2013 17:53:00 12/19/2013 20:05:00 DIS Emergency JIMENA MENENDEZ MD [facility] ER VOMITING BLOOD [id number] 08/11/2013 06:00:00 08/11/2013 10:25:00 DIS Outpatient TEA STEVENS DO [facility] SDC LESION LEFT FOREARM [id number] 08/08/2013 13:20:00 08/08/2013 23:59:59 CLS Outpatient [id number] 07/23/2013 17:56:00 07/23/2013 18:49:00 DIS Emergency [id number] 04/16/2013 09:29:00 04/16/2013 12:15:00 DIS Emergency MARTINEZ QUIROGA NORAH Cortez [facility] ER CHEST PAIN, SOA [id number] 01/14/2016 12:08:00 Document Registration [id number] 06/08/2014 16:12:00 Document Registration [id number] 06/08/2014 16:12:00 Document Registration [id number] 06/08/2014 16:12:00 Document Registration [id number] 05/11/2014 04:01:00 Document Registration [id number] 03/08/2012 12:47:00 Document Registration [id number] 01/08/2012 06:48:00 Document Registration [id number] 01/23/2011 05:48:00 Document Registration [id number] 06/23/2010 07:23:00 Document Registration [id number] 06/18/2010 12:15:00 Document Registration [id number] 06/17/2010 08:48:00 Document Registration [id number] 06/12/2010 13:06:00 Document Registration [id number] 02/28/2010 05:43:00 Document Registration [id number] 02/27/2010 08:39:00 Document Registration [id number] 01/15/2010 07:04:00 Document Registration [id number] 10/15/2009 09:07:00 Document Registration [id number] 06/29/2009 06:03:00 Document Registration
== END 2017-08-19 16:17 | disposition short-term general hospital (02) ==
LOC: EDUNIT# 13:55 → ER 13:59
DX: N39.0 Urinary tract infection, site not specified (principal); R53.1 Weakness; R91.8 Other nonspecific abnormal finding of lung field; I25.10 Atherosclerotic heart disease of native coronary artery without angina pectoris; I25.2 Old myocardial infarction; E78.00 Pure hypercholesterolemia, unspecified; I10 Essential (primary) hypertension; F41.9 Anxiety disorder, unspecified; Z85.828 Personal history of other malignant neoplasm of skin; Z87.19 Personal history of other diseases of the digestive system; Z79.82 Long term (current) use of aspirin; Z79.51 Long term (current) use of inhaled steroids; Z87.891 Personal history of nicotine dependence; Z95.1 Presence of aortocoronary bypass graft; Z95.0 Presence of cardiac pacemaker; Z87.01 Personal history of pneumonia (recurrent)
CPT/HCPCS: 36415; 71046; 74177; 80053; 81000; 83690; 84484; 85025; 87077; 87088; 87186; 93005; 96374

== ENCOUNTER 2017-08-21 21:32 | Inpatient (IN) | payer MEDICARE, MEDICAID ==
[~2017-08-21] VITALS: Ht 170.2 cm; Wt 71.1 kg
[~2017-08-21 21:32] MED LIST changes: +SULF1TAB35 PO
--- OUTSIDE RECORDS SUMMARY | 2017-08-21 21:42 | XMS REPORT | Continuity of Care Document ---
Author Author [facility] Organization [facility] Address Unknown Phone Unavailable Allergies Active Description Code Type Severity Reaction Onset Reported/Identified Relationship to Patient Clinical Status Yes No Known Drug Allergies [id number] Drug Allergy Unknown N/A 02/15/2014 Medications There [...] ANTOINE MD Ot 414.01 CORONARY ATHEROSCLEROSIS OF [place] CORON 02/17/2014 MITCHELL ANTOINE MD Ot 424.0 MITRAL VALVE DISORDER 02/17/2014 MITCHELL ANTOINE MD Ot 427.89 CARDIAC DYSRHYTHMIAS NEC 02/17/2014 MITCHELL NATOINE MD Ot 428.0 CONGESTIVE HEART FAILURE NOS [...] MED,LT, CURRENT USE 05/18/2014 BAIMA LAQUITA L STUFFING MACHINE OPERATOR Ot 272.4 05/18/2014 BAIMA LAQUITA L STUFFING MACHINE OPERATOR Ot 414.00 05/18/2014 BAIMA, LAQUITA L STUFFING MACHINE OPERATOR Ot 427.89 05/18/2014 BAIMA, LAQUITA L STUFFING MACHINE OPERATOR Ot V45.01 06/08/2014 Ot 272.4 06/08/2014 Ot [...] 06/08/2014 Ot V74.8 06/08/2014 BAIMA, LAQUITA L STUFFING MACHINE OPERATOR Ot 272.4 06/08/2014 BAIMA, LAQUITA L STUFFING MACHINE OPERATOR Ot 414.00 06/08/2014 BAIMA, LAQUITA L STUFFING MACHINE OPERATOR Ot 427.89 06/08/2014 BAIMA, LAQUITA L STUFFING MACHINE OPERATOR Ot V45.01 10/12/2015 JUDIE SANCHEZ, MITCHELL [place] [...] OF CARDIAC PACEMAKER 10/18/2015 BAIMA LAQUITA L STUFFING MACHINE OPERATOR Ot E78.5 HYPERLIPIDEMIA, UNSPECIFIED 10/19/2015 BAIMA LAQUITA L STUFFING MACHINE OPERATOR Ot E78.5 HYPERLIPIDEMIA, UNSPECIFIED 10/19/2015 BAIMA, LAQUITA L STUFFING MACHINE OPERATOR Ot I10 ESSENTIAL (PRIMARY) HYPERTENSION 10/19/2015 BAIMA, LAQUITA L STUFFING MACHINE OPERATOR Ot I25.10 ATHSCL HEART DISEASE OF [place] CORONARY 10/19/2015 BAIMA, LAQUITA L STUFFING MACHINE OPERATOR Ot N18.9 CHRONIC KIDNEY DISEASE, UNSPECIFIED 10/19/2015 BAIMA, LAQUITA L STUFFING MACHINE OPERATOR Ot R00.1 BRADYCARDIA, UNSPECIFIED 10/19/2015 BAIMA, LAQUITA L STUFFING MACHINE OPERATOR Ot Z95.0 PRESENCE OF CARDIAC PACEMAKER 11/07/2015 BAIMA, LAQUITA L STUFFING MACHINE OPERATOR Ot 272.4 HYPERLIPIDEMIA NEC/NOS 11/07/2015 BAIMA, LAQUITA L STUFFING MACHINE OPERATOR Ot 414.00 CORON ATHEROSCLER NOS TYPE VESSEL, NATIV 11/07/2015 BAIMA, LAQUITA L STUFFING MACHINE OPERATOR Ot 427.89 CARDIAC DYSRHYTHMIAS NEC 11/07/2015 BAIMA, LAQUITA L STUFFING MACHINE OPERATOR Ot V45.01 CARDIAC PACEMAKER IN SITU 11/07/2015 BAIMA, LAQUITA L STUFFING MACHINE OPERATOR Ot E78.5 HYPERLIPIDEMIA, UNSPECIFIED 11/07/2015 BAIMA, LAQUITA L STUFFING MACHINE OPERATOR Ot I10 ESSENTIAL (PRIMARY) HYPERTENSION 11/07/2015 BAIMA, LAQUITA L STUFFING MACHINE OPERATOR Ot I25.10 ATHSCL HEART DISEASE OF [place] CORONARY 11/07/2015 BAIMA, LAQUITA L STUFFING MACHINE OPERATOR Ot N18.9 CHRONIC KIDNEY DISEASE, UNSPECIFIED 11/07/2015 BAIMA, LAQUITA L STUFFING MACHINE OPERATOR Ot R00.1 BRADYCARDIA, UNSPECIFIED 11/07/2015 BAIMA, LAQUITA L STUFFING MACHINE OPERATOR Ot Z95.0 PRESENCE OF CARDIAC PACEMAKER 11/08/2015 BAIMA, LAQUITA L STUFFING MACHINE OPERATOR Ot Z95.0 PRESENCE OF CARDIAC PACEMAKER 11/08/2015 BAIMA, LAQUITA L STUFFING MACHINE OPERATOR Ot E78.5 HYPERLIPIDEMIA, UNSPECIFIED 11/08/2015 BAIMA, LAQUITA L STUFFING MACHINE OPERATOR Ot 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 11/08/2015 BAIMA, LAQUITA L STUFFING MACHINE OPERATOR Ot I25.10 ATHSCL HEART DISEASE OF [place] CORONARY 11/08/2015 BAIMA, LAQUITA L STUFFING MACHINE OPERATOR Ot N18.9 CHRONIC KIDNEY DISEASE, UNSPECIFIED 11/08/2015 BAIMA, LAQUITA L STUFFING MACHINE OPERATOR Ot R00.1 BRADYCARDIA, UNSPECIFIED 11/08/2015 BAIMA, LAQUITA L STUFFING MACHINE OPERATOR Ot Z95.0 PRESENCE OF CARDIAC PACEMAKER 11/08/2015 BAIMA, LAQUITA L STUFFING MACHINE OPERATOR Ot E78.5 HYPERLIPIDEMIA, UNSPECIFIED 11/08/2015 BAIMA, LAQUITA L STUFFING MACHINE OPERATOR Ot I10 ESSENTIAL (PRIMARY) HYPERTENSION 11/08/2015 BAIMA, LAQUITA L STUFFING MACHINE OPERATOR Ot I25.10 ATHSCL HEART DISEASE OF [place] CORONARY 11/08/2015 BAIMA, LAQUITA L STUFFING MACHINE OPERATOR Ot N18.9 CHRONIC KIDNEY DISEASE, UNSPECIFIED 11/08/2015 BAIMA, LAQUITA L STUFFING MACHINE OPERATOR Ot R00.1 BRADYCARDIA, UNSPECIFIED 11/08/2015 BAIMA, LAQUITA L STUFFING MACHINE OPERATOR Ot Z95.0 PRESENCE OF CARDIAC PACEMAKER 12/11/2015 BAIMA, LAQUITA L STUFFING MACHINE OPERATOR Ot E78.5 HYPERLIPIDEMIA, UNSPECIFIED 12/11/2015 BAIMA, LAQUITA L STUFFING MACHINE OPERATOR Ot 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 12/11/2015 BAIMA, LAQUITA L STUFFING MACHINE OPERATOR Ot I25.10 ATHSCL HEART DISEASE OF [place] CORONARY 12/11/2015 BAIMA, LAQUITA L STUFFING MACHINE OPERATOR Ot N18.9 CHRONIC KIDNEY DISEASE, UNSPECIFIED 12/11/2015 BAIMA, LAQUITA L STUFFING MACHINE OPERATOR Ot R00.1 BRADYCARDIA, UNSPECIFIED 12/11/2015 BAIMA, LAQUITA L STUFFING MACHINE OPERATOR Ot Z95.0 PRESENCE OF CARDIAC PACEMAKER 01/14/2016 BAIMA, LAQUITA L STUFFING MACHINE OPERATOR Ot 272.4 HYPERLIPIDEMIA NEC/NOS 01/14/2016 BAIMA, LAQUITA L STUFFING MACHINE OPERATOR Ot 414.00 CORON ATHEROSCLER NOS TYPE VESSEL, NATIV 01/14/2016 BAIMA, LAQUITA L STUFFING MACHINE OPERATOR Ot 427.89 CARDIAC DYSRHYTHMIAS NEC 01/14/2016 BAIMA, LAQUITA L STUFFING MACHINE OPERATOR Ot V45.01 CARDIAC PACEMAKER IN SITU 01/14/2016 BAIMA, LAQUITA L STUFFING MACHINE OPERATOR Ot E78.5 HYPERLIPIDEMIA, UNSPECIFIED 01/14/2016 BAIMA, LAQUITA L STUFFING MACHINE OPERATOR Ot 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 01/14/2016 BAIMA, LAQUITA L STUFFING MACHINE OPERATOR Ot I25.10 ATHSCL HEART DISEASE OF [place] CORONARY 01/14/2016 BAIMA, LAQUITA L STUFFING MACHINE OPERATOR Ot N18.9 CHRONIC KIDNEY DISEASE, UNSPECIFIED 01/14/2016 BAIMA, LAQUITA L STUFFING MACHINE OPERATOR Ot R00.1 BRADYCARDIA, UNSPECIFIED 01/14/2016 BAIMA, LAQUITA L STUFFING MACHINE OPERATOR Ot Z95.0 PRESENCE OF CARDIAC PACEMAKER 01/14/2016 LAQUITA SYLVESTER STUFFING MACHINE OPERATOR Ot E78.5 HYPERLIPIDEMIA, UNSPECIFIED 01/14/2016 BAILAQUITA HERNANDEZ L STUFFING MACHINE OPERATOR Ot I10 ESSENTIAL (PRIMARY) HYPERTENSION 01/14/2016 LAQUITA SYLVESTER L STUFFING MACHINE OPERATOR Ot I25.10 ATHSCL HEART DISEASE OF [place] CORONARY 01/14/2016 LAQUITA SYLVESTER STUFFING MACHINE OPERATOR Ot N18.9 CHRONIC KIDNEY DISEASE, UNSPECIFIED 01/14/2016 BAILAQUITA HERNANDEZ STUFFING MACHINE OPERATOR Ot R00.1 BRADYCARDIA, UNSPECIFIED 01/14/2016 BAILAQUITA HERNANDEZ STUFFING MACHINE OPERATOR Ot Z95.0 PRESENCE OF CARDIAC PACEMAKER 01/15/2016 GELY AVILEZ MD Ot E78.5 HYPERLIPIDEMIA, UNSPECIFIED 01/15/2016 GELY AVILEZ MD Ot E86.0 DEHYDRATION 01/15/2016 GELY AVILEZ MD Ot 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 01/15/2016 GELY AVILEZ MD Ot I25.10 ATHSCL HEART DISEASE OF [place] CORONARY 01/15/2016 GELY AVILEZ MD Ot K21.9 [...] MD Ot I25.10 ATHSCL HEART DISEASE OF [place] CORONARY 01/15/2016 GELY AVILEZ MD Ot K21.9 [...] AORTOCORONARY BYPASS GRAFT 01/17/2016 LAURAMA, LAQUITA L STUFFING MACHINE OPERATOR Ot 272.4 HYPERLIPIDEMIA NEC/NOS 01/17/2016 LAURAMA, LAQUITA L STUFFING MACHINE OPERATOR Ot 414.00 CORON ATHEROSCLER NOS TYPE VESSEL, NATIV 01/17/2016 LAURAMA, LAQUITA L STUFFING MACHINE OPERATOR Ot 427.89 CARDIAC DYSRHYTHMIAS NEC 01/17/2016 NGA LAQUITA L STUFFING MACHINE OPERATOR Ot V45.01 CARDIAC PACEMAKER IN SITU 01/17/2016 LAURAMA, LAQUITA L STUFFING MACHINE OPERATOR Ot E78.5 HYPERLIPIDEMIA, UNSPECIFIED 01/17/2016 BAIMA, LAQUITA L STUFFING MACHINE OPERATOR Ot 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 01/17/2016 BAIMA, LAQUITA L STUFFING MACHINE OPERATOR Ot I25.10 ATHSCL HEART DISEASE OF [place] CORONARY 01/17/2016 LAURAMA, LAQUITA L STUFFING MACHINE OPERATOR Ot N18.9 CHRONIC KIDNEY DISEASE, UNSPECIFIED 01/17/2016 BAIMA, LAQUITA L STUFFING MACHINE OPERATOR Ot R00.1 BRADYCARDIA, UNSPECIFIED 01/17/2016 BAIMA, LAQUITA L STUFFING MACHINE OPERATOR Ot Z95.0 PRESENCE OF CARDIAC PACEMAKER 01/17/2016 LAURAMA, LAQUITA L STUFFING MACHINE OPERATOR Ot E78.5 HYPERLIPIDEMIA, UNSPECIFIED 01/17/2016 BAIMA, LAQUITA L STUFFING MACHINE OPERATOR Ot I10 ESSENTIAL (PRIMARY) HYPERTENSION 01/17/2016 BAIMA, LAQUITA L STUFFING MACHINE OPERATOR Ot I25.10 ATHSCL HEART DISEASE OF [place] CORONARY 01/17/2016 LAURAMA LAQUITA L STUFFING MACHINE OPERATOR Ot N18.9 CHRONIC KIDNEY DISEASE, UNSPECIFIED 01/17/2016 BAIMA LAQUITA L STUFFING MACHINE OPERATOR Ot R00.1 BRADYCARDIA, UNSPECIFIED 01/17/2016 BAIMA, LAQUITA L STUFFING MACHINE OPERATOR Ot Z95.0 PRESENCE OF CARDIAC PACEMAKER 01/17/2016 BAIMA, LAQUITA L STUFFING MACHINE OPERATOR Ot E78.5 HYPERLIPIDEMIA, UNSPECIFIED 01/17/2016 BAIMA, LAQUITA L STUFFING MACHINE OPERATOR Ot 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 01/17/2016 BAIMA, LAQUITA L STUFFING MACHINE OPERATOR Ot I25.10 ATHSCL HEART DISEASE OF [place] CORONARY 01/17/2016 BAIMA, LAQUITA L STUFFING MACHINE OPERATOR Ot N18.9 CHRONIC KIDNEY DISEASE, UNSPECIFIED 01/17/2016 BAIMA, LAQUITA L STUFFING MACHINE OPERATOR Ot R00.1 BRADYCARDIA, UNSPECIFIED 01/17/2016 BAIMA, LAQUITA L STUFFING MACHINE OPERATOR Ot Z95.0 PRESENCE OF CARDIAC PACEMAKER 01/17/2016 BAIMA, LAQUITA L STUFFING MACHINE OPERATOR Ot E78.5 HYPERLIPIDEMIA, UNSPECIFIED 01/17/2016 BAIMA, LAQUITA L STUFFING MACHINE OPERATOR Ot I10 ESSENTIAL (PRIMARY) HYPERTENSION 01/17/2016 BAIMA, LAQUITA L STUFFING MACHINE OPERATOR Ot I25.10 ATHSCL HEART DISEASE OF [place] CORONARY 01/17/2016 BAIMA, LAQUITA L STUFFING MACHINE OPERATOR Ot N18.9 CHRONIC KIDNEY DISEASE, UNSPECIFIED 01/17/2016 BAIMA, LAQUITA L STUFFING MACHINE OPERATOR Ot R00.1 BRADYCARDIA, UNSPECIFIED 01/17/2016 BAIMA, LAQUITA L STUFFING MACHINE OPERATOR Ot Z95.0 PRESENCE OF CARDIAC PACEMAKER 06/06/2016 MARTINEZ DO NORAH K Ot I10 ESSENTIAL (PRIMARY) HYPERTENSION 06/06/2016 MARTINEZ DO NORAH K Ot I25.10 ATHSCL HEART DISEASE OF [place] CORONARY 06/06/2016 MARTINEZ DO NORAH K Ot R07.9 CHEST PAIN, UNSPECIFIED 06/06/2016 MARTINEZ DO NORAH K Ot Z79.82 PURCHASING EXPEDITOR (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 06/06/2016 MARTINEZ DO NORAH K Ot Z79.899 OTHER HALFWAY (CURRENT) DRUG THERAPY 06/06/2016 MARTINEZ DO NORAH K Ot Z95.0 PRESENCE OF CARDIAC PACEMAKER 06/06/2016 MARTINEZ DO, NORAH K Ot Z95.1 PRESENCE OF AORTOCORONARY BYPASS GRAFT 06/09/2016 MARTINEZ DO NORAH K Ot I10 ESSENTIAL (PRIMARY) HYPERTENSION 06/09/2016 MARTINEZ DO NORAH K Ot I25.10 ATHSCL HEART DISEASE OF [place] CORONARY 06/09/2016 NORAH HENRIQUEZ DO Ot R07.9 CHEST PAIN, UNSPECIFIED 06/09/2016 NORAH HENRIQUEZ DO Ot Z79.82 HALFWAY (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 06/09/2016 NORAH HENRIQUEZ DO Ot Z79.899 OTHER PURCHASING EXPEDITOR (CURRENT) DRUG THERAPY 06/09/2016 NORAH HENRIQUEZ DO Ot Z95.0 PRESENCE OF CARDIAC PACEMAKER 06/09/2016 NORAH HENRIQUEZ DO Ot Z95.1 PRESENCE OF AORTOCORONARY BYPASS GRAFT 06/17/2016 BAIMA, LAQUITA L STUFFING MACHINE OPERATOR Ot 272.4 HYPERLIPIDEMIA NEC/NOS 06/17/2016 BAIMA, LAQUITA L STUFFING MACHINE OPERATOR Ot 414.00 CORON ATHEROSCLER NOS TYPE VESSEL, NATIV 06/17/2016 BAIMA, LAQUITA L STUFFING MACHINE OPERATOR Ot 427.89 CARDIAC DYSRHYTHMIAS NEC 06/17/2016 BAIMA, LAQUITA L STUFFING MACHINE OPERATOR Ot V45.01 CARDIAC PACEMAKER IN SITU 06/17/2016 BAIMA, LAQUITA L STUFFING MACHINE OPERATOR Ot E78.5 HYPERLIPIDEMIA, UNSPECIFIED 06/17/2016 BAIMA, LAQUITA L STUFFING MACHINE OPERATOR Ot 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 06/17/2016 BAIMA, LAQUITA L STUFFING MACHINE OPERATOR Ot I25.10 ATHSCL HEART DISEASE OF [place] CORONARY 06/17/2016 BAIMA, LAQUITA L STUFFING MACHINE OPERATOR Ot N18.9 CHRONIC KIDNEY DISEASE, UNSPECIFIED 06/17/2016 BAIMA, LAQUITA L STUFFING MACHINE OPERATOR Ot R00.1 BRADYCARDIA, UNSPECIFIED 06/17/2016 BAIMA, LAQUITA L STUFFING MACHINE OPERATOR Ot Z95.0 PRESENCE OF CARDIAC PACEMAKER 06/17/2016 BAIMA, LAQUITA L STUFFING MACHINE OPERATOR Ot E78.5 HYPERLIPIDEMIA, UNSPECIFIED 06/17/2016 BAIMA, LAQUITA L STUFFING MACHINE OPERATOR Ot I10 ESSENTIAL (PRIMARY) HYPERTENSION 06/17/2016 BAIMA, LAQUITA L STUFFING MACHINE OPERATOR Ot I25.10 ATHSCL HEART DISEASE OF [place] CORONARY 06/17/2016 BAIMA, LAQUITA L STUFFING MACHINE OPERATOR Ot N18.9 CHRONIC KIDNEY DISEASE, UNSPECIFIED 06/17/2016 BAIMA, LAQUITA L STUFFING MACHINE OPERATOR Ot R00.1 BRADYCARDIA, UNSPECIFIED 06/17/2016 BAIMA, LAQUITA L STUFFING MACHINE OPERATOR Ot Z95.0 PRESENCE OF CARDIAC PACEMAKER 06/17/2016 ANAYELI SANCHEZ FACC, ALI FACP CCDS Ot R07.89 OTHER CHEST PAIN 06/17/2016 ANAYELI SANCHEZ FACC, ALI FACP CCDS Ot E78.4 OTHER HYPERLIPIDEMIA 06/17/2016 ANAYELI SANCHEZ FACC, ALI FACP CCDS Ot 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 06/17/2016 ANAYELI SANCHEZ FACC, ALI FACP CCDS Ot I25.10 ATHSCL HEART DISEASE OF [place] CORONARY 06/17/2016 ANAYELI SANCHEZ FACC, ALI FACP [...] CCDS Ot I25.10 ATHSCL HEART DISEASE OF [place] CORONARY 06/18/2016 ANAYELI SANCHEZ FACC, ALI FACP [...] CCDS Ot I25.10 ATHSCL HEART DISEASE OF [place] CORONARY 07/08/2016 ANAYELI SANCHEZ FACC, ALI FACP CCDS Ot I65.23 OCCLUSION AND STENOSIS OF [place] 07/08/2016 ANAYELI SANCHEZ FACC, ALI FACP CCDS Ot N18.9 CHRONIC KIDNEY DISEASE, UNSPECIFIED 07/08/2016 ANAYELI SANCHEZ [facility], ALI FACP CCDS Ot R07.89 OTHER CHEST PAIN 07/08/2016 ANAYELI SANCHEZ [facility], ALI FACP CCDS Ot Z95.0 PRESENCE OF CARDIAC PACEMAKER 09/11/2016 BAIMA, LAQUITA L STUFFING MACHINE OPERATOR Ot E78.5 HYPERLIPIDEMIA, UNSPECIFIED 09/11/2016 BAIMA, LAQUITA L STUFFING MACHINE OPERATOR Ot 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 09/11/2016 BAIMA, LAQUITA L STUFFING MACHINE OPERATOR Ot I25.10 ATHSCL HEART DISEASE OF [place] CORONARY 09/11/2016 BAIMA, LAQUITA L STUFFING MACHINE OPERATOR Ot N18.9 CHRONIC KIDNEY DISEASE, UNSPECIFIED 09/11/2016 BAIMA, LAQUITA L STUFFING MACHINE OPERATOR Ot R00.1 BRADYCARDIA, UNSPECIFIED 09/11/2016 BAIMA, LAQUITA L STUFFING MACHINE OPERATOR Ot Z95.0 PRESENCE OF CARDIAC PACEMAKER 09/11/2016 ANAYELI SANCHEZ [facility], ALI FACP CCDS Ot E78.4 OTHER HYPERLIPIDEMIA 09/11/2016 ANAYELI SANCHEZ [facility], ALI FACP CCDS Ot 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 09/11/2016 ANAYELI SANCHEZ [facility], ALI FACP CCDS Ot I25.10 ATHSCL HEART DISEASE OF [place] CORONARY 09/11/2016 ANAYELI SANCHEZ [facility], ALI FACP CCDS Ot I65.23 OCCLUSION AND STENOSIS OF [place] 09/11/2016 ANAYELI SANCHEZ [facility], ALI FACP CCDS Ot N18.9 CHRONIC KIDNEY DISEASE, UNSPECIFIED 09/11/2016 ANAYELI SANCHEZ [facility], ALI FACP CCDS Ot R07.89 OTHER CHEST PAIN 09/11/2016 ANAYELI SANCHEZ [facility], ALI FACP CCDS Ot Z95.0 PRESENCE OF CARDIAC PACEMAKER 09/11/2016 BAIMA, LAQUITA L STUFFING MACHINE OPERATOR Ot E78.5 HYPERLIPIDEMIA, UNSPECIFIED 09/11/2016 BAIMA, LAQUITA L STUFFING MACHINE OPERATOR Ot 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 09/11/2016 BAIMA, LAQUITA L STUFFING MACHINE OPERATOR Ot I25.10 ATHSCL HEART DISEASE OF [place] CORONARY 09/11/2016 BAIMA, LAQUITA L STUFFING MACHINE OPERATOR Ot N18.9 CHRONIC KIDNEY DISEASE, UNSPECIFIED 09/11/2016 BAIMA, LAQUITA L STUFFING MACHINE OPERATOR Ot R00.1 BRADYCARDIA, UNSPECIFIED 09/11/2016 BAIMA, LAQUITA L STUFFING MACHINE OPERATOR Ot Z95.0 PRESENCE OF CARDIAC PACEMAKER 09/11/2016 ANAYELI SANCHEZ FACC, ALI FACP CCDS Ot E78.4 OTHER HYPERLIPIDEMIA 09/11/2016 ANAYELI SANCHEZ FACC, ALI FACP CCDS Ot 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 09/11/2016 ANAYELI OJEDAC, ALI FACP CCDS Ot I25.10 ATHSCL HEART DISEASE OF [place] CORONARY 09/11/2016 ANAYELI SANCHEZ FACC, ALI FACP CCDS Ot I65.23 OCCLUSION AND STENOSIS OF [place]IL[place]AL [place] 09/11/2016 ANAYELI SANCHEZ FACC, ALI FACP CCDS Ot N18.9 CHRONIC KIDNEY DISEASE, UNSPECIFIED 09/11/2016 ANAYELI SANCHEZ FACC, ALI FACP CCDS Ot R07.89 OTHER CHEST PAIN 09/11/2016 ANAYELI OJEDAC, ALI FACP CCDS Ot Z95.0 PRESENCE OF CARDIAC PACEMAKER 09/16/2016 BAIMA, LAQUITA L STUFFING MACHINE OPERATOR Ot E78.5 HYPERLIPIDEMIA, UNSPECIFIED 09/16/2016 BAIMA, LAQUITA L STUFFING MACHINE OPERATOR Ot 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 09/16/2016 BAIMA, LAQUITA L STUFFING MACHINE OPERATOR Ot I25.10 ATHSCL HEART DISEASE OF [place] CORONARY 09/16/2016 BAIMA, LAQUITA L STUFFING MACHINE OPERATOR Ot N18.9 CHRONIC KIDNEY DISEASE, UNSPECIFIED 09/16/2016 BAIMA, LAQUITA L STUFFING MACHINE OPERATOR Ot R00.1 BRADYCARDIA, UNSPECIFIED 09/16/2016 BAIMA, LAQUITA L STUFFING MACHINE OPERATOR Ot Z95.0 PRESENCE OF CARDIAC PACEMAKER 09/16/2016 ANAYELI SANCHEZ FACC, ALI FACP CCDS Ot E78.4 OTHER HYPERLIPIDEMIA 09/16/2016 ANAYELI SANCHEZ FACC, ALI FACP CCDS Ot 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 09/16/2016 ANAYELI SANCHEZ FACC, ALI FACP CCDS Ot I25.10 ATHSCL HEART DISEASE OF [place] CORONARY 09/16/2016 ANAYELI SANCHEZ FACC, ALI FACP [...] MD Ot I25.10 ATHSCL HEART DISEASE OF [place] CORONARY 11/13/2016 CARINA COTTON MD Ot M54.9 [...] CCDS Ot I25.10 ATHSCL HEART DISEASE OF [place] CORONARY 11/20/2016 ANAYELI SANCHEZ FACC, ALI FACP [...] Ot E78.5 HYPERLIPIDEMIA, UNSPECIFIED 12/09/2016 LAURALAQUITA HERNANDEZ STUFFING MACHINE OPERATOR Ot 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 12/09/2016 LAURAMARY LAQUITA Antunez STUFFING MACHINE OPERATOR Ot I25.10 ATHSCL HEART DISEASE OF [place] CORONARY 12/09/2016 LAQUITA SYLVESTER STUFFING MACHINE OPERATOR Ot 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 12/09/2016 LAURALAQUITA HERNANDEZ STUFFING MACHINE OPERATOR Ot N18.2 CHRONIC KIDNEY DISEASE, STAGE 2 (MILD) 12/09/2016 LAURAMARY LAQUITA Antunez STUFFING MACHINE OPERATOR Ot R00.1 BRADYCARDIA, UNSPECIFIED 12/09/2016 LAURALAQUITA HERNANDEZ STUFFING MACHINE OPERATOR Ot Z45.010 ENCNTR FOR CHECKING AND TEST OF CARD PAC 12/09/2016 NGA LAQUITA Antunez STUFFING MACHINE OPERATOR Ot Z79.899 OTHER PURCHASING EXPEDITOR (CURRENT) DRUG THERAPY 12/09/2016 NGA LAQUITA Antunez STUFFING MACHINE OPERATOR Ot Z95.1 PRESENCE OF AORTOCORONARY BYPASS GRAFT [...] MD Ot I25.10 ATHSCL HEART DISEASE OF [place] CORONARY 2016 CARINA COTTON MD Ot M54.9 [...] CCDS Ot I25.10 ATHSCL HEART DISEASE OF [place] CORONARY 2016 ANAYELI SANCHEZ FAC, ALI FACP [...] MD Ot I25.10 ATHSCL HEART DISEASE OF [place] CORONARY 12/22/2016 JIMENA MENENDEZ MD Ot I25.2 OLD MYOCARDIAL INFARCTION 12/22/2016 JIMENA MENENDEZ MD Ot K58.9 IRRITABLE BOWEL SYNDROME WITHOUT DIARRHE 12/22/2016 JIMENA MENENDEZ MD Ot S51.811A LACERATION W/O FOREIGN BODY OF RIGHT FOR 12/22/2016 JIMENA MENENDEZ MD Ot W18.30XA FALL ON SAME LEVEL, UNSPECIFIED, INITIAL 12/22/2016 JIMENA MENENDEZ MD Ot Y92.002 BATHRM OF [facility] NON-INSTITUT RESDNCE SNGL 12/22/2016 JIMENA MENENDEZ MD Ot Z79.82 PURCHASING EXPEDITOR (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 12/22/2016 JIMENA MENENDEZ [...] MD Ot I25.10 ATHSCL HEART DISEASE OF [place] CORONARY 01/17/2017 CARINA COTTON MD, Ot M54.9 [...] MD Ot I25.10 ATHSCL HEART DISEASE OF [place] CORONARY 01/20/2017 CARINA COTTON MD, Ot M54.9 [...] MD, Ot I25.10 ATHSCL HEART DISEASE OF [place] CORONARY 07/29/2017 GELY AVILEZ MD, Ot I25.2 [...] AVILEZ MD Ot Y92.[address] IN CORRECTION PLACE 07/29/2017 GELY AVILEZ MD Ot Z79.82 HALFWAY (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 07/29/2017 GELY AVILEZ MD, Ot Z79.899 OTHER HALFWAY (CURRENT) DRUG THERAPY 07/29/2017 GELY AVILEZ MD, Ot Z87.891 PERSONAL HISTORY OF NICOTINE DEPENDENCE 07/29/2017 GELY AVILEZ MD Ot Z95.0 PRESENCE OF CARDIAC PACEMAKER 07/29/2017 GELY AVILEZ MD Ot Z95.1 PRESENCE OF AORTOCORONARY BYPASS GRAFT 07/30/2017 LAQUITA SYLVESTER L STUFFING MACHINE OPERATOR Ot 272.4 HYPERLIPIDEMIA NEC/NOS 07/30/2017 BAIMA, LAQUITA L STUFFING MACHINE OPERATOR Ot 414.00 CORON ATHEROSCLER NOS TYPE VESSEL, NATIV 07/30/2017 BAIMA LAQUITA L STUFFING MACHINE OPERATOR Ot 427.89 CARDIAC DYSRHYTHMIAS NEC 07/30/2017 BAIMA LAQUITA L STUFFING MACHINE OPERATOR Ot V45.01 CARDIAC PACEMAKER IN SITU 07/30/2017 BAIMA, LAQUITA L STUFFING MACHINE OPERATOR Ot E78.5 HYPERLIPIDEMIA, UNSPECIFIED 07/30/2017 BAIMA, LAQUITA L STUFFING MACHINE OPERATOR Ot 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 07/30/2017 BAIMA, LAQUITA L STUFFING MACHINE OPERATOR Ot I25.10 ATHSCL HEART DISEASE OF [place] CORONARY 07/30/2017 BAIMA, LAQUITA L STUFFING MACHINE OPERATOR Ot N18.9 CHRONIC KIDNEY DISEASE, UNSPECIFIED 07/30/2017 BAIMA, LAQUITA L STUFFING MACHINE OPERATOR Ot R00.1 BRADYCARDIA, UNSPECIFIED 07/30/2017 BAIMA, LAQUITA L STUFFING MACHINE OPERATOR Ot Z95.0 PRESENCE OF CARDIAC PACEMAKER 07/30/2017 BAIMA, LAQUITA L STUFFING MACHINE OPERATOR Ot E78.5 HYPERLIPIDEMIA, UNSPECIFIED 07/30/2017 BAIMA, LAQUITA L STUFFING MACHINE OPERATOR Ot I10 ESSENTIAL (PRIMARY) HYPERTENSION 07/30/2017 BAIMA, LAQUITA L STUFFING MACHINE OPERATOR Ot I25.10 ATHSCL HEART DISEASE OF [place] CORONARY 07/30/2017 BAIMA, LAQUITA L STUFFING MACHINE OPERATOR Ot N18.9 CHRONIC KIDNEY DISEASE, UNSPECIFIED 07/30/2017 BAIMA, LAQUITA L STUFFING MACHINE OPERATOR Ot R00.1 BRADYCARDIA, UNSPECIFIED 07/30/2017 BAIMA, LAQUITA L STUFFING MACHINE OPERATOR Ot Z95.0 PRESENCE OF CARDIAC PACEMAKER 07/30/2017 ANAYELI SANCHEZ FACC, DENITA FACP CCDS Ot E78.4 OTHER HYPERLIPIDEMIA 07/30/2017 ANAYELI SANCHEZ FACC, ALI FACP CCDS Ot 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 07/30/2017 ANAYELI SANCHEZ FACC, ALI FACP CCDS Ot I25.10 ATHSCL HEART DISEASE OF [place] CORONARY 07/30/2017 ANAYELI SANCHEZ FACC, ALI FACP [...] CCDS Ot I25.10 ATHSCL HEART DISEASE OF [place] CORONARY 07/30/2017 ANAYELI SANCHEZ FAC, ALI FACP [...] MD Ot I25.10 ATHSCL HEART DISEASE OF [place] CORONARY 07/30/2017 CARINA COTTON MD Ot M54.9 DORSALGIA, UNSPECIFIED 07/30/2017 CARINA COTTON MD Ot Z95.0 PRESENCE OF CARDIAC PACEMAKER 07/30/2017 CARINA COTTON MD Ot Z95.1 PRESENCE OF AORTOCORONARY BYPASS GRAFT 07/30/2017 CARINA COTTON MD Ot Z99.3 DEPENDENCE ON WHEELCHAIR 08/13/2017 LAQUITA SYLVESTER STUFFING MACHINE OPERATOR Ot 272.4 HYPERLIPIDEMIA NEC/NOS 08/13/2017 BAIMARY LAQUITA L STUFFING MACHINE OPERATOR Ot 414.00 CORON ATHEROSCLER NOS TYPE VESSEL, NATIV 08/13/2017 BAIMA, LAQUITA L STUFFING MACHINE OPERATOR Ot 427.89 CARDIAC DYSRHYTHMIAS NEC 08/13/2017 BAIMARY LAQUITA L STUFFING MACHINE OPERATOR Ot V45.01 CARDIAC PACEMAKER IN SITU 08/13/2017 BAIMA LAQUITA L STUFFING MACHINE OPERATOR Ot E78.5 HYPERLIPIDEMIA, UNSPECIFIED 08/13/2017 BAIMA, LAQUITA L STUFFING MACHINE OPERATOR Ot 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 08/13/2017 BAIMA, LAQUITA L STUFFING MACHINE OPERATOR Ot I25.10 ATHSCL HEART DISEASE OF [place] CORONARY 08/13/2017 BAIMA, LAQUITA L STUFFING MACHINE OPERATOR Ot N18.9 CHRONIC KIDNEY DISEASE, UNSPECIFIED 08/13/2017 BAIMA, LAQUITA L STUFFING MACHINE OPERATOR Ot R00.1 BRADYCARDIA, UNSPECIFIED 08/13/2017 BAIMA, LAQUITA L STUFFING MACHINE OPERATOR Ot Z95.0 PRESENCE OF CARDIAC PACEMAKER 08/13/2017 LAURAMARY LAQUITA L STUFFING MACHINE OPERATOR Ot E78.5 HYPERLIPIDEMIA, UNSPECIFIED 08/13/2017 BAIMA, LAQUITA L STUFFING MACHINE OPERATOR Ot I10 ESSENTIAL (PRIMARY) HYPERTENSION 08/13/2017 BAIMA, LAQUITA L STUFFING MACHINE OPERATOR Ot I25.10 ATHSCL HEART DISEASE OF [place] CORONARY 08/13/2017 BAIMA, LAQUITA L STUFFING MACHINE OPERATOR Ot N18.9 CHRONIC KIDNEY DISEASE, UNSPECIFIED 08/13/2017 BAIMA, LAQUITA L STUFFING MACHINE OPERATOR Ot R00.1 BRADYCARDIA, UNSPECIFIED 08/13/2017 BAIMA, LAQUITA L STUFFING MACHINE OPERATOR Ot Z95.0 PRESENCE OF CARDIAC PACEMAKER 08/13/2017 ANAYELI SANCHEZ FACC, DENITA FACP CCDS Ot E78.4 OTHER HYPERLIPIDEMIA 08/13/2017 ANAYELI SANCHEZ FACC, DENITA FACP CCDS Ot 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 08/13/2017 ANAYELI SANCHEZ FACC, DENITA FACP CCDS Ot I25.10 ATHSCL HEART DISEASE OF [place] CORONARY 08/13/2017 ANAYELI SANCHEZ FACC, ALI FACP [...] CCDS Ot I25.10 ATHSCL HEART DISEASE OF [place] CORONARY 08/13/2017 ANAYELI SANCHEZ FAC, ALI FACP [...] MD Ot I25.10 ATHSCL HEART DISEASE OF [place] CORONARY 08/13/2017 CARINA COTTON MD Ot M54.9 DORSALGIA, UNSPECIFIED 08/13/2017 CARINA COTTON MD Ot Z95.0 PRESENCE OF CARDIAC PACEMAKER 08/13/2017 CARINA COTTON MD Ot Z95.1 PRESENCE OF AORTOCORONARY BYPASS GRAFT 08/13/2017 CARINA COTTON MD Ot Z99.3 DEPENDENCE ON WHEELCHAIR 08/14/2017 NEHA MOURA APRN Ot M25.552 PAIN IN LEFT HIP 08/14/2017 ZENY, NEHA R BLIND HANGER Ot W19.XXXA UNSPECIFIED FALL, INITIAL ENCOUNTER 08/14/2017 GELY AVILEZ MD Ot E78.00 PURE HYPERCHOLESTEROLEMIA, UNSPECIFIED 08/14/2017 GELY AVILEZ MD Ot F41.9 ANXIETY DISORDER, UNSPECIFIED 08/14/2017 GELY AVILEZ MD Ot I10 ESSENTIAL (PRIMARY) HYPERTENSION 08/14/2017 GELY AVILEZ MD Ot I25.10 ATHSCL HEART DISEASE OF [place] CORONARY 08/14/2017 GELY AVILEZ MD Ot I25.2 OLD MYOCARDIAL INFARCTION 08/14/2017 GELY AVILEZ MD Ot R53.1 WEAKNESS 08/14/2017 GELY AVILEZ MD Ot R91.8 OTHER NONSPECIFIC ABNORMAL FINDING OF THEE 08/14/2017 GELY AVILEZ MD Ot T18.120A FOOD IN ESOPHAGUS CAUSING COMPRESSION OF 08/14/2017 GELY AVILEZ MD Ot Z79.51 PURCHASING EXPEDITOR (CURRENT) USE OF INHALED STERO 08/14/2017 GELY AVILEZ MD Ot Z79.82 PURCHASING EXPEDITOR (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 08/14/2017 GELY AVILEZ [...] Ot W19.XXXA UNSPECIFIED FALL, INITIAL ENCOUNTER 08/19/2017 CRISSY GURROLA APRN Ot E78.00 PURE HYPERCHOLESTEROLEMIA, UNSPECIFIED 08/19/2017 CRISSY GURROLA APRN Ot F41.9 ANXIETY DISORDER, UNSPECIFIED 08/19/2017 CRISSY GURROLA APRN Ot I10 ESSENTIAL (PRIMARY) HYPERTENSION 08/19/2017 CRISSY GURROLA APRN Ot I25.10 ATHSCL HEART DISEASE OF [place] CORONARY 08/19/2017 CRISSY GURROLA APRN Ot I25.2 OLD MYOCARDIAL INFARCTION 08/19/2017 CRISSY GURROLA APRN Ot N39.0 URINARY TRACT INFECTION, SITE NOT SPECIF 08/19/2017 CRISSY GURROLA APRN Ot R53.1 WEAKNESS 08/19/2017 CRISSY GURROLA APRN Ot R91.8 OTHER NONSPECIFIC ABNORMAL FINDING OF THEE 08/19/2017 CRISSY GURROLA APRN Ot Z79.51 HALFWAY (CURRENT) USE OF INHALED STERO 08/19/2017 CRISSY GURROLA APRN Ot Z79.82 HALFWAY (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 08/19/2017 CRISSY GURROLA APRN Ot Z85.828 PERSONAL HISTORY OF OTHER MALIGNANT NEOP 08/19/2017 CRISSY GURROLA APRN Ot Z87.01 PERSONAL HISTORY OF PNEUMONIA (RECURRENT 08/19/2017 CRISSY GURROLA APRN Ot Z87.19 PERSONAL HISTORY OF OTHER DISEASES OF TH 08/19/2017 CRISSY GURROLA APRN Ot Z87.891 PERSONAL HISTORY OF NICOTINE DEPENDENCE 08/19/2017 CRISSY GURROLA APRN Ot Z95.0 PRESENCE OF CARDIAC PACEMAKER 08/19/2017 CRISSY GURROLA APRN Ot Z95.1 PRESENCE OF AORTOCORONARY BYPASS GRAFT 08/19/2017 LAQUITA SYLVESTER L STUFFING MACHINE OPERATOR Ot 272.4 HYPERLIPIDEMIA NEC/NOS 08/19/2017 NGA LAQUITA L STUFFING MACHINE OPERATOR Ot 414.00 CORON ATHEROSCLER NOS TYPE VESSEL, NATIV 08/19/2017 NGA LAQUITA L STUFFING MACHINE OPERATOR Ot 427.89 CARDIAC DYSRHYTHMIAS NEC 08/19/2017 NGA LAQUITA L STUFFING MACHINE OPERATOR Ot V45.01 CARDIAC PACEMAKER IN SITU 08/19/2017 LUCI SYLVESTERHER L STUFFING MACHINE OPERATOR Ot E78.5 HYPERLIPIDEMIA, UNSPECIFIED 08/19/2017 NGA LAQUITA L STUFFING MACHINE OPERATOR Ot 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 08/19/2017 LUCI SYLVESTERHER L STUFFING MACHINE OPERATOR Ot I25.10 ATHSCL HEART DISEASE OF [place] CORONARY 08/19/2017 LUCI SYLVESTERHER L STUFFING MACHINE OPERATOR Ot N18.9 CHRONIC KIDNEY DISEASE, UNSPECIFIED 08/19/2017 GNA LAQUITA L STUFFING MACHINE OPERATOR Ot R00.1 BRADYCARDIA, UNSPECIFIED 08/19/2017 BAIMALAQUITA L STUFFING MACHINE OPERATOR Ot Z95.0 PRESENCE OF CARDIAC PACEMAKER 08/19/2017 BAILAQUITA HERNANDEZ L STUFFING MACHINE OPERATOR Ot E78.5 HYPERLIPIDEMIA, UNSPECIFIED 08/19/2017 BAIMA, LAQUITA L STUFFING MACHINE OPERATOR Ot I10 ESSENTIAL (PRIMARY) HYPERTENSION 08/19/2017 BAIMA, LAQUITA L STUFFING MACHINE OPERATOR Ot I25.10 ATHSCL HEART DISEASE OF [place] CORONARY 08/19/2017 BAIMA LAQUITA L STUFFING MACHINE OPERATOR Ot N18.9 CHRONIC KIDNEY DISEASE, UNSPECIFIED 08/19/2017 BAIMA, LAQUITA L STUFFING MACHINE OPERATOR Ot R00.1 BRADYCARDIA, UNSPECIFIED 08/19/2017 BAIMA, LAQUITA L STUFFING MACHINE OPERATOR Ot Z95.0 PRESENCE OF CARDIAC PACEMAKER 08/19/2017 ANAYELI SANCHEZ FACC, ALI FACP CCDS Ot E78.4 OTHER HYPERLIPIDEMIA 08/19/2017 ANAYELI SANCHEZ FACC, ALI FACP CCDS Ot 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 08/19/2017 ANAYELI SANCHEZ FACC, ALI FACP CCDS Ot I25.10 ATHSCL HEART DISEASE OF [place] CORONARY 08/19/2017 ANAYELI SANCHEZ FACC, ALI FACP CCDS Ot I65.23 OCCLUSION AND STENOSIS OF BILATERAL [place] 08/19/2017 ANAYELI SANCHEZ FACC, ALI FACP CCDS Ot N18.9 CHRONIC KIDNEY DISEASE, UNSPECIFIED 08/19/2017 ANAYELI SANCHEZ FACC, ALI FACP CCDS Ot R07.89 OTHER CHEST PAIN 08/19/2017 ANAYELI SANCHEZ FACLorrie, ALI FACP CCDS Ot Z95.0 PRESENCE OF CARDIAC PACEMAKER 08/19/2017 ANAYELI SANCHEZ FACC, ALI FACP CCDS Ot E78.4 OTHER HYPERLIPIDEMIA 08/19/2017 ANAYELI SANCHEZ FACC, ALI FACP CCDS Ot 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 08/19/2017 ANAYELI OJEDAC, ALI FACP CCDS Ot I25.10 ATHSCL HEART DISEASE OF [place] CORONARY 08/19/2017 ANAYELI SANCHEZ FACC, ALI FACP [...] APRN Ot W19.XXXA UNSPECIFIED FALL, INITIAL ENCOUNTER 08/20/2017 GELY AVILEZ MD Ot E78.00 PURE HYPERCHOLESTEROLEMIA, UNSPECIFIED 08/20/2017 GELY AVILEZ MD Ot F41.9 ANXIETY DISORDER, UNSPECIFIED 08/20/2017 GELY AVILEZ MD Ot I10 ESSENTIAL (PRIMARY) HYPERTENSION 08/20/2017 GELY AVILEZ MD, Ot I25.10 ATHSCL HEART DISEASE OF [place] CORONARY 08/20/2017 GELY AVILEZ MD, Ot I25.2 OLD MYOCARDIAL INFARCTION 08/20/2017 GELY AVILEZ MD Ot R53.1 WEAKNESS 08/20/2017 GELY AVILEZ MD Ot R91.8 OTHER NONSPECIFIC ABNORMAL FINDING OF THEE 08/20/2017 GELY AVILEZ MD Ot T18.120A FOOD IN ESOPHAGUS CAUSING COMPRESSION OF 08/20/2017 GELY AVILEZ MD Ot Z79.51 HALFWAY (CURRENT) USE OF INHALED STERO 08/20/2017 GELY AVILEZ MD Ot Z79.82 PURCHASING EXPEDITOR (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 08/20/2017 GELY AVILEZ MD Ot Z85.828 PERSONAL HISTORY OF OTHER MALIGNANT NEOP 08/20/2017 GELY AVILEZ MD Ot Z87.01 PERSONAL HISTORY OF PNEUMONIA (RECURRENT 08/20/2017 GELY AVILEZ MD Ot Z87.19 PERSONAL HISTORY OF OTHER DISEASES OF TH 08/20/2017 GELY AVILEZ MD Ot Z87.891 PERSONAL HISTORY OF NICOTINE DEPENDENCE 08/20/2017 GELY AVILEZ MD Ot Z95.0 PRESENCE OF CARDIAC PACEMAKER 08/20/2017 GELY AVILEZ MD Ot Z95.1 PRESENCE OF AORTOCORONARY BYPASS GRAFT 08/20/2017 LAQUITA SYLVESTER STUFFING MACHINE OPERATOR Ot 272.4 HYPERLIPIDEMIA NEC/NOS 08/20/2017 LAQUITA SYLVESTER STUFFING MACHINE OPERATOR Ot 414.00 CORON ATHEROSCLER NOS TYPE VESSEL, NATIV 08/20/2017 BAIMA, LAQUITA L STUFFING MACHINE OPERATOR Ot 427.89 CARDIAC DYSRHYTHMIAS NEC 08/20/2017 BAILAQUITA HERNANDEZ L STUFFING MACHINE OPERATOR Ot V45.01 CARDIAC PACEMAKER IN SITU 08/20/2017 NGA LAQUITA L STUFFING MACHINE OPERATOR Ot E78.5 HYPERLIPIDEMIA, UNSPECIFIED 08/20/2017 BAIMA, LAQUITA L STUFFING MACHINE OPERATOR Ot 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 08/20/2017 BAIMA, LAQUITA L STUFFING MACHINE OPERATOR Ot I25.10 ATHSCL HEART DISEASE OF [place] CORONARY 08/20/2017 BAIMA LAQUITA L STUFFING MACHINE OPERATOR Ot N18.9 CHRONIC KIDNEY DISEASE, UNSPECIFIED 08/20/2017 BAIMA, LAQUITA L STUFFING MACHINE OPERATOR Ot R00.1 BRADYCARDIA, UNSPECIFIED 08/20/2017 BAIMA, LAQUITA L STUFFING MACHINE OPERATOR Ot Z95.0 PRESENCE OF CARDIAC PACEMAKER 08/20/2017 BAIMARY LAQUITA L STUFFING MACHINE OPERATOR Ot E78.5 HYPERLIPIDEMIA, UNSPECIFIED 08/20/2017 BAIMA, LAQUITA L STUFFING MACHINE OPERATOR Ot I10 ESSENTIAL (PRIMARY) HYPERTENSION 08/20/2017 BAIMA, LAQUITA L STUFFING MACHINE OPERATOR Ot I25.10 ATHSCL HEART DISEASE OF [place] CORONARY 08/20/2017 BAIMARY LAQUITA L STUFFING MACHINE OPERATOR Ot N18.9 CHRONIC KIDNEY DISEASE, UNSPECIFIED 08/20/2017 BAIMA, LAQUITA L STUFFING MACHINE OPERATOR Ot R00.1 BRADYCARDIA, UNSPECIFIED 08/20/2017 BAIMA, LAQUITA L STUFFING MACHINE OPERATOR Ot Z95.0 PRESENCE OF CARDIAC PACEMAKER 08/20/2017 ANAYELI SANCHEZ FACC, DENITA FACP CCDS Ot E78.4 OTHER HYPERLIPIDEMIA 08/20/2017 ANAYELI SANCHEZ FACC, DENITA FACP CCDS Ot 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 08/20/2017 ANAYELI SANCHEZ FACC, ALI FACP CCDS Ot I25.10 ATHSCL HEART DISEASE OF [place] CORONARY 08/20/2017 ANAYELI SANCHEZ FACC, DENITA FACP CCDS Ot I65.23 OCCLUSION AND STENOSIS OF BILATERAL [place] 08/20/2017 ANAYELI SANCHEZ FACC, DENITA FACP CCDS Ot N18.9 CHRONIC KIDNEY DISEASE, UNSPECIFIED 08/20/2017 ANAYELI SANCHEZ FACC, DENITA FACP CCDS Ot R07.89 OTHER CHEST PAIN 08/20/2017 ANAYELI SANCHEZ FACC, DENITA FACP CCDS Ot Z95.0 PRESENCE OF CARDIAC PACEMAKER 08/20/2017 ANAYELI MD FACC, ALI FACP CCDS Ot E78.4 OTHER HYPERLIPIDEMIA 08/20/2017 ANAYELI SANCHEZ FACC, ALI FACP CCDS Ot 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 08/20/2017 ANAYELI SANCHEZ FACC, ALI FACP CCDS Ot I25.10 ATHSCL HEART DISEASE OF [place] CORONARY 08/20/2017 ANAYELI SANCHEZ FACC, ALI FACP CCDS Ot I65.23 OCCLUSION AND STENOSIS OF BILATERAL [place] 08/20/2017 ANAYELI SANCHEZ FACC, ALI FACP CCDS Ot 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 08/20/2017 ANAYELI SANCHEZ FACC, ALI FACP CCDS Ot N18.9 CHRONIC KIDNEY DISEASE, UNSPECIFIED 08/20/2017 ANAYELI SANCHEZ FACC, ALI FACP CCDS Ot Z95.0 PRESENCE OF CARDIAC PACEMAKER 08/20/2017 NEHA MOURA BLIND HANGER Ot M25.552 PAIN IN LEFT HIP 08/20/2017 NEHA MOURA BLIND HANGER Ot W19.XXXA UNSPECIFIED FALL, INITIAL ENCOUNTER 08/21/2017 CRISSY GURROLA APRN Ot E78.00 PURE HYPERCHOLESTEROLEMIA, UNSPECIFIED 08/21/2017 CRISSY GURROLA APRN Ot F41.9 ANXIETY DISORDER, UNSPECIFIED 08/21/2017 CRISSY GURROLA APRN Ot I10 ESSENTIAL (PRIMARY) HYPERTENSION 08/21/2017 CRISSY GURROLA APRN Ot I25.10 ATHSCL HEART DISEASE OF [place] CORONARY 08/21/2017 CRISSY GURROLA APRN Ot I25.2 OLD MYOCARDIAL INFARCTION 08/21/2017 CRISSY GURROLA APRN Ot N39.0 URINARY TRACT INFECTION, SITE NOT SPECIF 08/21/2017 CRISSY GURROLA APRN Ot R53.1 WEAKNESS 08/21/2017 CRISSY GURROLA APRN Ot R91.8 OTHER NONSPECIFIC ABNORMAL FINDING OF THEE 08/21/2017 CRISSY GURROLA APRN Ot Z79.51 PURCHASING EXPEDITOR (CURRENT) USE OF INHALED STERO 08/21/2017 CRISSY GURROLA APRN Ot Z79.82 HALFWAY (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 08/21/2017 CRISSY GURROLA APRN Ot Z85.828 PERSONAL HISTORY OF OTHER MALIGNANT NEOP 08/21/2017 CRISSY GURROLA APRN Ot Z87.01 PERSONAL HISTORY OF PNEUMONIA (RECURRENT 08/21/2017 CRISSY GURROLA BLIND HANGER Ot Z87.19 PERSONAL HISTORY OF OTHER DISEASES OF TH 08/21/2017 CRISSY GURROLA BLIND HANGER Ot Z87.891 PERSONAL HISTORY OF NICOTINE DEPENDENCE 08/21/2017 CRISSY GURROLA BLIND HANGER Ot Z95.0 PRESENCE OF CARDIAC PACEMAKER 08/21/2017 CRISSY GURROLA BLIND HANGER Ot Z95.1 PRESENCE OF AORTOCORONARY BYPASS GRAFT 08/21/2017 BAIMA, LAQUITA L STUFFING MACHINE OPERATOR Ot 272.4 HYPERLIPIDEMIA NEC/NOS 08/21/2017 BAIMA, LAQUITA L STUFFING MACHINE OPERATOR Ot 414.00 CORON ATHEROSCLER NOS TYPE VESSEL, NATIV 08/21/2017 BAIMA, LAQUITA L STUFFING MACHINE OPERATOR Ot 427.89 CARDIAC DYSRHYTHMIAS NEC 08/21/2017 BAIMA, LAQUITA L STUFFING MACHINE OPERATOR Ot V45.01 CARDIAC PACEMAKER IN SITU 08/21/2017 LAURAMA, LAQUITA L STUFFING MACHINE OPERATOR Ot E78.5 HYPERLIPIDEMIA, UNSPECIFIED 08/21/2017 BAIMA, LAQUITA L STUFFING MACHINE OPERATOR Ot 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 08/21/2017 BAIMA, LAQUITA L STUFFING MACHINE OPERATOR Ot I25.10 ATHSCL HEART DISEASE OF [place] CORONARY 08/21/2017 BAIMA, LAQUITA L STUFFING MACHINE OPERATOR Ot N18.9 CHRONIC KIDNEY DISEASE, UNSPECIFIED 08/21/2017 BAIMA, LAQUITA L STUFFING MACHINE OPERATOR Ot R00.1 BRADYCARDIA, UNSPECIFIED 08/21/2017 BAIMA, LAQUITA L STUFFING MACHINE OPERATOR Ot Z95.0 PRESENCE OF CARDIAC PACEMAKER 08/21/2017 BAIMA, LAQUITA L STUFFING MACHINE OPERATOR Ot E78.5 HYPERLIPIDEMIA, UNSPECIFIED 08/21/2017 BAIMA, LAQUITA L STUFFING MACHINE OPERATOR Ot I10 ESSENTIAL (PRIMARY) HYPERTENSION 08/21/2017 BAIMA, LAQUITA L STUFFING MACHINE OPERATOR Ot I25.10 ATHSCL HEART DISEASE OF [place] CORONARY 08/21/2017 BAIMA, LAQUITA L STUFFING MACHINE OPERATOR Ot N18.9 CHRONIC KIDNEY DISEASE, UNSPECIFIED 08/21/2017 BAIMA, LAQUITA L STUFFING MACHINE OPERATOR Ot R00.1 BRADYCARDIA, UNSPECIFIED 08/21/2017 BAIMA, LAQUITA L STUFFING MACHINE OPERATOR Ot Z95.0 PRESENCE OF CARDIAC PACEMAKER 08/21/2017 ANAYELI SANCHEZ FACC, DENITA OJEDAP CCDS Ot E78.4 OTHER HYPERLIPIDEMIA 08/21/2017 ANAYELI SANCHEZ FACC, ALI FACP CCDS Ot 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 08/21/2017 ANAYELI MD FACC, ALI FACP CCDS Ot I25.10 ATHSCL HEART DISEASE OF [place] CORONARY 08/21/2017 ANAYELI MD FACC, ALI FACP CCDS Ot I65.23 OCCLUSION AND STENOSIS OF BILATERAL [place] 08/21/2017 ANAYELI MD FACC, ALI FACP CCDS Ot N18.9 CHRONIC KIDNEY DISEASE, UNSPECIFIED 08/21/2017 ANAYELI MD FACC, ALI FACP CCDS Ot R07.89 OTHER CHEST PAIN 08/21/2017 ANAYELI MD FACC, ALI FACP CCDS Ot Z95.0 PRESENCE OF CARDIAC PACEMAKER 08/21/2017 ANAYELI MD FACC, ALI FACP CCDS Ot E78.4 OTHER HYPERLIPIDEMIA 08/21/2017 ANAYELI MD FACC, ALI FACP CCDS Ot 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 08/21/2017 ANAYELI MD FACC, ALI FACP CCDS Ot I25.10 ATHSCL HEART DISEASE OF [place] CORONARY 08/21/2017 ANAYELI MD FACC, ALI FACP CCDS Ot I65.23 OCCLUSION AND STENOSIS OF BILATERAL [place] 08/21/2017 ANAYELI MD FACC, ALI FACP CCDS Ot 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 08/21/2017 ANAYELI FACC, ALI FACP CCDS Ot N18.9 CHRONIC KIDNEY DISEASE, UNSPECIFIED 08/21/2017 ANAYELI MD FACC, ALI FACP CCDS Ot Z95.0 PRESENCE OF CARDIAC PACEMAKER 08/21/2017 NEHA MOURA APRN Ot M25.552 PAIN IN LEFT HIP 08/21/2017 NEHA MOURA APRN Ot W19.XXXA UNSPECIFIED FALL, [...] culture - 07/28/17 10:46 Bacterial urine culture [id number] NRG COLONY COUNT 10,000/ML - 100,000/ML NRG FTX;REPORTABLE SENSITIVITY REPORTED [id number], 4-04-06 NRG URINE CULTURE RESULTS PLUS NR [...] culture YES NRG Bacterial urine culture - 08/19/17 15:08 Bacterial urine culture [id number] NRG COLONY COUNT 10,000/ML - 100,000/ML NRG FTX;REPORTABLE STUDIES TO FOLLOW NR Bacterial susceptibility panel - 08/19/17 15:08 Gentamicin susceptibility test by minimum inhibitory concentration S NRG Vancomycin susceptibility test by minimum inhibitory concentration 1 NRG Levofloxacin susceptibility test by minimum inhibitory concentration 0.5 NRG Tetracycline susceptibility test by minimum inhibitory concentration >= NRG Ampicillin susceptibility test by minimum inhibitory concentration < = NRG Nitrofurantoin susceptibility test by minimum inhibitory concentration <= NRG Linezolid susceptibility test by minimum inhibitory concentration 2 NRG Encounters ACCT No. Visit Date/Time Discharge Status Pt. Type Provider Facility Loc./Unit Complaint [id number] 08/19/2017 13:59:00 08/19/2017 16:17:00 DIS Emergency CRISSY GURROLA APRN Via [facility] ER WEAK, WON'T EAT [id number] 08/14/2017 12:28:00 08/14/2017 16:40:00 DIS Emergency GELY AVILEZ MD [facility] ER WEAKNESS [id number] 08/13/2017 09:02:00 08/13/2017 23:59:59 CLS Outpatient NEHA MOURA ELIZABETH [facility] RAD LEFT HIP PAIN [id number] 07/28/2017 12:07:00 07/29/2017 13:30:00 DIS Inpatient GELY AVILEZ MD [facility] ICU CHEST PAIN [id number] 01/18/2017 00:30:00 01/18/2017 23:59:59 CLS Preadmit CARINA COTTON MD [facility] ONC [id number] 11/12/2016 08:50:00 01/17/2017 00:01:00 DIS Outpatient CARINA COTTON MD [facility] ONC [id number] 12/22/2016 07:36:00 12/22/2016 09:03:00 DIS Emergency JIMENA MENENDEZ MD [facility] ER RT ARM ABRASION FALL [id number] 12/09/2016 11:00:00 12/09/2016 23:59:59 CLS Preadmit ANAYELI SANCHEZ FACC, ALI FACP [facility]; SICK SINUS SYNDROME [id number] 12/09/2016 08:41:00 12/09/2016 17:45:00 DIS Outpatient LAQUITA SYLVESTER [facility] CATH END OF LIFE PACEMAKER,SICK SINUS SYNDROME [id number] 11/20/2016 06:59:00 11/20/2016 23:59:59 CLS Outpatient ANAYELI SANCHEZ FACC, ALI FACP CCDS [facility] LAB I25.10 I65.23 N18.9 [id number] 11/18/2016 09:00:00 11/18/2016 23:59:59 CLS Preadmit CARINA COTTON MD [facility] RAD MELANOMA [id number] 06/17/2016 07:16:00 06/17/2016 23:59:59 CLS Outpatient ANAYELI SANCHEZ FACC, ALI FACP CCDS [facility] CARD CHEST DISCOMFORT,CAD,CAROTID ARTERIAL DISEASE,CKD [id number] 06/06/2016 18:13:00 06/06/2016 19:30:00 DIS Emergency NORAH HENRIQUEZ DO [facility] ER CP [id number] 01/14/2016 10:44:00 01/15/2016 13:00:00 DIS Inpatient GELY AVILEZ MD [facility] 4TH CHEST PAIN DEHYDRATION [id number] 11/07/2015 08:39:00 11/07/2015 23:59:59 CLS Outpatient BAILAQUITA HERNANDEZ L STUFFING MACHINE OPERATOR [facility] CARD CAD; HYPERLIPIDEMIA ; HTN; SINUS BRADYCARDIA [id number] 10/18/2015 11:30:00 10/18/2015 23:59:59 CLS Outpatient LAQUITA SYLVESTER L STUFFING MACHINE OPERATOR [facility] LAB CAD,HYPERLIPIDEMIA, HTN,CKD, CARDIAC PACEMAKER [id number] 10/12/2015 09:11:00 10/12/2015 12:29:00 DIS Emergency MITCHELL DIMAS MD [facility] ER CHEST PAIN [id number] 02/15/2014 09:53:00 02/17/2014 13:00:00 DIS Inpatient ARASH SANCHEZ, MITCHELL Ordoñez [facility] 4TH PNEUMONIA SYNCOPE CHEST PAIN EDEMA FLUID OVERLOAD [id number] 01/02/2014 12:55:00 01/02/2014 23:59:59 CLS Outpatient LAQUITA SYLVESTER STUFFING MACHINE OPERATOR [facility] CARD BRADYCARDIA,HLP, PACEMAKER [id number] 12/19/2013 17:53:00 12/19/2013 20:05:00 DIS Emergency JIMENA MENENDEZ MD [facility] ER VOMITING BLOOD [id number] 08/11/2013 06:00:00 08/11/2013 10:25:00 DIS Outpatient TEA STEVENS DO [facility] SDC LESION LEFT FOREARM [id number] 08/08/2013 13:20:00 08/08/2013 23:59:59 CLS Outpatient [id number] 07/23/2013 17:56:00 07/23/2013 18:49:00 DIS Emergency [id number] 04/16/2013 09:29:00 04/16/2013 12:15:00 DIS Emergency MARTINEZNORAH Amezquita DO [facility] ER CHEST PAIN, SOA [id number] 01/14/2016 12:08:00 Document Registration [id number] 06/08/2014 16:12:00 Document Registration [id number] 06/08/2014 16:12:00 Document Registration [id number] 06/08/2014 16:12:00 Document Registration [id number] 05/11/2014 04:01:00 Document Registration [id number] 03/08/2012 12:47:00 Document Registration [id number] 01/08/2012 06:48:00 Document Registration [id number] 01/23/2011 05:48:00 Document Registration [id number] 06/23/2010 07:23:00 Document Registration [id number] 06/18/2010 12:15:00 Document Registration [id number] 06/17/2010 08:48:00 Document Registration [id number] 06/12/2010 13:06:00 Document Registration [id number] 02/28/2010 05:43:00 Document Registration [id number] 02/27/2010 08:39:00 Document Registration [id number] 01/15/2010 07:04:00 Document Registration [id number] 10/15/2009 09:07:00 Document Registration [id number] 06/29/2009 06:03:00 Document Registration
--- NOTE | 2017-08-21 21:49 | ED Fall/Injury ---
General Chief Complaint: Trauma-Non Activation Stated Complaint: MULTIPLE FALLS Source: EMS Exam Limitations: other (PT IS SOMEWHAT CONFUSED AND UNABLE TO GIVE RELIABLE HISTORY) History of Present Illness Date Seen by Provider: August 21, 2017 Time Seen by Provider: 21:32 Initial Comments PT ARRIVES VIA EMS FROM [facility] PT FELL AT 1900, WHILE GETTING INTO BED, STAFF WERE IN ROOM WITH PT AT THE TIME- -NO APPARENT INJURY AT THAT TIME PT HAD AN UNWITNESSED FALL IN THE BATHROOM AROUND 2100 TONIGHT--AND PT WAS FOUND PRONE ON THE FLOOR ON EMS ARRIVAL AT SCENE. PT C/O LOWER BACK PAIN--BUT REPORTEDLY IS A CHRONIC PROBLEM PT ALSO C/O CHEST PAIN, WHICH IS ALSO A CHRONIC PROBLEM--REPORTEDLY SINCE HE HAD HIS PACEMAKER PLACED AND HAD CABG DONE MANY YEARS AGO. PT HAS C/O RIGHT FLANK PAIN TO EMS PT IS CONFUSED, AND WAS REPORTED TO EMS THAT PT IS NORMALLY ALERT AND ORIENTED. ONLY ORIENTED TO PERSON, PLACE AND MONTH FOR EMS. PT WAS ADMITTED HERE 07/28-07/29 FOR CHEST PAIN SEEN IN ER 08/14/17 FOR REPORTED ESOPHAGEAL FOREIGN BODY. 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 GUADALUPE ALSO GOES TO [facility] [place] Allergies and Home Medications Allergies Coded Allergies: No Known Drug Allergies (Verified , 02/15/14) Home Medications Acetaminophen 500 Mg Tablet, 1,000 MG PO 0530, (Reported) TAKES 2 (500MG) TABLETS Acetaminophen 500 Mg Tablet, 1,000 MG PO Q4H PRN for PAIN-MILD, (Reported) TAKES 2 (500MG) TABLETS Acetaminophen 500 Mg Tablet, 1,000 MG PO 1300,2000, (Reported) TAKES 2 (500MG) TABLETS Alprazolam 0.5 Mg Tablet, 0.5 MG PO TID, (Reported) Amlodipine Besylate 5 Mg Tablet, 5 MG PO DAILY Prescribed by: MARY JOHNSTON on 07/29/17 1140 Aspirin 81 Mg Candace.dr 81 MG PO 0530, (Reported) Dextromethorphan HBr 15 Mg/5 Ml Liquid, 5 ML PO Q4H PRN for COUGH, (Reported) Diphenhydramine HCl 25 Mg Tablet, 12.5 MG PO HS, (Reported) Fluticasone Propionate 16 Gm Occidental.susp, 2 SPRAYS NS DAILY PRN for CONGESTION/ ALLERGY, (Reported) Folic Acid 0.4 Mg Tablet, 0.4 MG PO HS, (Reported) Lisinopril 40 Mg Tablet, 20 MG PO 0530, (Reported) TAKES 1/2 (40MG) TABLET Loperamide HCl 2 Mg Tablet, 2 MG PO UD PRN for LOOSE STOOLS, (Reported) Magnesium Hydroxide 400 Mg/5 Ml Oral.susp, 15 ML PO DAILY PRN for CONSTIPATION- 7TH LINE, (Reported) Pantoprazole Sodium 20 Mg Tablet.dr, 20 MG PO 0530, (Reported) Simvastatin 20 Mg Tablet, 20 MG PO HS, (Reported) Sulfamethoxazole/Trimethoprim 1 Each Tablet, 1 EACH PO BID Prescribed by: CRISSY GURROLA on 08/19/17 2003 Patient Home Medication List Home Medication List Reviewed: Yes Review of Systems Constitutional: other (PT UNABLE TO GIVE ANY RELEVANT INFORMATION) Cardiovascular: see HPI Genitourinary: see HPI, other (PT WITH CONSTANT "DRIBBLING" OF URINE AND CONSTANT URGE TO URINATE, BUT UNABLE TO ACTUALLY VOID. INCONTINENT OF URINE) Musculoskeletal: see HPI Psychiatric/Neurological: See HPI Past Dnsxrid-Fwsgfm-Upujjw Hx Patient Social History Alcohol Use: Past History (HISTORY OF ABUSE, NONE FOR YEARS) Recreational Drug Use: No Smoking Status: Former Smoker (4 PPD, PLUS CIGARS--QUIT) Former Smoker, Quit: Dec 09, 1980 2nd Hand Smoke Exposure: No Recent Hopitalizations: No Immunizations Up To Date Date of Pneumonia Vaccine: Jan 19, 2012 Date of Influenza Vaccine: Mar 01, 2014 Seasonal Allergies Seasonal Allergies: No Past Medical History Surgeries: Yes (HIATAL HERNIA REPAIR; REMOVAL OF SKIN CANCER ON ARM, REMOVAL OF CUTANEOUS HORN ON SCALP; 3 VESSEL CABG) Abdominal, Cardiac, CABG, Pacemaker Respiratory: Yes (RECENT DX WITH MULTIPLE PULMONARY NODULES, SUSPECTED METASTATIC DISEASE) Pneumonia, COPD (SUSPECTED, FROM PRIOR TOBACCO USE) Cardiac: Yes (CHRONIC CHEST PAIN/CHEST WALL PAIN --SINCE CABG AND PACEMAKER PLACEMENT--PAIN OVER STERNOTOMY SCAR; CHF) Chronic Edema/Swelling, Coronary Artery Disease, Heart Attack, High Cholesterol , Hypertension, Irregular Heartbeat Neurological: Yes (PT HAS HAD SOME MILD DEMENTIA SYMPTOMS SINCE AT LEAST 2013, PER OLD RECORDS, BUT PT HAS NOT BEEN OFFICIALLY DX WITH DEMENTIA) Dementia Reproductive Disorders: No Sexually Transmitted Disease: No HIV/AIDS: No Genitourinary: No Gastrointestinal: Yes (HIATAL HERNIA) Hiatal Hernia, Irritable Bowel Musculoskeletal: Yes Arthritis, Chronic Back Pain Endocrine: No HEENT: Yes (EDENTULOUS) Loss of Vision: Denies Hearing Impairment: Hard of Hearing Cancer: Yes (SQUAMOUS CELL LESION REMOVED FROM FOREARM--CLEAR MARGINS 07/2013) Skin Did You Recieve Any Treatments: Yes What Type of Treatment Did You: Surgical Intervention Psychosocial: Yes Anxiety Integumentary: No Blood Disorders: No Adverse Reaction/Blood Tranf: No Family Medical History No Pertinent Family Hx Physical Exam Vital Signs Vital Signs - First Documented Capillary Refill : General Appearance: WD/WN, no apparent distress HEENT: PERRL/EOMI, normal ENT inspection, other (EDENTULOUS) Neck: normal inspection Cardiovascular: bradycardia, systolic murmur (2/6) Respiratory: normal breath sounds, no respiratory distress, no accessory muscle use, other (BUT DIMINISHED IN RIGHT LOWER LUNG MCDANIEL) Gastrointestinal: non tender, soft Back: no CVA tenderness, no vertebral tenderness Extremities: normal capillary refill, pedal edema (1+ BILATERALLY) Neurologic/Psychiatric: no motor/sensory deficits (GROSSLY INTACT), alert (BUT SEEMS SOMEWHAT DROWSY--KEEPS EYES CLOSED), other (CONFUSED CONVERSATION AT TIMES. ORIENTED TO PERSON, PLACE, BUT DISORIENTED TO TIME AND SITUATION AND HAS VERY POOR MEMORY, AND UNABLE TO STATE ANY EVENTS OF TONIGHT. MOSTLY UNABLE TO ANSWER ANY QUESTIONS. ) Skin: normal color, warm/dry, other (NO EXTERNAL EVIDENCE OF TRAUMA. ) Progress/Results/Core Measures Results/Orders Lab Results Laboratory Tests Test 08/21/17 22:00 Range/Units White Blood Count 3.8 L 4.3-11.0 10^3/uL Red Blood Count 3.32 L 4.35-5.85 10^6/uL Hemoglobin 11.7 L 13.3-17.7 G/DL Hematocrit 35 L 40-54 % Mean Corpuscular Volume 105 H 80-99 FL Mean Corpuscular Hemoglobin 35 H 25-34 PG Mean Corpuscular Hemoglobin Concent 34 32-36 G/DL Red Cell Distribution Width 14.3 10.0-14.5 % Platelet Count 107 L 130-400 10^3/uL Mean Platelet Volume 9.6 7.4-10.4 FL Neutrophils (%) (Auto) 49 42-75 % Lymphocytes (%) (Auto) 40 12-44 % Monocytes (%) (Auto) 8 0-12 % Eosinophils (%) (Auto) 2 0-10 % Basophils (%) (Auto) 0 0-10 % Neutrophils # (Auto) 1.9 1.8-7.8 X 10^3 Lymphocytes # (Auto) 1.5 1.0-4.0 X 10^3 Monocytes # (Auto) 0.3 0.0-1.0 X 10^3 Eosinophils # (Auto) 0.1 0.0-0.3 10^3/uL Basophils # (Auto) 0.0 0.0-0.1 10^3/uL Prothrombin Time 14.1 12.2-14.7 SEC INR Comment 1.1 0.8-1.4 Activated Partial Thromboplast Time 39 H 24-35 SEC Sodium Level 143 135-145 MMOL/L Potassium Level 3.8 3.6-5.0 MMOL/L Chloride Level 110 H 98-107 MMOL/L Carbon Dioxide Level 23 21-32 MMOL/L Anion Gap 10 5-14 MMOL/L Blood Urea Nitrogen 20 H 7-18 MG/DL Creatinine 1.01 0.60-1.30 MG/DL Estimat Glomerular Filtration Rate > 60 BUN/Creatinine Ratio 20 Glucose Level 102 70-105 MG/DL Calcium Level 8.9 8.5-10.1 MG/DL Magnesium Level 2.0 1.8-2.4 MG/DL Total Bilirubin 0.6 0.1-1.0 MG/DL Aspartate Amino Transf (AST/SGOT) 20 5-34 U/L Alanine Aminotransferase (ALT/SGPT) 16 0-55 U/L Alkaline Phosphatase 54 40-136 U/L Troponin I < 0.30 <0.30 NG/ML Total Protein 6.4 6.4-8.2 GM/DL Albumin 3.9 3.2-4.5 GM/DL TSH Sullivan Testing 2.58 0.35-4.94 UIU/ML My Orders Orders - MARTINEZ,NORAH K DO Saline Lock/Iv-Start (5/4/18 21:34) Ekg Tracing (08/21/17 21:34) O2 (08/21/17 21:34) Monitor-Rhythm Ecg Trace Only (08/21/17 21:34) Ct Head/Cervical Spine Wo (08/21/17 21:34) Ct Thoracic/Lumbar Spine Wo (08/21/17 21:34) Cbc With Automated Diff (08/21/17 21:34) Comprehensive Metabolic Panel (08/21/17 21:34) Magnesium (08/21/17 21:34) Protime With Inr (08/21/17 21:34) Partial Thromboplastin Time (08/21/17 21:34) Thyroid Analyzer (08/21/17 21:34) Troponin I (08/21/17 21:34) Ua Culture If Indicated (08/21/17 21:34) Chest 1 View, Ap/Pa Only (08/21/17 21:34) Pelvis (08/21/17 21:34) Ct Chest/Abdomen/Pelvis W (08/21/17 21:36) Catheter(Urinary) Insert & Ass 03,15 (08/21/17 21:43) Vital Signs/I&O 08/21/17 08/21/17 21:32 21:32 Temp 97.8 97.8 Pulse 64 64 Resp 16 16 B/P (MAP) 138/85 138/85 (102) Pulse Ox 96 96 O2 Delivery Room Air Room Air Progress Progress Note : Progress Note REVIEWED URINE CULTURE RESULTS FROM 08/217--ENTEROCOCCUS FEACALIS-- SENSITIVITIES NOTED, AND RESISTANCE TO CEPHALOSPORINS, TRIMETHOPRIM/ SULFAMETHOXAZOLE, CLINDAMYCIN AND AMINOGLYCOSIDES NOTED. WILL CHANGE ANTIBIOTIC TO LEVAQUIN. NO DETERIORATION IN PT'S CONDITION DURING ER STAY Initial ECG Impression Date: August 21, 2017 Initial ECG Impression Time: 21:54 Initial ECG Rate: 60 Comment 100 % DUAL PACED Diagnostic Imaging Comments CXR-- CHRONIC CHANGES WITH ELEVATED RIGHT DIAPHRAGM, PENDING RADIOLOGIST REVIEW CT HEAD/CERVICAL SPINE--EXTENSIVE SUBCORTICAL AND DEEP WHITE MATTER HYPOATTENUATION IN RIGHT FRONTAL AND TEMPORAL LOBES AND RIGHT BASAL GANGLIA, WITH ASSOCIATED MASS EFFECT ON RIGHT LATERAL VENTRICLE WITH MIDLINE SHIFT OF 9 MM TO LEFT. FINDINGS INDICATIVE OF VASOGENIC EDEMA, SUSPICIOUS FOR UNDERLYING MASS. NO INTRACRANIAL BLEED. CERVICAL SPINE WITH MULTILEVEL DEGENERATIVE CHANGES PER [facility] VIA FAX @ 2719 CT CHEST/ABDOMEN/PELVIS--MULTIPLE MASSES IN BOTH LUNGS, WITH MEDIASTINAL AND HILAR LYMPHADENOPATHY, CONSISTENT WITH METASTATIC DISEASE. SIGMOID DIVERTICULAR DISEASE. COMPRESSION FRACTURE L2--CHRONIC. NO ACUTE PROCESSES--PER [facility] VIA FAX @ 2778 CT THORACIC/LUMBAR SPINE--CHRONIC L2 COMPRESSION FRACTURE, DEGENERATIVE DISC DISEASE, NO ACUTE PROCESS --PER [facility] VIA FAX @ 2641 Reviewed: Reviewed by Me Departure Communication (Admissions) Family Conversation DISCUSSED WITH FAMILY MEMBERS, THE VERY POOR PROGNOSIS OF PT'S CONDITION. ALSO DISCUSSED THAT FAMILY SHOULD START CONSIDERING HOSPICE CARE, THEY AGREE THAT HE WOULD NOT WANT ANY AGGRESSIVE TREATMENT, AND DO NOT THINK HE WOULD TOLERATE IT, GIVEN HIS AGE AND CO-MORBIDITIES THEY REPORT THAT HE DOES NOT HAVE A DPOA OR ADVANCE DIRECTIVES 2199--SPOKE WITH DR. 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 Referrals: ALEKSANDAR SMALLWOOD MD (PCP/Family) Primary Care Physician NORAH HENRIQUEZ DO August 21, 2017 21:49
[2017-08-21 22:14] LABS: BILIRUBIN,URINE NEGATIVE (NEGATIVE); CLARITY,URINE CLEAR; COLOR,URINE YELLOW; GLUCOSE, URINE (UA) NEGATIVE (NEGATIVE); KETONES,URINE NEGATIVE (NEGATIVE); LEUKOCYTE ESTERASE ,URINE 2+ (NEGATIVE); NITRITE,URINE NEGATIVE (NEGATIVE); PH,URINE 6.5 (5-9); PROTEIN,URINE 2+ (NEGATIVE); UROBILINOGEN,URINE 12 MG/DL (NORMAL)
[2017-08-21 22:15] LABS: BASOPHILS % (AUTO) 0 % (0-10); EOSINOPHILS # (AUTO) 0.1 10^3/uL (0.0-0.3); EOSINOPHILS % (AUTO) 2 % (0-10); HEMATOCRIT 35 % (40-54); HEMOGLOBIN 11.7 G/DL (13.3-17.7); LYMPHOCYTES # (AUTO) 1.5 X 10^3 (1.0-4.0); LYMPHOCYTES % (AUTO) 40 % (12-44); MEAN CORPUSCULAR HEMOGLOBIN 35 PG (25-34); MEAN CORPUSCULAR HGB CONC 34 G/DL (32-36); MEAN CORPUSCULAR VOLUME 105 FL (80-99); MEAN PLATELET VOLUME 9.6 FL (7.4-10.4); MONOCYTES # (AUTO) 0.3 X 10^3 (0.0-1.0); MONOCYTES % (AUTO) 8 % (0-12); NEUTROPHILS # (AUTO) 1.9 X 10^3 (1.8-7.8); NEUTROPHILS % (AUTO) 49 % (42-75); PLATELET COUNT 107 10^3/uL (130-400); RED BLOOD COUNT 3.32 10^6/uL (4.35-5.85); RED CELL DISTRIBUTION WIDTH 14.3 % (10.0-14.5); WHITE BLOOD COUNT 3.8 10^3/uL (4.3-11.0)
[2017-08-21 22:25] LABS: BACTERIA,URINE TRACE /HPF; SQUAMOUS EPITHELIAL CELL,UR 0-2 /HPF
[2017-08-21 22:30] LABS: INR 1.1 (0.8-1.4); PROTHROMBIN TIME PATIENT 14.1 SEC (12.2-14.7)
[2017-08-21 22:32] LABS: ALANINE AMINOTRANSFERASE 16 U/L (0-55); ALBUMIN 3.9 GM/DL (3.2-4.5); ALKALINE PHOSPHATASE 54 U/L (40-136); BILIRUBIN,TOTAL 0.6 MG/DL (0.1-1.0); BUN/CREATININE RATIO 20; CALCIUM 8.9 MG/DL (8.5-10.1); CARBON DIOXIDE 23 MMOL/L (21-32); CHLORIDE 110 MMOL/L (98-107); CREATININE SERUM 1.01 MG/DL (0.60-1.30); GFR ESTIMATED > 60; GLUCOSE 102 MG/DL (70-105); POTASSIUM 3.8 MMOL/L (3.6-5.0); SODIUM 143 MMOL/L (135-145); TOTAL PROTEIN 6.4 GM/DL (6.4-8.2)
[2017-08-21] MEDS ORDERED: IOHEXOL 350 MG/ML 100 ML (OMNIPAQUE 350) VIAL IV ONE (22:45)
[2017-08-21] MEDS ORDERED: NS 250 ML (IVPB) BAG IV ONE (22:45)
[2017-08-21 22:54] LABS: TSH (THYROID ANALYZER) 2.58 UIU/ML (0.35-4.94)
[2017-08-21] MEDS ORDERED: LEVOFLOXACIN 750 MG/150 ML IV 150 ML IV STA (22:55)
[2017-08-21] MEDS ORDERED: cefTRIAXone INJECTION 1,000 MG in NS (IVPB) 100 ML IV ONE (23:00)
[2017-08-22] VITALS (8 sets, daily range): BP systolic 127–173; BP diastolic 62–85
[2017-08-22] MEDS ORDERED: DEXAMETHASONE 4 MG/ML SDV (DECADRON) IV ONE (00:30)
[2017-08-22] MEDS ORDERED: D5 1/2 NS 1000 ML IV SOLUTION 1,000 ML IV SCH (01:30)
[2017-08-22] MEDS: DEXAMETHASONE 10 MG/ML (DECADRON) 1 ML VIAL IV SCH ×3 (05:57→16:31)
[2017-08-22 06:03] LABS: BASOPHILS % (AUTO) 0 % (0-10); EOSINOPHILS % (AUTO) 0 % (0-10); HEMATOCRIT 37 % (40-54); HEMOGLOBIN 12.8 G/DL (13.3-17.7); LYMPHOCYTES # (AUTO) 0.7 X 10^3 (1.0-4.0); LYMPHOCYTES % (AUTO) 16 % (12-44); MEAN CORPUSCULAR HEMOGLOBIN 36 PG (25-34); MEAN CORPUSCULAR HGB CONC 35 G/DL (32-36); MEAN CORPUSCULAR VOLUME 103 FL (80-99); MEAN PLATELET VOLUME 10.4 FL (7.4-10.4); MONOCYTES # (AUTO) 0.1 X 10^3 (0.0-1.0); MONOCYTES % (AUTO) 2 % (0-12); NEUTROPHILS # (AUTO) 3.5 X 10^3 (1.8-7.8); NEUTROPHILS % (AUTO) 82 % (42-75); PLATELET COUNT 98 10^3/uL (130-400); RED BLOOD COUNT 3.56 10^6/uL (4.35-5.85); RED CELL DISTRIBUTION WIDTH 13.9 % (10.0-14.5); WHITE BLOOD COUNT 4.3 10^3/uL (4.3-11.0)
[2017-08-22 06:30] LABS: BUN/CREATININE RATIO 16; CALCIUM 9.1 MG/DL (8.5-10.1); CARBON DIOXIDE 22 MMOL/L (21-32); CHLORIDE 110 MMOL/L (98-107); CREATININE SERUM 0.92 MG/DL (0.60-1.30); GFR ESTIMATED > 60; GLUCOSE 132 MG/DL (70-105); SODIUM 140 MMOL/L (135-145)
--- NOTE | 2017-08-22 07:35 | Diagnostic Imaging Report ---
PROCEDURE: CT head and CT cervical spine without contrast. TECHNIQUE: Multiple contiguous axial images were obtained through the brain and cervical spine without the use of intravenous contrast. Sagittal and coronal reformations through the cervical spine were then performed. INDICATION: Multiple falls over the last few days, with head and neck injury Comparison: Head CT from 05/06/2009 Findings: CT head: The ventricles and cortical sulci are diffusely prominent. There is extensive hypoattenuation in the right frontal lobe, extending into the basal ganglia and right temporal lobe. This is predominantly in the white matter, but extends to the cortex as well. This causes approximately 7 mm of leftward midline shift. No acute intracranial hemorrhage is seen. The calvarium appears intact. The paranasal sinuses are unremarkable. CT cervical spine: No acute fracture or dislocation is seen in the cervical spine. Alignment appears normal. There are mild degenerative changes at C4-5 and C5-6. No bony fragments or hyperdense fluid collections are seen in the spinal canal. The prevertebral and paraspinal soft tissues are unremarkable. There is a nodular density in the right lung apex. The soft tissues of the neck are otherwise unremarkable. Impression: 1. Large area of hypoattenuation in the right frontal lobe, basal ganglia and right temporal lobe causing approximately 7 mm of leftward midline shift. Findings are concerning for neoplastic process, however MRI with and without contrast is recommended. Underlying ischemia is thought less likely, but not excluded. 2. No acute intracranial hemorrhage is seen. 3. Generalized parenchymal volume loss. 4. Mild degenerative changes in the cervical spine with no acute osseous abnormality seen. 5. Nodular density in the right lung apex, please refer to subsequent CT of the chest. Dictated by: Dictated on workstation # [id number]
--- NOTE | 2017-08-22 07:45 | Diagnostic Imaging Report ---
PATIENT HISTORY: Multiple recent falls, back pain. TECHNIQUE: Axial noncontrast CT of the thoracic and lumbar spine with coronal reformats. Sagittal reformats seen on the concurrent CT of the chest, abdomen and pelvis COMPARISON: None FINDINGS: There is exaggerated kyphosis of the thoracic spine. There is mild left convex curvature of the thoracolumbar spine centered at L1-2. There is mild grade 1 anterolisthesis of L4 on L5. There is a compression deformity of the L2 vertebral body, which appears likely chronic. There are mild multilevel degenerative changes present. There is approximately 40% height loss. No definite acute fractures seen in the thoracic or lumbar spine. No bony fragments or hyperdense fluid collections are seen in the spinal canal. No paraspinous masses are seen. For findings of the chest, abdomen and pelvis, please refer to the concurrent CT. IMPRESSION: 1. Degenerative changes in the thoracolumbar spine, with stable compression deformity of L2. This appears most likely chronic. No definite acute fractures are seen. Dictated by: Dictated on workstation # [id number]
--- NOTE | 2017-08-22 07:48 | Diagnostic Imaging Report ---
Indication: Fall, chest pain. Comparison: CT chest performed earlier same day. Findings: Ill-defined pulmonary nodule in the right apex. Left-sided pulmonary nodules are not well seen by portable radiography. Asymmetric elevation of the right hemidiaphragm. No pleural effusion or pneumothorax. Stable marked cardiomegaly with left pectoral transvenous pacemaker in place. Impression: 1. No evidence of acute traumatic injury in the chest by portable radiography. 2. Multifocal pulmonary nodules are better evaluated by recent CT chest. Dictated by: Dictated on workstation # [id number]
--- NOTE | 2017-08-22 07:50 | Diagnostic Imaging Report ---
INDICATION: Trauma. COMPARISON: CT abdomen and pelvis performed earlier the same day. FINDINGS: Single AP view of the pelvis demonstrates no displaced fracture or traumatic malalignment. Contrast is seen in the colon and collecting system from prior examinations. Degenerative changes in the lower lumbar facets. IMPRESSION: 1. No acute fracture or traumatic malalignment in the pelvis. Dictated by: Dictated on workstation # [id number]
--- NOTE | 2017-08-22 07:55 | Diagnostic Imaging Report ---
PROCEDURE: CT chest, abdomen, and pelvis with contrast. TECHNIQUE: Multiple contiguous axial images were obtained through the chest, abdomen, and pelvis after the administration of intravenous contrast. INDICATION: Multiple recent falls with injuries. Comparison: CT from 08/19/2017. CT from 08/14/2017. Findings: CT chest: The heart is mildly enlarged. Pacemaker leads are noted. No pericardial effusion is seen. The aorta demonstrates mild atherosclerosis. There are scattered mediastinal lymph nodes which are mildly enlarged, one lies adjacent to the right main pulmonary artery measuring 1.4 cm in the short axis (image 20 series 2). Calcified lymph nodes are present as well. There is a 1.4 cm nodule in the right upper lobe near the apex, which is similar compared to the prior study. There is a 1.4 cm nodule in the left lower lobe, which also appears similar to the prior study. There is a left hilar mass measuring 2 cm in diameter, which appears similar. Groundglass opacities are seen in the lungs bilaterally, mostly in the dependent levels, may represent atelectasis or edema. Additional smaller nodules are seen scattered throughout the lungs. No pleural effusion or pneumothorax is seen. CT abdomen pelvis: No focal hepatic lesions are seen. The liver has an abnormal contour on the right, may be from prior surgery. Splenic granulomas are noted. The pancreas is mildly atrophic but otherwise unremarkable. A small splenule is noted. The adrenal glands appear normal. The right kidney is mildly atrophic but otherwise unremarkable. The left kidney demonstrates a simple appearing cyst superiorly, but no acute findings are seen. The bowel loops are nondistended without evidence of obstruction. Contrast is seen in the colon. There is diverticulosis of the sigmoid colon without diverticulitis seen. There is a moderate hiatal hernia. No free air or free fluid is seen. Cruz catheter is present in the bladder, with complete decompression of the bladder. There is a stable compression deformity of L2, which appears unchanged. Scattered lucencies about the right hips are thought to be chronic or degenerative, although a metastatic lesion is difficult to exclude. Impression: 1. Multiple pulmonary nodules in the lungs bilaterally, with mediastinal lymphadenopathy concerning for metastatic disease. 2. No acute abdominopelvic abnormality is seen. Dictated by: Dictated on workstation # [id number]
--- NOTE | 2017-08-22 09:51 | History & Physical-Hospitalist ---
History of Present Illness HPI/Chief Complaint Pt is an 86yoCM with a PMH of melanoma, CAD s/p CABG and recent diagnosis of metastatic disease in the lungs with unknown primary who presented to the ER with CC of AMS s/p fall. He was here in the ER 2 days ago for abd pain and a CT of his abdomen incidentally revealed lung mets. He was DC home with diagnosis of UTI on Bactrim to follow up with his PCP. Last night he suffered 2 falls at his assisted living facility and was confused so was brought to the ER for evaluation. He had an unremarkable trauma evaluation but CT head revealed a large mass with significant edema. He and his family were informed of this and he declined neurosurgical evaluation and has requested hospice. He was admitted for his AMS. Review of his urine culture from his original ER visit revealed enterococcus resistant to Bactrim so he was started on Levaquin. He denies any complaints at this time and his only request is from scrambled eggs and to go home. Source: patient, family Date Seen 08/22/17 Time Seen by Provider: 09:40 Attending Physician Katy Batres MD PCP Nadeem Garcia MD Referring Physician Date of Admission August 21, 2017 at 10:00 pm Home Medications & Allergies Home Medications Reviewed patient Home Medication Reconciliation performed by pharmacy medication reconciliations greenhouse technician and/or nursing. Patients Allergies have been reviewed. Allergies Allergies Coded Allergies No Known Drug Allergies (Wjwofywe03/29/14) Past Xdzwyyv-Dkgmag-Niowqa Hx Past Med/Social Hx: Reviewed Nursing Past Med/Soc Hx Patient Social History Employed/Student: retired Alcohol Use: Past History (HISTORY OF ABUSE, NONE FOR YEARS) Recreational Drug Use: No Smoking Status: Former Smoker (4 PPD, PLUS CIGARS--QUIT) Former Smoker, Quit: Dec 09, 1980 2nd Hand Smoke Exposure: No Physical Abuse Screen: No Sexual Abuse: No Recent Foreign Travel: No Contact w/other who traveled: No Recent Hopitalizations: No Recent Infectious Disease Expo: No Immunizations Up To Date Date of Pneumonia Vaccine: Jan 19, 2012 Date of Influenza Vaccine: Mar 01, 2014 Seasonal Allergies Seasonal Allergies: No Past Medical History Surgeries: Abdominal, Cardiac, CABG, Pacemaker Cardiac: Chronic Edema/Swelling, Coronary Artery Disease, Heart Attack, High Cholesterol, Hypertension, Irregular Heartbeat Neurological: Dementia Reproductive: No Sexually Transmitted Disease: No HIV/AIDS: No Gastrointestinal: Hiatal Hernia, Irritable Bowel Musculoskeletal: Arthritis, Chronic Back Pain Loss of Vision: Denies Hearing Impairment: Hard of Hearing Cancer: Skin (melanoma) Did You Recieve Any Treatments: Yes What Type of Treatment Did You: Surgical Intervention Psychosocial: Anxiety History of Blood Disorders: No Adverse Reaction to Blood [place]: No Family History Reviewed Nursing Family Hx No Pertinent Family Hx Review of Systems Constitutional: no symptoms reported EENTM: no symptoms reported Respiratory: no symptoms reported Cardiovascular: no symptoms reported Gastrointestinal: no symptoms reported Genitourinary: no symptoms reported Musculoskeletal: no symptoms reported Skin: no symptoms reported Psychiatric/Neurological: No Symptoms Reported, Other (confusion) Physical Exam Physical Exam Vital Signs Vital Signs - First Documented Capillary Refill : Less Than 3 Seconds General Appearance: No Apparent Distress, WD/WN HEENT: PERRL/EOMI, Moist Mucous Membranes Neck: Non Tender, Supple Respiratory: Lungs Clear, No Respiratory Distress Cardiovascular: Regular Rate, Rhythm, No Murmur Gastrointestinal: Normal Bowel Sounds, Non Tender, Soft Genital/Rectal: Other (allen in place) Extremity: Normal Capillary Refill, No Calf Tenderness Neurologic/Psychiatric: Alert, Oriented x3, Normal Mood/Affect Skin: Normal Color, Warm/Dry Results Results/Procedures Labs Laboratory Tests 08/21/17 22:00 08/22/17 05:20 Patient resulted labs reviewed. Imaging: Reviewed Imaging Films, Reviewed Imaging Report Assessment/Plan Admission Diagnosis Altered Mental Status Admission Status: Inpatient Order (span 2 midnights) Reason for Inpatient Admission: failed outpatient management Diagnosis/Problems Diagnosis/Problems (1) Altered mental status Status: Acute Assessment & Plan: Improving s/p fall and underwent trauma eval- unremarkable Likely multifactorial to UTI and Brain mass Continue abx Continue to monitor Qualifiers: Altered mental status type: delirium Qualified Codes: R41.0 - Disorientation, unspecified (2) UTI (urinary tract infection) Assessment & Plan: Continue of Levaquin per sensitivities from original ER visit Await blood and urine culture from this visit Qualifiers: Urinary tract infection type: acute cystitis Hematuria presence: with hematuria Qualified Codes: N30.01 - Acute cystitis with hematuria (3) Multiple falls Status: Acute Assessment & Plan: PT/OT consulted (4) Brain mass Assessment & Plan: Discussed with patient and daughter concerns with brain mass and edema with lung mets and history of melanoma Patient declines any treatment including chemo, radiation, and surgery Interested in hospice as he states " I just want to go home to my friends" Family would like to meet with [facility] I have called to arrange for evaluation (5) CAD (coronary artery disease) Status: Acute Assessment & Plan: s/p CABG Will hold ASA given head CT findings, falls, and concern for bleed Has pacemaker- deactivation will need to be coordinated with hospice as an outpatient Qualifiers: Coronary Disease-Associated Artery/Lesion type: [place] artery [place] vs. transplanted heart: [place] heart Associated angina: without angina Qualified Codes: I25.10 - Atherosclerotic heart disease of [place] coronary artery without angina pectoris Clinical Quality Measures DVT/VTE Risk/Contraindication: Risk Factor Score Per Nursin RFS Level Per Nursing on Admit: 4+=Very High KATY BATRES MD August 22, 2017 09:51
[2017-08-22] MEDS ORDERED: ANTACID SUSP 30 ML UDC (MYLANTA) PO PRN (10:15)
[2017-08-22] MEDS ORDERED: MELATONIN 3 MG TABLET PO PRN (10:15)
[2017-08-22] MEDS ORDERED: MILK OF MAGNESIA 400 MG/5 ML 30 ML UDC PO PRN (10:15)
[2017-08-22] MEDS ORDERED: BENZONATATE 100 MG (TESSALON) CAPSULE PO PRN (10:15)
[2017-08-22] MEDS ORDERED: BISACODYL 10 MG SUPP (DULCOLAX) PR PRN (10:15)
[2017-08-22] MEDS ORDERED: ACETAMINOPHEN 500 MG TAB (TYLENOL) PO PRN (10:15)
[2017-08-22] MEDS ORDERED: ACETAMINOPHEN 325 MG TABLET/CAPLET (TYLENOL) PO PRN (10:30)
--- NOTE | 2017-08-22 11:16 | Occupational Therapy Eval ---
OT Evaluation-General/PLF Medical Diagnosis Admission Date August 21, 2017 at 22:00 Medical Diagnosis: sepsis, UTI, falls Onset Date: August 21, 2017 Therapy Diagnosis Therapy Diagnosis: decreased self care skills Height/Weight Height (Feet): 5 Height (Inches): 7.00 Weight (Pounds): 167 Weight (Ounces): 0.2 Precautions Precautions/Isolations: Fall Prevention, Standard Precautions Safety Interventions: Bed Exit Alarm Referral Physician: Giesl Medical History Pertinent Medical History: CABG, CAD, Dementia, HTN Additional Medical History melanoma, high cholesterol, chronic edema, irregular heartbeat, arthritis, chronic back pain, anxiety,brain mass, mets to lungs Reviewed History: Yes Social History Home: Assisted Living ADL-Prior Level of Function ADL PLOF Comments Pt states he is normally able to walk with 4WW, but has had falls recently. Pt states he can feed himself, complete grooming, and has been up to get up to restroom without assist, but he has assist for bathing and dressing. OT Current Status Subjective Pt sitting in chair with daughter present. Pt reports 6/10 pain in left hip. Pt states he would like to participate in therapy. Mental Status/Objective Patient Orientation: Person Current Glasses/Contacts: Yes Dentures/Partials: No Hand Dominance: Right Upper Extremity ROM Decreased shoulder ROM, but remainder grossly WFL Upper Extremity Coordination Decreased Upper Extremity Sensation Intact per pt report Upper Extremity Strength decreased bilateral UE ADL-Treatment ADL-Current UE assessment completed while seated. Daughter states she assisted pt to eat breakfast secondary to placement of IV in arm. Pt sit to stand with moderate assistance and cues for hand placement. Pt has decreased balance in standing with FWW. Returned to chair with assist for safety. Education provided regarding role of OT. Pt states understanding of education and states he wants to be able to get around well enough to return to [facility]. Pt sitting in chair with needs met and daughter present after session. Functional [place] Measure 0=Not Assessed/NA 4=Minimal Assistance 1=Total Assistance 5=Supervision or Setup 2=Maximal Assistance 6=Modified [place] 3=Moderate Assistance 7=Complete IndependenceIRFPAI Quality Coding Scale 6 Independent with activity with or without an assistive device 5 Patient requires set up or clean up by helper. Patient completes activity by themselves 4 Supervision or touching assist (CGA). [place] provide cues , steadying assist 3 The helper provides less than half the effort to complete the activity 2 The helper provides more than half the effort to complete the activity 1 Dependent. The helper does all the effort to complete an activity 7 Patient refused to complete or attempt activity 9 The patient did not perform the activity before the current illness or injury 88 Not attempted due to Medical conditions or safety concerns Eating (FIM): 2 Toilet/Commode Transfer (FIM): 3 Education OT Patient Education: Rehab process Teaching Recipient: Patient Teaching Methods: Discussion Response to Teaching: Verbalize Understanding OT Short Term Goals Short Term Goals 1=Demonstrate adherence to instructed precautions during ADL tasks. 2=Patient will verbalize/demonstrate understanding of assistive devices/ modifications for ADL. 3=Patient will improve strength/tolerance for activity to enable patient to perform ADL's. OT Merchandising Manager Goals Merchandising Manager Goals Time Frame: September 05, 2017 Eating (FIM): 5 Grooming(FIM): 5 Toileting(FIM): 5 Toilet/Commode Transfer(FIM): 5 1=Demonstrate adherence to instructed precautions during ADL tasks. 2=Patient will verbalize/demonstrate understanding of assistive devices/ modifications for ADL. 3=Patient will improve strength/tolerance for activity to enable patient to perform ADL's. OT Education/Plan Problem List/Assessment Assessment: Decreased Activ Tolerance, Decreased UE Strength, Dependent Transfers, Impaired Coordination, Impaired Funct Balance, Impaired Self-Care Skills Pt demonstrates decreased mobility, strength, and ADL functioning. Pt states he has been able to get up with 4WW and get to restroom by himself at [facility] and his goal is to be able to continue this. Pt to benefit from skilled OT intervention to increase functional performance and allow safe discharge. Discharge Recommendations Plan/Recommendations: Continue POC Treatment Plan/Plan of Care Treatment,Training & Education: Yes Patient would benefit from OT for education, treatment and training to promote independence in ADL's, mobility, safety and/or upper extremity function for ADL' s. Plan of Care: ADL Retraining, Functional Mobility, UE Funct Exercise/Act Treatment Duration: September 05, 2017 Frequency: 5 times per week Estimated Hrs Per Day: .25 hour per day Rehab Potential: Fair Time/GCodes Start Time: 10:48 Stop Time: 11:06 Total Time Billed (hr/min): 18 Billed Treatment Time 1 visit, FAIZAN(18minutes) ELIZABETH JOHNSON OT August 22, 2017 11:16
--- NOTE | 2017-08-22 11:42 | Physical Therapy Evaluation ---
PT Evaluation-General Medical Diagnosis Admission Date August 21, 2017 at 22:00 Medical Diagnosis: sepsis, UTI, falls Onset Date: August 21, 2017 Therapy Diagnosis Therapy Diagnosis: difficulty walking Height/Weight Height (Feet): 5 Height (Inches): 7.00 Weight (Pounds): 167 Weight (Ounces): 0.2 Precautions Precautions/Isolations: Fall Prevention, Standard Precautions Weight Bear Status Right Lower Extremity: Right Weight Bearing/Tolerated Left Lower Extremity: Left Weight Bearing/Tolerated Referral Physician: Gisel Reason for Referral: Evaluation/Treatment Medical History Pertinent Medical History: CABG, CAD, Dementia, HTN Reviewed History: Yes Social History Home: Assisted Living Prior/Core FIM Prior Level of Function Functional [place] Measure 0=Not Assessed/NA 4=Minimal Assistance 1=Total Assistance 5=Supervision or Setup 2=Maximal Assistance 6=Modified [place] 3=Moderate Assistance 7=Complete [place] Bed Mobility: 7 Transfers (B,C,W/C) (FIM): 7 Gait: 6 Locomotion: 6 PT Evaluation-Current Subjective States that he wants to go home. Pain Numeric Pain Scale: 8 Location: Left Location Body Site: Hip Objective Patient Orientation: Person, Place, Time ROM/Strength ROM Upper Extremities WFL ROM Lower Extremities WFL Strength Lower Extremities 4+/5 Sensory Hand Dominance: Right Transfers Functional [place] Measure 0=Not Assessed/NA 4=Minimal Assistance 1=Total Assistance 5=Supervision or Setup 2=Maximal Assistance 6=Modified [place] 3=Moderate Assistance 7=Complete [place] Transfers (B, C, W/C) (FIM): 5 Sit to/from Stand: 5 Gait Mode of Locomotion: Walk Anticipated Mode of Locomotion: Walk Gait (FIM): 1 Distance (FIM): 1=up to 49 ft Distance: 1' Gait Level of Assist: 4 Gait Persons Needed: 1 Gait Assistive Device: FWW Assessment/Needs Rehab Potential: Guarded PT Short Term Goals Short Term Goals Time Frame: August 29, 2017 Transfers (B,C,W/C) (FIM): 6 Gait (FIM): 5 Distance (FIM): 3=150 ft Gait Level of Assist: 5 Gait Assistive Device: FWW PT Paint Roller Assembler Goals Nursing Home Goals PT Nursing Home Goals Time Frame: September 05, 2017 Transfers (B,C,W/C) (FIM): 7 Gait (FIM): 6 Gait distance (FIM): 3=150 ft Distance: 300' Gait Level of Assist: 6 Gait Assistive Device: FWW PT Plan Problem List Problem List: Activity Tolerance, Functional Strength, Safety, Balance, Gait, Transfer, Bed Mobility Treatment/Plan Treatment Plan: Continue Plan of Care Treatment Plan: Bed Mobility, Functional Activity [place], Functional Strength, Group Therapy, Gait, Safety, Therapeutic Exercise, Transfers Treatment Duration: September 05, 2017 Frequency: 6 times per week Estimated Hrs Per Day: .5 hour per day Patient and/or Family Agrees t: Yes Time/GCodes Time In: 1115 Time Out: 1135 Total Billed Treatment Time: 20 Total Billed Treatment 1, Evaluation of moderate complexity x 20' GEORGE BURROUGHS PT August 22, 2017 11:42
[2017-08-22] MEDS: LEVOFLOXACIN 750 MG/D5W 150 ML (PRE-MIX) IV SCH (23:07)
[2017-08-23] VITALS: BP 133/60
[2017-08-23 08:30] VITALS: BP 167/76
[2017-08-23] MEDS ORDERED: SULF1TAB35 PO (13:30)
--- NOTE | 2017-08-23 13:32 | Progress Note-Hospitalist ---
Subjective HPI/CC On Admission Date Seen by Provider: August 23, 2017 Time Seen by Provider: 13:26 Pt is an 86yoCM with a PMH of melanoma, CAD s/p CABG and recent diagnosis of metastatic disease in the lungs with unknown primary who presented to the ER with CC of AMS s/p fall. He was here in the ER 2 days ago for abd pain and a CT of his abdomen incidentally revealed lung mets. He was DC home with diagnosis of UTI on Bactrim to follow up with his PCP. Last night he suffered 2 falls at his assisted living facility and was confused so was brought to the ER for evaluation. He had an unremarkable trauma evaluation but CT head revealed a large mass with significant edema. He and his family were informed of this and he declined neurosurgical evaluation and has requested hospice. He was admitted for his AMS. Review of his urine culture from his original ER visit revealed enterococcus resistant to Bactrim so he was started on Levaquin. He denies any complaints at this time and his only request is from scrambled eggs and to go home. Subjective/Events-last exam Pt is laying in bed and appears comfortable. No complaints. Would like to sleep. He is unsure if they spoke with hospice yesterday or not. Focused Exam Lactate Level 08/21/17 23:00: Lactic Acid Level 0.82 Objective Exam Vital Signs Vital Signs Date Time Temp Pulse Resp B/P (MAP) Pulse Ox O2 Delivery O2 Flow Rate FiO2 08/23/17 09:00 Room Air 08/23/17 08:30 98.9 69 18 167/76 (106) 96 Capillary Refill : Less Than 3 Seconds General Appearance: No Apparent Distress, WD/WN Respiratory: Lungs Clear, No Respiratory Distress Cardiovascular: Regular Rate, Rhythm, No Murmur Gastrointestinal: Normal Bowel Sounds, Non Tender, Soft Neurologic/Psychiatric: Alert, Other (oriented to self and place) Results/Procedures Lab Patient resulted labs reviewed. Imaging: Reviewed Imaging Films, Reviewed Imaging Report Assessment/Plan Assessment and Plan Assess & Plan/Chief Complaint Brain mass Diagnosis/Problems Diagnosis/Problems (1) Altered mental status Status: Acute Assessment & Plan: Improving s/p fall and underwent trauma eval- unremarkable Likely multifactorial to UTI and Brain mass Continue abx Continue to monitor Qualifiers: Altered mental status type: delirium Qualified Codes: R41.0 - Disorientation, unspecified (2) UTI (urinary tract infection) Assessment & Plan: Continue of Levaquin per sensitivities Qualifiers: Urinary tract infection type: acute cystitis Hematuria presence: with hematuria Qualified Codes: N30.01 - Acute cystitis with hematuria (3) Multiple falls Status: Acute Assessment & Plan: PT/OT consulted (4) Brain mass Assessment & Plan: Discussed with patient and daughter concerns with brain mass and edema with lung mets and history of melanoma Patient declines any treatment including chemo, radiation, and surgery Interested in hospice as he states " I just want to go home to my friends" Family would like to meet with [facility] I have called to arrange for evaluation (5) CAD (coronary artery disease) Status: Acute Assessment & Plan: s/p CABG Will hold ASA given head CT findings, falls, and concern for bleed Has pacemaker- deactivation will need to be coordinated with hospice as an outpatient Qualifiers: Coronary Disease-Associated Artery/Lesion type: [place] artery [place] vs. transplanted heart: [place] heart Associated angina: without angina Qualified Codes: I25.10 - Atherosclerotic heart disease of [place] coronary artery without angina pectoris Clinical Quality Measures DVT/VTE Risk/Contraindication: Risk Factor Score Per Nursin RFS Level Per Nursing on Admit: 4+=Very High KATY BUSTOS MD August 23, 2017 1:32 pm
[2017-08-23] MEDS: ONDANSETRON 4 MG/2 ML (SDV) Z0FRAN IV PRN ×2 (14:54→22:00)
[2017-08-23 16:00] VITALS: BP 146/63
[2017-08-23] MEDS ORDERED: PROMETHAZINE INJ 25 MG/ML (PHENERGAN) AMP ONE (23:15)
[2017-08-23] MEDS: LEVOFLOXACIN 750 MG/D5W 150 ML (PRE-MIX) IV SCH (23:27)
[2017-08-23] MEDS ORDERED: PROMETHAZINE INJ 25 MG/ML (PHENERGAN) AMP IVP PRN (23:30)
[2017-08-23] MEDS: DEXAMETHASONE 10 MG/ML (DECADRON) 1 ML VIAL IV SCH (23:59)
[2017-08-24] MEDS ORDERED: SCOPOLAMINE 1.5 MG (TRANSDERM-SCOP) PATCH TOP SCH
[2017-08-24 00:55] VITALS: BP 122/60
[2017-08-24] MEDS: DEXAMETHASONE 10 MG/ML (DECADRON) 1 ML VIAL IV SCH ×4 (05:47→23:59)
[2017-08-24 08:30] VITALS: BP 121/68
--- NOTE | 2017-08-24 11:42 | Physical Therapy Progress Note ---
Therapy Progress Note Patient is alert and in bed with family present. Patient declined PT intervention on this date. Per family report, patient will dismiss to fdc on hospice. PT to dismiss patient from services at this time. 1 visit RIANA ARAGON PT August 24, 2017 11:42
--- NOTE | 2017-08-24 12:18 | Progress Note-Hospitalist ---
Progress Note Progress Notes/Assess & Plan Date Seen 08/24/17 Time Seen by Provider: 12:13 Assessment & Plan The patient's an 86-year-old white male known to me from previous contacts. He recently had been diagnosed as having a metastatic carcinoma of unknown origin. On his previous emergency room visits he had a CT of the abdomen which also detail multiple pulmonary nodules. He was brought to the emergency room on the date of admission because of several falls at the assisted living facility. CT of the head showed a large metastatic lesion there. He has appropriately declined any further workup and is not interested in any treatment modalities. It is his wish to go to a detention specifically [facility] where he has a friend in residence. Physical exam: He is totally naked when I entered the room. He is quite tremulous and feeling with his Cruz catheter. His lungs are clear to auscultation. A pacemaker is noted in the left subclavicular area. CV is regular without murmur. Extremities showed no pedal edema. 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 Comment: Dr. Koenig informed me that there was a history of a melanoma having been removed in the undefined past. 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 I am not clear that there is a confirmed removal of a melanoma and no family members in the room. Plan: Arrangements are being made to transfer to nursing facility on hospice status. Focused Exam Lactate Level 08/21/17 23:00: Lactic Acid Level 0.82 GELY AVILEZ MD August 24, 2017 12:18
--- NOTE | 2017-08-24 15:11 | Occupational Ther Daily Note ---
OT Current Status-Daily Note Subjective Pt alert, lying in bed. Family present in room. Pt stated that he would work with [facility] until he didn't want to. Mental Status/Objective Functional [place] Measure 0=Not Assessed/NA 4=Minimal Assistance 1=Total Assistance 5=Supervision or Setup 2=Maximal Assistance 6=Modified [place] 3=Moderate Assistance 7=Complete [place] Other Treatment Pt completed 5 B shldr flexion against gravity and then refused to complete anymore exercises. Family encouraged pt to complete. Palliative care nrsg came into room. Pt possibly discharging tomorrow. After therapy, pt lying in bed with call light/phone in reach. Family present in room. All needs met in room. OT Short Term Goals Short Term Goals Transfers (B,C,W/C) (FIM): 6 1=Demonstrate adherence to instructed precautions during ADL tasks. 2=Patient will verbalize/demonstrate understanding of assistive devices/ modifications for ADL. 3=Patient will improve strength/tolerance for activity to enable patient to perform ADL's. OT Long-Term Goals Long-Term Goals Time Frame: September 05, 2017 Eating (FIM): 5 Grooming(FIM): 5 Toileting(FIM): 5 Toilet/Commode Transfer(FIM): 5 1=Demonstrate adherence to instructed precautions during ADL tasks. 2=Patient will verbalize/demonstrate understanding of assistive devices/ modifications for ADL. 3=Patient will improve strength/tolerance for activity to enable patient to perform ADL's. OT Education/Plan Problem List/Assessment Pt demonstrates decreased mobility, strength, and ADL functioning. Pt states he has been able to get up with 4WW and get to restroom by himself at [facility] and his goal is to be able to continue this. Pt to benefit from skilled OT intervention to increase functional performance and allow safe discharge. Discharge Recommendations Plan/Recommendations: Continue POC Treatment Plan/Plan of Care Patient would benefit from OT for education, treatment and training to promote independence in ADL's, mobility, safety and/or upper extremity function for ADL' s. Plan of Care: ADL Retraining, Functional Mobility, UE Funct Exercise/Act Treatment Duration: September 05, 2017 Frequency: 5 times per week Estimated Hrs Per Day: .25 hour per day Rehab Potential: Guarded Time/GCodes Start Time: 15:00 Stop Time: 15:08 Total Time Billed (hr/min): 8 Billed Treatment Time 1 visit-EX 1 (8 min) ALONSO DURANT August 24, 2017 15:11
[2017-08-24 15:40] VITALS: BP 144/68
[2017-08-24] MEDS: LEVOFLOXACIN 750 MG/D5W 150 ML (PRE-MIX) IV SCH (22:25)
[2017-08-25] VITALS: BP 114/65
[2017-08-25] MEDS: DEXAMETHASONE 10 MG/ML (DECADRON) 1 ML VIAL IV SCH (05:11)
[2017-08-25 08:00] VITALS: BP 159/69
--- NOTE | 2017-08-25 09:48 | Progress Note-Hospitalist ---
Progress Note Progress Notes/Assess & Plan Date Seen 08/25/17 Time Seen by Provider: 09:45 Assessment & Plan The patient's daughter is in the room. Arrangements have been made and he will be transferred to [facility] today. I reassured them that the correct decision had been made in selecting comfort care as his age and general debility and multiorgan system involvement with cancer of an undetermined origin made the likelihood of any attempt to biopsy of this and then consider treatment cruel and unusual. The patient has somewhat slurred speech but he endorses this course as well. Vital signs are stable. Physical exam: He is alert and takes part in the discussion. Lungs are clear to auscultation. CV is regular. Extremities show at tremulous activity but no swelling. 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 Plan: Transfer to [facility]. See discharge sequence for medications and activities. GELY AVILEZ MD August 25, 2017 09:48
[2017-08-25] MEDS ORDERED: MORP100S3 PO (09:56)
[2017-08-25] MEDS ORDERED: SCOPOLAMINE (10:02)
[2017-08-25] MEDS ORDERED: LORA2ORA PO (10:02)
[2017-08-25] MEDS ORDERED: SCOP1PAT11 TD (10:02)
[2017-08-25] MEDS ORDERED: LORA-405 SL (10:02)
[2017-08-25 12:00] VITALS: BP 159/69
--- NOTE | 2017-09-09 14:39 | Discharge Summary-Hospitalist ---
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 2.primary unknown. (1) Altered mental status Status: Acute Assessment & Plan: Improving s/p fall and underwent trauma eval- unremarkable Likely multifactorial to UTI and Brain mass Continue abx Continue to monitor (2) UTI (urinary tract infection) Assessment & Plan: Continue of Levaquin per sensitivities (3) Multiple falls Status: Acute Assessment & Plan: PT/OT consulted (4) Brain mass Assessment & Plan: Discussed with patient and daughter concerns with brain mass and edema with lung mets and history of melanoma Patient declines any treatment including chemo, radiation, and surgery Interested in hospice as he states " I just want to go home to my friends" Family would like to meet with [facility] hospice I have called to arrange for evaluation (5) CAD (coronary artery disease) Status: Acute Assessment & Plan: s/p CABG Will hold ASA given head CT findings, falls, and concern for bleed Has pacemaker- deactivation will need to be coordinated with hospice as an outpatient Discharge Summary Discharge Physical Exam Allergies: Coded Allergies: No Known Drug Allergies (Verified , 02/15/14) General Appearance: Alert, Other (speech slurred) Hospital Course The patient is known to me from previous visit. He was admitted at this time because of apparently acute onset of confusion. CT scan showed a lesion compatible with a metastasis in the brain. The primary is unknown. He has had skin cancers removed in the past. Cell types are not known. He has made it very clear that he wishes no attempt at surgery or radiation or chemotherapy. He has a friend who is a resident at [facility] and wishes to spend whatever days he has left there with a friend. This seems to be a perfectly reasonable approach. His condition is stable but terminal. See the discharge materials for his activities and medications. Labs (last 24 hrs) Microbiology 08/21/17 Blood Culture - Final, Complete No growth 08/21/17 Urine Culture - Final, Complete Enterococcus faecalis Patient resulted labs reviewed. Imaging: Reviewed Imaging Films, Reviewed Imaging Report Discussion & Recommendations Discharge Planning: >30 minutes discharge planning Discharge Home Medications: Active Scripts Active Transderm-Scop (Scopolamine) 1 Each Patch.td72 1 Each TD EVERY 72 HOURS [sCOPOLAMINE] Ativan (Lorazepam) 1 Mg Tablet 1 Mg SL Q2H PRN Lorazepam Intensol (Lorazepam) 2 Mg/1 Ml Oral.conc 2 Mg PO Q2H PRN Morphine Sulfate Concentrate 20mg/ml (Morphine Sulfate) 100 Mg/5 Ml Solution 2 Mg PO Q2H PRN Reported Tylenol Extra Strength (Acetaminophen) 500 Mg Tablet 1,000 Mg PO 1300,2000 TAKES 2 (500MG) TABLETS Xanax (Alprazolam) 0.5 Mg Tablet 0.5 Mg PO TID Tylenol Extra Strength (Acetaminophen) 500 Mg Tablet 1,000 Mg PO Q4H PRN TAKES 2 (500MG) TABLETS Benadryl Allergy (Diphenhydramine HCl) 25 Mg Tablet 12.5 Mg PO HS Tylenol Extra Strength (Acetaminophen) 500 Mg Tablet 1,000 Mg PO 0530 TAKES 2 (500MG) TABLETS Instructions to patient/family Please see electronic discharge instructions given to patient. Clinical Quality Measures DVT/VTE Risk/Contraindication: Risk Factor Score Per Nursin RFS Level Per Nursing on Admit: 4+=Very High Problem Qualifiers (1) Altered mental status: Altered mental status type: delirium Qualified Codes: R41.0 - Disorientation , unspecified (2) UTI (urinary tract infection): Urinary tract infection type: acute cystitis Hematuria presence: with hematuria Qualified Codes: N30.01 - Acute cystitis with hematuria (3) CAD (coronary artery disease): Coronary Disease-Associated Artery/Lesion type: [place] artery [place] vs. transplanted heart: [place] heart Associated angina: without angina Qualified Codes: I25.10 - Atherosclerotic heart disease of [place] coronary artery without angina pectoris GELY AVILEZ MD September 09, 2017 14:39
== END 2017-08-25 12:00 | disposition hospice, inpatient (51) | DRG 54 ==
LOC: EDUNIT# 21:33 → ER 21:34 → 4TH 22:00
PROVIDERS: ADMIT Family Medicine; ATTEND Family Medicine
DX: D49.6 Neoplasm of unspecified behavior of brain (principal); G93.6 Cerebral edema; N30.01 Acute cystitis with hematuria; C78.01 Secondary malignant neoplasm of right lung; C78.02 Secondary malignant neoplasm of left lung; B95.2 Enterococcus as the cause of diseases classified elsewhere; C80.1 Malignant (primary) neoplasm, unspecified; R41.0 Disorientation, unspecified; Z66 Do not resuscitate; R29.6 Repeated falls; R00.1 Bradycardia, unspecified; F03.90 Unspecified dementia, unspecified severity, without behavioral disturbance, psychotic disturbance, mood disturbance, and anxiety; K58.9 Irritable bowel syndrome, unspecified; J44.9 Chronic obstructive pulmonary disease, unspecified; I25.2 Old myocardial infarction; I25.10 Atherosclerotic heart disease of native coronary artery without angina pectoris; I10 Essential (primary) hypertension; E78.00 Pure hypercholesterolemia, unspecified; M19.91 Primary osteoarthritis, unspecified site; M54.9 Dorsalgia, unspecified; R07.89 Other chest pain; F41.9 Anxiety disorder, unspecified; H91.90 Unspecified hearing loss, unspecified ear; Z87.891 Personal history of nicotine dependence; Z95.0 Presence of cardiac pacemaker; Z95.1 Presence of aortocoronary bypass graft; Z85.820 Personal history of malignant melanoma of skin; Z86.79 Personal history of other diseases of the circulatory system
CPT/HCPCS: 36415; 51702; 70450; 71045; 71046; 71260; 72125; 72128; 72131; 72170; 74177; 80048; 80053; 81000; 83605; 83690; 83735; 84443; 84484; 85025; 85610; 85730; 87040; 87077; 87088; 87186; 93005; 93041; 96365; 96374; 96375